=== PATIENT | female | born 1995 | race Caucasian/White ===

== ENCOUNTER 2022-10-03 10:33 | Emergency (ER) | payer SELFPAY ==
[2022-10-03 10:35] VITALS: BP 119/89; PULSE 72; RESP 18; TEMP 36.6; O2SAT 98; BMI 29.2
--- NOTE | 2022-10-03 10:47 | ED.EAR1 ---
HPI - Ear Problem General Chief complaint: Ear Stated complaint: EARACHE Time Seen by Provider: 10/03/22 10:38 Source: patient Mode of arrival: walk-in Limitations: no limitations History of Present Illness HPI Narrative: [age] female presents for right ear pain. She's had it for five days. She went to an urgent care that day and she was put on Cortisporin and Zithromax. She finished Zithromax. It's not getting better. No sore throat or left ear pain. The pain is moderate and continuous and she has difficulty hearing out of that ear. Related Data Home Medications Medication Instructions Recorded Confirmed No Known Home Medications 10/03/22 10/03/22 Previous Rx's Medication Instructions Recorded ciprofloxacin 0.3 %-dexamethasone 4 drp otic (ear) BID 7 days #7.5 mL 10/03/22 0.1 % ear drops,suspension (Ciprodex) sulfamethoxazole 800 1 tab PO BID 7 days #14 tabs 10/03/22 mg-trimethoprim 160 mg tablet (Bactrim DS) Allergies Allergy/AdvReac Type Severity Reaction Status Date / Time amoxicillin Allergy Intermediate Verified 10/03/22 10:39 Review of Systems ROS Narrative A ten point review of systems is negative except as noted above. Exam Narrative Exam Narrative: Nurses note and vital signs reviewed and patient is not hypoxic. General: The patient appears well and in no apparent distress. Patient is resting comfortably on cart. Skin: Warm, dry, no pallor noted. There is no rash noted. Head: Normocephalic, atraumatic Eye: Normal conjunctiva, no drainage Ears, Nose, Mouth, and Throat: oral mucosa is moist. Nares patent. left tympanic membrane and neck show canal are normal in appearance. The right external canal is swollen obscuring the right tympanic membrane and there is drainage as well. Cardiovascular: Regular Rate and Rhythm Respiratory: Patient is in no distress, no accessory muscle use, lungs are clear to auscultation, no wheezing, rales or rhonchi Back: non-tender GI: nontender Musculoskeletal: The patient has no evidence of calf tenderness, no pitting edema, symmetrical pulses noted bilaterally Neurological: A&O, normal speech Psychiatric: Cooperative Constitutional Vital Signs - 24 hr 10/03/22 10:35 Temperature 97.9 F Pulse Rate [Monitor] 72 Respiratory Rate 18 Blood Pressure [Right Arm] 119/89 H Pulse Oximetry 98 Oxygen Delivery Method Room Air Course Vital Signs Vital signs: Vital Signs Temperature 97.9 F 10/03/22 10:35 Pulse Rate 72 10/03/22 10:35 Respiratory Rate 18 10/03/22 10:35 Blood Pressure 119/89 H 10/03/22 10:35 Pulse Oximetry 98 10/03/22 10:35 Oxygen Delivery Method Room Air 10/03/22 10:35 Temperature 97.9 F 10/03/22 10:35 Pulse Rate 72 10/03/22 10:35 Respiratory Rate 18 10/03/22 10:35 Blood Pressure 119/89 H 10/03/22 10:35 Pulse Oximetry 98 10/03/22 10:35 Oxygen Delivery Method Room Air 10/03/22 10:35 Medical Decision Making MDM Narrative Medical decision making narrative: my clinical impressions that she has otitis externa. She will be switched to Ciprodex and Bactrim. The tympanic membrane is not visible so I'm putting her on Bactrim as well. Treatment diagnosis and follow-up were discussed with the patient. Differential Diagnosis Differential Diagnosis: otitis media, otitis externa, foreign body Discharge Plan Discharge Chief Complaint: Ear Clinical Impression: Otitis externa Patient Disposition: Home, Self-Care Time of Disposition Decision: 10:44 Condition: Good Mode of Transportation: Private Vehicle Prescriptions / Home Meds: New ciprofloxacin-dexamethasone [Ciprodex] 0.3-0.1 % drops,suspension 4 drp otic (ear) BID 7 Days Qty: 7.5 0RF sulfamethoxazole-trimethoprim [Bactrim DS] 800-160 mg tablet 1 tab PO BID 7 Days Qty: 14 0RF No Action No Known Home Medications Instructions: Swimmer's Ear (ED) Stand Alone Forms: Portal Instructions Referrals: SID REYES [Primary Care Provider] - 1 week
== END 2022-10-03 11:23 | disposition home or self-care (01) ==
PROVIDERS: Emergency Provider Emergency Medicine; PCP Family Medicine
DX: H60.91 Unspecified otitis externa, right ear (principal)
CPT/HCPCS: 99282

== ENCOUNTER 2024-01-16 15:49 | Emergency (ER) | payer OTHER, SELFPAY ==
[2024-01-16 15:53] VITALS: BP 142/80; PULSE 102; TEMP 36.7; O2SAT 100; BMI 29.2
--- NOTE | 2024-01-16 16:06 | ECG_ITS ---
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
--- NOTE | 2024-01-16 16:08 | ED_ITS ---
<Statement entered by Kenny Sanches MD - 01/16/24 18:48> This documentation has been reviewed and approved. Chart was sent to my inbox for administrative and group management purposes. I was the attending physicians working during the patients hospital course. The patient was seen and managed independently by the MLP. I did not personally see or evaluate this patient, nor was I involved in the patient medical decision making process or plans of care. Pt was dispositioned by the MLP with complete independence and I was not involved in planning, or disposition. I was available for consultation should the MLP request during this patients ED stay. HPI - SOB/Dyspnea General Chief Complaint: Shortness of Breath/Dyspnea Stated Complaint: SOB, 20 WKS PREG FBC SAID TO BE SEEN ER Time Seen by Provider: 01/16/24 15:51 History of Present Illness HPI Narrative: Patient is a 28-year-old female who presents to the emergency department for evaluation of shortness of breath and palpitations that began yesterday. Patient states that she was sitting in class not moving or exerting herself when she felt like her heart was pounding and she felt very winded like she had just run a marathon. She is 20 weeks and was referred to the ER for evaluation by her senior warehouse clerk. She has not had any upper respiratory symptoms, peripheral edema, congestion or wheezing. She has no history of heart or lung problems. Related Data Home Medications ?Medication ?Instructions ?Recorded ?Confirmed ondansetron 8 mg disintegrating 8 mg PO Q8H PRN nausea and vomiting 01/16/24 01/16/24 tablet Previous Rx's ?Medication ?Instructions ?Recorded ciprofloxacin 0.3 %-dexamethasone 4 drp otic (ear) BID 7 days #7.5 mL 10/03/22 0.1 % ear drops,suspension (Ciprodex) sulfamethoxazole 800 1 tab PO BID 7 days #14 tabs 10/03/22 mg-trimethoprim 160 mg tablet (Bactrim DS) albuterol sulfate 90 mcg/actuation 2 inh inhalation Q4H PRN shortness 01/16/24 aerosol inhaler of breath or wheezing #8.5 grams Allergies Allergy/AdvReac Type Severity Reaction Status Date / Time amoxicillin Allergy Intermediate Hives Verified 01/16/24 15:59 PFSH PFSH Social History Little interest or pleasure in doing things: not at all Feeling down, depressed, or hopeless: not at all Exam Constitutional Vital Signs, click to edit/add: Last Vital Signs Temp 98.1 F 01/16/24 15:53 Pulse 102 H 01/16/24 15:53 Resp 18 01/16/24 15:53 BP 142/80 H 01/16/24 15:53 Pulse Ox 100 01/16/24 15:53 O2 Del Method Room Air 01/16/24 15:53 Course Vital Signs Vital signs: Vital Signs Temperature 98.1 F 01/16/24 15:53 Pulse Rate 102 H 01/16/24 15:53 Respiratory Rate 18 01/16/24 15:53 Blood Pressure 142/80 H 01/16/24 15:53 Pulse Oximetry 100 01/16/24 15:53 Oxygen Delivery Method Room Air 01/16/24 15:53 Temperature 98.1 F 01/16/24 15:53 Pulse Rate 102 H 01/16/24 15:53 Respiratory Rate 18 01/16/24 15:53 Blood Pressure 142/80 H 01/16/24 15:53 Pulse Oximetry 100 01/16/24 15:53 Oxygen Delivery Method Room Air 01/16/24 15:53 MDM - SOB/Dyspnea MDM Narrative Medical decision making narrative: Laboratory studies reviewed and noted, patient noted to have a normal troponin, unremarkable electrolytes. She was given IV fluids in the ER. I did discuss with her that given her lack of other symptoms in addition to moderate shortness of breath and palpitations, she should be ruled out for PE. Patient is in agreement with treatment plan to have CT angio of the chest, she understands the risks of radiation in her . She is agreeable to the study. CT angio of the chest shows no evidence of PE or pneumonia. Patient is discharged home to follow-up with PCP. She is given an albuterol inhaler in case she develops any wheezing. She should follow-up with her LIVESTOCK EXHIBITOR and primary care provider. Return to the ER if symptoms change or worsen SUPERVISED APC VISIT, PHYSICIAN ATTESTATION: Based on the medical record the care appears appropriate. ? Medical Records Attestation: I reviewed the patient's medical records. Lab Data Attestation: I reviewed the patient's lab results. Labs: Lab Results 01/16/24 01/16/24 Range/Units 16:04 16:58 WBC 9.4 (4.0-11.0) 10^3/uL RBC 4.35 (4.20-5.40) 10^6/uL Hgb 12.4 (12.0-16.0) g/dL Hct 36.7 (36.0-48.0) % MCV 84.4 (81.0-99.0) fL MCH 28.5 (26.7-34.0) pg MCHC 33.8 (29.9-35.2) g/dL RDW 12.7 (11.0-15.0) % Plt Count 260 (150-450) 10^3/uL MPV 10.8 (9.5-13.5) fL Neut % (Auto) 75.4 H (43.0-75.0) % Lymph % (Auto) 16.2 L (20.5-60.0) % [place] % (Auto) 4.7 (1.7-12.0) % Eos % (Auto) 3.0 (0.9-7.0) % Baso % (Auto) 0.3 (0.2-2.0) % Neut # (Auto) 7.1 H (1.4-6.5) 10^3/uL Lymph # (Auto) 1.5 (1.2-3.8) 10^3/uL [place] # (Auto) 0.4 (0.3-0.8) 10^3/uL Eos # (Auto) 0.3 (0.0-0.7) 10^3/uL Baso # (Auto) 0.0 (0.0-0.1) 10^3/uL Abs Immat Gran (auto) 0.04 H (0.00-0.03) 10^3/uL Imm/Tot Granulo (auto) 0.4 (0.0-0.5) % PT 9.6 (9.0-11.6) sec INR <0.93 APTT 26.2 (22.3-36.2) sec Sodium 135 L (136-145) mmol/L Potassium 3.4 L (3.5-5.1) mmol/L Chloride 103 (98-107) mmol/L Carbon Dioxide 22.2 (21.0-32.0) mmol/L Anion Gap 13.2 BUN 10.0 (7.0-18.0) mg/dL Creatinine 0.52 L (0.55-1.02) mg/dL Est GFR ( Amer) >60 (>=60 mL/min/1.73m^2) Est GFR (Non-Af Amer) >60 (>=60 mL/min/1.73m^2) BUN/Creatinine Ratio 19.2 Glucose 106 (74-106) mg/dL Calcium 8.7 (8.5-10.1) mg/dL Total Bilirubin 0.2 (0.2-1.0) mg/dL AST 14 L (15-37) U/L ALT 19 (14-59) U/L Alkaline Phosphatase 47 (46-116) U/L Troponin I High Sens <4.0 L (4.0-51.3) pg/mL NT-Pro-B Natriuret Pep 55.0 (<=450.0) pg/mL Total Protein 6.6 (6.4-8.2) g/dL Albumin 2.7 L (3.4-5.0) g/dL Globulin 3.9 g/dL Albumin/Globulin Ratio 0.7 TSH 2.007 (0.358-3.740) uIU/mL Urine Color Lt. yellow (YELLOW) Urine Clarity Clear (CLEAR) Urine pH 7.0 (5.0-9.0) Ur Specific [place] <=1.005 A (1.005-1.025) Urine Protein Negative (NEG/TRACE) mg/dL Urine Glucose (UA) Negative (NEGATIVE) mg/dL Urine Ketones Negative (NEGATIVE) mg/dL Urine Occult Blood Negative (NEGATIVE) Urine Nitrite Negative (NEGATIVE) Urine Bilirubin Negative (NEGATIVE) Urine Urobilinogen 0.2 (0.2-1.0) EU/dL Ur Leukocyte Esterase Negative (NEGATIVE) Imaging Data CT scan - chest: Attestation: I have reviewed the pertinent imaging results. Radiologist's impression: ITS Impressions Chest CTA 01/16/24 16:33 IMPRESSION:No evidence of pulmonary embolus or acute intrathoracic abnormality. Electronically authenticated by: LAURA HOLMAN Date: 01/16/2024 17:51 ECG Data Attestation: I personally reviewed and interpreted this ECG as follows: (Normal sinus rhythm at a rate of 91, no acute ST elevation or ectopy. EKG reviewed by attending physician) Discharge Plan Discharge Chief Complaint: Shortness of Breath/Dyspnea Clinical Impression: Shortness of breath Patient Disposition: Home, Self-Care Time of Disposition Decision: 17:57 Condition: Good Prescriptions / Home Meds: New albuterol sulfate 90 mcg/actuation HFA aerosol inhaler 2 inh inhalation Q4H PRN (Reason: shortness of breath or wheezing) Qty: 8.5 0RF No Action ciprofloxacin-dexamethasone [Ciprodex] 0.3-0.1 % drops,suspension 4 drp otic (ear) BID 7 Days Qty: 7.5 0RF sulfamethoxazole-trimethoprim [Bactrim DS] 800-160 mg tablet 1 tab PO BID 7 Days Qty: 14 0RF ondansetron 8 mg tablet,disintegrating 8 mg PO Q8H PRN (Reason: nausea and vomiting) Print Language: Dutch Instructions: Shortness of Breath (ED) Referrals: SID REYES [Primary Care Provider] - 1 week TOMER CARTER APRN, CNM [Physician] - 1 week
[2024-01-16] MEDS: 0.9 % SODIUM CHLORIDE 1,000 ML 1000 ML IV (16:19)
[2024-01-16 16:20] LABS: Basophils Percent Auto 0.3 % (0.2-2.0); Eosinophils Absolute Auto 0.3 10^3/uL (0.0-0.7); Hematocrit 36.7 % (36.0-48.0); Hemoglobin 12.4 g/dL (12.0-16.0); Immature Granulocytes Abs Auto 0.04 10^3/uL (0.00-0.03); Immature Granulocytes Pct Auto 0.4 % (0.0-0.5); Lymphocytes Absolute Auto 1.5 10^3/uL (1.2-3.8); Lymphocytes Percent Auto 16.2 % (20.5-60.0); Mean Corpuscular HGB Conc 33.8 g/dL (29.9-35.2); Mean Corpuscular Hemoglobin 28.5 pg (26.7-34.0); Mean Corpuscular Volume 84.4 fL (81.0-99.0); Mean Platelet Volume 10.8 fL (9.5-13.5); Monocytes Absolute Auto 0.4 10^3/uL (0.3-0.8); Monocytes Percent Auto 4.7 % (1.7-12.0); Neutrophils Absolute Auto 7.1 10^3/uL (1.4-6.5); Neutrophils Percent Auto 75.4 % (43.0-75.0); Platelet Count 260 10^3/uL (150-450); Red Blood Count 4.35 10^6/uL (4.20-5.40); Red Cell Distribution Width 12.7 % (11.0-15.0); White Blood Count 9.4 10^3/uL (4.0-11.0)
--- NOTE | 2024-01-16 16:33 | CT_ITS ---
[address] [address] Patient Name: SHEN SALES MRN: [id number] date: 1995 Sex: F Assigned Patient Location: ER Current Patient Location: ER Accession/Order Number: [id number] Exam Date: 01/16/2024 16:25 Report Date: 01/16/2024 17:51 At the request of: DEBRA CORRAL Procedure: CT angio chest EXAM: CT angio chest HISTORY: PE, short of breath 20 weeks preg COMPARISON: None. TECHNIQUE: CT chest with intravenous contrast was performed with timing for the evaluation for pulmonary arteries. Multiplanar reformats were performed. MIP (maximum intensity projection) images or 3D post processing was performed. Dose reduction techniques were achieved by using automated exposure control and/or adjustment of mA and/or kV according to patient size and/or use of iterative reconstruction technique. FINDINGS: Lungs: No consolidation, pneumothorax, mass, or effusion. Airways: Normal. Mediastinum: No adenopathy. Aorta: No aneurysm. Cardiac: Normal size. No pericardial effusion. Pulmonary vasculature: Diagnostic opacification of pulmonary arteries without evidence of pulmonary embolus. Normal morphology. Bones: No acute bony abnormality. Axilla: No adenopathy. Thyroid gland: No abnormality demonstrated on provided imaging. Soft tissues: Unremarkable. Upper abdomen: Unremarkable. Additional findings: None. CT/CT angio chest IMPRESSION:No evidence of pulmonary embolus or acute intrathoracic abnormality. Electronically authenticated by: LAURA HOLMAN Date: 01/16/2024 17:51
[2024-01-16 16:36] LABS: Partial Thromboplastin Time 26.2 sec (22.3-36.2); Prothrombin Time 9.6 sec (9.0-11.6)
[2024-01-16 16:38] LABS: INR <0.93
[2024-01-16 16:45] LABS: Alanine Aminotransferase 19 U/L (14-59); Albumin Globulin Ratio 0.7; Albumin Level 2.7 g/dL (3.4-5.0); Alkaline Phosphatase 47 U/L (46-116); Anion Gap 13.2; Aspartate Amino Transferase 14 U/L (15-37); BUN Creatinine Ratio 19.2; Bilirubin Total 0.2 mg/dL (0.2-1.0); Calcium 8.7 mg/dL (8.5-10.1); Carbon Dioxide 22.2 mmol/L (21.0-32.0); Chloride 103 mmol/L (98-107); Estimated GFR (African America >60 (>=60 mL/min/1.73m^2); Estimated GFR (Non-African Ame >60 (>=60 mL/min/1.73m^2); Globulin 3.9 g/dL; Glucose 106 mg/dL (74-106); Potassium 3.4 mmol/L (3.5-5.1); Sodium 135 mmol/L (136-145); Thyroid Stimulating Hormone 2.007 uIU/mL (0.358-3.740); Total Protein 6.6 g/dL (6.4-8.2); Troponin I High Sensitivity <4.0 pg/mL (4.0-51.3)
[2024-01-16 17:25] LABS: Bilirubin Urine NEGATIVE (NEGATIVE); Blood Urine NEGATIVE (NEGATIVE); Clarity Urine CLEAR (CLEAR); Color Urine LT. YELLOW (YELLOW); Glucose Urine UA NEGATIVE (NEGATIVE); Ketones Urine NEGATIVE (NEGATIVE); Leukocyte Esterase Urine NEGATIVE (NEGATIVE); Nitrite Urine NEGATIVE (NEGATIVE); Protein Urine NEGATIVE (NEG/TRACE); Specific Gravity Urine <=1.005 (1.005-1.025); Urobilinogen Urine 0.2 EU/dL (0.2-1.0)
[2024-01-16 17:35] LABS: Urine Microscopic Indicated NO
[2024-01-16 17:57] VITALS: BP 118/73; PULSE 87; O2SAT 98
== END 2024-01-16 18:02 | disposition home or self-care (01) ==
PROVIDERS: Physician Assistant; Emergency Provider Emergency Medicine; PCP Family Medicine
DX: O26.892 Other specified pregnancy related conditions, second trimester (principal); R06.02 Shortness of breath; Z3A.20 20 weeks gestation of pregnancy
CPT/HCPCS: 36415; 71275; 80053; 81003; 83880; 84443; 84484; 85025; 85610; 85730; 93005; 99285; Q9967

== ENCOUNTER 2024-04-12 08:57 | Outpatient (OUT) | payer OTHER, SELFPAY ==
--- NOTE | 2024-04-12 09:01 | US_ITS ---
[address] [address] Patient Name: SHEN SALES MRN: [id number] date: 1995 Sex: F Assigned Patient Location: Current Patient Location: Accession/Order Number: [id number] Exam Date: 04/12/2024 09:02 Report Date: 04/12/2024 09:59 At the request of: TOMER CARTER Procedure: US OB BPP wo non-stress EXAMINATION: US OB BPP wo non-stress HISTORY: Congenital Anomaly COMPARISON: No relevant comparison available. TECHNIQUE: Ultrasound biophysical profile was performed in the radiology department. non-reactive stress testing was performed by nursing staff in the birthing center. FINDINGS: BREATHING MOVEMENTS: 2 GROSS BODY MOVEMENTS: 2 TONE: 2 QUALITATIVE AMNIOTIC FLUID VOLUME: 2 PRESENTATION: CEPHALIC HEART RATE: 133.66 bpm AMNIOTIC FLUID VOLUME: 13.4 cm GESTATIONAL AGE: 33 weeks 0 days US/US OB BPP wo non-stress IMPRESSION: Total biophysical profile score: 8/8 Electronically authenticated by: JONAH MISHRA Date: 04/12/2024 09:59
--- OUTSIDE RECORDS SUMMARY | 2024-04-12 09:03 | XMS_ITS | CCD ---
Author Organization [facility] Care Team Providers Care Screening Nurse Name Role Phone DAVID, LEAH B Unavailable Unavailable LUKE, CRYSTAL J Unavailable Unavailable DAVID, LEAH B Unavailable Unavailable LUKE, CRYSTAL J Unavailable Unavailable SAMIR GUILLERMO Unavailable Unavailable LUKE, CRYSTAL J Unavailable Unavailable RICHARDSON, JOANA Unavailable Unavailable LUKE, CRYSTAL J Unavailable Unavailable RICHARDSON, JOANA Referring Unavailable LUKE, CRYSTAL J Primary Care Unavailable DAVID, LEAH B Referring Unavailable LUKE, CRYSTAL J Primary Care Unavailable AWA, MICHAEL Admitting Unavailable AWA, MICHAEL Attending Unavailable LUKE, CRYSTAL J Primary Care Unavailable RYAN PELAYO Consulting Unavailable AWA, MICHAEL Referring Unavailable LUKE, CRYSTAL J Primary Care Unavailable AWA, MICHAEL Admitting Unavailable AWA, MICHAEL Attending Unavailable AWA, MICHAEL Referring Unavailable LUKE, CRYSTAL J Primary Care Unavailable AWA, MICHAEL Admitting Unavailable AWA, MICHAEL Attending Unavailable AWA, MICHAEL Referring Unavailable LUKE, CRYSTAL J Primary Care Unavailable AWA, MICHAEL Attending Unavailable AWA, MICHAEL Admitting Unavailable AWA, MICHAEL Referring Unavailable LUKE, CRYSTAL J Primary Care Unavailable AWA, MICHAEL Admitting Unavailable AWA, MICHAEL Attending Unavailable AWA, MICHAEL Referring Unavailable LUKE, CRYSTAL J Primary Care Unavailable AWA, MICHAEL Admitting Unavailable AWA, MICHAEL Attending Unavailable AWA, MICHAEL Referring Unavailable LUKE, CRYSTAL J Primary Care Unavailable AWA, MICHAEL Admitting Unavailable AWA, MICHAEL Attending Unavailable AWA, MICHAEL Referring Unavailable LUKE, CRYSTAL J Primary Care Unavailable AWA, MICHAEL Admitting Unavailable AWA, MICHAEL Attending Unavailable AWA, MICHAEL Referring Unavailable LUKE, CRYSTAL J Primary Care Unavailable AWA, MICHAEL Admitting Unavailable AWA, MICHAEL Attending Unavailable AWA, MICHAEL Referring Unavailable LUKE, CRYSTAL J Primary Care Unavailable AWA, MICHAEL Admitting Unavailable AWA, MICHAEL Attending Unavailable AWA, MICHAEL Referring Unavailable LUKE, CRYSTAL J Primary Care Unavailable AWA, MICHAEL Admitting Unavailable AWA, MICHAEL Attending Unavailable AWA, MICHAEL Attending Unavailable AWA, MICHAEL Referring Unavailable LUKE, CRYSTAL J Primary Care Unavailable AWA, MICHAEL Admitting Unavailable AWA, MICHAEL Attending Unavailable AWA, MICHAEL Referring Unavailable LUKE, CRYSTAL J Primary Care Unavailable AWA, MICHAEL Admitting Unavailable AWA, MICHAEL Attending Unavailable AWA, MICHAEL Referring Unavailable LUKE, CRYSTAL J Primary Care Unavailable AWA, MICHAEL Admitting Unavailable LUKE, CRYSTAL J Primary Care Unavailable AWA, MICHAEL Admitting Unavailable AWA, MICHAEL Attending Unavailable TRISTAN JOSE J Referring Unavailabl e LUKE, CRYSTAL J Primary Care Unavailable SIXTO BUSCH Admitting Unavailable SIXTO BUSCH Attending Unavailable LUKE, CRYSTAL J Primary Care Unavailable CARRIE JOSEBERLY J Referring Unavailabl e LUKE, CRYSTAL J Primary Care Unavailable DR SID REYES Primary Care Unavailable MADELINE CORRAL Consulting Unavailable MAUREEN DENNISON Admitting Unavailable MAUREEN DENNISON Attending Unavailable RYLEY FARLEY Consulting Unavailable Daksha Joyner Unavailable Uyen Martel Unavailable UYEN MARTEL Primary Care Physician [phone] Dorian ROMAN Attending Unavailable MARLEE Martel Primary Care Provider MARLEE Martel Attending Provider [phone] Unavailable Primary Care Provider Unavailjeff e Uyen Martel Attending Unavailable Uyen Martel Primary Care Unavailable Uyen Martel Admitting Unavailable No Pcp, No Pcp Primary Care Provider Unavailabl e Tahmina WHALEN-JANITORIAL ASSISTANT, Uyen [facility] TOMER LUCIA Attending Unavailable FLOROTOMER Referring Unavailable FLORO, TOMER Carlos Attending Unavailable FLORO, TOMER Carlos Attending Unavailable FLORO, TOMER Carlos Attending Unavailable FLORO, TOMER Carlos Referring Unavailable FLORO, TOMER Carlos Referring Unavailable FLORO, TOMER Carlos Attending Unavailable FLORO, TOMER Carlos Attending Unavailable FLORO, TOMER Carlos Attending Unavailable FLORO, TOMER Carlos Attending Unavailable Allergies Allergy Classification Reported Allergen(s) Allergy Type Date of Onset Reaction(s) Facility Penicillins (antibiotic) (1 source) Amoxicillin Drug Allergy [address] [facility] Repository (20 sources) Amoxicillin Drug Allergy 3 rash, Hives [facility] (2 sources) Penicillin; Translations: [penicillin] Drug Allergy Eruption of skin (disorder) [facility] [place] (1 source) Amoxicillin Drug Allergy 4 [facility] Repository Medications Current Medications Medication Drug Class(es) Dates Sig (Normalized) Sig (Original) amphetamine aspartate 1.25 mg / amphetamine sulfate 1.25 mg / dextroamphetamine saccharate 1.25 mg / dextroamphetamine sulfate 1.25 mg oral tablet (12 sources) Central Nervous System Stimulant Start: 07-14-2023 End: 09-15-2023 take 1 tablet by mouth twice daily Dextroamphetamin e-Amphetamine (Adderall) 5 mg tablet Active 5 MG PO Twice daily 60 September 15, 2023 Start: 06-16-2023 End: 07-14-2023 take 1 tablet by mouth once daily Dextroamphetamine-Amphetamine (Adderall) 5 mg tablet Discontinued 5 MG PO Daily June 16, 2023 July 14, 2023 10:37am azithromycin 250 mg oral tablet (3 sources) Macrolide Antimicrobial Start: 12-28-2021 Azithromycin 250 MG 2 tablet on the first day, then 1 tablet daily for 4 days Orally Once a day for 5 day(s) Sep, Active cyclobenzaprine hydrochloride 10 mg oral tablet (8 sources) Muscle Relaxant Start: 07-29-2017 take 1 tablet by mouth twice daily as needed for muscle spasms cyclobenzaprine (FLEXERIL) 10 mg tablet Take 1 tablet (10 mg total) by mouth 2 (two) times a day as needed for muscle spasms for up to 20 doses. 20 tablet 07/29/2017 Active hydrocortisone 10 mg/ml / neomycin 3.5 mg/ml / polymyxin b [id number] unt/ml otic suspension (1 source) Aminoglycoside Antibacterial, Polymyxin-class Antibacterial, Corticosteroid Start: 10-01-2022 Helzzwdb-Tsdqwhplf-J C [id number] 3 drops Otic Three times a day for 7 Sep, Active ibuprofen 600 mg oral tablet (8 sources) Nonsteroidal Anti-inflammatory Drug Start: 07-29-2017 take 1 tablet by mouth every six hours as needed for pain ibuprofen (ADVIL,MOTRIN) 600 mg tablet Take 1 tablet (600 mg total) by mouth every 6 (six) hours as needed for pain for up to 30 doses. 30 tablet 07/29/2017 Active ondansetron 8 mg disintegrating oral tablet (20 sources) Serotonin-3 Receptor Antagonist Start: 12-14-2023 take 1 tablet by mouth every eight hours for nausea ondansetron ODT (Zofran-ODT) 8 MG disintegrating tablet Indications: Nausea/vomiting in Take 1 tablet (8 mg) by mouth every 8 (eight) hours if needed for nausea or vomiting 20 tablet 12/14/2023 Active take 1 tablet by zafar th every eight hours as needed for nausea and vomiting ondansetron (ZOFRAN) 4 mg tablet Take 1 tablet (4 mg total) by mouth every 8 (eight) hours as needed for nausea or vomiting. Active MV & Min w/FA-DHA ( Adult Gummy/DHA/FA) 0.4-25 MG chewable tablet (19 sources) MV & Mi n w/FA-DHA ( Adult Gummy/DHA/FA) 0.4-25 MG chewable tablet Chew Active [id number] acid ( 19) 29 mg iron- 1 mg tablet,chewable (8 sources) [id number] acid ( 19) 29 mg iron- 1 mg tablet,chewable Chew 1 tablet and swallow in the morning. Active sulfamethoxazole 800 mg / trimethoprim 160 mg oral tablet (1 source) Dihydrofolate Reductase Inhibitor Antibacterial, Sulfonamide Antimicrobial Start: 024 take 1 tablet by mouth twice daily Sulfamethoxazole-Tri methoprim (Bactrim Ds) 800-160 mg tablet Active 1 TAB PO Twice daily 10 September 15, 2023 12:00am Completed/Discontinued Medications Medication Drug Class(es) Dates Sig (Normalized) Sig (Original) atomoxetine 40 mg oral capsule (7 sources) Norepinephrine Reuptake Inhibitor Start: 05-25-2023 End: 06-16-2023 take 40 mg by mouth once daily Atomoxetine Discontinued 40 MG PO Daily May 25, 2023 1:00am June 16, 2023 11:38am Start: 04-20-20[address] [facility] every twenty-four hours Atomoxetine HCl 25 MG 1 capsule Orally Once a day for 30 days Apr, Active take [address] [facility] every twenty-four hours Atomoxetine HCl 40 MG 1 capsule Orally Once a day for 30 days Active Dexamethasone (4 sources) Corticosteroid Start: 12-28-2021 DEXAMETHASONE Dec, 10 mg Problems Active Problems Problem Classification Problem Date Documented Da te Episodic/Chronic Abdominal pain (4 sources) Unspecified abdominal pain; Translations: [UNSPECIFIED ABDOMINAL PAIN] Onset: 11-13-2020 Episodic Attention-deficit, conduct, and disruptive behavior disorders (2 sources) Attention deficit hyperactivity disorder, predominantly inattentive type; Translations: [Attention-deficit hyperactivity disorder, predominantly inattentive type] Chronic Attention-deficit, conduct, and disruptive behavior disorders (2 sources) Attention-deficit hyperactivity disorder, predominantly inattentive type Chronic Attention-deficit, conduct, and disruptive behavior disorders (1 source) Attention deficit hyperactivity disorder 05-11-2023 Chronic Attention-deficit, conduct, and disruptive behavior disorders (4 sources) Attention deficit hyperactivity disorder, predominantly hyperactive impulsive type; Translations: [Attention-deficit hyperactivity disorder, predominantly hyperactive type] 05-25-2023 Chronic Attention-deficit, conduct, and disruptive behavior disorders (9 sources) Attention-deficit hyperactivity disorder, predominantly hyperactive type; Translations: [Attention deficit disorder with hyperactivity] 06-16-2023 Chronic Diabetes or abnormal glucose tolerance complicating ; childbirth; or the puerperium (1 source) Abnormal glucose complicating ; Translations: [Abnormal glucose complicating ] Onset: 03-23-2018 Episodic Gastrointestinal hemorrhage (4 sources) Hematochezia; Translations: [Melena] Episodic Hemorrhoids (2 sources) Unspecified hemorrhoids; Translations: [Residual hemorrhoidal skin tags] Onset: 06-01-2023 Episodic Nervous system congenital anomalies (5 sources) Elliott cisterna magna; 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, unspecified] Onset: 02-23-2024 02-23-2024 Chronic Other complications of (1 source) Supervision of high risk , unspecified, second trimester; Translations: [Supervision of high risk , unspecified, second trimester] Onset: 03-21-2018 Episodic Other complications of (2 sources) Supervision of high risk , unspecified, unspecified trimester; Translations: [Supervision of high risk , unspecified, unspecified trimester] Onset: 03-30-2018 Episodic Other complications of (2 sources) Other specified related conditions, third trimester; Translations: [Other specified related conditions, third trimester] Onset: 03-30-2018 Episodic Other complications of (4 sources) Finding related to ; Translations: [ related conditions, unspecified, second trimester] 02-02-2024 Episodic Other complications of (2 sources) US obstetric scan abnormal; Translations: [Abnormal ultrasonic finding on screening of mother] 02-23-2024 Episodic Other complications of (2 sources) ultrasound scan abnormal; Translations: [Abnormal ultrasonic finding on screening of mother] 02-28-2024 Episodic Other congenital anomalies (4 sources) Congenital malformation; Translations: [Congenital malformation, unspecified] 03-29-2024 Chronic Other ear and sense organ disorders (1 source) Unspecified acute noninfective otitis externa, right ear Episodic Other female genital disorders (2 sources) Other specified noninflammatory disorders of vagina; Translations: [Other specified noninflammatory disorders of vagina] Onset: 03-30-2018 Episodic Other gastrointestinal disorders (1 source) Irritable bowel syndrome with diarrhea 05-11-2023 Chronic Other gastrointestinal disorders (4 sources) Irritable bowel syndrome; Translations: [Irritable bowel syndrome without diarrhea] 05-25-2023 Chronic Other nutritional; endocrine; and metabolic disorders (1 source) Overweight 05-11-2023 Episodic Other nutritional; endocrine; and metabolic disorders (1 source) Overweight in adulthood with body mass index of 25 or more but less than 30 06-01-2023 Episodic Other and delivery including normal (13 sources) Encounter for supervision of normal , unspecified, first trimester; Translations: [Normal ] Onset: 10-31-2017 01-12-2024 Episodic Other screening for suspected conditions (not mental disorders or infectious disease) (4 sources) Patient encounter status; Translations: [Encounter for screening for diabetes mellitus] 03-01-2024 Episodic Other skin disorders (1 source) Skin tag 06-01-2023 Episodic Otitis media and related conditions (1 source) Otitis media, unspecified, right ear Episodic Residual codes; unclassified (1 source) 18 weeks gestation of ; Translations: [18 weeks gestation of ] Onset: 01-25-2018 Residual codes; unclassified (2 sources) 13 weeks gestation of ; Translations: [13 weeks gestation of ] Onset: 11-28-2017 Residual codes; unclassified (1 source) 36 weeks gestation of ; Translations: [36 weeks gestation of ] Onset: 05-03-2018 Unclassified (2 sources) 9 weeks gestation of ; Translations: [9 weeks gestation of ] Onset: 10-27-2017 Unclassified (1 source) Encounter for other specified screening; Translations: [Encounter for other specified screening] Onset: 10-27-2017 Urinary tract infections (9 sources) Tubulo-interstitial nephritis, not specified as acute or chronic; Translations: [Acute pyelonephritis] Onset: 02-07-2018 09-15-2023 Episodic Past or Other Problems Problem Classification Problem Date Documented Date Episodic/Chronic Bacterial infection; unspecified site (1 source) Unspecified Escherichia coli [E. coli] as the cause of diseases classified elsewhere; Translations: [Unspecified Escherichia coli (E. coli) as the cause of diseases classified elsewhere] Onset: 02-07-2018 Episodic Genitourinary symptoms and ill-defined conditions (3 sources) Hematuria, unspecified; Translations: [Personal history of urinary (tract) infections] Onset: 11-28-2017 Episodic Immunizations and screening for infectious disease (1 source) Contact with and (suspected) exposure to other viral communicable diseases Onset: 12-28-2021 Resolved: 12-28-2021 Episodic Other complications of (1 source) Infections of kidney in , second trimester; Translations: [Infections of kidney in , second trimester] Onset: 02-11-2018 Episodic Other upper respiratory infections (1 source) Streptococcal pharyngitis Onset: 12-28-2021 Resolved: 12-28-2021 Episodic Results Test Name Value Interpretation Reference Range Facility MR Pelvis WO contrastOrdered By: Lynda Genao on 03-19-2024 Radiology Study observation (narrative) [facility] MR Pelvis WO contrastOrdered By: Lynda Genao on 03-16-2024 [facility] Ultrasound - OfficeOrdered B y: Lynda Genao on 02-07-2024 Radiology Study observation (narrative) [facility] US OB LIMITED 1+ FETUSESon 1 US OB LIMITED 1+ FETUSES Addendum Addendum to OB Ultrasound: Comparison of the January 12, 2024 exam shows persistent enlargement of the cisterna magna at 1.04 cm (versus 0.98 cm previously). This is borderline for megacisterna magna and follow-up ultrasound surveillance in four weeks and/or detailed neurosonography should be considered. Dictated and transcribed 02/06/2024/tm This report has been electronically signed and approved by the interpreting radiologist. Electronically Signed Ted Juarez D.O. 2024-02-06 11:55:22 TITLE OF EXAM: OB Ultrasound: REASON FOR EXAM: Abnormal anatomy scan. TECHNIQUE: Grayscale and color Doppler imaging is performed. Measurements: heart rate: 156 bpm THOMAS: 149 cm (9.8-21.8) BPD: 5.4 cm HC: 21.0 cm GA for sonogram: 22.8 wk (21.2-24.4) Cervix length: 4.3 cm AGUSTIN: 05/31/2024 CLINICAL SUMMARY: A single intrauterine is noted in cephalic presentation. heart is observed with a heart rate of 156 BPM. Placenta is located posteriorly. Placenta is Grade I/III Amniotic fluid volume is normal. Limited study. Full anatomical survey not performed. 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 Dictated and transcribed 02/06/24/dpd This report has been electronically signed and approved by the interpreting radiologist. Electronically Signed Ted Juarez D.O. 2024-02-06 09:59:34 Normal Not Available Ultrasound - OfficeOrdered B y: Lynda Genao on 02-02-2024 [facility] US OB 14+ WEEKS ANATOMY SCAN on 01-12-2024 US OB 14+ WEEKS ANATOMY SCAN TITLE OF EXAM: OB Ultrasound: REASON FOR EXAM: survey. TECHNIQUE: Grayscale and color Doppler imaging is performed. Measurements: heart rate: 160 bpm THOMAS: 14.5 cm (9.3-21.2) BPD: 4.6 cm HC: 17.3 cm AC: 15.0 cm FL: 3.3 cm GA for sonogram: 19.9 wk (18.5-21.3) Cervix length: 3.8 cm AGUSTIN: 05/31/2024 Weight Estimate: Weight: 340 gm / 0 lbs, 11 oz (290-390 gm) [place] Normal: 331 gm (275-387 gm) [place] Wt%: 59% for 20.0 wks CLINICAL SUMMARY: A single intrauterine is noted in cephalic presentation. Four chamber heart is observed with a heart rate of 160 BPM. size is normal. motion and organs seen: tone is noted. body and limb movements are observed. spine, limbs, bladder, kidneys, and stomach are observed and within normal limits. Umbilical cord insertion and three vessel cord are identified and within normal limits. bowel, lungs, genitalia, four limbs are visualized and normal in appearance. Placenta is located posteriorly. Placenta is Grade I/II Amniotic fluid volume is normal. Tech note: Cisterna Mag appears enlarged 0.98 cm. RECOMMEND: Repeat US in 2-4 weeks to re-assess posterior fossa. *This report is generated using voice recognition reporting ([email or web address]). On occasion [employer] erroneously drops words from the report or replaces the spoken word with similar sounding words. Please call with any questions/concerns regarding this report.* Dictated and transcribed 01/12/24/dpd This report has been electronically signed and approved by the interpreting radiologist. Electronically Signed Kristian Hatfield M.D. 2024-01-12 17:03:01 Normal Not Available Chlamydia/GC by PCR Michael Sw abon 11-17-2023 Gonorrhoeae Dna(Pcr) Not detected [facility] Chlamydia/GC by PCR ThinPrep fluidon 11-17-2023 Chlamydia Dna(Pcr) Not detected [facility] Drug Screen, Urineon 024 Barbiturate Screen Urine Negative [facility] Opiate Quantitative Urine Negative [facility] No Panel Informationon 11-16 [facility] CBC without diffOrdered By: Uyen Dubois on 10-20-2023 Hematocrit (Bld) [Volume fraction] 40 % [facility] Hemoglobin (Bld) [Mass/Vol] 13.3 g/dL [facility] Platelets (Bld) [#/Vol] 271 10*3/uL [facility] Rbc Mcv (Fl) By Automated Count 85.5 [facility] HIV 1&2 AB/AG Screen (P24 AG )on 10-20-2023 HIV 1&2 AB/AG Non-Reactive [facility] Hemoglobin A1con 10-20-2023 HbA1c (Bld) [Mass fraction] 4.9 % 4.0 - 6.0 % [facility] Hepatitis B surface antigeno n 10-20-2023 Hepatitis B Surface Antigen Non-Reactive [facility] No Panel InformationOrdered By: Lynda Genao on 10-20-2023 [facility] Rubella IGG immune statuson 10-20-2023 Rubella immune IgG 1.23IU/mL [facility] Syphilis Total(Unknown Syphi lis Status)Ordered By: Lynda Genao on 10-20-2023 Syphilis Non-Reactive [facility] Type and screenon 10-20-2023 Abo/Rh(D) Positive [facility] US OB < 14 WEEKS EARLYon US OB < 14 WEEKS EARLY This is a summary report. The complete report is available in the patient's medical record. If you cannot access the medical record, please contact the sending organization for a detailed fax or copy. ultrasoundUS OB < 14 WEEKS EARLY: 10/20/2023 9:45 AM CLINICAL HISTORY: . COMPARISON: Transabdominal ultrasound of the gravid uterus was performed. FINDINGS: The uterus measures 10.5 x 7.0 x 6.1 cm. A single intrauterine is seen with heart motion of 165 bpm.. The gestational age based on this ultrasound is 8 weeks 4 days. The gestational age based by LMP is 8 weeks 0 days. The expected due date is May 27, 2024. The right ovary measures 2.4 x 2.0 x 2.6 cm. The left ovary measures 2.0 x 2.0 x 2.2 cm. Multiple follicles are seen in the left ovary. IMPRESSION: SINGLE LIVE INTRAUTERINE CORRESPONDING TO APPROXIMATELY 8 WEEKS 4 DAYS WITH AN EXPECTED DUE DATE OF MAY 27, 2024. NO GROSS ABNORMALITIES IDENTIFIED, WITHIN THE LIMITS OF THE STUDY. ELECTRONICALLY SIGNED BY: Josephine Carballo, DO Normal Not Available Urine Cultureon 09-15-2023 Bacteria identified Cx Nom (U) ORGANISM: Klebsiella pneumoniae (O:KLEPNE) [place] Count >100,000 Aerobic NILAM Charge ([id number]) ---- SUSCEPTIBILITY --- ORGANISM: O:KLEPNE ANTIBIOTIC INTERPRETATION NILAM Amikacin S <16 Amoxacillin/K Clavulanate S <8 Ampicillin/Sulbactam S <4 Aztreonam S <4 Cefazolin S <2 Cefepime S <2 Ceftazidime S <1 Ceftazidime/Avibactam S <4 Ceftolozane/Tazobacta m S <2 Ceftriaxone S <1 Cefuroxime S <4 Ciprofloxacin S <0.25 Ertapenem S <0.5 Gentamicin S <2 Levofloxacin S <0.5 Meropenem S <1 Meropenem/Vaborbactam S <2 Nitrofurantoin I 64 Piperacillin/Tazobact am S <8 Tetracycline S <4 Tigecycline S <2 Tobramycin S <2 Trimethoprim/Sulfamet hoxazole S <0.5 S = SUSCEPTIBLE I = INTERMEDIATE R = RESISTANT BLANK = DATA NOT AVAILABLE, OR DRUG NOT ADVISABLE OR TESTED R* = RESISTANCE DUE TO EXTENDED SPECTRUM BETA-LACTAMASES ESBL = EXTENDED SPECTRUM BETA-LACTAMASE TFG = THYMIDINE-DEPENDENT STRAIN LAKISHA = BETA-LACTAMASE POSITIVE IB = INDUCIBLE BETA-LACTAMASE. APPEARS IN PLACE OF 'S' WITH SPECIES KNOWN TO POSSESS INDUCIBLE BETA-LACTAMASES. POTENTIALLY THEY MAY BECOME RESISTANT TO ALL B-LACTAM DRUGS. PERFORMED BY: [facility] [address] [place] [address] PATHOLOGIST SCIENTIFIC SYSTEMS ANALYST SINGH WILLOUGHBY M.D. Normal [facility] Comment on above: Performed By: #### C UU #### [place] [id number] [facility] Facesheeton 06-02-2023 Facesheet [id number]# 1.00TIFF [facility] Ambulatory Visit Summaryon 0 06-01-2023 Ambulatory Visit Summary SHEN GRIGGS :1995 Visit Date:06/01/2023 Ambulatory Visit Instructions Your Care Team Attending Physician - TANNER ANDRADE, Dorian Brannon Primary Care Physician - TAHMINA ABEBE, UYEN Denny This Is Your Medications List Contact prescribing physician if questions or concerns atomoxetine (atomoxetine 25 mg Cap) Procedures Performed Colonoscopy, EGD - esophagogastroduodeno scopy. Discharge Vitals Heart Rate (Peripheral) 76 Respiratory Rate 16 Blood Pressure 102/64 Height 162.5 cm Height 64 in Weight 75.9 kg Weight 166.98 lb BMI 28.74 Medications What How Much When Instructions Unchanged atomoxetine (atomoxetine 25 mg Cap) 1 Capsules By Mouth Once a day (in the morning) 1 Unknown, Oral, 0 Refill(s) Contact prescribing physician if questions or concerns Medications and Immunizations Administered Not Given influenza virus vaccine, inactivated, Patient Refuses Allergies penicillin (Rash) Problems Ongoing - Any problem that you are currently receiving treatment for. ADHD BMI 28.0-28.9,adult Irritable bowel syndrome with diarrhea Overweight Patient Survey You may receive a survey via text or e-mail asking about your office visit. Please share your experience with us by completing your survey. We appreciate your feedback and thank you for choosing us for your care. Normal [facility] Physician Referralon 024 Physician Referral [phone] 1 [id number] .00TIFF [facility] COVID Quick Testingon 2021 Result Negative [employer] [facility] Other Quick Strepon 12-28-2021 S. pyogenes Org specific cx Ql (Throat) Positive [employer] [facility] Other Quick Strep [employer] [facility] Other CULTURE URINEon 11-16-2020 CULTURE URINE Isolate 1 Escherichia coli >100,000 cfu/mL of ORGANISM 1 Escherichia coli ANTIBIOTIC M.I.C RX STATUS Ampicillin <=2 S F Ampicillin/Sulbactam <=2 S F Piperacillin/Tazobact am <=4 S F Cefazolin <=4 S F Ceftazidime <=1 S F Ceftriaxone <=1 S F Ertapenem <=0.5 S F Imipenem <=0.25 S F Amikacin <=2 S F Gentamicin <=1 S F Tobramycin <=1 S F Ciprofloxacin <=0.25 S F Levofloxacin <=0.12 S F Nitrofurantoin <=16 S F Trimethoprim/Sulfamet hoxazole <=[address] S F [address] [facility] Comment on above: Performed By: #### U RCX #### [facility] [address] [place] [address] Tho Vanessa CBC AUTO DIFFon 11-13-2020 BASO # 0.0 103/ul Normal 0.0-0.1 [facility] Comment on above: Performed By: #### C BC #### [facility] [address] [place] [address] Tho Vanessa Basophils/100 WBC (Bld) 0.3 % Normal 0.2-2.0 [facility] Comment on above: Performed By: #### C BC #### [facility] [address] [place] [address] Tho Vanessa EO # 0.1 103/ul Normal 0.0-0.[address] [facility] Comment on above: Performed By: #### C BC #### [facility] [address] [place] [address] Tho Vanessa Eosinophils/100 WBC (Bld) 0.6 % Critically low 0.9-7.[address] [facility] Comment on above: Performed By: #### C BC #### [facility] [address] [place] [address] Tho Vanessa Erythrocyte distribution width (RBC) [Ratio] 14.6 % Normal 11.0-15.0 [facility] Comment on above: Performed By: #### C BC #### [facility] [address] [address] Tho Vanessa Hematocrit (Bld) [Volume fraction] 39.8 % Normal 36.0-48.0 [facility] Comment on above: Performed By: #### C BC #### [facility] [address] [place] [address] Tho Vanessa Hemoglobin (Bld) [Mass/Vol] 12.6 g/dL Normal 12.0-16.0 [facility] Comment on above: Performed By: #### C BC #### [facility] [address] [place] [address] Tho Vanessa IG # 0.03 10e3/ul Normal 0.00-0.03 [facility] Comment on above: Performed By: #### C BC #### [facility] [address] [place] [address] Tho Vanessa IG % 0.3 % Normal 0.0-0.5 [facility] Comment on above: Performed By: #### C BC #### [facility] [address] [place] [address] Tho Vanessa LYMPH # 0.9 103/ul Critically low 1.2-3.8 [facility] Comment on above: Performed By: #### C BC #### [facility] [address] [place] [address] Tho Vanessa Lymphocytes/100 WBC (Bld) 8.5 % Critically low 20.5-60.0 [facility] Comment on above: Performed By: #### C BC #### [facility] [address] [place] [address] Tho Vanessa MANUAL DIFF REQ NO Normal [facility] Comment on above: Performed By: #### C BC #### [facility] [address] [place], [place] [phone] Tho Vanessa MCH (RBC) [Entitic mass] 25.0 pg Critically low 26.7-34.0 [facility] Comment on above: Performed By: #### C BC #### [facility] [address] [place] [address] Tho Mendez MCHC (RBC) [Mass/Vol] 31.7 g/dL Normal 29.9-35.[address] [facility] Comment on above: Performed By: #### C BC #### [facility] [address] [id number] Tho Mendez MCV (RBC) [Entitic vol] 79.0 fL Critically low 81.0-99.[address] [facility] Comment on above: Performed By: #### C BC #### [facility] [address] [place], [place] [id number] Tho Mendez MONO # 0.7 103/ul Normal 0.3-0.[address] [facility] Comment on above: Performed By: #### C BC #### [facility] [address] [place], [place] [id number] Tho Mendez Monocytes/100 WBC (Bld) 6.3 % Normal 1.7-12.[address] [facility] Comment on above: Performed By: #### C BC #### [facility] [address] [place], [place] [id number] Tho Hodgeen NEUT # 8.8 103/ul Critically high 1.4-6.5 [facility] Comment on above: Performed By: #### C BC #### [facility] [address] [place], [place] [phone] Tho Mendez Neutrophils/100 WBC (Bld) 84.0 % Critically high 43.0-75.[address] [facility] Comment on above: Performed By: #### C BC #### [facility] [address] [place], [place] [phone] Tho Mendez Platelet mean volume (Bld) [Entitic vol] 10.2 fL Normal 9.5-13.[address] [facility] Comment on above: Performed By: #### C BC #### [facility] [address] [place], [place] [id number] Tho Vanessa PLT 321 103/ul Normal 150-[address] [facility] Comment on above: Performed By: #### C BC #### [facility] [address] [place], [place] [phone] Tho Vanessa RBC 5.04 106/ul Normal 4.20-5.40 [facility] Comment on above: Performed By: #### C BC #### [facility] [address] [place] [address] Tho Mendez WBC 10.5 103/ul Normal 4.0-11.0 [facility] Comment on above: Performed By: #### C BC #### [facility] [address] [place] [address] ABD/PELVIS WO CONon 11-13 CT ABD/PELVIS WO CON EXAM: CT ABD/PELVIS WO CON Comparison: None available. CLINICAL INDICATION: Left flank pain. TECHNIQUE: Axial images through the abdomen and pelvis were obtained without intravenous contrast. Coronal and sagittal reconstructions were obtained. Dose reduction techniques were achieved by using automated exposure control and/or adjustment of mA and/or kV according to patient size and/or use of iterative reconstruction technique. FINDINGS: Please note that evaluation of the viscera/vascular structures, and sensitivity for detection of focal lesions, is limited without intravenous contrast. LOWER CHEST: The visualized portions of the lung bases are clear. LIVER: Unremarkable. GALLBLADDER: Unremarkable. BILE DUCTS: Unremarkable. PANCREAS: Unremarkable. SPLEEN: Unremarkable. ADRENALS: Unremarkable. KIDNEYS/URETERS: No urolithiasis or hydronephrosis. Trace left perinephric stranding. BLADDER: Unremarkable. PELVIC STRUCTURES: Unremarkable. GI TRACT: Evaluation of bowel limited by fecal contents and lack of distention. No evidence of bowel obstruction. Normal appendix. VASCULAR STRUCTURES: Unremarkable. LYMPH NODES: No pathologic lymphadenopathy by CT size criteria. PERITONEUM: No free air. No abscess. SOFT TISSUES: Trace fat-containing umbilical hernia. OSSEOUS STRUCTURES: No acute osseous abnormality. No suspicious osseous lesions. IMPRESSION: No acute findings to definitely explain left flank pain. Trace left perinephric stranding. Limited evaluation for pyelonephritis without IV contrast. No urolithiasis or hydronephrosis. Normal appendix. Electronically authenticated by: RYLEY FARLEY Date: 2020-11-13 18:[address] [facility] ER URINE PROFILEon Bilirubin Ql (U) Negative Normal NEGATIVE [facility] Comment on above: Performed By: #### E ADRIANA SERRATO #### [facility] [address] [place] [address] Tho Vanessa Clarity (U) CLEAR Normal CLEAR [facility] Comment on above: Performed By: #### ADRIANA ARROYO #### [facility] [address] [place] [address] Tho Vanessa Color (U) LT. YELLOW Normal YELLOW [facility] Comment on above: Performed By: #### ADRIANA ARROYO #### [facility] [address] [place] [address] Tho Vanessa ERUAHD A micrscopic examination will be performed if indicated. Normal [facility] Comment on above: Performed By: #### ADRIANA ARROYO #### [facility] [address] [place] [address] Tho Vanessa Glucose Ql (U) Negative Normal NEGATIVE [facility] Comment on above: Performed By: #### ADRIANA ARROYO #### [facility] [address] [place] [address] Tho Vanessa Hemoglobin Ql (U) SMALL Abnormal NEGATIVE [facility] Comment on above: Performed By: #### ADRIANA ARROYO #### [facility] [address] [place] [address] Tho Vanessa Ketones Ql (U) Negative Normal NEGATIVE [facility] Comment on above: Performed By: #### ADRIANA ARROYO #### [facility] [address] [place] [address] Tho Vanessa LEUKOCYTES MODERATE Abnormal NEGATIVE [facility] Comment on above: Performed By: #### ADRIANA ARROYO #### [facility] [address] [place] [address] Tho Vanessa Nitrite Ql (U) Negative Normal NEGATIVE [facility] Comment on above: Performed By: #### ADRIANA ARROYO #### [facility] [address] [place] [address] Tho Vanessa pH (U) 6.5 [pH] Normal 5-[address] [facility] Comment on above: Performed By: #### ADRIANA ARROYO #### [facility] [address] [phone] Thoveto Mendez SPEC GRAVITY <=1.005 Abnormal 1.005-<=1.02 5 [facility] Comment on above: Performed By: #### ADRIANA ARROYO #### [facility] [address] [place], [place] [address] Tho Vanessa UA PROTEIN Negative Normal NEGATIVE/ TRACE [facility] Comment on above: Performed By: #### ADRIANA ARROYO #### [facility] [address] [phone] Tho Mendez UR MICRO IND INDICATED Normal [facility] Comment on above: Performed By: #### ADRIANA ARROYO #### [facility] [address] [place], [place] [phone] Thoveto Mendez Urobilinogen Qn (U) 0.2 {Cheo'U}/dL Normal 0.2 - 1. 0 [facility] Comment on above: Performed By: #### ADRIANA ARROYO #### [facility] [address] [place], [place] [phone] Tho Vanessa PREG HCG QUALon 11-13-2020 , QUAL Negative Normal NEGATIVE [facility] Comment on above: Performed By: #### P REG #### [facility] [address] [place], [place] [phone] Tho Vanessa PROF CHEM 8 (BAS METB)on Anion gap [Moles/Vol] 14.9 mmol/L Normal [facility] Comment on above: Performed By: #### B MP #### [facility] [address] [place], [place] [phone] Tho Vanessa Calcium [Mass/Vol] 9.2 mg/dL Normal 8.4-10.2 [facility] Comment on above: Performed By: #### B MP #### [facility] [address] [phone] Tho Vanessa Chloride [Moles/Vol] 102 mmol/L Normal 98-107 [facility] Comment on above: Performed By: #### B MP #### [facility] [address] [place], [place] [address] Tho Vanessa CO2 [Moles/Vol] 23.7 mmol/L Normal 22.0-30.0 [facility] Comment on above: Performed By: #### B MP #### [facility] [address] [phone] Tho Vanessa Creatinine [Mass/Vol] 0.89 mg/dL Normal 0.52-1.04 [facility] Comment on above: Performed By: #### B MP #### [facility] [address] [place], [place] [address] Tho Vanessa EGFR-AF AUSTRIAN >60 Normal >=60 [facility] Comment on above: Performed By: #### B MP #### [facility] [address] [phone] Tho Vanessa EGFR-NON AF AUSTRIAN >60 Normal >=60 [facility] Comment on above: Performed By: #### B MP #### [facility] [address] [phone] Tho Vanessa Glucose [Mass/Vol] 145 mg/dL Critically high 74-106 [facility] Comment on above: Performed By: #### B MP #### [facility] [address] [phone] Tho Vanessa Potassium [Moles/Vol] 3.6 mmol/L Normal 3.4-5.0 [facility] Comment on above: Performed By: #### B MP #### [facility] [address] [phone] Tho Vanessa Sodium [Moles/Vol] 137 mmol/L Normal 137-145 [facility] Comment on above: Performed By: #### B MP #### [facility] [address] [phone] Tho Vanessa Urea nitrogen [Mass/Vol] 7.0 mg/dL Normal 7.0-17.0 [facility] Comment on above: Performed By: #### B MP #### [facility] [address] [phone] Tho Vanessa Urea nitrogen/Creatinine [Mass ratio] 7.9 mg/mg Normal [facility] Comment on above: Performed By: #### B MP #### [facility] [address] [place], [place] [phone] Tho Vanessa URINE MICROSCOPIC ONLYon BACTERIA TRACE Abnormal NONE SEEN [facility] Comment on above: Performed By: #### BEN ARROYORO #### [facility] [address] [place], [place] [phone] Tho Vanessa Bacteria identified Cx Nom (U) INDICATED Normal [facility] Comment on above: Performed By: #### BEN ARROYORO #### [facility] [address] [place], [place] [phone] Tho Vanessa CAST NONE SEEN Normal NONE SEEN [facility] Comment on above: Performed By: #### BEN ARROYORO #### [facility] [address] [place] [address] Tho Vanessa Crystals LM Nom (Urine sed) NONE SEEN Normal NONE SEEN [facility] Comment on above: Performed By: #### BEN ARROYORO #### [facility] [address] [place] [address] Tho Vanessa Epithelial cells LM Ql (Urine sed) MODERATE Abnormal NONE SEEN /RARE [facility] Comment on above: Performed By: #### BEN ARROYORO #### [facility] [address] [place] [address] Tho Vanessa MUCOUS NONE SEEN Normal NONE SEEN [facility] Comment on above: Performed By: #### BEN ARROYORO #### [facility] [address] [place] [address] Tho Vanessa RBC 5-10 Abnormal 0-[address] [facility] Comment on above: Performed By: #### BEN ARROYORO #### [facility] [address] [place] [address] Tho Vanessa WBC 10-20 Abnormal NONE SEEN [facility] Comment on above: Performed By: #### BEN ARROYORO #### [facility] [address] [place] [address] Tho Vanessa Rule Out Grp.B Strepon 05-06 Rule Out Grp.B Strep Specimen Descriptio n .VAGINA Special Requests NOT REPORTED Culture NEGATIVE FOR GROUP B STREPTOCOCCI Report Status FINAL 05/06/2018 [facility] Comment on above: Performed By: #### U RC #### [address] [address] Cult,Genitalon 04-02-2018 Cult,Genital Specimen Description .VAGINA Special Requests NOT REPORTED Culture NORMAL URO-GENITAL HOMERO NEGATIVE FOR NEISSERIA GONORRHOEAE NEGATIVE FOR GROUP B STREPTOCOCCI Report Status FINAL 04/02/2018 [facility] Comment on above: Performed By: #### U RC #### [address] [address] Cult,Urineon 03-31-2018 Cult,Urine Specimen Description .CLEAN CATCH URINE Special Requests NOT REPORTED Culture NO GROWTH Report Status FINAL 03/31/2018 [facility] Comment on above: Performed By: #### U RC #### [address] [address] UA w/Reflex Cultureon 2017 Acetoacetic Acid,Ur Negative Normal NEG [facility] Comment on above: Performed By: #### U RC #### [address] [address] Bilirubin.direct mass conc Negative Normal NEG [facility] Comment on above: Performed By: #### U RC #### [facility] [address] [place] [phone] Color Nom (U) YELLOW Normal YEL [facility] Comment on above: Performed By: #### U RC #### [address] [address] Comment Microscopic exam not performed based on chemical results unless requested in Normal [facility] Comment on above: Result Comment: orig inal order. Performed By: #### U RC #### [address] [place] [address] Glucose mass conc Negative Normal NEG [facility] Comment on above: Performed By: #### U RC #### [address] [address] Hemoglobin mass conc (Bld) Negative Normal NEG [facility] Comment on above: Performed By: #### U RC #### [address] [address] Leuckocyte Esterase Negative Normal NEG [facility] Comment on above: Performed By: #### U RC #### [address] [address] Nitrite,Ur Negative Normal NEG [facility] Comment on above: Performed By: #### U RC #### [address] [address] PH,Ur 6.5 Normal 5.0-8.0 [facility] Comment on above: Performed By: #### U RC #### [address] [address] Protein mass conc Negative Normal NEG [facility] Comment on above: Performed By: #### U RC #### [address] [address] Spec. [place],Ur 1.021 Normal 1.005-1.030 [facility] Comment on above: Performed By: #### U RC #### [address] [address] Turbidity CLEAR Normal CLEAR [facility] Comment on above: Performed By: #### U RC #### [facility] [address] [place] [address] Urobilinogen,Ur Normal Normal NORM [facility] Comment on above: Performed By: #### U RC #### [address] [address] Vaginitis DNA Probeon 2017 Vaginitis DNA Probe Specimen Description .VAGINA Special Requests NOT REPORTED Direct Exam NEGATIVE for Gardnerella vaginalis NEGATIVE for Trichomonas vaginalis NEGATIVE for Kristyn sp. Method of testing is a DNA probe intended for detection and identification of Kristyn species, Gardnerella vaginalis, and Trichomonas vaginalis nucleic acid in vaginal fluid specimens from patients with symptoms of vaginitis/vaginosis. Report Status FINAL 03/30/2018 Normal [facility] Comment on above: Performed By: #### U RC #### [address] [address] Glucose Lani Scr 50gon 2017 Glucose mass conc 166 mg/dL High 70-135 [facility] Comment on above: Performed By: #### U RC #### [address] [address] CBC with Diffon 03-21-2018 Abs. Basophil 0.03 k/uL Normal 0.00-0.20 [facility] Comment on above: Performed By: #### U CGP #### [address] [address] Abs.Imm.Granulocyte 0.06 k/uL Normal 0.00-0.30 [facility] Comment on above: Performed By: #### U CGP #### [address] [address] Abs.Neutrophil (Seg) 6.98 k/uL Normal 1.50-8.10 [facility] [place] Comment on above: Performed By: #### U CGP #### [address] [address] Basophils/100 WBC (Bld) 0 % Normal 0-2 [facility] Comment on above: Performed By: #### U CGP #### [address] [address] Eosinophils #/vol (Bld) 0.16 10*3/uL Normal 0.00-0.44 [facility] Comment on above: Performed By: #### U CGP #### [address] [address] Eosinophils/100 WBC (Bld) 2 % Normal 1-4 [facility] Comment on above: Performed By: #### U CGP #### [address] [address] Erythrocyte distribution width Ratio (RBC) 13.0 % Normal 11.8-14.4 [facility] Comment on above: Performed By: #### U CGP #### [address] [address] Hematocrit Volume Fraction (Bld) 35.7 % Low 36.3-47.1 [facility] Comment on above: Performed By: #### U CGP #### [address] [address] Hemoglobin mass conc (Bld) 11.9 g/dL Normal 11.9-15.1 [facility] Comment on above: Performed By: #### U CGP #### [address] [address] Immature granulocytes #/vol (Bld) 1 % High 0 [facility] Comment on above: Performed By: #### U CGP #### [address] [address] Lymphocytes #/vol (Bld) 1.34 10*3/uL Normal 1.10-3.70 [facility] Comment on above: Performed By: #### U CGP #### [address] [address] Lymphocytes/100 WBC (Bld) 15 % Low 25-45 [facility] Comment on above: Performed By: #### U CGP #### [address] [address] MCH Entitic mass (RBC) 28.8 pg Normal 25.2-33.5 [facility] Comment on above: Performed By: #### U CGP #### [facility] [address] [place] [address] MCHC mass conc (RBC) 33.3 g/dL Normal 28.4-34.8 [facility] [place] Comment on above: Performed By: #### U CGP #### [facility] [address] [place] [address] MCV Entitic volume (RBC) 86.4 fL Normal 82.6-102.9 [facility] Comment on above: Performed By: #### U CGP #### [address] [address] Monocytes #/vol (Bld) 0.38 10*3/uL Normal 0.10-1.[address] [facility] Comment on above: Performed By: #### U CGP #### [address] [address] Monocytes/100 WBC (Bld) 4 % Normal 2-8 [facility] Comment on above: Performed By: #### U CGP #### [facility] [address] [place] [address] Neutrophil (Seg) 78 % High 34-64 [facility] Comment on above: Performed By: #### U CGP #### [facility] [address] [place] [address] NRBC Automated 0.0 per 100 WBC Normal 0.0 [facility] Comment on above: Performed By: #### U CGP #### [address] [address] Platelet mean volume Entitic volume (Bld) 12.0 fL Normal 8.1-13.5 [facility] Comment on above: Performed By: #### U CGP #### [address] [address] Platelets #/vol (Bld) 239 10*3/uL Normal 138-453 [facility] Comment on above: Performed By: #### U CGP #### [address] [address] RBC #/vol (Bld) 4.13 10*6/uL Normal 3.95-5.11 [facility] Comment on above: Performed By: #### U CGP #### [address] [address] WBC #/vol (Bld) 9.0 10*3/uL Normal 4.5-13.5 [facility] Comment on above: Performed By: #### U CGP #### [address] [address] Auto Diff Performed NOT REPORTED Normal [facility] Comment on above: Performed By: #### U CGP #### [address] [address] Platelets #/vol (Bld) NOT REPORTED Normal [facility] Comment on above: Performed By: #### U CGP #### [address] [address] RBC morphology finding Nom (Bld) NOT REPORTED Normal [facility] Comment on above: Performed By: #### U CGP #### [address] [address] WBC Morphology NOT REPORTED [facility] Comment on above: Performed By: #### U CGP #### [id number] [place], [place] [id number] Glucose Lani Scr 50gon 2017 Glu Administered via Glucola Normal [facility] [place] Comment on above: Performed By: #### U RC #### [address] [id number] Cult,Bloodon 02-16-2018 Cult,Blood Specimen Description .BLOOD Special Requests 5ML LH Culture NO GROWTH 6 DAYS Report Status FINAL 02/16/2018 [facility] Comment on above: Performed By: #### U CGP #### [address] [id number] Cult,Bloodon 02-14-2018 Cult,Blood Specimen Description .BLOOD Special Requests 5ML R H Culture POSITIVE Blood Culture NOTIFIED DR Eduin ARCHULETA THROUGH [employer] SERVE [phone] [id number] DIRECT GRAM STAIN FROM BOTTLE: GRAM POSITIVE COCCI IN CLUSTERS STAPHYLOCOCCUS SPECIES, COAGULASE NEGATIVE A single positive blood culture of coagulase negative staphylococci, micrococci, diphtheroids or Bacillus species should be interpreted with caution and viewed as likely a skin contaminant. Report Status FINAL 02/14/2018 [facility] Comment on above: Performed By: #### U CGP #### [address] [id number] US RENAL COMPLETEon 02-11-20 18 US RENAL COMPLETE EXAMINATION: RETROPERITONEAL ULTRASOUND OF THE KIDNEYS AND URINARY BLADDER 02/10/2018 COMPARISON: 1 day prior HISTORY: ORDERING SYSTEM PROVIDED HISTORY: pyelonephritis; r/o abscess FINDINGS: Kidneys: The right kidney measures 10.6 cm in length and the left kidney measures 11.5 cm in length. Kidneys demonstrate normal cortical echogenicity. No evidence of hydronephrosis or intrarenal stones. Bladder: Urinary bladder is nearly empty at the time examination. IMPRESSION: Unremarkable ultrasound of the kidneys and urinary bladder. Interpreted by: Dorian Damico MD Signed by: Dorian Damico MD 02/10/18 Final result Normal [facility] XR CHEST (2 VW)on 02-10-2018 XR CHEST (2 VW) EXAMINATION: TWO VIEWS OF THE CHEST 02/10/2018 8:28 am COMPARISON: None. HISTORY: ORDERING SYSTEM PROVIDED HISTORY: Fever FINDINGS: The lungs are without acute focal process. No effusion or pneumothorax. The cardiomediastinal silhouette is normal. The osseous structures are intact without acute process. IMPRESSION: Unremarkable chest. Interpreted by: Geoffrey Mcallister MD Signed by: Geoffrey Mcallister MD 02/10/18 Final result Normal [facility] Cult,Urineon 02-09-2018 Cult,Urine Specimen Description .URINE Special Requests NOT REPORTED Culture ESCHERICHIA COLI >[id number] CFU/ML Report Status FINAL 02/09/2018 SUSCEPTIBILITY Organism ESCHERICHIA COLI Method NILAM Amikacin NOT REPORTED Ampicillin >=32 RESISTANT Ampicillin/Sulbactam NOT REPORTED Aztreonam <=1 SUSCEPTIBLE Cefazolin <=4 SUSCEPTIBLE Cefazolin sensitivity results can be used to predict the effectiveness of oral cephalosporins (eg. Cephalexin) in uncomplicated Urinary Tract Infections due to E. coli, K. pneumoniae, and P. mirabilis Cefepime NOT REPORTED Ceftriaxone <=1 SUSCEPTIBLE Ciprofloxacin <=0.25 SUSCEPTIBLE Ertapenem NOT REPORTED ESBL NEGATIVE Gentamicin <=1 SUSCEPTIBLE Meropenem NOT REPORTED Nitrofurantoin <=16 SUSCEPTIBLE Tigecycline NOT REPORTED Tobramycin <=1 SUSCEPTIBLE Trimethoprim/Sulfa <=20 SUSCEPTIBLE Piperacillin/Tazobact am <=4 SUSCEPTIBLE Normal [facility] Comment on above: Performed By: #### U CGP #### [facility] [address] [place] [address] CBC with Diffon 02-08-2018 Abs. Basophil 0.00 k/uL Normal 0.00-0.20 [facility] Comment on above: Performed By: #### U CGP #### [facility] [address] [place] [address] Abs.Imm.Granulocyte 0.12 k/uL Normal 0.00-0.30 [facility] Comment on above: Performed By: #### U CGP #### [facility] [address] [place] [address] Abs.Neutrophil (Seg) 10.33 k/uL High 1.50-8.10 [facility] [place] Comment on above: Performed By: #### U CGP #### [address] [address] Basophils/100 WBC (Bld) 0 % Normal 0-2 [facility] Comment on above: Performed By: #### U CGP #### [address] [address] Eosinophils #/vol (Bld) 0.00 10*3/uL Normal 0.00-0.44 [facility] Comment on above: Performed By: #### U CGP #### [address] [address] Eosinophils/100 WBC (Bld) 0 % Low 1-4 [facility] Comment on above: Performed By: #### U CGP #### [address] [address] Immature granulocytes #/vol (Bld) 1 % High 0 [facility] Comment on above: Performed By: #### U CGP #### [address] [address] Lymphocytes #/vol (Bld) 0.74 10*3/uL Low 1.10-3.70 [facility] Comment on above: Performed By: #### U CGP #### [address] [address] Lymphocytes/100 WBC (Bld) 6 % Low 25-45 [facility] Comment on above: Performed By: #### U CGP #### [address] [address] Monocytes #/vol (Bld) 1.11 10*3/uL Normal 0.10-1.[address] [facility] Comment on above: Performed By: #### U CGP #### [facility] [place] [address] Monocytes/100 WBC (Bld) 9 % High 2-8 [facility] Comment on above: Performed By: #### U CGP #### [facility] [address] [place] [address] Morphology Interp Danilo (Bld) Normal Normal [facility] Comment on above: Performed By: #### U CGP #### [address] [address] Neutrophil (Seg) 84 % High 34-64 [facility] Comment on above: Performed By: #### U CGP #### [facility] [address] [place] [address] Erythrocyte distribution width Ratio (RBC) 12.8 % Normal 11.8-14.4 [facility] Comment on above: Performed By: #### U CGP #### [address] [address] Hematocrit Volume Fraction (Bld) 31.8 % Low 36.3-47.1 [facility] Comment on above: Performed By: #### U CGP #### [facility] [address] [place] [address] Hemoglobin mass conc (Bld) 10.5 g/dL Low 11.9-15.1 [facility] Comment on above: Performed By: #### U CGP #### [address] [address] MCH Entitic mass (RBC) 28.7 pg Normal 25.2-33.5 [facility] Comment on above: Performed By: #### U CGP #### [facility] [address] [place] [address] MCHC mass conc (RBC) 33.0 g/dL Normal 28.4-34.8 [facility] [place] Comment on above: Performed By: #### U CGP #### [address] [address] MCV Entitic volume (RBC) 86.9 fL Normal 82.6-102.9 [facility] Comment on above: Performed By: #### U CGP #### [address] [address] NRBC Automated 0.0 per 100 WBC Normal 0.0 [facility] Comment on above: Performed By: #### U CGP #### [address] [address] Platelet mean volume Entitic volume (Bld) 11.2 fL Normal 8.1-13.5 [facility] Comment on above: Performed By: #### U CGP #### [address] [address] Platelets #/vol (Bld) 183 10*3/uL Normal 138-453 [facility] Comment on above: Performed By: #### U CGP #### [address] [address] RBC #/vol (Bld) 3.66 10*6/uL Low 3.95-5.11 [facility] Comment on above: Performed By: #### U CGP #### [address] [address] WBC #/vol (Bld) 12.3 10*3/uL Normal 4.5-13.5 [facility] Comment on above: Performed By: #### U CGP #### [address] [address] Auto Diff Performed NOT REPORTED Normal [facility] Comment on above: Performed By: #### U CGP #### [place] [place] [address] Platelets #/vol (Bld) NOT REPORTED Normal [facility] Comment on above: Performed By: #### U CGP #### [address] [address] RBC morphology finding Nom (Bld) NOT REPORTED Normal [facility] Comment on above: Performed By: #### U CGP #### [address] [address] WBC Morphology NOT REPORTED Normal [facility] Comment on above: Performed By: #### U CGP #### [address] [address] Chlamydia/GC,DNA Ampon 02-08 Protein mass conc Negative Normal NEG [facility] Comment on above: Result Comment: CHLA MYDIA TRACHOMATIS DNA not detected by nucleic acid amplification. This test is intended for medical purposes only and is not valid for the evaluation of suspected sexual abuse or for other forensic purposes. In certain contexts, culture may be required to meet applicable laws and regulations for diagnosis of C. trachomatis and N. gonorrhoeae infections. Per 2014 CDC recommendations, this test does not include confirmation of positive results by an alternative nucleic acid target. Performed By: #### U CGP #### [address] [address] Result Comment: NEIS SERIA GONORRHOEAE DNA not detected by nucleic acid amplification. This test is intended for medical purposes only and is not valid for the evaluation of suspected sexual abuse or for other forensic purposes. In certain contexts, culture may be required to meet applicable laws and regulations for diagnosis of C. trachomatis and N. gonorrhoeae infections. Per 2014 CDC recommendations, this test does not include confirmation of positive results by an alternative nucleic acid target. Comp Metabolic Profon 2017 (cont.) Normal [facility] Comment on above: Result Comment: Aver age GFR for 20-29 years old: 116 mL/min/1.73sq m Chronic Kidney Disease: <60 mL/min/1.73sq m Kidney failure: <15 mL/min/1.73sq m eGFR calculated using average adult body mass. Additional eGFR calculator available at: http://www.[employer]/multiple_crcl_2012.htm Performed By: #### U CGP #### [address] [address] Albumin mass conc 3.0 g/dL Low 3.5-5.2 [facility] Comment on above: Performed By: #### U CGP #### [facility] [address] [place] [address] Albumin/Globulin mass ratio 1.0 {ratio} Normal 1.0-2.5 [facility] Comment on above: Performed By: #### U CGP #### [facility] [address] [place] [address] Alkaline Phos 50 U/L Normal 35-104 [facility] Comment on above: Performed By: #### U CGP #### [facility] [address] [place] [address] ALT enzyme act/vol 11 U/L Normal 5-33 [facility] Comment on above: Performed By: #### U CGP #### [facility] [address] [place] [address] Anion gap molar conc 10 mmol/L Normal 9-17 [facility] [place] Comment on above: Performed By: #### U CGP #### [facility] [address] [place] [address] AST enzyme act/vol 10 U/L Normal <32 [facility] Comment on above: Performed By: #### U CGP #### [address] [address] Bilirubin Ql (U) 0.54 mg/dL Normal 0.3-1.2 [facility] Comment on above: Performed By: #### U CGP #### [facility] [address] [place] [address] Calcium mass conc 8.4 mg/dL Low 8.6-10.4 [facility] Comment on above: Performed By: #### U CGP #### [facility] [address] [place] [address] Chloride molar conc 100 mmol/L Normal 98-107 [facility] Comment on above: Performed By: #### U CGP #### [facility] [address] [place] [address] CO2 molar conc 23 mmol/L Normal 20-31 [facility] Comment on above: Performed By: #### U CGP #### [facility] [address] [place] [address] Creatinine mass conc 0.52 mg/dL Normal 0.50-0.90 [facility] [place] Comment on above: Performed By: #### U CGP #### [facility] [address] [place] [address] GFR, Amer >60 Normal >60 [facility] Comment on above: Performed By: #### U CGP #### [facility] [address] [place] [address] GFR,non Amer >60 Normal >60 [facility] Comment on above: Performed By: #### U CGP #### [facility] [address] [place] [address] Glucose mass conc 97 mg/dL Normal 70-99 [facility] Comment on above: Performed By: #### U CGP #### [facility] [address] [place] [address] Potassium molar conc 4.3 mmol/L Normal 3.7-5.3 [facility] [place] Comment on above: Performed By: #### U CGP #### [facility] [address] [place] [address] Protein mass conc 6.0 g/dL Low 6.4-8.3 [facility] Comment on above: Performed By: #### U CGP #### [facility] [address] [place] [address] Sodium molar conc 133 mmol/L Low 135-144 [facility] Comment on above: Performed By: #### U CGP #### [facility] [address] [place] [address] Urea nitrogen mass conc 4 mg/dL Low 6-20 [facility] Comment on above: Performed By: #### U CGP #### [facility] [address] [place] [address] BUN/CRE Ratio NOT REPORTED Normal - [facility] Comment on above: Performed By: #### U CGP #### [facility] [address] [place] [address] Staging: NOT REPORTED Normal [facility] Comment on above: Performed By: #### U CGP #### [facility] [address] [place] [address] US RENAL COMPLETEon 02-09-20 18 US RENAL COMPLETE EXAMINATION: RETROPERITONEAL ULTRASOUND OF THE KIDNEYS AND URINARY BLADDER 02/08/2018 COMPARISON: None HISTORY: ORDERING SYSTEM PROVIDED HISTORY: pyelonephritis, febrile, left flank pain worse than right FINDINGS: Kidneys: The right kidney measures 10.9 x 5.2 x 5.2 cm without hydronephrosis. Cortical thickness measures 19 mm. Echogenicity appears intact. No kidney stones by ultrasound. No perirenal fluid collections. The left kidney measures 12.2 x 6.1 x 4.7 cm without hydronephrosis. Cortical thickness measures 19 mm. Echogenicity appears intact. No kidney stones by ultrasound. No perirenal fluid collections. Left kidney is slightly more prominent in size than the right. Bladder: The bladder is underdistended with an estimated volume of 12 mL. The patient apparently voided recently. Partially visualized gravid uterus. IMPRESSION: Essentially unremarkable renal ultrasound. Interpreted by: Mg Bergman MD Signed by: Mg Bergman MD 02/08/18 Final result Normal [facility] CBC with Diffon 02-07-2018 Abs. Basophil <0.03 Normal 0.00-0.20 [facility] Comment on above: Performed By: #### C DP #### [address] [address] Abs.Imm.Granulocyte 0.08 k/uL Normal 0.00-0.30 [facility] Comment on above: Performed By: #### C DP #### [address] [address] Abs.Neutrophil (Seg) 15.39 k/uL High 1.50-8.10 [facility] [place] Comment on above: Performed By: #### C DP #### [address] [address] Basophils/100 WBC (Bld) 0 % Normal 0-2 [facility] Comment on above: Performed By: #### C DP #### [address] [address] Eosinophils #/vol (Bld) 10*3/uL Normal 0.00-0.44 [facility] Comment on above: Performed By: #### C DP #### [address] [address] Eosinophils/100 WBC (Bld) 0 % Low 1-4 [facility] Comment on above: Performed By: #### C DP #### [address] [address] Erythrocyte distribution width Ratio (RBC) 12.8 % Normal 11.8-14.4 [facility] Comment on above: Performed By: #### C DP #### [address] [address] Hematocrit Volume Fraction (Bld) 40.9 % Normal 36.3-47.1 [facility] Comment on above: Performed By: #### C DP #### [address] [address] Hemoglobin mass conc (Bld) 13.6 g/dL Normal 11.9-15.1 [facility] Comment on above: Performed By: #### C DP #### [address] [address] Immature granulocytes #/vol (Bld) 1 % High 0 [facility] Comment on above: Performed By: #### C DP #### [address] [address] Lymphocytes #/vol (Bld) 0.75 10*3/uL Low 1.10-3.70 [facility] Comment on above: Performed By: #### C DP #### [address] [address] Lymphocytes/100 WBC (Bld) 4 % Low 25-45 [facility] Comment on above: Performed By: #### C DP #### [address] [address] MCH Entitic mass (RBC) 28.8 pg Normal 25.2-33.5 [facility] Comment on above: Performed By: #### C DP #### [address] [address] MCHC mass conc (RBC) 33.3 g/dL Normal 28.4-34.8 [facility] [place] Comment on above: Performed By: #### C DP #### [facility] [place] [address] MCV Entitic volume (RBC) 86.5 fL Normal 82.6-102.9 [facility] Comment on above: Performed By: #### C DP #### [address] [address] Monocytes #/vol (Bld) 0.84 10*3/uL Normal 0.10-1.40 [facility] Comment on above: Performed By: #### C DP #### [address] [address] Monocytes/100 WBC (Bld) 5 % Normal 2-8 [facility] Comment on above: Performed By: #### C DP #### [address] [address] Neutrophil (Seg) 90 % High 34-64 [facility] Comment on above: Performed By: #### C DP #### [address] [address] NRBC Automated 0.0 per 100 WBC Normal 0.0 [facility] Comment on above: Performed By: #### C DP #### [address] [address] Platelet mean volume Entitic volume (Bld) 11.4 fL Normal 8.1-13.5 [facility] Comment on above: Performed By: #### C DP #### [address] [address] Platelets #/vol (Bld) 224 10*3/uL Normal 138-453 [facility] Comment on above: Performed By: #### C DP #### [address] [address] RBC #/vol (Bld) 4.73 10*6/uL Normal 3.95-5.11 [facility] Comment on above: Performed By: #### C DP #### [address] [address] WBC #/vol (Bld) 17.1 10*3/uL High 4.5-13.5 [facility] Comment on above: Performed By: #### C DP #### [address] [address] Auto Diff Performed NOT REPORTED Normal [facility] Comment on above: Performed By: #### C DP #### [address] [address] Platelets #/vol (Bld) NOT REPORTED Normal [facility] Comment on above: Performed By: #### C DP #### [address] [address] RBC morphology finding Nom (Bld) NOT REPORTED Normal [facility] Comment on above: Performed By: #### C DP #### [address] [address] WBC Morphology NOT REPORTED Normal [facility] Comment on above: Performed By: #### C DP #### [address] [address] Comp Metabolic Profon 2017 (cont.) Normal [facility] Comment on above: Result Comment: Aver age GFR for 20-29 years old: 116 mL/min/1.73sq m Chronic Kidney Disease: <60 mL/min/1.73sq m Kidney failure: <15 mL/min/1.73sq m eGFR calculated using average adult body mass. Additional eGFR calculator available at: http://www.[employer]enSUN.Ple[employer]/multiple_crcl_2012.htm Performed By: #### C P #### [address] [place] [address] Albumin mass conc 3.9 g/dL Normal 3.5-5.2 [facility] Comment on above: Performed By: #### C P #### [facility] [place] [address] Albumin/Globulin mass ratio 1.0 {ratio} Normal 1.0-2.5 [facility] Comment on above: Performed By: #### C P #### [facility] [address] [place] [address] Alkaline Phos 70 U/L Normal 35-104 [facility] Comment on above: Performed By: #### C P #### [facility] [address] [place] [address] ALT enzyme act/vol 14 U/L Normal 5-33 [facility] Comment on above: Performed By: #### C P #### [facility] [address] [place] [address] Anion gap molar conc 19 mmol/L High 9-17 [facility] [place] Comment on above: Performed By: #### C P #### [facility] [address] [place] [address] AST enzyme act/vol 15 U/L Normal <32 [facility] Comment on above: Performed By: #### C P #### [facility] [address] [place] [address] Bilirubin Ql (U) 1.27 mg/dL High 0.3-1.2 [facility] Comment on above: Performed By: #### C P #### [facility] [address] [place] [address] Calcium mass conc 9.8 mg/dL Normal 8.6-10.4 [facility] Comment on above: Performed By: #### C P #### [facility] [address] [place] [address] Chloride molar conc 97 mmol/L Low 98-107 [facility] Comment on above: Performed By: #### C P #### [address] [address] CO2 molar conc 21 mmol/L Normal 20-31 [facility] Comment on above: Performed By: #### C P #### [address] [address] Creatinine mass conc 0.50 mg/dL Normal 0.50-0.90 [facility] [place] Comment on above: Performed By: #### C P #### [address] [address] GFR, Amer >60 Normal >60 [facility] Comment on above: Performed By: #### C P #### [facility] [address] [place] [address] GFR,non Amer >60 Normal >60 [facility] Comment on above: Performed By: #### C P #### [address] [address] Glucose mass conc 85 mg/dL Normal 70-99 [facility] Comment on above: Performed By: #### C P #### [address] [address] Potassium molar conc 4.3 mmol/L Normal 3.7-5.3 [facility] [place] Comment on above: Performed By: #### C P #### [address] [address] Protein mass conc 8.0 g/dL Normal 6.4-8.3 [facility] Comment on above: Performed By: #### C P #### [facility] [address] [place] [address] Sodium molar conc 137 mmol/L Normal 135-144 [facility] Comment on above: Performed By: #### C P #### [address] [address] Urea nitrogen mass conc 6 mg/dL Normal 6-20 [facility] Comment on above: Performed By: #### C P #### [address] [address] BUN/CRE Ratio NOT REPORTED Normal 9-20 [facility] Comment on above: Performed By: #### C P #### [address] [address] Staging: NOT REPORTED Normal [facility] Comment on above: Performed By: #### C P #### [address] [address] Flu A/B Ag Detectionon 02-07 Flu A/B Ag Detection Specimen Descriptio n .NASOPHARYNGEAL SWAB Special Requests NOT REPORTED Direct Exam PRESUMPTIVE NEGATIVE for Influenza A + B antigens. PCR testing to confirm this result is available upon request. Specimen will be saved in the laboratory for 7 days. Please call [phone] if PCR testing is indicated. Report Status FINAL 02/07/2018 Normal [facility] Comment on above: Performed By: #### F LUAD #### [address] [address] UA w/Reflex Cultureon 2017 Bilirubin.direct mass conc Negative Abnormal NEG [facility] Comment on above: Performed By: #### CEDRIC CHAUDHRY #### [address] [address] Comment Culture ordered base d on defined criteria. Normal [facility] Comment on above: Performed By: #### CEDRIC CHAUDHRY #### [address] [place] [address] Acetoacetic Acid,Ur MODERATE Abnormal NEG [facility] Comment on above: Performed By: #### CEDRIC CHAUDHRY #### [facility] [address] [place] [address] Color Nom (U) ORANGE Abnormal YEL [facility] Comment on above: Result Comment: INTE RPRET WITH CAUTION DUE TO INTENSE COLOR OF URINE. Performed By: #### CEDRIC CHAUDHRY #### [employer] [address] [place] [address] Glucose mass conc Negative Normal NEG [facility] Comment on above: Performed By: #### CEDRIC CHAUDHRY #### [facility] [address] [place] [address] Hemoglobin mass conc (Bld) TRACE Abnormal NEG [facility] Comment on above: Performed By: #### CEDRIC CHAUDHRY #### [facility] [address] [place] [address] Leuckocyte Esterase MODERATE Abnormal NEG [facility] Comment on above: Performed By: #### CEDRIC CHAUDHRY #### [facility] [address] [place] [address] Nitrite,Ur Positive Abnormal NEG [facility] Comment on above: Performed By: #### CEDRIC CHAUDHRY #### [employer] [address] [place] [address] PH,Ur 6.5 Normal 5.0-8.0 [facility] Comment on above: Performed By: #### CEDRIC CHAUDHRY #### [facility] [address] [place] [address] Protein mass conc 2+ Abnormal NEG [facility] Comment on above: Performed By: #### CEDRIC CHAUDHRY #### [employer] [address] [place] [address] Spec. [place],Ur 1.030 Normal 1.005-1.030 [facility] Comment on above: Performed By: #### U AXCEDRIC #### [facility] [address] [place] [address] Turbidity TURBID Abnormal CLEAR [facility] Comment on above: Performed By: #### U AXCEDRIC #### [facility] [address] [place] [address] Urobilinogen,Ur Normal Normal NORM [facility] Comment on above: Performed By: #### U AXCEDRIC #### [facility] [address] [place] [address] Urinalysis,Microon 8 ----- Normal [facility] Comment on above: Performed By: #### U CEDRIC PALACIOS #### [facility] [address] [place] [address] Bacteria LM.HPF #/area (Urine sed) MANY Abnormal NONE [facility] Comment on above: Performed By: #### U AXCEDRIC #### [facility] [address] [place] [address] Epithelial cells LM.HPF #/area (Urine sed) 20 TO 50 Normal 0-5 [facility] [facility] Comment on above: Performed By: #### U AXCEDRIC #### [facility] [address] [place] [address] Mucus Strands 2+ Abnormal NONE [facility] Comment on above: Performed By: #### U AXHUGOICAO #### [facility] [address] [place] [address] RBC #/vol (U) 0 TO 2 Normal 0-2 [facility] Comment on above: Performed By: #### U AXHUGOICAO #### [facility] [place] [address] WBC #/vol (U) 10 TO 20 Normal 0-5 [facility] Comment on above: Performed By: #### U AX, UMICAO #### [facility] [address] [place] [address] Amorphous sediment LM Ql (Urine sed) NOT REPORTED Normal NONE [facility] Comment on above: Performed By: #### U AX, UMICAO #### [facility] [address] [place] [address] 21369 Casts LM.LPF #/area (Urine sed) NOT REPORTED Normal 0-2 [facility] Comment on above: Performed By: #### U AX, UMICAO #### [facility] [address] [place] [address] 01693 Crystals LM Nom (Urine sed) NOT REPORTED Normal NONE [facility] Comment on above: Performed By: #### U AX, UMICAO #### [facility] [address] [place] [address] 48690 Epithelial, Renal NOT REPORTED Normal 0 [facility] Comment on above: Performed By: #### U AX, UMICAO #### [facility] [address] [place] [address] Other Observations NOT REPORTED Normal NREQ [facility] Comment on above: Performed By: #### U AX, UMICAO #### [facility] [address] [place] [address] Trichomonas NOT REPORTED Normal NONE [facility] Comment on above: Performed By: #### U AX, UMICAO #### [facility] [address] [place] [address] 19393 Yeast LM Ql (Urine sed) NOT REPORTED Normal NONE [facility] Comment on above: Performed By: #### U AX, UMICAO #### [facility] [place] [address] Vaginitis DNA Probeon 2017 Vaginitis DNA Probe Specimen Description .VAGINA Special Requests NOT REPORTED Direct Exam NEGATIVE for Gardnerella vaginalis NEGATIVE for Trichomonas vaginalis NEGATIVE for Kristyn sp. Method of testing is a DNA probe intended for detection and identification of Kristyn species, Gardnerella vaginalis, and Trichomonas vaginalis nucleic acid in vaginal fluid specimens from patients with symptoms of vaginitis/vaginosis. Report Status FINAL 02/07/2018 Normal [facility] Comment on above: Performed By: #### V AGDNA #### [address] [address] AFP, Maternalon 01-31-2018 Determined by Other Normal [facility] Comment on above: Performed By: #### A AFPM ####[address] [address] Due Date SEE NOTE Normal [facility] Comment on above: Result Comment: Resu lts for Estimated Due Date: [id number] Performed By: #### A AFPM ####[address] [address] Family History No [facility] Comment on above: Performed By: #### A AFPM ####[address] [address] Gestat Age (exact) 22 wks, 1 days Normal [facility] Comment on above: Performed By: #### A AFPM ####[address] [address] Ins Req Matern Diab No Normal [facility] Comment on above: Performed By: #### A AFPM ####[address] [address] Interpretation Screen Neg Normal [facility] Comment on above: Result Comment: (NOT E)INTERPRETATION: SCREEN NEGATIVE for open spina bifidaNeural Tube Defects (NTD) Negative Pre-Test Post-Test CutoffNeural Tube Defects Risks 1:1030 < 1:48937 1:250Comments:The risk of an open neural tube defect is less than thescreening cut-off.Test developed and characteristics determined by [facility]. See Compliance Statement B: [employer]/CS Performed By: #### A AFPM ####[employer] [place] [address] [age] Normal [facility] Comment on above: Performed By: #### A AFPM ####[facility] [id number] [place] [address] Maternal Race Nonblack Normal [facility] Comment on above: Performed By: #### A AFPM ####[address] [address] MoM for AFP 0.73 Normal [facility] Comment on above: Performed By: #### A AFPM ####[address] [address] Number of Fetuses Núñez Normal [facility] Comment on above: Performed By: #### A AFPM ####[address] [address] Patient's AFP 54 ng/mL Normal [facility] Comment on above: Performed By: #### A AFPM ####[facility] [id number] [place] [address] Smoking No Normal [facility] Comment on above: Performed By: #### A AFPM ####[address] [address] Specimen See Note Normal [facility] Comment on above: Result Comment: (NOT E)Initial samplePerformed by [employer],[address] [place] [address] [employer], Kareem Pan MD, Lab. Director Performed By: #### A AFPM ####[address] [address] AFP, Maternalon 01-30-2018 Current Smoking N [facility] Comment on above: Performed By: #### A AFPM ####[address] [address] Dating LMP [facility] Comment on above: Performed By: #### A AFPM ####[address] [address] Diabetic N [facility] Comment on above: Performed By: #### A AFPM ####[address] [address] Estimated Due Date [facility] Comment on above: Performed By: #### A AFPM ####[address] [address] Family History N [facility] Comment on above: Performed By: #### A AFPM ####[address] [address] LMP date [id number] [facility] Comment on above: Performed By: #### A AFPM ####[address] [place] [address] Maternal date [facility] Comment on above: Performed By: #### A AFPM ####[address] [place] [address] Monochorionic Twins N [facility] Comment on above: Performed By: #### A AFPM ####[address] [address] Protein mass conc N Normal [facility] Comment on above: Performed By: #### A AFPM ####[address] [address] Race (Maternal) Normal [facility] Comment on above: Performed By: #### A AFPM ####[address] [address] Repeat Specimen N Normal [facility] Comment on above: Performed By: #### A AFPM ####[address] [address] Profileon 8 Hep B Surf Ag NONREACTIVE Normal [facility] Comment on above: Performed By: #### H IVCMB, PRENAT ####[address] [address] Rubella Ab, IgG 5.2 IU/mL Normal [facility] Comment on above: Result Comment: REFE RENCE RANGE:<5.0 NON-REACTIVE (non-immune)5.0 TO 9.9 EQUIVOCAL>=10.0 REACTIVE (immune) Performed By: #### H IVCMB, PRENAT ####[address] [address] Type + Scrnon 12-23 Type + Scrn Negative Normal [facility] Comment on above: Performed By: #### P RTYS ####[address] [address] HIV Ag/Abon 12-22-2017 HIV Ag/Ab NONREACTIVE Normal NR [facility] Comment on above: Result Comment: No l aboratory evidence of HIV infection. If acute HIV infection is suspected, consider testing for HIV-1 RNA. Performed By: #### H IVCMB, PRENAT ####[address] [address] Profileon 8 T.pallidum Ab Screen NONREACTIVE Normal NR [facility] Comment on above: Result Comment: T. p allidum antibodies are not detected.There is no serological evidence of infection with T. pallidum (early primary syphilis cannot be excluded). Retest in 2-4 weeks if syphilis is clinically suspect. Performed By: #### H IVCMB, PRENAT ####[address] [address] Abs. Basophil 0.04 k/uL Normal 0.00-0.20 [facility] Comment on above: Performed By: #### H IVCMB, PRENAT ####[address] [address] Abs.Imm.Granulocyte 0.03 k/uL Normal 0.00-0.30 [facility] Comment on above: Performed By: #### H IVCMB, PRENAT ####[address] [address] Abs.Neutrophil (Seg) 5.72 k/uL Normal 1.50-8.10 [facility] Comment on above: Performed By: #### H IVCMB, PRENAT ####[address] [address] Basophils/100 WBC Auto (Bld) 1 % Normal 0-2 [facility] Comment on above: Performed By: #### H IVCMB, PRENAT ####[address] [address] Eosinophils Auto #/vol (Bld) 0.25 10*3/uL Normal 0.00-0.44 [facility] Comment on above: Performed By: #### H IVCMB, PRENAT ####[address] [address] Eosinophils/100 WBC Auto (Bld) 3 % Normal 1-4 [facility] Comment on above: Performed By: #### H IVCMB, PRENAT ####[address] [address] Erythrocyte distribution width Auto Ratio (RBC) 13.2 % Normal 11.8-14.4 [facility] Comment on above: Performed By: #### H IVCMB, PRENAT ####[address] [address] Hematocrit Auto Volume Fraction (Bld) 37.4 % Normal 36.3-47.1 [facility] Comment on above: Performed By: #### H IVCMB, PRENAT ####[address] [address] Hemoglobin mass conc (Bld) 12.5 g/dL Normal 11.9-15.1 [facility] Comment on above: Performed By: #### H IVCMB, PRENAT ####[address] [address] Immature granulocytes #/vol (Bld) 0 % Normal 0 [facility] Comment on above: Performed By: #### H IVCMB, PRENAT ####[address] [address] Lymphocytes Auto #/vol (Bld) 1.53 10*3/uL Normal 1.10-3.70 [facility] Comment on above: Performed By: #### H IVCMB, PRENAT ####[address] [address] Lymphocytes/100 WBC Auto (Bld) 19 % Low 25-45 [facility] Comment on above: Performed By: #### H IVCMB, PRENAT ####[address] [address] MCH Auto Entitic mass (RBC) 28.3 pg Normal 25.2-33.5 [facility] Comment on above: Performed By: #### H IVCMB, PRENAT ####[address] [address] MCHC Auto mass conc (RBC) 33.4 g/dL Normal 28.4-34.8 [facility] Comment on above: Performed By: #### H IVCMB, PRENAT ####[address] [address] MCV Auto Entitic volume (RBC) 84.8 fL Normal 82.6-102.9 [facility] Comment on above: Performed By: #### H IVCMB, PRENAT ####[address] [address] Monocytes Auto #/vol (Bld) 0.39 10*3/uL Normal 0.10-1.40 [facility] Comment on above: Performed By: #### H IVCMB, PRENAT ####[address] [address] Monocytes/100 WBC Auto (Bld) 5 % Normal 2-8 [facility] Comment on above: Performed By: #### H IVCMB, PRENAT ####[address] [address] Neutrophil (Seg) 72 % High 34-64 [facility] Comment on above: Performed By: #### H IVCMB, PRENAT ####[address] [address] NRBC Automated 0.0 per 100 WBC Normal 0.0 [facility] Comment on above: Performed By: #### H IVCMB, PRENAT ####[address] [address] Platelet mean volume Auto Entitic volume (Bld) 11.5 fL Normal 8.1-13.5 [facility] Comment on above: Performed By: #### H IVCMB, PRENAT ####[address] [address] Platelets Auto #/vol (Bld) 234 10*3/uL Normal 138-453 [facility] Comment on above: Performed By: #### H IVCMB, PRENAT ####[address] [address] RBC Auto #/vol (Bld) 4.41 10*6/uL Normal 3.95-5.11 [facility] Comment on above: Performed By: #### H IVCMB, PRENAT ####[facility] [address] [address] WBC Auto #/vol (Bld) 8.0 10*3/uL Normal 4.5-13.5 [facility] Comment on above: Performed By: #### H IVCMB, PRENAT ####[address] [address] Auto Diff Performed NOT REPORTED Normal [facility] Comment on above: Performed By: #### H IVCMB, PRENAT ####[address] [address] Platelets Auto #/vol (Bld) NOT REPORTED Normal [facility] Comment on above: Performed By: #### H IVCMB, PRENAT ####[address] [address] RBC morphology finding Nom (Bld) NOT REPORTED Normal [facility] Comment on above: Performed By: #### H IVCMB, PRENAT ####[address] [address] WBC Morphology NOT REPORTED Normal [facility] Comment on above: Performed By: #### H IVCMB, PRENAT ####[address] [address] Cult,Urineon 11-30-2017 Cult,Urine Specimen Description .CLEAN CATCH URINE Special Requests NOT REPORTED Culture NO SIGNIFICANT GROWTH Report Status FINAL 11/29/2017 Normal [facility] Comment on above: Performed By: #### U RC #### [employer] [address] [place] [address] Chlamydia/GC DNA, Uron 11-01 Protein mass conc Negative Normal [facility] Comment on above: Result Comment: NEIS SERIA GONORRHOEAE DNA not detected by nucleic acid amplification. Performed By: #### U CGP #### [facility] [address] [place] [address] Result Comment: CHLA MYDIA TRACHOMATIS DNA not detected by nucleic acid amplification. Cult,Urineon 11-01-2017 Cult,Urine Specimen Description .CLEAN CATCH URINE Special Requests NOT REPORTED Culture ESCHERICHIA COLI >[id number] CFU/ML Report Status FINAL 11/01/2017 SUSCEPTIBILITY Organism ESCHERICHIA COLI Method NILAM Amikacin NOT REPORTED Ampicillin >=32 RESISTANT Ampicillin/Sulbactam NOT REPORTED Aztreonam <=1 SUSCEPTIBLE Cefazolin <=4 SUSCEPTIBLE Cefazolin sensitivity results can be used to predict the effectiveness of oral cephalosporins (eg. Cephalexin) in uncomplicated Urinary Tract Infections due to E. coli, K. pneumoniae, and P. mirabilis Cefepime NOT REPORTED Ceftriaxone <=1 SUSCEPTIBLE Ciprofloxacin <=0.25 SUSCEPTIBLE Ertapenem NOT REPORTED ESBL NEGATIVE Gentamicin <=1 SUSCEPTIBLE Meropenem NOT REPORTED Nitrofurantoin 32 SUSCEPTIBLE Tigecycline NOT REPORTED Tobramycin <=1 SUSCEPTIBLE Trimethoprim/Sulfa <=20 SUSCEPTIBLE Piperacillin/Tazobact am <=4 SUSCEPTIBLE Normal [facility] Comment on above: Performed By: #### U RC #### [facility] [address] [place] [address] Drug Scr, Abuse, Uron 2017 Amphetamine(s),Ur Negative Normal [facility] Comment on above: Result Comment: (Positive cutoff 1000 ng/mL) Performed By: #### D AU #### [facility] [address] [place] [address] Barbiturate(s),Ur Negative Normal [facility] Comment on above: Result Comment: (Positive cutoff 200 ng/mL) Performed By: #### D AU #### [address] [address] Base excess Calculated molar conc (Bld) Negative Normal [facility] Comment on above: Result Comment: (Positive cutoff 300 ng/mL) Performed By: #### D AU #### [address] [address] Benzodiazepine(s) Negative Normal [facility] Comment on above: Result Comment: (Positive cutoff 200 ng/mL) Performed By: #### D AU #### [address] [address] Cannabinoid(s),Ur Negative Normal [facility] Comment on above: Result Comment: (Positive cutoff 50 ng/mL) Performed By: #### D AU #### [address] [address] Interpretive Info Assay provides medical screening only. The absence of expected drug(s) and/or Normal [facility] Comment on above: Result Comment: meta bolite(s) may indicate diluted or adulterated urine, limitations of testing or timing of collection. Testing for legal purposes should be confirmed by another method. To request confirmation of test result, please call the lab within 7 days of sample submission. Performed By: #### D AU #### [facility] [address] [place] [address] Methadone Ql (U) Negative Normal [facility] Comment on above: Result Comment: (Positive cutoff 300 ng/mL) Performed By: #### D AU #### [facility] [address] [place] [address] Opiate(s), Ur Negative Normal [facility]G [facility] Comment on above: Result Comment: (Positive cutoff 300 ng/mL) Performed By: #### D AU #### [facility] [address] [place] [address] Oxycodone, Urine Negative Normal [facility]G [facility] Comment on above: Result Comment: (Positive cutoff 100 ng/mL) Performed By: #### D AU #### [facility] [address] [place] [address] Phencyclidine, Ur Negative Normal [facility] Comment on above: Result Comment: (Positive cutoff 25 ng/mL) Performed By: #### D AU #### [facility] [address] [place] [address] Buprenorphrine, Ur NOT REPORTED Normal NEG [facility] Comment on above: Performed By: #### D AU #### [facility] [address] [place] [address] MDMA, Urine NOT REPORTED Normal [facility]G [facility] Comment on above: Performed By: #### D AU #### [facility] [address] [place] [address] Methamphetamine, Ur NOT REPORTED Normal [facility]G [facility] Comment on above: Performed By: #### D AU #### [facility] [address] [place] [address] Protein mass conc (U) NOT REPORTED Normal NEG [facility] Comment on above: Performed By: #### D AU #### [facility] [address] [place] [address] Tricyclic antidepressants Screen Ql (U) NOT REPORTED Normal [facility]G [facility] Comment on above: Performed By: #### D AU #### [facility] [address] [place] [address] US OB LESS THAN 14 WEEKS SIN GLE OR FIRST GESTATIONon 10-27-2017 US OB LESS THAN 14 WEEKS SINGLE OR FIRST GESTATION EXAMINATION:TRANSABDO FELIX AND TRANSVAGINAL FIRST TRIMESTER OBSTETRIC PELVIC ULTRASOUNDWITH COLOR DOPPLER FLOW10/27/2017COMPARIS ON:NoneHISTORY:[employer] PROVIDED HISTORY: 9 weeks gestation of pregnancyTECHNOLOGIST PROVIDED HISTORY:Reason for exam:->datingAcuity: AcuteType of Exam: InitialLast menstrual period August 23, 2017FINDINGS:There is a gestational sac with a yolk sac and pole measuring 2.1 cmcorresponding to 8 weeks 5 days and an EDC of June 03, 2018. Thiscompares with a menstrual age of 9 weeks 2 days.The right ovary is not visualized. The left ovary measures 3 x 1.6 x 2.3 cm.IMPRESSION: 8 week 5 day intrauterine . Nonvisualized right ovary.Interpreted by:LAINEY Rochaigned by:Gaurang Castellon MD10/27/17inal result Normal [facility] Vital Signs Date Time Vital Sign Value Performing Clinician Facility 04-10-2024 10:22-0500 Body weight 88.91 kg Tomer Floro CNM Work Phone: [facility] 03-29-2024 09:35-0500 Body weight 86.64 kg Tomer Floro CNM Work Phone: [facility] 03-29-2024 09:35-0500 Diastolic blood pressure 80 mm[Hg] Tomer Floro CNM Work Phone: [facility] 03-29-2024 09:35-0500 Systolic blood pressure 120 mm[Hg] Tomer Floro CNM Work Phone: [facility] 03-01-2024 09:36-0500 Body weight 85.73 kg Tomer Floro CNM Work Phone: [facility] 03-01-2024 09:36-0500 Diastolic blood pressure 80 mm[Hg] Tomer Floro CNM Work Phone: [facility] 03-01-2024 09:36-0500 Systolic blood pressure 118 mm[Hg] Tomer Floro CNM Work Phone: [facility] 02-23-2024 12:11-0500 Body height 162.6 cm Lanre Dempsey MD Work Phone: [facility] 02-23-2024 12:11-0500 Body mass index (BMI) [Ratio] 31.27 kg/m2 Lanre Dempsey MD Work Phone: [facility] 02-23-2024 [id number]:110500 Body weight 82.64 kg Lanre Dempsey MD Work Phone: [facility] 02-23-2024 12:11-0500 Diastolic blood pressure 75 mm[Hg] Lanre Dempsey MD Work Phone: [facility] 02-23-2024 12:11-0500 Heart rate 100 /min Lanre Dempsey MD Work Phone: [facility] 02-23-2024 12:11-0500 Systolic blood pressure 132 mm[Hg] Lanre Dempsey MD Work Phone: [facility] 02-02-2024 14:45-0400 Diastolic blood pressure 80 mm[Hg] Tomer Floro CNM Work Phone: [facility] 02-02-2024 14:45-0400 Systolic blood pressure 118 mm[Hg] Tomer Floro CNM Work Phone: [facility] 01-12-2024 10:59-0400 Body weight 77.56 kg Tomer Floro CNM Work Phone: [facility] 01-12-2024 10:59-0400 Diastolic blood pressure 70 mm[Hg] Tomer Floro CNM Work Phone: [facility] 01-12-2024 10:59-0400 Systolic blood pressure 120 mm[Hg] Tomer Floro CNM Work Phone: [facility] 12-15-2023 09:26-0400 Body weight 74.84 kg Tomer Floro CNM Work Phone: [facility] 12-15-2023 09:26-0400 Diastolic blood pressure 78 mm[Hg] Tomer Floro CNM Work Phone: [facility] 12-15-2023 09:26-0400 Systolic blood pressure 118 mm[Hg] Tomer Lucia CNM Work Phone: [facility] 08-15-2023 08:43-0400 Body height 162.56 cm [facility] 08-15-2023 08:36-0400 Body mass index (BMI) [Ratio] 27.4 kg/m2 [facility] 08-15-2023 08:36-0400 Body temperature 97.3 [degF] [facility] 08-15-2023 08:36-0400 Body weight 72.57 kg [facility] 08-15-2023 08:36-0400 Diastolic blood pressure 76 mm[Hg] [facility] 08-15-2023 08:36-0400 Heart rate 87 /min [facility] 08-15-2023 08:36-0400 Respiratory rate 16 /min [facility] 08-15-2023 08:36-0400 SaO2% (BldA) [Mass fraction] 98 % [facility] 08-15-2023 08:36-0400 Systolic blood pressure 110 mm[Hg] [facility] 07-14-2023 10:03-0400 Body height 162.56 cm [facility] 07-14-2023 10:03-0400 Body mass index (BMI) [Ratio] 28.3 kg/m2 [facility] 07-14-2023 10:03-0400 Body weight 74.84 kg [facility] 07-14-2023 10:03-0400 Diastolic blood pressure 76 mm[Hg] [facility] 07-14-2023 10:03-0400 Heart rate 68 /min [facility] 07-14-2023 10:03-0400 SaO2% (BldA) [Mass fraction] 100 % [facility] 07-14-2023 10:03-0400 Systolic blood pressure 118 mm[Hg] [facility] 06-16-2023 10:07-0500 Body height 162.56 cm [facility] 06-16-2023 10:07-0500 Body mass index (BMI) [Ratio] 28.3 kg/m2 [facility] 06-16-2023 10:07-0500 Body weight 74.84 kg [facility] 06-16-2023 10:07-0500 Diastolic blood pressure 72 mm[Hg] [facility] 06-16-2023 10:07-0500 Heart rate 86 /min [facility] 06-16-2023 10:07-0500 SaO2% (BldA) [Mass fraction] 99 % [facility] 06-16-2023 10:07-0500 Systolic blood pressure 120 mm[Hg] [facility] 06-01-2023 15:48-0500 Blood Pressure Location [facility] 06-01-2023 15:48-0500 Diastolic blood pressure 64 mm[Hg] [facility] 06-01-2023 15:48-0500 Heart rate 76 /min [facility] 06-01-2023 15:48-0500 Respiratory rate 16 /min [facility] 06-01-2023 15:48-0500 Systolic blood pressure 102 mm[Hg] [facility] 05-19-2023 10:00-0500 Body height 162.56 cm Uyen Martel Other [employer] Other 05-19-2023 10:00-0500 Body mass index (BMI) [Ratio] 28.66 kg/m2 Uyen Martel Other [employer] Other 05-19-2023 10:00-0500 Body weight 75.75 kg Uyen Martel Other [employer] Other 05-19-2023 10:00-0500 Diastolic blood pressure 76 mm[Hg] Uyen Tahmina Other [employer] Other 05-19-2023 10:00-0500 SaO2% (BldA) [Mass fraction] 99 % Uyen Chandotacher Other [employer] Other 05-19-2023 10:00-0500 Systolic blood pressure 120 mm[Hg] Uyen Magir Other [employer] Other 04-21-2023 11:00-0500 Body height 162.56 cm Uyen Tahmina Other [facility] 04-21-2023 11:00-0500 Body mass index (BMI) [Ratio] 28.83 kg/m2 Uyen Tahmina Other [employer] Other 04-21-2023 11:00-0500 Body weight 76.2 kg Uyen Chandotmarur Other [facility] 04-21-2023 11:00-0500 Diastolic blood pressure 78 mm[Hg] Uyen Nateacher Other [facility] 04-21-2023 11:00-0500 SaO2% (BldA) [Mass fraction] 98 % Uyen Magir Other [facility] [employer] Other 04-21-2023 11:00-0500 Systolic blood pressure 122 mm[Hg] Uyen Nateacher Other [facility] 10-01-2022 12:50-0400 Body height 162.56 cm Daksha Joyner Other [employer] Other 10-01-2022 12:50-0400 Body mass index (BMI) [Ratio] 29.52 kg/m2 Daksha Anya Other [employer] Other 10-01-2022 12:50-0400 Body temperature 98.3 [degF] Daksha Anya Other [employer] Other 10-01-2022 12:50-0400 Body weight 78.02 kg Daksha Anya Other [employer] Other 10-01-2022 12:50-0400 Diastolic blood pressure 82 mm[Hg] Daksha Anya Other [employer] Other 10-01-2022 12:50-0400 Respiratory rate 18 /min Daksha Anya Other [employer] Other 10-01-2022 12:50-0400 SaO2% (BldA) [Mass fraction] 98 % Daksha Anya Other [employer] Other 10-01-2022 12:50-0400 Systolic blood pressure 136 mm[Hg] Daksha Anya Other [employer] Other 12-28-2021 13:40-0400 Body height 162.56 cm Daksha Anya Other [employer] Other 12-28-2021 13:40-0400 Body mass index (BMI) [Ratio] 29.18 kg/m2 Daksha Anya Other [employer] Other 12-28-2021 13:40-0400 Body temperature 98.3 [degF] Daksha Anya Other [employer] Other 12-28-2021 13:40-0400 Body weight 77.11 kg Daksha Joyner Other [employer] Other 12-28-2021 13:40-0400 Respiratory rate 18 /min Daksha Joyner Other [employer] Other 12-28-2021 13:40-0400 SaO2% (BldA) [Mass fraction] 97 % Daksha Joyner Other [employer] Other 01-31-2018 21:08-0400 Body weight Measured 167.0 lbs. [facility] Comment on above: Performed By: #### AAFPM ####[employer] [id number] [place] [address] 01-30-2018 14:28-0400 Body weight Measured 167 [facility] Comment on above: Performed By: #### AAFPM ####[employer] [id number] [place], [place] [id number] 01-30-2018 14:28-0400 Body weight Measured LBS [facility] Comment on above: Performed By: #### AAFPM ####[employer] [id number] [place] [address] [id number] Encounters Encounter Date Encounter Type Care Provider Facility Start: 04-10-2024 End: 04-10-2024 Bamboo flowsheet Tomer Lucia CNM Work Phone: [facility] Start: 04-10-2024 End: 04-10-2024 Bamboo flowsheet Tomer Lucia CNM Work Phone: [facility] Start: 04-10-2024 ambulatory TOMER LUCIA Not Gina ilable Start: 04-10-2024 End: 04-10-2024 Office outpatient visit 15 minutes Tomer L Floro CNM Work Phone: [facility] Comment on above: Encounter for superv ision of other normal , third trimester (Primary Dx); congenital anomaly Start: 03-29-2024 End: 03-29-2024 Bamboo flowsheet Tomer L Floro CNM Work Phone: [facility] Start: 03-29-2024 End: 03-29-2024 Bamboo flowsheet Tomer L Floro CNM Work Phone: [facility] Start: 03-29-2024 End: 03-29-2024 ambulatory TOMER L FLORO Not Available Start: 03-29-2024 End: 03-29-2024 Office outpatient visit 15 minutes Tomer L Floro CNM Work Phone: [facility] Comment on above: congenital anomaly (Primary Dx); Encounter for supervision of other normal , third trimester Start: 03-19-2024 End: 03-19-2024 Orders Only Not In System Ref Prov [facility]- Medicine at [facility] Start: 03-01-2024 End: 03-01-2024 Bamboo flowsheet Tomer L Floro CNM Work Phone: [facility] Start: 03-01-2024 End: 03-01-2024 Bamboo flowsheet Tomer L Floro CNM Work Phone: [facility] Start: 03-01-2024 End: 03-01-2024 ambulatory TOMER L FLORO Not Available Start: 03-01-2024 End: 03-01-2024 Office outpatient visit 15 minutes Tomer L Floro CNM Work Phone: [facility] Comment on above: Encounter for superv ision of other normal , second trimester (Primary Dx); Screening for diabetes mellitus; Screening for iron deficiency anemia Start: 02-28-2024 End: 02-28-2024 Orders Only Vanessa Weiss RDMS Maternal- Medic ine at [facility] Comment on above: Abnormal ultrasonic finding on screening of mother, antepartum (Primary Dx) Start: 02-23-2024 End: 02-23-2024 Orders Only Brionna Finch RN Maternal- Medic ine at [facility] Comment on above: Abnormal obstetric u ltrasound scan (Primary Dx) Start: 02-23-2024 End: 02-23-2024 Office consultation new/estab patient 60 min Lanre Dempsey MD Work Phone: Maternal- Medicine at [facility] Comment on above: Elliott cisterna magna (CMS-HCC) (Primary Dx) Start: 02-15-2024 End: 02-15-2024 Chart abstracting Lanre Dempsey MD Work Phone: [facility]aternal- Medicine at [facility] Start: 02-07-2024 End: 02-07-2024 Chart abstracting Lanre Dempsey MD Work Phone: [facility]aternal- Medicine at [facility] Start: 02-06-2024 End: 02-06-2024 Chart abstracting Scanning Provider External Maternal- Medicine at [facility] Start: 02-02-2024 End: 02-02-2024 Office outpatient visit 15 minutes Tomer Lucia CNM Work Phone: [facility] Comment on above: related co ndition in second trimester (Primary Dx); Encounter for supervision of other normal , second trimester Start: 02-02-2024 End: 02-02-2024 Bamboo flowsheet Tomer Welsho CNM Work Phone: [facility] Start: 02-02-2024 End: 02-02-2024 Bamboo flowsheet Tomer Welsho CNM Work Phone: [facility] Start: 02-02-2024 End: 02-02-2024 ambulatory TOMER LUCIA Not Available Start: 01-20-2024 End: 01-20-2024 Telephone encounter Tomer SAMAYOAM Work Phone: [facility] Start: 01-12-2024 End: 01-12-2024 Bamboo flowsheet Tomer L Floro CNM Work Phone: [facility] Start: 01-12-2024 End: 01-12-2024 Bamboo flowsheet Tomer L Floro CNM Work Phone: [facility] Start: 01-12-2024 End: 01-12-2024 Office outpatient visit 15 minutes Tomer L Floro CNM Work Phone: [facility] Comment on above: Encounter for superv ision of other normal , second trimester (Primary Dx) Start: 01-12-2024 End: 01-12-2024 ambulatory TOMER L FLORO Not Available Start: 12-15-2023 End: 12-15-2023 Bamboo flowsheet Tomer L Floro CNM Work Phone: [facility] Start: 12-15-2023 End: 12-15-2023 Bamboo flowsheet Tomer L Floro CNM Work Phone: [facility] Start: 12-15-2023 End: 12-15-2023 Office outpatient visit 15 minutes Tomer L Floro CNM Work Phone: [facility] Comment on above: Encounter for superv ision of other normal , second trimester (Primary Dx); related condition in second trimester Start: 12-15-2023 End: 12-15-2023 ambulatory TOMER L FLORO Not Available Start: 11-17-2023 End: 11-17-2023 ambulatory TOMER L FLORO Not Available Start: 10-20-2023 End: 10-20-2023 ambulatory TOMER L FLORO Not Available Start: 09-15-2023 End: 09-15-2023 Departed Referred MARLEE Martel Work Phone: [facility] Work Phone: Start: 09-15-2023 End: 09-15-2023 ambulatory MARLEE Martel Work Phone: [facility] Work Phone: Start: 09-15-2023 End: 09-15-2023 Patient encounter procedure [facility] Physician [facility] Work Phone: Start: 08-15-2023 End: 08-15-[address] [facility] Work Phone: Start: 08-15-2023 End: 08-15-2023 Patient encounter procedure [facility] Work Phone: Start: 07-14-2023 End: 07-14-[address] [facility] Work Phone: Start: 07-14-2023 End: 07-14-2023 Patient encounter procedure [facility] Work Phone: Start: 06-16-2023 End: 06-16-2023 Patient encounter procedure [facility] Work Phone: Start: 06-01-2023 End: 06-02-2023 ambulatory Dorian R ARTUROL Facility:[facility] Start: 06-01-2023 End: 06-01-2023 Patient encounter procedure Dorian R NILL [facility] [place] Start: 05-19-2023 End: 05-19-2023 ambulatory Uyen Martel Other [employer] Other Start: 05-19-2023 Office outpatient vi sit 15 minutes Uyen Martel [facility] Start: 04-26-2023 ambulatory Dorian NILL Facility:[facility] [place] Start: 04-21-2023 End: 04-21-2023 ambulatory Uyen Martel Other [employer] Other Start: 04-21-2023 Encounter for genera l adult medical examination without abnormal findings Uyen Martel [facility] Start: 04-21-2023 Initial preventive medicine new pt age 18-39yrs Uyen Tahmina [facility] Start: 04-21-2023 End: 04-21-2023 Patient encounter procedure [facility] Work Phone: Start: 10-01-2022 End: 10-01-2022 ambulatory Daksha Anya Other [employer] Other Start: 10-01-2022 Office outpatient vi sit 15 minutes Daksha Anya [facility] Start: 12-28-2021 End: 12-28-2021 ambulatory Daksha Anya Other [employer] Other Start: 12-28-2021 Office outpatient vi sit 15 minutes Daksha Anya [facility] Start: 11-13-2020 End: 11-13-[address] SID REYES Facility: Start: 05-03-2018 End: 05-04-2018 Patient encounter procedure TRISTAN Bell [facility] Start: 03-30-2018 End: 03-30-2018 Patient encounter procedure SIXTO BUSCH [facility] Start: 03-28-2018 End: 03-29-2018 Patient encounter procedure JOANA RICHARDSON [facility] Start: 03-21-2018 End: 03-22-2018 Patient encounter procedure TRISTAN JOSE [facility] Start: 02-25-2018 End: 02-25-2018 Patient encounter procedure SOCRATES ARMENDARIZ [facility] Start: 02-25-2018 End: 02-25-2018 Patient encounter procedure MICHAEL GARCIAKABY [facility] Start: 02-23-2018 End: 02-23-2018 [facility] Start: 02-22-2018 End: 02-22-2018 Patient encounter procedure MICHAEL BILLINGS [facility] Start: 02-21-2018 End: 02-21-2018 Patient encounter procedure MICHAEL BILLINGS [facility] Start: 02-20-2018 End: 02-20-2018 [facility] Start: 02-19-2018 End: 02-19-2018 Patient encounter procedure MICHAEL BILLINGS [facility] Start: 02-18-2018 End: 02-18-2018 Patient encounter procedure MICHAEL BILLINGS [facility] Start: 02-17-2018 End: 02-17-2018 Patient encounter procedure MICHAEL BILLINGS [facility] Start: 02-16-2018 End: 02-16-2018 [facility] Start: 02-15-2018 End: 02-15-2018 Patient encounter procedure MICHAEL BILLINGS [facility] Start: 02-14-2018 End: 02-14-2018 Patient encounter procedure MICHAEL BILLINGS [facility] Start: 02-13-2018 End: 02-13-2018 Patient encounter procedure MICHAEL BILLINGS [facility] Start: 02-12-2018 End: 02-12-2018 Patient encounter procedure MICHAEL BILLINGS [facility] Start: 02-07-2018 End: 02-11-2018 Evaluation and management of inpatient MICHAEL BILLINGS [facility] Start: 01-25-2018 End: 01-26-2018 Patient encounter procedure SAMIR GUILLERMO [facility] Start: 12-22-2017 End: 12-23-2017 Patient encounter procedure LEAH B [facility] Start: 11-28-2017 End: 11-29-2017 Patient encounter procedure LEAH B [facility] Start: 10-31-2017 End: 11-01-2017 Patient encounter procedure JOANA RICHARDSON [facility] Start: 10-27-2017 End: 10-30-2017 Patient encounter LEAH B [facility] Procedures Date Procedure Procedure Detail Performing Clinician Start: 03-16-2024 Mri pelvis w/o contrast material Not In System Ref Prov Start: 02-02-2024 ULTRASOUND OFFICE Not In System Ref Prov Start: 11-17-2023 CHLAMYDIA/GC BY PCR MICHAEL SWAB Not In Sy stem Ref Prov Start: 11-17-2023 CHLAMYDIA/GC BY PCR THINPREP FLUID Not I n System Ref Prov Start: 11-17-2023 Drug scrn 1+ class nonchromo Not In Syst em Ref Prov Start: 10-20-2023 Antibody screen Lanre Dempsey MD Work Phone: Start: 10-20-2023 Hemoglobin glycosylated a1c Scanning Pro vider External Start: 10-20-2023 HIV 1&2 AB/AG SCREEN (P24 AG) Not In Sys tem Ref Prov Start: 10-20-2023 Iaad ia hepatitis b surface antigen Not In System Ref Prov Start: 10-20-2023 Syphilis test non-treponemal antibody qual Not In System Ref Prov Start: 10-20-2023 TYPE AND SCREEN Not In System Ref Prov Start: 05-03-2018 STREP B SCREEN, VAGINAL / RECTAL BRITTAN EY RICHARDSON Start: 03-30-2018 DISCHARGE PATIENT JOANA RICHARDSON Start: 03-30-2018 Culture bacterial quanttative colony count urine JOANA RICHARDSON Start: 03-30-2018 GENITAL CULTURE JOANA RICHARDSON Start: 03-30-2018 VAGINITIS DNA PROBE JOANA RICHARDSON Start: 03-30-2018 URINE RT REFLEX TO CULTURE JOANA DAREK GAS Start: 03-30-2018 PATIENT STATUS (DIRECT) JOANA RICHARDSON Start: 03-30-2018 PATIENT STATUS (DIRECT) JOANA RICHARDSON Start: 03-21-2018 Blood count complete auto&auto difrntl wbc JOANA RICHARDSON Start: 03-21-2018 GLUCOSE TOLERANCE, 1 HOUR JOANA VARG Start: 02-25-2018 MISCELLANEOUS NURSING CARE ORDER (SPECIFY) JOANA RICHARDSON Start: 02-25-2018 REMOVE PICC JOANA RICHARDSON Start: 02-25-2018 PATIENT STATUS (DIRECT) JOANA RICHARDSON Start: 02-23-2018 PATIENT STATUS (DIRECT) JOANA RICHARDSON Start: 02-22-2018 PATIENT STATUS (DIRECT) JOANA RICHARDSON Start: 02-21-2018 PATIENT STATUS (DIRECT) JOANA RICHARDSON Start: 02-20-2018 PATIENT STATUS (DIRECT) JOANA RICHARDSON Start: 02-19-2018 PATIENT STATUS (DIRECT) JOANA RICHARDSON Start: 02-18-2018 PATIENT STATUS (DIRECT) JOANA RICHARDSON Start: 02-17-2018 PATIENT STATUS (DIRECT) JOANA RICHARDSON Start: 02-16-2018 PATIENT STATUS (DIRECT) JOANA RICHARDSON Start: 02-15-2018 PATIENT STATUS (DIRECT) JOANA RICHARDSON Start: 02-14-2018 PATIENT STATUS (DIRECT) JOANA RICHARDSON Start: 02-13-2018 PATIENT STATUS (DIRECT) JOANA RICHARDSON Start: 02-12-2018 PATIENT STATUS (DIRECT) JOANA RICHARDSON Start: 02-11-2018 DISCHARGE PATIENT JOANA RICHARDSON Start: 02-10-2018 TRANSFER PATIENT JOANA RICHARDSON Start: 02-10-2018 IP CONSULT TO IV TEAM JOANA RICHARDSON Start: 02-10-2018 CULTURE BLOOD #1 JOANA RICHARDSON Start: 02-10-2018 Radiologic exam chest 2 views JOANA RICHARDSON Start: 02-10-2018 Us retroperitoneal real time w/image complete JOANA RICHARDSON Start: 02-09-2018 IP CONSULT TO INFECTIOUS DISEASES ROSALBA OSWALDGAS Start: 02-08-2018 PATIENT STATUS (DIRECT) JOANA RICHARDSON Start: 02-08-2018 MISCELLANEOUS NURSING CARE ORDER (SPECIFY) JOANA RICHARDSON Start: 02-08-2018 Us retroperitoneal real time w/image complete JOANA RICHARDSON Start: 02-08-2018 Blood count complete auto&auto difrntl wbc JOANA RICHARDSON Start: 02-08-2018 Comprehensive metabolic panel JOANA RICHARDSON Start: 02-08-2018 PLACE INTERMITTENT PNEUMATIC COMPRESSION DEVICE JOANA RICHARDSON Start: 02-07-2018 Culture bacterial quanttative colony count urine JOANA RICHARDSNO Start: 02-07-2018 Comprehensive metabolic panel JOANA RICHARDSON Start: 02-07-2018 Blood count complete auto&auto difrntl wbc JOANA RICHARDSON Start: 02-07-2018 VAGINITIS DNA PROBE JOANA RICHARDSON Start: 02-07-2018 C.TRACHOMATIS N.GONORRHOEAE DNA DEBBIE RICHARDSON Start: 02-07-2018 RAPID INFLUENZA A/B ANTIGENS JOANA Lee ARGAS Start: 02-07-2018 Microscopic urinalysis JOANA RICHARDSON Start: 02-07-2018 URINE RT REFLEX TO CULTURE JOANA MCDONNELL Start: 02-07-2018 CONTRACTION -MONITORING JOANA OSWALDGAS Start: 02-07-2018 DIET GENERAL JOANA OSWALDGAS Start: 02-07-2018 FULL CODE JOANA OSWALDGAS Start: 02-07-2018 INTAKE AND OUTPUT JOANA OSWALDGAS Start: 02-07-2018 MONITOR HEART TONES JOANA OSWALDG Start: 02-07-2018 NOTIFY PHYSICIAN (SPECIFY) JOANA MCDONNELL Start: 02-07-2018 PATIENT STATUS (DIRECT) JOANA NEWELLS Start: 02-07-2018 PLACE INTERMITTENT PNEUMATIC COMPRESSION DEVICE JOANA OSWALDGAS Start: 02-07-2018 VITAL SIGNS JOANA OSWALDGAS Start: 01-25-2018 ALPHA FETOPROTEIN, MATERNAL LEAH DAVID Start: 12-22-2017 TYPE AND SCREEN LEAH DAVID Start: 12-22-2017 HIV SCREEN LEAH DAVID Start: 12-22-2017 PROFILE I LEAH DAVID Start: 11-28-2017 Culture bacterial quanttative colony count urine JOANA OSWALDGAS Start: 10-31-2017 C.TRACHOMATIS N.GONORRHOEAE DNA, URINE JOANA NEWELLS Start: 10-31-2017 Culture bacterial quanttative colony count urine JOANA RICHARDSON Start: 10-31-2017 URINE DRUG SCREEN JOANA OSWALDGAS Start: 10-31-2017 CYSTIC FIBROSIS JOANA RICHARDSON Start: 10-27-2017 Us uterus 14 wk transabdl 04/11 gestat LEAH DAVID Colonoscopy Dorian ROMAN Esophagogastroduodenoscopy Arabella ROMAN Plan of Treatment Date Care Activity Detail Author Start: 06-05-2028 DTaP,Tdap and Td Vaccines (3 - Td or Tdap) DTaP,Tdap and Td Vaccines (3 - Td or Tdap) [facility] Start: 06-05-2028 DTaP,Tdap and Td Vaccines (9 - Td or Tdap) DTaP,Tdap and Td Vaccines (9 - Td or Tdap) [facility] Start: 07-30-2027 DTaP,Tdap and Td Vaccines (2 - Td or Tdap) DTaP,Tdap and Td Vaccines (2 - Td or Tdap) [facility] Start: 02-22-2025 Adult BMI Screening Adult BMI Screen ing [facility] Start: 02-22-2025 Tobacco Screening Tobacco Screening [facility] Start: 08-22-2024 End: 08-22-2024 US MFM with or without consult US MFM with or without consult Imaging Routine Abnormal obstetric ultrasound scan Expected: 08/22/2024 (Approximate), Expires: 08/22/[address] [facility] Work Phone: Comment on above: Expected: 08/22/2024 (Approximate), Expires: 08/22/2024 Start: 05-28-2024 End: 05-28-2024 Patient encounter procedure 05/28/2024 1:30 PM EST Routine [facility] [address] [place] [phone] Tomer Lucia, DANITAM [address] [place] [address] [facility] Start: 05-21-2024 End: 05-21-2024 Patient encounter procedure 05/21/2024 1:00 PM EST Routine [facility] [address] [place] [id number] Tomer Lucia, CNM [address] [place] [address] [facility] Start: 05-14-2024 End: 05-14-2024 Patient encounter procedure 05/14/2024 1:30 PM EST Routine [facility] [address] [place] [phone] Tomer Lucia, CNM [address] [place] [address] [facility] Start: 05-07-2024 End: 05-07-2024 Patient encounter procedure 05/07/2024 2:00 PM EST Routine [facility] [address] [place] [address] Tomer Lucia, CNM [address] [place] [address] [facility] Start: 04-30-2024 End: 04-30-2024 Patient encounter procedure 04/30/2024 1:00 PM EST Routine [facility] [address] [place] [address] Tomer Lucia, CNM [address] [place] [address] [facility] Start: 04-23-2024 End: 04-23-2024 Patient encounter procedure 04/23/2024 1:15 PM EST Routine [facility] [address] [place] [address] Tomer Lucia, CNM [address] [place] [address] [facility] Start: 04-16-2024 End: 04-16-2024 Patient encounter procedure 04/16/2024 2:30 PM EST Routine [facility] [address] [place] [address] Tomer Lucia, CNM [address] [place] [address] [facility] Start: 04-09-2024 End: 04-09-2024 Patient encounter procedure 04/09/2024 1:45 PM EST Routine [facility] [address] [place] [address] Tomer Lucia, [facility] [address] [place] [address] [facility] Start: 03-29-2024 End: 03-29-2025 US biophysical profile wo non stress testing US biophysical profile wo non stress testing Imaging Routine congenital anomaly Expected: 03/29/2024, Expires: 03/29/2025 [facility] Work Phone: Comment on above: Expected: 03/29/2024 , Expires: 03/29/2025 Start: 03-29-2024 End: 03-29-2024 Patient encounter procedure 03/29/2024 9:30 AM EST Routine [facility] [address] [place] [phone] Tomer Lucia, [place] [id number] [place] [address] [facility] Start: 03-26-2024 End: 03-26-2024 Patient encounter procedure [facility] Start: 03-01-2024 End: 03-01-2025 CBC panel - Blood by Automated count CBC Lab Routine Screening for iron deficiency anemia Expected: 03/01/2024 (Approximate), Expires: 03/01/2025 [facility] Comment on above: Expected: 03/01/2024 (Approximate), Expires: 03/01/2025 Start: 03-01-2024 End: 03-01-2025 GLUCOSE, GESTATIONAL SCREEN (50G)-135 CUTOFF GLUCOSE, GESTATIONAL SCREEN (50G)-135 CUTOFF Lab Routine Screening for diabetes mellitus Expected: 03/01/2024 (Approximate), Expires: 03/01/2025 [facility] Work Phone: Comment on above: Expected: 03/01/2024 (Approximate), Expires: 03/01/2025 Start: 03-01-2024 End: 03-01-2024 Patient encounter procedure 03/01/2024 9:15 AM EST Routine [facility] [address] [place] [address] Tomer Lucia, DANITA [address] [place] [address] [facility] Start: 02-28-2024 End: 02-27-2025 MR Pelvis WO contrast MR pelvis without contrast Imaging STAT Abnormal ultrasonic finding on screening of mother, antepartum Expected: 02/28/2024, Expires: 02/27/2025 [facility] Work Phone: Comment on above: Expected: 02/28/2024 , Expires: 02/27/2025 Start: 02-23-2024 End: 02-23-2024 Patient encounter procedure [facility] Start: 02-09-2024 End: 02-09-2024 Patient encounter procedure 02/09/2024 9:00 AM EDT Routine [facility] [address] [place] [phone] Tomer Lucia, [facility] [address] [place] [address] [facility] Start: 02-02-2024 End: 02-02-2024 Patient encounter procedure [facility] Comment on above: Arrived Start: 02-02-2024 End: 02-02-2024 Professional / ancillary services management 02/02/2024 2:00 PM EDT Ancillary Procedure [facility] [address] [facility] [address] [place] [id number] [facility] Start: 01-12-2024 End: 01-12-2024 Patient encounter procedure [facility] Comment on above: Arrived Start: 01-12-2024 End: 01-12-2024 Professional / ancillary services management 01/12/2024 10:00 AM EDT Ancillary Procedure [facility] [address] [facility] [address] [place] [id number] [facility] Start: 12-15-2023 End: 12-14-2024 US for US OB 14+ weeks anatomy scan Imaging Routine related condition in second trimester Expected: 12/15/2023, Expires: 12/14/2024 [facility] Work Phone: Comment on above: Expected: 12/15/2023 , Expires: 12/14/2024 Start: 12-15-2023 End: 12-15-2023 Patient encounter procedure 12/15/2023 9:30 AM EDT Routine [facility] [address] [place] [phone] Tomer Lucia CNM [address] [place], [place] [phone] Arrived [facility] Comment on above: Arrived Start: 12-11-2023 Influenza vaccination Influenza Vacc ine [facility] Start: 09-15-2023 Bacteria identified in Urine by Culture [facility] Start: 2017 Screening for malign ant neoplasm of cervix Pap Smear [facility] Start: 2014 Adult BMI Follow Up Plan Adult BMI Follow Up Plan [facility] Start: 2014 Adult BMI Screening Adult BMI Screen ing [facility] Start: 2008 Depression Screening Depression Scre ening [facility] Start: 2008 Tobacco Screening Tobacco Screening [facility] Immunizations Immunization Date Immunization Notes Care Provider Fa cility 07-29-2017 tetanus toxoid, reduced diphtheria toxoid, and acellular pertussis vaccine, adsorbed Scanning External [facility] NEGATED: Highlighted row has not occurred!06-01-2023 influenza virus vaccine, unspecified formulation Dorian ROMAN [facility] [place] Payers Date Payer Category Payer Self-pay 2023 Medicaid [employer] [facility] MEDICAID [id number] 2023-Present [address] [place] [address] [id number] 2023 Medicaid (Managed Care) [employer] [id number] 2023 Medicaid HMO [id number]. 1.13.424. 2.7.9.291043.217.315 2023 Medicaid [id number] 2.16.840.1.121805.19 2005 Commercial [employer] C are - POS [employer] 1.2.840.170762.1.13.424. 2.7.9.635675.502.315 2005 Private Health Insurance [id number] 2.16.840.1.914801.19 1996 Unknown [id number] 2.16.840.1.991033.3.579. 2.177 1996 Unknown [id number] 2.16.840.1.774122.3.579. 2.177 1996 Unknown [id number] 2.16.840.1.648498.3.579. 2.177 1996 Unknown [id number] 2.16.840.1.594740.3.579. 2.175 1996 Unknown [id number] 2.16.840.1.390172.3.579. 2.175 1996 Unknown [id number] 2.16.840.1.688015.3.579. 2.175 1996 Unknown [id number] 2.16.840.1.874531.3.579. 2.175 1996 Unknown [id number] 2.16.840.1.738363.3.579. 2.175 1996 Unknown [id number] 2.16.840.1.191584.3.579. 2.175 1996 Unknown [id number] 2.16.840.1.281394.3.579. 2.175 1996 Unknown [id number] 2.16.840.1.723990.3.579. 2.175 1996 Unknown [id number] 2.16.840.1.999557.3.579. 2.175 1996 Unknown [id number] 2.16.840.1.749427.3.579. 2.175 1996 Unknown [id number] 2.16.840.1.630483.3.579. 2.175 1996 Unknown [id number] 2.16.840.1.894559.3.579. 2.175 1996 Unknown [id number] 2.16.840.1.758374.3.579. 2.175 1996 Unknown [id number] 2.16.840.1.423235.3.579. 2.175 1996 Unknown [id number] 2.16.840.1.093072.3.579. 2.175 1996 Unknown [id number] 2.16.840.1.846300.3.579. 2.175 1996 Unknown [id number] 2.16.840.1.359431.3.579. 2.175 1996 Unknown [id number] 2.16.840.1.241781.3.579. 2.175 1996 Unknown [id number] 2.16.840.1.117243.3.579. 2.175 1996 Unknown [id number] 2.16.840.1.146412.3.579. 2.175 1996 Unknown [id number] 2.16.840.1.336982.3.579. 2.593 1996 Unknown [id number] 2.16.840.1.574716.3.579. 2.727 1996 Unknown [id number] 2.16.840.1.539920.3.579. 2.9 1996 Unknown [id number] 2.16.840.1.637043.3.579. 2.1258 1996 Unknown [id number] 2.16.840.1.352283.3.579. 2.1258 1996 Unknown [id number] 2.16.840.1.301735.3.579. 2.1258 1996 Unknown [id number] 2.16.840.1.524057.3.579. 2.9 1996 Unknown [id number] 2.16.840.1.284485.3.579. 2.1258 1996 Unknown [id number] 2.16.840.1.173841.3.579. 2.1258 1996 Unknown [id number] 2.16.840.1.255547.3.579. 2.1258 1996 Unknown [id number] 2.16.840.1.590811.3.579. 2.1258 1996 Unknown [id number] 2.16.840.1.022641.3.579. 2.1258 1996 Unknown [id number] 2.16.840.1.151727.3.579. 2.1259 1959 Private Health Insurance [id number] Unknown [id number] 2.16.840.1.766636.3.579. 2.531 Social History Date Type Detail Facility Unknown if ever smoked [facility] Other Start: 05-22-2020 End: 10-20-2023 Sex Assigned At [facility] Start: 06-01-2023 End: 10-20-2023 Tobacco smoking status Never smoked tobacco (finding) [facility] Tobacco smoking status Former sm okeless tobacco user, quit more than 30 days ago [facility] Start: 1996 Sex Assigned At Female F [facility] Start: 10-20-2023 End: 02-23-2024 Tobacco use and exposure Smokeless tobacco non-user [facility] Start: 10-20-2023 End: 02-23-2024 Alcoholic beverage intake Ex-drinker (finding) [facility] Start: 05-22-2020 End: 10-20-2023 History of Social function [facility] Start: 09-08-2023 [facility] Start: 1996 Sex assigned at Not on file [facility] Start: 02-06-2024 Alcoholic beverage intake Current non-drinker of alcohol (finding) [facility] Start: 12-11-2014 Sex Female (finding) [facility] Functional Status Date Assessment Result Facility 06-01-2023 Functional Status N/A [facility] Clinical Notes 12-28-2021 to 04-10-2024 Tomer Lucia CNM - 04/10/2024 10:15 AM Isa Lucia CNM - 03/29/2024 9:30 AM Isa Lucia CNM - 03/01/2024 9:15 AM Олег Finch RN - 02/23/2024 1:00 PM EST Note Date & Type Note Facility 04-10-2024 History of Presen t illness Narrative Subjective No chief complaint on file. Shen Griggs is a 28 y.o. at 32w5d with a working estimated date of delivery of 05/31/2024, by Last Menstrual Period who presents for a routine visit. She denies vaginal bleeding, leakage of fluid, decreased movements, or contractions. OB History Para Term AB Living 2 1 1 1 SAB IAB Ectopic Multiple Live Births 1 # Outcome Date GA Lbr Ciro/2nd Weight Sex Type Anes PTL Lv 2 Current 1 Term 06/03/18 40w4d / 01:10 7 lb 0.5 oz F Vag-Spont EPI N DANIELLE Her is complicated by: Objective Physical Exam weight: 196 lb Expected Total Weight Gain: Could not be calculated Pregravid BMI: Could not be calculated Urine protein-negative Urine glucose-negative Assessment/Plan Diagnoses and all orders for this visit: Encounter for supervision of other normal , third trimester congenital anomaly Continue vitamin. Labs reviewed. GBS taken. Reactive NST in the office today Patient to continue seeing MFM regarding cardiology Expected mode of delivery Follow up in 1 week for a routine visit. documented in this encounter [facility] 03-29-2024 History of Presen t illness Narrative Subjective No chief complaint on file. Shen Griggs is a 28 y.o. at 31w0d with a working estimated date of delivery of 05/31/2024, by Last Menstrual Period who presents for a routine visit. She denies vaginal bleeding, leakage of fluid, decreased movements, or contractions. 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 Physical Exam weight: 191 lb Expected Total Weight Gain: Could not be calculated Pregravid BMI: Could not be calculated BP: 120/80 Urine protein-negative Urine glucose-negative Assessment/Plan Diagnoses and all orders for this visit: congenital anomaly - US biophysical profile wo non stress testing; Future Encounter for supervision of other normal , third trimester Continue vitamin. Labs reviewed. GBS at 36 weeks Expected mode of delivery Follow up in 2 weeks for a routine visit and begin increased surveillance testing. NSTs in my office and BPPs at [facility] . documented in this encounter [facility] 03-01-2024 History of Presen t illness Narrative Subjective No chief complaint on file. Shen Griggs is a 28 y.o. at 27w0d with a working estimated date of delivery of 05/31/2024, by Last Menstrual Period who presents for a routine visit. She denies vaginal bleeding, leakage of fluid, decreased movements, or contractions. OB History Para Term AB Living 2 1 1 1 SAB IAB Ectopic Multiple Live Births 1 # Outcome Date GA Lbr Ciro/2nd Weight Sex Type Anes PTL Lv 2 Current 1 Term 06/03/18 40w4d / 01:10 7 lb 0.5 oz F Vag-Spont EPI N DANIELLE Her is complicated by: dizziness a few times a week, feeling like she is going to pass out. We discussed increasing oral hydration and adding electrolytes and liquid IV to help with balance and see if that helps The following portions of the chart were reviewed this encounter and updated as appropriate: Objective Physical Exam weight: 189 lb Expected Total Weight Gain: Could not be calculated Pregravid BMI: Could not be calculated BP: 118/80 Urine protein Urine glucose Labs: reviewed Imaging Assessment/Plan Discussed the dizziness, and patient states she does drink a lot of water, but sometimes it happens when she hasn't eaten or needs to eat. It doesn't happen often, Diagnoses and all orders for this visit: Encounter for supervision of other normal , second trimester Screening for diabetes mellitus - GLUCOSE, GESTATIONAL SCREEN (50G)-135 CUTOFF; Future Screening for iron deficiency anemia - CBC; Future Continue vitamin. Labs reviewed. Rhogam not needed patient is A+ positive GTT done today Follow up in 2 weeks for a routine visit. documented in this encounter [facility] 02-23-2024 History of Presen t illness Narrative Headache/epigastric pain/blurry vision/swelling? NO Cramping/contractions? NO Abnormal vaginal discharge? NO Spotting/vaginal bleeding? NO Loss or gush of fluid like your water may have broken? NO Do you have cats at home? NO Do you change the litter box (reason: risk of toxoplasmosis)? N/A Genetic testing done this here or other office? NO Have you been seen here at [facility] in a previous ? NO Recent ER visits or hospitalizations? NO Bring blood sugar log or meter with you today? (Please bring them with you for every visit at [facility]) N/A Flu vaccine (Feb-June)? NO Any concerns that you would like me to mention to the provider today? NO REASON FOR CONSULTATION: Isolated elliott cisterna magna. HISTORY OF PRESENT ILLNESS: Shen Griggs is a pleasant 28 y.o. G 2 P1 001. at 26w0d due on Estimated Date of Delivery: 05/31/24 . Patient was seen today due to the following 1. Isolated elliott cisterna magna. Limited trans performed which showed normal posterior fossa except for elliott cisterna magna. Normal cerebellar vermis. Normal appearing 3rd and 4th ventricle. Normal cerebellar diameter. 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 Patient is opting out of genetic testing. Currently the patient has no complaints. The patient denies nausea, vomiting, abdominal pain, vaginal bleeding, SOB or chest pain. Patient's PMH/PSH,SH,PSYCH Hx, MEDs, ALLERGIES, and ROS were all reviewed and updated in the appropriate sections. Patient Active Problem List Diagnosis Elliott cisterna magna (CMS-HCC) Past Medical History: Diagnosis Date ADHD PAST OBSTETRICAL HISTORY: OB History 2 Para 1 Term 1 AB Living 1 SAB IAB Ectopic Multiple Live Births 1 SURGICAL HISTORY: History reviewed. No pertinent surgical history. ALLERGIES: Allergies Allergen Reactions Amoxicillin CURRENT MEDICATIONS: Current Outpatient Medications: ondansetron (ZOFRAN) 4 mg tablet, Take 1 tablet (4 mg total) by mouth every 8 (eight) hours as needed for nausea or vomiting., Disp: , Rfl: [id number] acid ( 19) 29 mg iron- 1 mg tablet,chewable, Chew 1 tablet and swallow in the morning., Disp: , Rfl: cyclobenzaprine (FLEXERIL) 10 mg tablet, Take 1 tablet (10 mg total) by mouth 2 (two) times a day as needed for muscle spasms for up to 20 doses. (Patient not taking: Reported on 02/23/2024), Disp: 20 tablet, Rfl: 0 ibuprofen (ADVIL,MOTRIN) 600 mg tablet, Take 1 tablet (600 mg total) by mouth every 6 (six) hours as needed for pain for up to 30 doses. (Patient not taking: Reported on 02/23/2024), Disp: 30 tablet, Rfl: 0 FAMILY/GENETIC HISTORY: No family history of VTE, cardiac defects and mental retardation . SOCIAL HISTORY:Patient denies tobacco use, alcohol use, or drug use. RECENT HOSPITALIZATION: none I did review all the labs results available in addition to labs which were ordered by the primary care physician, and the other consultants, we search on [employer] and all the available care everywhere epic I did review all the imaging studies of the patient available on EMR, ordered by the primary care physician and the other [employer] consultant HABITS: Patient activity no restrictions, diet no restrictions REVIEW OF SYSTEM: Head and Neck: Negative for any dizziness and headaches. Cardiovascular and Respiratory System: Denies any chest pain, shortness of breath, and coughing. Abdominal and System: Denies any abdominal pain, nausea, vomiting, vaginal bleeding, and vaginal discharge Social Determinants of Health Financial Resource Strain: n Food Insecurity: n Transportation Needs: n Physical Activity: y Social Connections: y Intimate Partner Violence: n Housing Stability: y PHYSICAL EXAMINATION: BP 132/75 (BP Site: Right Arm, BP Postition: Sitting) Pulse 100 Ht 162.6 cm (5' 4 ) Wt 82.6 kg (182 lb 3.2 oz) LMP 08/25/2023 (Exact Date) BMI 31.27 kg/m . Gravid abdomen, Respirations not labored. Well oriented time place person, normal gait MEDICAL DECISION MAKING DISCUSSION: The cisterna magna is the space between the inferior margin of the vermis and the posterior rim of the form magnum. The normal cisterna magna measures between 3 mm and 8 mm, and elliott cisterna magna is diagnosed when it reaches 10 mm or more. Elliott cisterna magna is separable from Dandy-Walker malformation because cystic dilation of the 4th ventricle does not exist, the cerebellar vermis is present and normal in size, and the posterior fossa is not enlarged. Elliott cisterna magna occurs in the absence of volume loss of other posterior fossa elements, and of other cystic structures (e.g., arachnoid cysts) below the vermis. Elliott cisterna magna can be isolated or may be associated with other anomalies. When truly isolated, prognosis is generally favorable. RECOMMENDATION: 1. 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 2. neurosonography not completed due to breech presentation. 3. Patient is scheduled for MRI at [facility]. 4. 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 5. Follow-up in 4 weeks for completion of targeted anatomy discussion of MRI. 6. At the moment patient is considered low risk and a term spontaneous vaginal delivery at local hospital is anticipated with C section reserve for routine obstetrical indications. 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 Patient does have ultrasound office visit scheduled with us Thank you for allowing me to participate in Shen Griggs . If there any questions please do not hesitate to contact us. Sincerely, LANRE DEMPSEY MD documented in this encounter [facility] 02-02-2024 History of Presen t illness Narrative Subjective No chief complaint on file. Shen Griggs is a 28 y.o. at 23w0d with a working estimated date of delivery of 05/31/2024, by Last Menstrual Period who presents for a routine visit. She denies vaginal bleeding, leakage of fluid, decreased movements, or contractions. OB History Para Term AB Living 2 1 1 1 SAB IAB Ectopic Multiple Live Births 1 # Outcome Date GA Lbr Ciro/2nd Weight Sex Type Anes PTL Lv 2 Current 1 Term 06/03/18 40w4d / 01:10 7 lb 0.5 oz F Vag-Spont EPI N DANIELLE Her is complicated by: marijuana use- quit early , M referral for eval of posterior fossa The following portions of the chart were reviewed this encounter and updated as appropriate: Objective Physical Exam Expected Total Weight Gain: Could not be calculated Pregravid BMI: Could not be calculated BP: 118/80 Urine protein-negative Urine glucose-negative Labs: reviewed Imaging Assessment/Plan Diagnoses and all orders for this visit: related condition in second trimester Encounter for supervision of other normal , second trimester Continue vitamin. Labs reviewed. Rhogam GTT next visit. History of GDM last Follow up in 2 weeks for a routine visit. documented in this encounter [facility] 01-20-2024 Telephone encounter Note Pt is 21 weeks and wants to know if she can use Miralax for constipation, she is going since the last week, nothing coming out, and in a lot of pain. Pt calling her PCP to see if she can get advice from someone Forwarded message to Mary. [facility] 01-20-2024 Miscellaneous Notes Pt is 21 weeks and wants to know if she can use Miralax for constipation, she is going since the last week, nothing coming out, and in a lot of pain. Pt calling her PCP to see if she can get advice from someone Forwarded message to Mary. documented in this encounter [facility] 01-12-2024 History of Presen t illness Narrative Subjective No chief complaint on file. Shen Griggs is a 28 y.o. at 20w0d with a working estimated date of delivery of 05/31/2024, by Last Menstrual Period who presents for a routine visit. She denies vaginal bleeding, leakage of fluid, decreased movements, or contractions. OB History Para Term AB Living 2 1 1 1 SAB IAB Ectopic Multiple Live Births 1 # Outcome Date GA Lbr Ciro/2nd Weight Sex Type Anes PTL Lv 2 Current 1 Term 06/03/18 40w4d / 01:10 7 lb 0.5 oz F Vag-Spont EPI N DANIELLE Her is complicated by:marijuana use The following portions of the chart were reviewed this encounter and updated as appropriate: Objective Physical Exam weight: 171 lb Expected Total Weight Gain: Could not be calculated Pregravid BMI: Could not be calculated BP: 120/70 Urine protein-negative Urine glucose-negative Labs: reviewed Imaging Assessment/Plan Diagnoses and all orders for this visit: Encounter for supervision of other normal , second trimester Continue vitamin. Labs reviewed. Rhogam not needed patient is A+ positive blood type GTT at 28 weeks Follow up in 4 weeks for a routine visit. documented in this encounter [facility] 12-15-2023 History of Presen t illness Narrative Subjective No chief complaint on file. Shen Griggs is a 28 y.o. at 16w0d with a working estimated date of delivery of 05/31/2024, by Last Menstrual Period who presents for a routine visit. She denies vaginal bleeding, leakage of fluid, decreased movements, or contractions. OB History Para Term AB Living 2 1 1 1 SAB IAB Ectopic Multiple Live Births 1 # Outcome Date GA Lbr Ciro/2nd Weight Sex Type Anes PTL Lv 2 Current 1 Term 06/03/18 40w4d / 01:10 7 lb 0.5 oz F Vag-Spont EPI N DANIELLE Her is complicated by: nausea and vomiting The following portions of the chart were reviewed this encounter and updated as appropriate: Objective Physical Exam weight: 165 lb Expected Total Weight Gain: Could not be calculated Pregravid BMI: Could not be calculated BP: 118/78 Urine protein-negative Urine glucose-negative Labs: reviewed Imaging Assessment/Plan Diagnoses and all orders for this visit: Encounter for supervision of other normal , second trimester related condition in second trimester - US OB 14+ weeks anatomy scan; Future Continue vitamin. Labs reviewed. Rhogam not needed patient is A+ positive GTT at 28 weeks Follow up in 4 weeks for a routine visit. documented in this encounter [facility] 06-01-2023 Note Chief Complaint consultation for hemorrhoids HPI Staff 27 year old female presents on consultation from Dr. Kay for hemorrhoids. Reports approximate 4-5 year history of noting external anal bulge. Reports intermittent discomfort and itching. Scant intermittent bright red blood with wiping. Minimal effectiveness with use of Prep H and witch xiomara. Denies straining or prolonged sitting on toilet. Had colonoscopy completed 12 years ago for GI complaints; reported normal per patient. History of Present Illness 27 yo female with h/o ADHD, IBS, referred for hemorrhoids; patient reports worsening symptoms over the past 6 months; reports itching, external bulge, out all the time, irritated with wiping; occasional blood with wiping; using over the counter hemorrhoid creams; no hard stools, some intermittent loose stools, no hematochezia. remote colonoscopy, reportedly wnl. no asa or NSAID use; no tobacco use. Review of Systems PHQ Score Initial Depression Screen Score: 0 SCORE ROS - Provider Constitutional: no fever, no sweats, no weight loss. Eyes: no glasses, no blurred vision, no visual loss. ENMT: no dentures, no hoarseness, no swallowing difficulties, no hearing loss, no ear infection(s), no nose bleeds. Cardiovascular: normal blood pressure, no chest pain, regular heartbeat, no heart murmur. Respiratory: no shortness of breath, no cough, no asthma, no wheezing. Gastrointestinal: no nausea, no vomiting, no diarrhea, no constipation, no blood in stool, no change in bowel habits, no abdominal pain, no hepatitis. Genitourinary: no kidney stones, no urine infection, no dysuria. Musculoskeletal: no pain, no weakness. Skin: no changing moles, no rash, no skin lumps. Neurologic: no seizures, no epilepsy, no headache. Psychiatric: no emotional or psychiatric problem. Heme/Lymph: no bleeding problems, no anemia, no blood clots, no transfusions. Allergy/Immunologic: no swollen lymph nodes/glands, no IV drug abuse. Other: Additional ROS info: Except as noted in the above Review of Systems and in the History of Present Illness, all other systems have been reviewed and are negative or noncontributory. Physical Exam Vitals & Measurements HR: 76(Peripheral) RR: 16 BP: 102/64 HT: 64 in HT: 162.5 cm WT: 75.9 kg WT: 166.98 lb BMI: 28.74 rectal: small anterior anal skin tags, no inflammation, no fissures, no external hemorrhoids; normal tone, no masses or blood. Musculoskeletal: normal gait, digits and nails without infection, nodes, cyanosis, clubbing. Skin: no rashes, no lesions, no ulcers, no subcutaneous nodules, induration. Psychiatric/Neuro: oriented to time, place, person, judgement normal, affect appropriate for age, insight intact, no focal deficits. Tests: reviewed, review of old records completed , Assessment/Plan 1. Anorectal skin tags (K64.4: Residual hemorrhoidal skin tags) recommend discontinuing hemorrhoid creams; use wet wipes or TUCKs pads; if persistent symptoms, may require flexible sigmoidoscopy; call with problems/questions. Follow-up No qualifying data available Problem List/Past Medical History Ongoing ADHD Anorectal skin tags BMI 28.0-28.9,adult Irritable bowel syndrome with diarrhea Overweight Historical No qualifying data Procedure/Surgical History Colonoscopy, EGD - esophagogastroduodenoscopy. Medications atomoxetine 25 mg Cap, 25 mg= 1 cap(s), Oral, qAM Allergies penicillin (Rash) Social History Alcohol - Denies Alcohol Use, 06/01/2023 Substance Abuse - Denies Substance Abuse, 06/01/2023 Tobacco Never (less than 100 in lifetime) Tobacco Use:. Former smokeless tobacco user, quit more than 30 days ago Smokeless Tobacco Use:. Vaping, Started age 21.0 Years. Stopped age 24 Years., 06/01/2023 Family History Bipolar disorder: Mother. Hypertension: Mother. Immunizations Vaccine Date Status Comments influenza virus vaccine, inactivated - Not Given Patient Refuses [facility] Comment on above: Result Comment: Elec tronically Signed By: TANNER ANDRADE, Dorian Nichols\Date and Time Signed: 06/01/23 20:27 EST 05-19-2023 Evaluation note Encounter Date Diagnosis Assessment Notes May, Attention deficit hyperactivity disorder (ADHD), predominantly inattentive type (ICD-10 - F90.0) DSM-V Criteria Reviewed and Met: -Five or more symptoms of inattention including: Displays poor listening skills Loses and/or misplaces items needed to complete activities or tasks Sidetracked by external or unimportant stimuli Forgets daily activities Diminished attention span Avoids or is disinclined to begin homework or activities requiring concentration Fails to focus on details and/or makes thoughtless mistakes in schoolwork or assignments Will increase dose to 40mg and see in the office next week. GOAL: will be able to function in a controlled environment w/o inappropriate outbursts or inability to pay attention as needed prior to next visit in one month. Return to the office as directed for re-evaluation, call sooner with concerns or side effects or non-effectivenes s. You have been prescribed Stimulant for ADD. Please monitor closely for symptoms of decreased appetite, insomnia, anxiety and agitation. [employer] Other 01-11-2024 Evaluation note* Encounter Date Diagnosis Assessment Notes Treatment Notes Treatment Clinical Notes Apr, Attention deficit hyperactivity disorder (ADHD), predominantly inattentive type (ICD-10 - F90.0) DSM-V Criteria Reviewed and Met: -Five or more symptoms of inattention including: Displays poor listening skills Loses and/or misplaces items needed to complete activities or tasks Sidetracked by external or unimportant stimuli Forgets daily activities Diminished attention span Avoids or is disinclined to begin homework or activities requiring concentration Fails to focus on details and/or makes thoughtless mistakes in schoolwork or assignments GOAL: will be able to function in a controlled environment w/o inappropriate outbursts or inability to pay attention as needed prior to next visit in one month. STATUS: New/continuous BARRIERS: physical, intellectual ability, financial, emotional and family support. Return to the office as directed for re-evaluation, call sooner with concerns or side effects or non-effectiveness. You have been prescribed Stimulant for ADD. Please monitor closely for symptoms of decreased appetite, insomnia, anxiety and agitation. Apr, Wellness examination (ICD-10 - Z00.00) Personalized health advice about screenings discussed and provided. Additional counseling was provided here today in regards to general topics regarding health education were discussed in detail. All preventative issues were discussed including remaining a nonsmoker, colorectal screening, the importance of proper sleep for brain health maintenance, maintaining a heart-healthy balanced diet, recognizing and addressing signs of anxiety and depression, maintaining positive relationships with family and friends. Apr, Hemorrhoids, unspecified hemorrhoid type (ICD-10 - K64.9) Referral placed per pt request for evaluation of hemorrhoids and further treatment or options. [facility] Other 06-23-2023 Evaluation note* Encounter Date Diagnosis Assessment Notes Treatment Notes Treatment Clinical Notes Sep, Right otitis media, unspecified otitis media type (ICD-10 - H66.91) Middle ear infection: adult home care material was printed Drink plenty fluids, get plenty of rest. Take the azithromycin as prescribed until gone. Use the eardrops as prescribed. Take Tylenol or Motrin for aches pains or fevers. Follow-up with your family physician if no improvement in 2 to 3 days Sep, Acute otitis externa of right ear, unspecified type (ICD-10 - H60.501) [facility] Other 09-19-2022 Evaluation note* Encounter Date Diagnosis Assessment Notes Treatment Notes Treatment Clinical Notes Dec, Contact with and (suspected) exposure to other viral communicable diseases (ICD-10 - Z20.828) Dec, Strep pharyngitis (ICD-10 - J02.0) Strep throat material was printed Drink plenty fluids, get plenty of rest. Take the azithromycin as prescribed until gone. Take Tylenol or Motrin as needed for aches pains or fevers. Off work today and tomorrow. Follow-up with your family physician if no improvement in 2 to 3 days. [facility] Other Evaluation + Plan note No data available for this section General Surgery [facility] Evaluation note* Diagnosis Onset Date Resolution Status [id number] acute [id number] [facility] Work Phone: Evaluation note* Diagnosis Onset Date Resolution Status [id number] acute [id number] acute [id number] acute [facility] Work Phone: Evaluation note* Diagnosis Onset Date Resolution Status [id number] acute [id number] acute UTI (urinary tract infection) acute [facility] Work Phone: Evaluation note* Diagnosis Encounter for supervision of other normal , second trimester- Primary [facility] Diagnosis related condition in second trimester- Primary Encounter for supervision of other normal , second trimester [facility]* Diagnosis Elliott cisterna magna ([facility] Diagnosis Abnormal obstetric ultrasound scan- Primary documented in this encounter [facility]* Diagnosis Abnormal ultrasonic finding on screening of mother, antepartum- Primary documented in this encounter [facility]* Diagnosis Encounter for supervision of other normal , second trimester- Primary Screening for diabetes mellitus Screening for iron deficiency anemia documented in this encounter [facility]* Diagnosis Encounter for supervision of other normal , second trimester- Primary related condition in second trimester documented in this encounter [facility]* Diagnosis congenital anomaly- Primary Encounter for supervision of other normal , third trimester documented in this encounter [facility]* Diagnosis Encounter for supervision of other normal , third trimester- Primary congenital anomaly documented in this encounter [facility] general Narrative - Reported* Type Description Date Medical History IBS Surgical History Colonoscopy [facility] Other Hospital Discharge instructions No data available for this section General Surgery [facility] Discharge instructionsAmbulatory Orders* Urine Culture Time Frame: 09/15/23, Location: Determined By Patient [facility] Work Phone: InstructionsNot on filedocumented in this encounter [facility] filedocumented in this encounter [facility] on filedocumented in this encounter [facility] filedocumented in this encounter [facility] SystemProgress note No data available for this section General Surgery [place] Summary Purpose Family History No Family History Records Found Relationship Condition Age at Onset Recorded Date/T ghislaine Not Specified Family history of mental disorder Unknow n Hypertension Unknown Advance Directives No Advanced Directives Records Found Advance Directive Response Recorded Date/ Time Advance Directives No May 19, 2023 11:52am Reason for Referral Reason evaluate Diagnosis 1 Hemorrhoids, unspeci fied hemorrhoid type (K64.9) Referral Organization [facility] Medical linprince Referring Provider First Name Uyen Referring Provider Last Name Tahmina Referring Provider Specialty Nurse Eleni dan Referred Organization Unknown Facility Referred Provider Dorian Roman Referred Provider Specialty Surgery Referral Priority Routine Chief Complaint and Reason for Visit Chief Complaint Wellness/ Ibs 4 WEEK CHECK UP 4 week follow up Reason for Visit [id number] Chief Complaint 4 WEEK CHECK UP 4 week follow up 4 week follow up Reason for Visit [id number] Chief Complaint 4 week follow up 4 week follow up UA Reason for Visit [id number] Chief Complaint 4 week follow up 4 week follow up UA Reason for Visit [id number] UTI (urinary tract infection) Additional Source Comments INFORMATION SOURCE (unrecogn ized section and content) DATE CREATED AUTHOR 10/31/2017 [facility] [place] DATE CREATED AUTHOR AUTHOR'S ORGANIZ ATION 03/31/2018 [facility] DATE CREATED AUTHOR AUTHOR'S ORGANIZ ATION 05/30/2018 [facility] DATE CREATED AUTHOR AUTHOR'S ORGANIZ ATION 11/17/2020 [facility] DATE CREATED AUTHOR AUTHOR'S ORGANIZ ATION 06/09/2023 [facility] DATE CREATED AUTHOR AUTHOR'S ORGANIZ ATION 01/20/2024 [facility] DATE CREATED AUTHOR AUTHOR'S ORGANIZ ATION 04/12/2024 [facility] Special[facility] EPIC REASON FOR VISIT (unrecogniz ed section and content) Reason Comments survey assessment Patient Care team informatio n (unrecognized section and content) Team Status: Active Member Role Status Dates Uyen Martel APRN JANITORIAL ASSISTANT-C Primary Care Provider Active Team Status: Inactive Member Role Status Dates Uyen Martel APRN JANITORIAL ASSISTANT-C Attending Provider Act lorena Start: April 21, 2023 End: April 21, 2023 Team Status: Inactive Member Role Status Dates Uyen Martel APRN JANITORIAL ASSISTANT-C Primary Care Provider, Attending Provider Active Start: June 16, 2023 End: June 16, 2023 Team Status: Inactive Member Role Status Dates Uyen Martel APRN JANITORIAL ASSISTANT-C Primary Care Provider, Attending Provider Active Start: July 14, 2023 End: July 14, 2023 Team Status: Inactive Member Role Status Dates Uyen Martel APRN JANITORIAL ASSISTANT-C Primary Care Provider, Attending Provider Active Start: August 15, 2023 End: August 15, 2023 Team Status: Inactive Member Role Status Dates Uyen Martel APRN JANITORIAL ASSISTANT-C Primary Care Provider, Attending Provider Active Start: September 15, 2023 End: September 15, 2023 Screening Nurse Relationship Specialty Start Date End Date No Pcp, [place] [address] PCP - General Family Medicine 07/29/17 Screening Nurse Relationship Specialty Start Date End Date No Pcp, [place] [address] PCP - General Family Medicine 07/29/17 Screening Nurse Relationship Specialty Start Date End Date No Pcp, [place] [address] PCP - General Family Medicine 07/29/17 Screening Nurse Relationship Specialty Start Date End Date No Pcp, [place] [address] PCP - General Family Medicine 07/29/17 Screening Nurse Relationship Specialty Start Date End Date No Pcp, [place] [address] PCP - General Family Medicine 07/29/17 Screening Nurse Relationship Specialty Start Date End Date Uyen Martel APRN-JANITORIAL ASSISTANT [address] [place] [address] PCP - General Nurse Practitioner 03/15/24 Goals (unrecognized section and content) Goals may be documented in a n alternate section FOR RECORDS PERTAINING TO PATIENTS WHO ARE OR HAVE BEEN ENROLLED IN A CHEMICAL DEPENDENCY/SUBSTANCEABUSE PROGRAM, SOME INFORMATION MAY BE OMITTED. This clinical summary was aggregated from multiple sources. Caution should be exercised in using it in the provision of clinical care. This summary normalizes information from multiple sources, and as a consequence, information in this document may materially change the coding, format and clinical context of patient data. In addition, data may be omitted in some cases. CLINICAL DECISIONS SHOULD BE BASED ON THE PRIMARY CLINICAL RECORDS. [facility] [employer] [facility]. provides no warranty or guarantee of the accuracy or completeness of information in this document.
== END 2024-04-12 08:58 | disposition home or self-care (01) ==
LOC: US 08:57
PROVIDERS: PCP Family Medicine; Visit Provider Midwife
DX: O26.893 Other specified pregnancy related conditions, third trimester (principal); Q89.9 Congenital malformation, unspecified; Z3A.33 33 weeks gestation of pregnancy
CPT/HCPCS: 76819

== ENCOUNTER 2024-04-19 08:58 | Outpatient (OUT) | payer OTHER, SELFPAY ==
--- NOTE | 2024-04-19 09:02 | US_ITS ---
The [address] [address] Patient Name: SHEN SALES MRN: [id number] date: 1995 Sex: F Assigned Patient Location: Current Patient Location: US Accession/Order Number: [id number] Exam Date: 04/19/2024 09:15 Report Date: 04/19/2024 10:06 At the request of: TOMER CARTER Procedure: US OB BPP wo non-stress Ultrasound biophysical profile CLINICAL: Evaluate well-being. TECHNIQUE: Dedicated ultrasound imaging of the fetus was performed to include the personnel security specialist's evaluation of biophysical profile. FINDINGS: Comparison: Ultrasound 04/12/2024 FETUS: There is a single living intrauterine fetus in cephalic presentation. heart rate of 132 beats per minute. AMNIOTIC FLUID: The amniotic fluid index is 14.92 cm, with maximum vertical pocket of 5.06 cm. BIOPHYSICAL PROFILE: motion: 2 out of 2. tone: 2 out of 2. breathin out of 2. Amniotic fluid volume: 2 out of 2. Total score: 8 out of 8. OTHER FINDINGS: None. US/US OB BPP wo non-stress IMPRESSION: 1. Single viable fetus in cephalic presentation with heart rate of 132 beats per minute. 2. Total biophysical profile score of 8 out of 8. 3. Amniotic fluid index of 14.92 cm, with maximum vertical pocket of 5.06 cm. Amniotic fluid index on study was 13.4 cm on study 04/12/2024. Electronically authenticated by: STEFAN HUANG Date: 04/19/2024 10:06
== END 2024-04-19 08:59 | disposition home or self-care (01) ==
LOC: US 08:59
PROVIDERS: PCP Family Medicine; Visit Provider Midwife
DX: Q89.9 Congenital malformation, unspecified (principal)
CPT/HCPCS: 76819

== ENCOUNTER 2024-05-09 08:58 | Outpatient (OUT) | payer OTHER, SELFPAY ==
--- NOTE | 2024-05-09 09:04 | US_ITS ---
[address] [address] Patient Name: SHEN SALES MRN: [id number] date: 1995 Sex: F Assigned Patient Location: US Current Patient Location: US Accession/Order Number: [id number] Exam Date: 05/09/2024 09:05 Report Date: 05/09/2024 09:43 At the request of: TOMER CARTER Procedure: US OB BPP wo non-stress EXAMINATION: US OB BPP wo non-stress HISTORY: Congenital Anomaly COMPARISON: Ultrasound OB biophysical 04/19/2024 TECHNIQUE: Ultrasound biophysical profile was performed in the radiology department. BREATHING MOVEMENTS: 2 GROSS BODY MOVEMENTS: 2 TONE: 2 QUALITATIVE AMNIOTIC FLUID VOLUME: 2 PRESENTATION: CEPHALIC HEART RATE: 137.06 bpm AMNIOTIC FLUID VOLUME: 15.44 cm GESTATIONAL AGE: 36 weeks 6 days US/US OB BPP wo non-stress IMPRESSION: 1. Total biophysical profile score: 8 Electronically authenticated by: SCOTTY FIGUEROA Date: 05/09/2024 09:43
--- OUTSIDE RECORDS SUMMARY | 2024-05-09 09:09 | XMS_ITS | CCD ---
Author Organization [facility] Care Team Providers Care Soil Analyst Name Role Phone DAVID, LEAH B Unavailable [...] Unavailable AWA, MICHAEL Attending Unavailable TRISTAN JOSE Referring Unavailabl e LUKE, CRYSTAL J Primary Care Unavailable SIXTO BUSCH Admitting Unavailable SIXTO BUSCH Attending Unavailable LUKE, CRYSTAL J Primary Care Unavailable TRISTAN JOSE Referring Unavailabl e LUKE, CRYSTAL J Primary Care Unavailable DR SID REYES Primary Care Unavailable MADELINE CORRAL Consulting Unavailable MAUREEN DENNISON Admitting Unavailable MAUREEN DENNISON Attending Unavailable RYLEY FARLEY Consulting Unavailable Daksha Joynre Unavailable Uyen Martel Unavailable UYEN MARTEL Primary Care Physician Dorian ROAMN Attending Unavailable MARLEE Martel Primary Care Provider MALREE Martel Attending Provider Unavailable Primary Care Provider UnavailUyen Holley Attending Unavailable Uyen Martel Primary Care Unavailable Uyen Martel Admitting Unavailable No Pcp, No Pcp Primary Care Provider Unavailabl e [place]mina MARKETING 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-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, Uyen Primary Care Provid er Uyen Martel NP Primary Care Provider FLORO, TOMER L Attending Unavailable FLORO, TOMER L Attending Unavailable FLORO, TOMER L Referring Unavailable FLORO, TOMER L Attending Unavailable FLORO, TOMER L Attending Unavailable FLORO, TOMER L Attending Unavailable FLORO, TOMER L Referring Unavailable FLORO, TOMER L Referring Unavailable FLORO, TOMER L Attending Unavailable FLORO, TOMER L Attending Unavailable FLORO, TOMER L Attending Unavailable FLORO, TOMER L Attending Unavailable FLORO, TOMER L Attending Unavailable FLORO, TOMER L Attending Unavailable Allergies Allergy Classification Reported Allergen(s) Allergy Type Date of Onset Reaction(s) Facility Penicillins (antibiotic) (1 source) Amoxicillin Drug Allergy 3 [facility]ository (20 sources) Amoxicillin Drug Allergy 3 rash, Hives [facility] (2 sources) Penicillin; Translations: [penicillin] Drug Allergy Eruption of skin (disorder) General Surgery [place] (1 source) Amoxicillin Drug Allergy 4 [facility] Repository Medications Current Medications Medication Drug [...] Orally Once a day for 5 day(s) 23 Maxwell, 2023 Active hydrocortisone 10 mg/ml / neomycin 3.5 mg/ml / polymyxin b 19138 unt/ml otic suspension (1 source) Aminoglycoside Antibacterial, Polymyxin-class Antibacterial, Corticosteroid Start: 10-01-2022 Neomycin-Polymyxin- HC 3.5-00665-5 3 drops Otic Three times a day [...] nausea or vomiting 20 tablet 12/14/2023 Active End: 04-26-2024 take 1 tablet by mouth every eight hours as needed for nausea and vomiting ondansetron (ZOFRAN) 4 mg tablet Take 1 tablet (4 mg total) by mouth every 8 (eight) hours as needed for nausea or vomiting. 04/26/2024 Discontinued MV & Min w/FA-DHA ( Adult Gummy/DHA/FA) 0.4-25 MG chewable tablet (20 sources) MV & Mi n w/FA-DHA ( Adult Gummy/DHA/FA) 0.4-25 MG chewable tablet Chew Active nb275-vwih-ovagw acid ( 19) 29 mg iron- 1 mg tablet,chewable (11 sources) yv490-xyhy-tkodc acid ( 19) 29 mg iron- 1 mg tablet,chewable Chew 1 tablet and swallow in the morning. Active sulfamethoxazole 800 mg / trimethoprim 160 mg oral tablet (1 source) Dihydrofolate Reductase Inhibitor Antibacterial, Sulfonamide Antimicrobial Start: 024 take 1 tablet by mouth twice daily Sulfamethoxazole-Tri methoprim (Bactrim Ds) 800-160 mg tablet Active 1 TAB PO Twice daily 01 13September 15, 2023 12:00am Completed/Discontinued Medications Medication Drug Class(es) Dates Sig (Normalized) Sig (Original) atomoxetine 40 mg oral capsule (7 sources) Norepinephrine Reuptake Inhibitor Start: 05-25-2023 End: 06-16-2023 take 40 mg by mouth once daily Atomoxetine Discontinued 40 MG PO Daily May 25, 2023 1:00am June 16, 2023 11:38am Start: 04-20-2023 take 1 capsule by mo ut every twenty-four hours Atomoxetine HCl 25 MG 1 capsule Orally Once a day for 30 days Apr, Active take 1 capsule by mo ut every twenty-four hours Atomoxetine HCl 40 MG 1 capsule Orally Once a day for 30 days Active cyclobenzaprine hydrochloride 10 mg oral tablet (9 sources) Muscle Relaxant Start: 07-29-2017 End: 04-26-2024 take 1 tablet by mouth twice daily as needed for muscle spasms cyclobenzaprine (FLEXERIL) 10 mg tablet Take 1 tablet (10 mg total) by mouth 2 (two) times a day as needed for muscle spasms for up to 20 doses. 20 tablet 07/29/2017 04/26/2024 Discontinued Dexamethasone (4 sources) Corticosteroid Start: 12-28-2021 DEXAMETHASONE [...] [Attention deficit disorder with hyperactivity] 06-16-2023 Chronic Conditions associated with dizziness or vertigo (1 source) Postural dizziness; Translations: [Dizziness and giddiness] 04-27-2024 Episodic Diabetes or abnormal glucose tolerance complicating ; childbirth; or the puerperium (1 source) Abnormal glucose complicating ; Translations: [Abnormal glucose complicating ] Onset: 03-23-2018 Episodic Gastrointestinal hemorrhage (4 sources) Hematochezia; Translations: [Melena] Episodic Hemorrhoids (2 sources) Unspecified hemorrhoids; Translations: [Residual hemorrhoidal skin tags] Onset: 06-01-2023 Episodic Nervous system congenital anomalies (10 sources) Elliott cisterna magna; 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, unspecified] Onset: 02-23-2024 02-23-2024 Chronic Other complications of ; puerperium affecting management of mother (2 sources) Abnormality of heart; Translations: [Anomaly of heart of fetus affecting , antepartum, single or unspecified fetus] 04-20-2024 Episodic Other complications of (1 source) Supervision of [...] of mother] 02-23-2024 Episodic Other complications of (5 sources) ultrasound scan abnormal; Translations: [Abnormal ultrasonic finding on screening of mother] 02-28-2024 Episodic Other congenital anomalies (12 sources) Congenital malformation; Translations: [Congenital malformation, unspecified] [...] 06-01-2023 Episodic Other and delivery including normal (20 sources) Encounter for supervision of normal , unspecified, first trimester; Translations: [Normal ] Onset: 10-31-2017 01-12-2024 Episodic Other screening for suspected conditions (not mental disorders or infectious disease) (6 sources) Patient encounter status; Translations: [Encounter for screening for diabetes mellitus] 03-01-2024 Episodic Other skin disorders (1 source) Skin tag 06-01-2023 Episodic Otitis media and related conditions (1 source) Otitis media, unspecified, right ear Episodic Residual codes; unclassified (3 sources) Gestation period, 35 weeks; Translations: [35 weeks gestation of ] 04-26-2024 Episodic Residual codes; unclassified (1 source) 18 [...] Genao on 03-19-2024 Radiology Study observation (narrative) [facility] MR Pelvis WO contrastOrdered By: Lynda Genao on 03-16-2024 [facility] Ultrasound - OfficeOrdered B y: Lynda Genao on 02-07-2024 Radiology Study observation (narrative) [facility] US OB LIMITED 1+ FETUSESon 1 US [...] Limited study. Full anatomical survey not performed. 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 Dictated and transcribed 02/06/24/dpd This report has been electronically signed and approved by the interpreting radiologist. Electronically Signed Ted Juarez D.O. 2024-02-06 09:59:34 Normal Not Available Ultrasound - OfficeOrdered B y: Lynda Genao on 02-02-2024 [facility] US OB 14+ WEEKS ANATOMY SCAN on [...] report is generated using voice recognition reporting (Rypose). On occasion PowerScribe erroneously drops words from the report or replaces the spoken word with similar sounding words. Please call with any questions/concerns regarding this report.* Dictated and transcribed 01/12/24/dpsolange This report has been electronically signed and approved by the interpreting radiologist. Electronically Signed Kristian Hatfield M.D. 2024-01-12 17:03:01 Normal Not Available Chlamydia/GC by PCR Michael Sw abon 11-17-2023 Gonorrhoeae Dna(Pcr) Not detected Pr [facility] Chlamydia/GC by PCR ThinPrep fluidon 11-17-2023 Chlamydia Dna(Pcr) Not detected [facility] Drug Screen, Urineon 024 Barbiturate Screen Urine Negative [facility] Opiate Quantitative Urine Negative [facility] No Panel Informationon 11-16 [facility] CBC without diffOrdered By: Uyen Dubois on 10-20-2023 Hematocrit (Bld) [Volume fraction] 40 % [facility] Hemoglobin (Bld) [Mass/Vol] 13.3 g/dL [facility] Platelets (Bld) [#/Vol] 271 10*3/uL [facility] Rbc Mcv (Fl) By Automated Count 85.5 [facility] HIV 1&2 AB/AG Screen (P24 AG )on 10-20-2023 HIV 1&2 AB/AG Non-Reactive [facility] Hemoglobin A1con 10-20-2023 HbA1c (Bld) [Mass fraction] 4.9 % 4.0 - 6.0 % [facility] Hepatitis B surface antigeno n 10-20-2023 Hepatitis B Surface Antigen Non-Reactive [facility] No Panel InformationOrdered By: Lynda Genao on 10-20-2023 [facility] Rubella IGG immune statuson 10-20-2023 Rubella immune IgG 1.23IU/mL [facility] Syphilis Total(Unknown Syphi lis Status)Ordered By: Lynda Genao on 10-20-2023 Syphilis Non-Reactive [facility] Type and screenon 07-11-2024 Abo/Rh(D) Positive [facility] US OB < 14 WEEKS EARLYon US [...] Cx Nom (U) ORGANISM: Klebsiella pneumoniae (O:KLEPNE) [place] Count >100,000 Aerobic NILAM Charge (NMIC56) ---- [...] RESISTANT TO ALL B-LACTAM DRUGS. PERFORMED BY: [place] [address] PATHOLOGIST BAR MACHINE OPERATOR MULTIPLE SPINDLE SINGH WILLOUGHBY M.D. Normal [facility] Comment on above: Performed By: #### C UU #### [address] Facesheeton 06-02-2023 Facesheet [id number]# 1.00TIFF Normal [facility] Ambulatory Visit Summaryon 0 06-01-2023 Ambulatory Visit Summary SHEN GRIGGS :1995 Visit Date:06/01/2023 Ambulatory Visit Instructions Your Care Team Attending Physician - TANNER ANDRADE, Dorian Brannon Primary Care Physician - UYEN MARTEL CNP This Is Your Medications List Contact prescribing [...] for choosing us for your care. Normal [facility] Physician Referralon 024 Physician Referral [id number] 1 [id number] .00TIFF Normal [facility] COVID Quick Testingon 2021 Result Negative gDine Other Quick Strepon 12-28-2021 S. pyogenes Org specific cx Ql (Throat) Positive gDine Other Quick Strep gDine Other CULTURE URINEon 11-16-2020 CULTURE URINE Isolate [...] Trimethoprim/Sulfamet hoxazole <=20 S F Normal [facility] Comment on above: Performed By: #### U RCX #### [facility] [address] [place], [place] [address] Tho Vanessa CBC AUTO DIFFon 11-13-2020 BASO # 0.0 103/ul Normal 0.0-0.1 [facility] Comment on above: Performed By: #### C BC #### [facility] [address] [place], [place] [address] Tho Vanessa Basophils/100 WBC (Bld) 0.3 % Normal 0.2-2.0 [facility] Comment on above: Performed By: #### C BC #### [facility] [address] [place] [address] Tho Vanessa EO # 0.1 103/ul Normal 0.0-0.7 [facility] Comment on above: Performed By: #### C BC #### [facility] [address] [place], [place] [id number] Tho Vanessa Eosinophils/100 WBC (Bld) 0.6 % Critically low 0.9-7.0 [facility] Comment on above: Performed By: #### C BC #### [facility] [address] [place] [address] Tho Vanessa Erythrocyte distribution width (RBC) [Ratio] 14.6 % Normal 11.0-15.0 [facility] Comment on above: Performed By: #### C BC #### [facility] [address] [place] [address] Tho Vanessa Hematocrit (Bld) [Volume fraction] 39.8 % Normal 36.0-48.0 [facility] Comment on above: Performed By: #### C BC #### [facility] [address] [place] [address] Tho Vanessa Hemoglobin (Bld) [Mass/Vol] 12.6 g/dL Normal 12.0-16.0 [facility] Comment on above: Performed By: #### C BC #### [facility] [address] [place] [address] Tho Vanessa IG # 0.03 10e3/ul Normal 0.00-0.03 [facility] Comment on above: Performed By: #### C BC #### [facility] [address] [place] [address] Tho Vanessa IG % 0.3 % Normal 0.0-0.5 [facility] Comment on above: Performed By: #### C BC #### [facility] [address] [place] [address] Tho Vanessa LYMPH # 0.9 103/ul Critically low 1.2-3.8 [facility] Comment on above: Performed By: #### C BC #### [facility] [address] [place], [place] [id number] Tho Vanessa Lymphocytes/100 WBC (Bld) 8.5 % Critically low 20.5-60.0 [facility] Comment on above: Performed By: #### C BC #### [facility] [address] [place], [place] [id number] Tho Vanessa MANUAL DIFF REQ NO Normal [facility] Comment on above: Performed By: #### C BC #### [facility] [address] [place], [place] [id number] Tho Vanessa MCH (RBC) [Entitic mass] 25.0 pg Critically low 26.7-34.0 [facility] Comment on above: Performed By: #### C BC #### [facility] [address] [place] [address] Thoveto Mendez MCHC (RBC) [Mass/Vol] 31.7 g/dL Normal 29.9-35.2 [facility] Comment on above: Performed By: #### C BC #### [facility] [address] [place] [address] Tho Vanessa MCV (RBC) [Entitic vol] 79.0 fL Critically low 81.0-99.0 [facility] Comment on above: Performed By: #### C BC #### [facility] [address] [place] [address] Tho Vanessa MONO # 0.7 103/ul Normal 0.3-0.8 [facility] Comment on above: Performed By: #### C BC #### [facility] [address] [place] [address] Tho Vanessa Monocytes/100 WBC (Bld) 6.3 % Normal 1.7-12.0 [facility] Comment on above: Performed By: #### C BC #### [facility] [address] [place], [place] [address] Tho Vanessa NEUT # 8.8 103/ul Critically high 1.4-6.5 [facility] Comment on above: Performed By: #### C BC #### [facility] [address] [place], [place] [address] Tho Vanessa Neutrophils/100 WBC (Bld) 84.0 % Critically high 43.0-75.0 [facility] Comment on above: Performed By: #### C BC #### [facility] [address] [place], [place] [address] Tho Mendez Platelet mean volume (Bld) [Entitic vol] 10.2 fL Normal 9.5-13.5 [facility] Comment on above: Performed By: #### C BC #### [facility] [address] [place] [address] Tho Mendez PLT 321 103/ul Normal 150-450 [facility] Comment on above: Performed By: #### C BC #### [facility] [address] [place] [address] Tho Mendez RBC 5.04 106/ul Normal 4.20-5.40 [facility] Comment on above: Performed By: #### C BC #### [facility] [address] [place] [address] Tho Mendez WBC 10.5 103/ul Normal 4.0-11.0 [facility] Comment on above: Performed By: #### C BC #### [facility] [address] [place], [place] [id number] Tho Mendez CT ABD/PELVIS WO CONon 11-13 [...] RYLEY FARLEY Date: 2020-11-13 18:34 Normal [facility] ER URINE PROFILEon 1 Bilirubin Ql (U) Negative Normal NEGATIVE [facility] Comment on above: Performed By: #### ADRIANA ARROYO #### [facility] [address] [place] [address] Tho Vanessa Clarity (U) CLEAR Normal CLEAR [facility] Comment on above: Performed By: #### ADRIANA ARROYO #### [facility] [address] [place] [address] Tho Vanessa Color (U) LT. YELLOW Normal YELLOW [facility] Comment on above: Performed By: #### ADRIANA ARROYO #### [facility] [address] [place] [address] Tho Vanessa ERUAHD A micrscopic examination will be performed if indicated. Normal [facility] Comment on above: Performed By: #### ADRIANA ARROYO #### [facility] [address] [place] [address] Tho Vanessa Glucose Ql (U) Negative Normal NEGATIVE [facility] Comment on above: Performed By: #### ADRIANA ARROYO #### [facility] [address] [place] [address] Tho Vanessa Hemoglobin Ql (U) SMALL Abnormal NEGATIVE [facility] Comment on above: Performed By: #### ADRIANA ARROYO #### [facility] [address] [place] [address] Tho Vanessa Ketones Ql (U) Negative Normal NEGATIVE [facility] Comment on above: Performed By: #### ADRIANA ARROYO #### [facility] [address] [place], [place] [id number] Tho Vanessa LEUKOCYTES MODERATE Abnormal NEGATIVE [facility] Comment on above: Performed By: #### ADRIANA ARROYO #### [facility] [address] [place], [place] [address] Toh Vanessa Nitrite Ql (U) Negative Normal NEGATIVE [facility] Comment on above: Performed By: #### ADRIANA ARROYO #### [facility] [address] [place] [address] Tho Vanessa pH (U) 6.5 [pH] Normal 5-9 [facility] Comment on above: Performed By: #### ADRIANA ARROYO #### [facility] [address] [place] [address] Tho Mendez SPEC GRAVITY <=1.005 Abnormal 1.005-<=1.02 5 [facility] Comment on above: Performed By: #### ADRIANA ARROYO #### [facility] [address] [place] [address] Thoveto Mendez UA PROTEIN Negative Normal NEGATIVE/ TRACE [facility] Comment on above: Performed By: #### ADRIANA ARROYO #### [facility] [address] [place] [address] Tho Mendez UR MICRO IND INDICATED Normal [facility] Comment on above: Performed By: #### ADRIANA ARROYO #### [facility] [address] [place] [address] Thoveto Mendez Urobilinogen Qn (U) 0.2 {Cheo'U}/dL Normal 0.2 - 1. 0 [facility] Comment on above: Performed By: #### ADRIANA ARROYO #### [facility] [address] [place], [place] [address] Tho Vanessa PREG HCG QUALon 11-13-2020 , QUAL Negative Normal NEGATIVE [facility] Comment on above: Performed By: #### P REG #### [facility] [address] [place] [address] Tho Vanessa PROF CHEM 8 (BAS METB)on Anion gap [Moles/Vol] 14.9 mmol/L Normal [facility] Comment on above: Performed By: #### B MP #### [facility] [address] [place] [id number] Tho Vanessa Calcium [Mass/Vol] 9.2 mg/dL Normal 8.4-10.2 [facility] Comment on above: Performed By: #### B MP #### [facility] [address] [place], [place] [address] Tho Vanessa Chloride [Moles/Vol] 102 mmol/L Normal 98-107 [facility] Comment on above: Performed By: #### B MP #### [facility] [address] [place], [place] [address] Tho Vanessa CO2 [Moles/Vol] 23.7 mmol/L Normal 22.0-30.0 [facility] Comment on above: Performed By: #### B MP #### [facility] [address] [place], [place] [address] Tho Vanessa Creatinine [Mass/Vol] 0.89 mg/dL Normal 0.52-1.04 [facility] Comment on above: Performed By: #### B MP #### [facility] [address] [place], [place] [address] Tho Vanessa EGFR-AF GREENLANDIC >60 Normal >=60 [facility] Comment on above: Performed By: #### B MP #### [facility] [address] [place], [place] [address] Tho Vanessa EGFR-NON AF GREENLANDIC >60 Normal >=60 [facility] Comment on above: Performed By: #### B MP #### [facility] [address] [place], [place] [address] Tho Vanessa Glucose [Mass/Vol] 145 mg/dL Critically high 74-106 T [facility] Comment on above: Performed By: #### B MP #### [facility] [address] [place] [address] Tho Vanessa Potassium [Moles/Vol] 3.6 mmol/L Normal 3.4-5.0 [facility] Comment on above: Performed By: #### B MP #### [facility] [address] [place] [address] Tho Vanessa Sodium [Moles/Vol] 137 mmol/L Normal 137-145 [facility] Comment on above: Performed By: #### B MP #### [facility] [address] [place], [place] [address] Tho Vanessa Urea nitrogen [Mass/Vol] 7.0 mg/dL Normal 7.0-17.0 [facility] Comment on above: Performed By: #### B MP #### [facility] [address] [place] [address] Tho Vanessa Urea nitrogen/Creatinine [Mass ratio] 7.9 mg/mg Normal [facility] Comment on above: Performed By: #### B MP #### [facility] [address] [place] [address] Tho Vanessa URINE MICROSCOPIC ONLYon BACTERIA TRACE Abnormal NONE SEEN [facility] Comment on above: Performed By: #### HUGO ARROYOICRO #### [facility] [address] [place] [address] Tho Vanessa Bacteria identified Cx Nom (U) INDICATED Normal [facility] Comment on above: Performed By: #### Kayy SERRATO UMICRO #### [facility] [address] [place], [place] [address] Tho Vanessa CAST NONE SEEN Normal NONE SEEN [facility] Comment on above: Performed By: #### Kayy SERRATO UMICRO #### [facility] [address] [place], [place] [address] Tho Vanessa Crystals LM Nom (Urine sed) NONE SEEN Normal NONE SEEN [facility] Comment on above: Performed By: #### HUGO ARROYOICRO #### [facility] [address] [place], [place] [address] Tho Vanessa Epithelial cells LM Ql (Urine sed) MODERATE Abnormal NONE SEEN /RARE [facility] Comment on above: Performed By: #### BEN ARROYORO #### [facility] [address] [place], [place] [address] Tho Vanessa MUCOUS NONE SEEN Normal NONE SEEN [facility] Comment on above: Performed By: #### ADRIANA ARROYO #### [facility] [address] [place], [place] [address] Tho Vanessa RBC 5-10 Abnormal 0-2 [facility] Comment on above: Performed By: #### ADRIANA ARROYO #### [facility] [address] [place], [place] [address] Tho Vanessa WBC 10-20 Abnormal NONE SEEN [facility] Comment on above: Performed By: #### ADRIANA ARROYO #### [facility] [facility] [address], [place] [address] Tho Vanessa Rule Out Grp.B Strepon 05-06 Rule Out Grp.B Strep Specimen Descriptio n .VAGINA Special Requests NOT REPORTED Culture NEGATIVE FOR GROUP B STREPTOCOCCI Report Status FINAL 05/06/2018 Normal [facility] Comment on above: Performed By: #### U RC #### [address] [address] Cult,Genitalon 04-02-2018 Cult,Genital Specimen Description .VAGINA Special Requests NOT REPORTED Culture NORMAL URO-GENITAL HOMERO NEGATIVE FOR NEISSERIA GONORRHOEAE NEGATIVE FOR GROUP B STREPTOCOCCI Report Status FINAL 04/02/2018 Normal [facility] Comment on above: Performed By: #### U RC #### [facility] [facility] [address] [place] [address] Cult,Urineon 03-31-2018 Cult,Urine Specimen Description .CLEAN CATCH URINE Special Requests NOT REPORTED Culture NO GROWTH Report Status FINAL 03/31/2018 [facility] Comment on above: Performed By: #### U RC #### [facility] [employer] [address] [place] [address] UA w/Reflex Cultureon 2017 Acetoacetic Acid,Ur Negative Normal NEG [facility] Comment on above: Performed By: #### U RC #### [facility] [address] [place] [address] Bilirubin.direct mass conc Negative Normal NEG [facility] Comment on above: Performed By: #### U RC #### [address] [address] Color Nom (U) YELLOW Normal YEL [facility] Comment on above: Performed By: #### U RC #### [address] [address] Comment Microscopic exam not performed based on chemical results unless requested in Normal [facility] Comment on above: Result Comment: orig inal order. Performed By: #### U RC #### [address] [address] Glucose mass conc Negative Normal NEG [facility] Comment on above: Performed By: #### U RC #### [address] [address] Hemoglobin mass conc (Bld) Negative Normal NEG [facility] Comment on above: Performed By: #### U RC #### [address] [address] Leuckocyte Esterase Negative Normal NEG [facility] Comment on above: Performed By: #### U RC #### [address] [address] Nitrite,Ur Negative Normal NEG [facility] Comment on above: Performed By: #### U RC #### [facility] [employer] [address] [place] [address] PH,Ur 6.5 Normal 5.0-8.0 [facility] Comment on above: Performed By: #### U RC #### [address] [address] Protein mass conc Negative Normal NEG [facility] Comment on above: Performed By: #### U RC #### [facility] [facility] [place] [address] Spec. [place],Ur 1.021 Normal 1.005-1.030 [facility] Comment on above: Performed By: #### U RC #### [facility] [facility] [address] [place] [address] Turbidity CLEAR Normal CLEAR [facility] Comment on above: Performed By: #### U RC #### [facility] [employer] [facility] [address] [place] [address] Urobilinogen,Ur Normal Normal NORM [facility] Comment on above: Performed By: #### U RC #### [address] [address] Vaginitis DNA Probeon 2017 Vaginitis DNA Probe [...] of vaginitis/vaginosis. Report Status FINAL 03/30/2018 Normal [facility] Comment on above: Performed By: #### U RC #### [address] [address] Glucose Lani Scr 50gon 2017 Glucose mass conc 166 mg/dL High 70-135 [facility] Comment on above: Performed By: #### U RC #### [address] [address] CBC with Diffon 03-21-2018 Abs. Basophil 0.03 k/uL Normal 0.00-0.20 [facility] Comment on above: Performed By: #### U CGP #### [address] [address] Abs.Imm.Granulocyte 0.06 k/uL Normal 0.00-0.30 [facility] Comment on above: Performed By: #### U CGP #### [facility] [facility] [place] [address] Abs.Neutrophil (Seg) 6.98 k/uL Normal 1.50-8.10 [facility] Comment on above: Performed By: #### U CGP #### [facility] [facility] [address] [place] [address] Basophils/100 WBC (Bld) 0 % Normal 0-2 [facility] Comment on above: Performed By: #### U CGP #### [facility] [address] [place] [address] Eosinophils #/vol (Bld) 0.16 10*3/uL Normal 0.00-0.44 [facility] Comment on above: Performed By: #### U CGP #### [facility] [facility] [address] [place] [address] Eosinophils/100 WBC (Bld) 2 % Normal 1-4 [facility] Comment on above: Performed By: #### U CGP #### [facility] [facility] [address] [place] [address] Erythrocyte distribution width Ratio (RBC) 13.0 % Normal 11.8-14.4 [facility] Comment on above: Performed By: #### U CGP #### [facility] [facility] [address] [place] [address] Hematocrit Volume Fraction (Bld) 35.7 % Low 36.3-47.1 [facility] Comment on above: Performed By: #### U CGP #### [facility] [address] [place] [address] Hemoglobin mass conc (Bld) 11.9 g/dL Normal 11.9-15.1 [facility] Comment on above: Performed By: #### U CGP #### [address] [address] Immature granulocytes #/vol (Bld) 1 % High 0 [facility] Comment on above: Performed By: #### U CGP #### [address] [address] Lymphocytes #/vol (Bld) 1.34 10*3/uL Normal 1.10-3.70 [facility] Comment on above: Performed By: #### U CGP #### [address] [address] Lymphocytes/100 WBC (Bld) 15 % Low 25-45 [facility] Comment on above: Performed By: #### U CGP #### [address] [address] MCH Entitic mass (RBC) 28.8 pg Normal 25.2-33.5 [facility] Comment on above: Performed By: #### U CGP #### [address] [address] MCHC mass conc (RBC) 33.3 g/dL Normal 28.4-34.8 [facility] Comment on above: Performed By: #### U CGP #### [address] [address] MCV Entitic volume (RBC) 86.4 fL Normal 82.6-102.9 [facility] Comment on above: Performed By: #### U CGP #### [address] [address] Monocytes #/vol (Bld) 0.38 10*3/uL Normal 0.10-1.40 [facility] Comment on above: Performed By: #### U CGP #### [address] [address] Monocytes/100 WBC (Bld) 4 % Normal 2-8 [facility] Comment on above: Performed By: #### U CGP #### [address] [address] Neutrophil (Seg) 78 % High 34-64 [facility] Comment on above: Performed By: #### U CGP #### [address] [address] NRBC Automated 0.0 per 100 WBC Normal 0.0 [facility] Comment on above: Performed By: #### U CGP #### [address] [address] Platelet mean volume Entitic volume (Bld) 12.0 fL Normal 8.1-13.5 [facility] Comment on above: Performed By: #### U CGP #### [address] [address] Platelets #/vol (Bld) 239 10*3/uL Normal 138-453 [facility] Comment on above: Performed By: #### U CGP #### [address] [address] RBC #/vol (Bld) 4.13 10*6/uL Normal 3.95-5.11 [facility] Comment on above: Performed By: #### U CGP #### [address] [address] WBC #/vol (Bld) 9.0 10*3/uL Normal 4.5-13.5 [facility] Comment on above: Performed By: #### U CGP #### [address] [address] Auto Diff Performed NOT REPORTED Normal [facility] Comment on above: Performed By: #### U CGP #### [address] [address] Platelets #/vol (Bld) NOT REPORTED Normal [facility] Comment on above: Performed By: #### U CGP #### [address] [address] RBC morphology finding Nom (Bld) NOT REPORTED Normal [facility] Comment on above: Performed By: #### U CGP #### [address] [address] WBC Morphology NOT REPORTED Normal [facility] Comment on above: Performed By: #### U CGP #### [address] [id number] Glucose Lani Scr 50gon 2017 Glu Administered via Glucola [facility] Comment on above: Performed By: #### U RC #### [address] [address] Cult,Bloodon 02-16-2018 Cult,Blood Specimen Description .BLOOD Special Requests 5ML LH Culture NO GROWTH 6 DAYS Report Status FINAL 02/16/2018 [facility] Comment on above: Performed By: #### U CGP #### [address] [address] Cult,Bloodon 02-14-2018 Cult,Blood Specimen Description .BLOOD Special Requests 5ML R H Culture POSITIVE Blood Culture NOTIFIED DR Eduin ARCHULETA THROUGH PERFECT SERVE [id number] DIRECT GRAM STAIN FROM BOTTLE: GRAM POSITIVE COCCI IN CLUSTERS STAPHYLOCOCCUS SPECIES, COAGULASE NEGATIVE A single positive blood culture of coagulase negative staphylococci, micrococci, diphtheroids or Bacillus species should be interpreted with caution and viewed as likely a skin contaminant. Report Status FINAL 02/14/2018 [facility] Comment on above: Performed By: #### U CGP #### [facility] [facility] [address] [place] [address] [place] RENAL COMPLETEon 02-11-20 [place] RENAL COMPLETE EXAMINATION: RETROPERITONEAL ULTRASOUND OF [...] Dorian Damico MD 02/10/18 Final result Normal [facility] XR CHEST (2 VW)on 02-10-2018 XR CHEST [...] Geoffrey Mcallister MD 02/10/18 Final result Normal [facility] Cult,Urineon 02-09-2018 Cult,Urine Specimen Description .URINE Special Requests NOT REPORTED Culture ESCHERICHIA COLI >[id number] CFU/ML Report Status FINAL 02/09/2018 SUSCEPTIBILITY Organism [...] <=20 SUSCEPTIBLE Piperacillin/Tazobact am <=4 SUSCEPTIBLE Normal [facility] Comment on above: Performed By: #### U CGP #### [address] [address] CBC with Diffon 02-08-2018 Abs. Basophil 0.00 k/uL Normal 0.00-0.20 [facility] Comment on above: Performed By: #### U CGP #### [address] [address] Abs.Imm.Granulocyte 0.12 k/uL Normal 0.00-0.30 [facility] Comment on above: Performed By: #### U CGP #### [address] [address] Abs.Neutrophil (Seg) 10.33 k/uL High 1.50-8.10 [facility] Comment on above: Performed By: #### U CGP #### [address] [address] Basophils/100 WBC (Bld) 0 % Normal 0-2 [facility] Comment on above: Performed By: #### U CGP #### [address] [address] Eosinophils #/vol (Bld) 0.00 10*3/uL Normal 0.00-0.44 [facility] Comment on above: Performed By: #### U CGP #### [address] [address] Eosinophils/100 WBC (Bld) 0 % Low 1-4 [facility] Comment on above: Performed By: #### U CGP #### [address] [address] Immature granulocytes #/vol (Bld) 1 % High 0 [facility] Comment on above: Performed By: #### U CGP #### [address] [address] Lymphocytes #/vol (Bld) 0.74 10*3/uL Low 1.10-3.70 [facility] Comment on above: Performed By: #### U CGP #### [address] [address] Lymphocytes/100 WBC (Bld) 6 % Low 25-45 [facility] Comment on above: Performed By: #### U CGP #### [address] [address] Monocytes #/vol (Bld) 1.11 10*3/uL Normal 0.10-1.40 [facility] Comment on above: Performed By: #### U CGP #### [address] [address] Monocytes/100 WBC (Bld) 9 % High 2-8 [facility] Comment on above: Performed By: #### U CGP #### [address] [address] Morphology Interp Danilo (Bld) Normal Normal [facility] Comment on above: Performed By: #### U CGP #### [address] [address] Neutrophil (Seg) 84 % High 34-64 [facility] Comment on above: Performed By: #### U CGP #### [address] [address] Erythrocyte distribution width Ratio (RBC) 12.8 % Normal 11.8-14.4 [facility] Comment on above: Performed By: #### U CGP #### [address] [address] Hematocrit Volume Fraction (Bld) 31.8 % Low 36.3-47.1 [facility] Comment on above: Performed By: #### U CGP #### [address] [address] Hemoglobin mass conc (Bld) 10.5 g/dL Low 11.9-15.1 [facility] Comment on above: Performed By: #### U CGP #### [facility] [address] [place] [address] MCH Entitic mass (RBC) 28.7 pg Normal 25.2-33.5 [facility] Comment on above: Performed By: #### U CGP #### [facility] [facility] [address] [place] [address]83 MCHC mass conc (RBC) 33.0 g/dL Normal 28.4-34.8 [facility] Comment on above: Performed By: #### U CGP #### [address] [address] MCV Entitic volume (RBC) 86.9 fL Normal 82.6-102.9 [facility] Comment on above: Performed By: #### U CGP #### [address] [address] NRBC Automated 0.0 per 100 WBC Normal 0.0 [facility] Comment on above: Performed By: #### U CGP #### [facility] [address] [place] [address] Platelet mean volume Entitic volume (Bld) 11.2 fL Normal 8.1-13.5 [facility] Comment on above: Performed By: #### U CGP #### [address] [address] Platelets #/vol (Bld) 183 10*3/uL Normal 138-453 [facility] Comment on above: Performed By: #### U CGP #### [facility] [employer] [address] [place] [address] RBC #/vol (Bld) 3.66 10*6/uL Low 3.95-5.11 [facility] Comment on above: Performed By: #### U CGP #### [address] [address] WBC #/vol (Bld) 12.3 10*3/uL Normal 4.5-13.5 [facility] Comment on above: Performed By: #### U CGP #### [address] [address] Auto Diff Performed NOT REPORTED Normal [facility] Comment on above: Performed By: #### U CGP #### [facility] [employer] [address] [place] [address] Platelets #/vol (Bld) NOT REPORTED Normal [facility] Comment on above: Performed By: #### U CGP #### [address] [address] RBC morphology finding Nom (Bld) NOT REPORTED Normal [facility] Comment on above: Performed By: #### U CGP #### [facility] [facility] [address] [place] [address] WBC Morphology NOT REPORTED Normal [facility] Comment on above: Performed By: #### U CGP #### [address] [address] Chlamydia/GC,DNA Ampon 02-08 Protein mass conc Negative Normal NEG [facility] Comment on above: Result Comment: CHLA [...] target. Performed By: #### U CGP #### [facility] [address] [place] [address] Result Comment: DARYN SERIA GONORRHOEAE DNA not detected by nucleic [...] target. Comp Metabolic Profon 2017 (cont.) Normal [facility] Comment on above: Result Comment: Aver age GFR for 20-29 years old: 116 mL/min/1.73sq m Chronic Kidney Disease: <60 mL/min/1.73sq m Kidney failure: <15 mL/min/1.73sq m eGFR calculated using average adult body mass. Additional eGFR calculator available at: http://www.[employer]/multiple_crcl_2012.htm Performed By: #### U CGP #### [facility] [facility] [address] [place] [address] Albumin mass conc 3.0 g/dL Low 3.5-5.2 [facility] Comment on above: Performed By: #### U CGP #### [facility] [facility] [address] [place] [address] Albumin/Globulin mass ratio 1.0 {ratio} Normal 1.0-2.5 [facility] Comment on above: Performed By: #### U CGP #### [facility] [facility] [address] [place] [address] Alkaline Phos 50 U/L Normal 35-104 [facility] Comment on above: Performed By: #### U CGP #### [facility] [employer] [address] [place] [address] ALT enzyme act/vol 11 U/L Normal 5-33 [facility] Comment on above: Performed By: #### U CGP #### [address] [address] Anion gap molar conc 10 mmol/L Normal 9-17 [facility] Comment on above: Performed By: #### U CGP #### [address] [address] AST enzyme act/vol 10 U/L Normal <32 [facility] Comment on above: Performed By: #### U CGP #### [address] [address] Bilirubin Ql (U) 0.54 mg/dL Normal 0.3-1.2 [facility] Comment on above: Performed By: #### U CGP #### [address] [address] Calcium mass conc 8.4 mg/dL Low 8.6-10.4 [facility] Comment on above: Performed By: #### U CGP #### [address] [address] Chloride molar conc 100 mmol/L Normal 98-107 [facility] Comment on above: Performed By: #### U CGP #### [address] [address] CO2 molar conc 23 mmol/L Normal 20-31 [facility] Comment on above: Performed By: #### U CGP #### [address] [address] Creatinine mass conc 0.52 mg/dL Normal 0.50-0.90 [facility] Comment on above: Performed By: #### U CGP #### [address] [address] GFR, Amer >60 Normal >60 [facility] Comment on above: Performed By: #### U CGP #### [facility] [address] [place] [address] GFR,non Amer >60 Normal >60 [facility] Comment on above: Performed By: #### U CGP #### [facility] [employer] [address] [place] [address] Glucose mass conc 97 mg/dL Normal 70-99 [facility] Comment on above: Performed By: #### U CGP #### [facility] [address] [place] [address] Potassium molar conc 4.3 mmol/L Normal 3.7-5.3 [facility] Comment on above: Performed By: #### U CGP #### [facility] [address] [place] [address] Protein mass conc 6.0 g/dL Low 6.4-8.3 [facility] Comment on above: Performed By: #### U CGP #### [facility] [facility] [address] [place] [address] Sodium molar conc 133 mmol/L Low 135-144 [facility] Comment on above: Performed By: #### U CGP #### [facility] [facility] [address] [place] [address] Urea nitrogen mass conc 4 mg/dL Low 6-20 [facility] Comment on above: Performed By: #### U CGP #### [facility] [facility] [address] [place] [address] BUN/CRE Ratio NOT REPORTED Normal 9-20 [facility] Comment on above: Performed By: #### U CGP #### [facility] [facility] [address] [place] [address] Staging: NOT REPORTED Normal [facility] Comment on above: Performed By: #### U CGP #### [place] [place], [place] [phone] US RENAL COMPLETEon 02-09-20 18 US RENAL [...] Mg Bergman MD 02/08/18 Final result Normal [facility] CBC with Diffon 02-07-2018 Abs. Basophil <0.03 Normal 0.00-0.20 [facility] Comment on above: Performed By: #### C DP #### [address] [address] Abs.Imm.Granulocyte 0.08 k/uL Normal 0.00-0.30 [facility] Comment on above: Performed By: #### C DP #### [facility] [address] [place] [address] Abs.Neutrophil (Seg) 15.39 k/uL High 1.50-8.10 [facility] Comment on above: Performed By: #### C DP #### [address] [phone] Basophils/100 WBC (Bld) 0 % Normal 0-2 [facility] Comment on above: Performed By: #### C DP #### [address] [address] Eosinophils #/vol (Bld) 10*3/uL Normal 0.00-0.44 [facility] Comment on above: Performed By: #### C DP #### [address] [address] Eosinophils/100 WBC (Bld) 0 % Low 1-4 [facility] Comment on above: Performed By: #### C DP #### [address] [address] Erythrocyte distribution width Ratio (RBC) 12.8 % Normal 11.8-14.4 [facility] Comment on above: Performed By: #### C DP #### [address] [address] Hematocrit Volume Fraction (Bld) 40.9 % Normal 36.3-47.1 [facility] Comment on above: Performed By: #### C DP #### [address] [address] Hemoglobin mass conc (Bld) 13.6 g/dL Normal 11.9-15.1 [facility] Comment on above: Performed By: #### C DP #### [address] [address] Immature granulocytes #/vol (Bld) 1 % High 0 [facility] Comment on above: Performed By: #### C DP #### [address] [address] Lymphocytes #/vol (Bld) 0.75 10*3/uL Low 1.10-3.70 [facility] Comment on above: Performed By: #### C DP #### [facility] [address] [place] [address] Lymphocytes/100 WBC (Bld) 4 % Low 25-45 [facility] Comment on above: Performed By: #### C DP #### [address] [address] MCH Entitic mass (RBC) 28.8 pg Normal 25.2-33.5 [facility] Comment on above: Performed By: #### C DP #### [address] [address] MCHC mass conc (RBC) 33.3 g/dL Normal 28.4-34.8 [facility] Comment on above: Performed By: #### C DP #### [address] [address] MCV Entitic volume (RBC) 86.5 fL Normal 82.6-102.9 [facility] Comment on above: Performed By: #### C DP #### [address] [address] Monocytes #/vol (Bld) 0.84 10*3/uL Normal 0.10-1.40 [facility] Comment on above: Performed By: #### C DP #### [address] [address] Monocytes/100 WBC (Bld) 5 % Normal 2-8 [facility] Comment on above: Performed By: #### C DP #### [address] [address] Neutrophil (Seg) 90 % High 34-64 [facility] Comment on above: Performed By: #### C DP #### [address] [address] NRBC Automated 0.0 per 100 WBC Normal 0.0 [facility] Comment on above: Performed By: #### C DP #### [address] [address] Platelet mean volume Entitic volume (Bld) 11.4 fL Normal 8.1-13.5 [facility] Comment on above: Performed By: #### C DP #### [address] [address] Platelets #/vol (Bld) 224 10*3/uL Normal 138-453 [facility] Comment on above: Performed By: #### C DP #### [address] [address] RBC #/vol (Bld) 4.73 10*6/uL Normal 3.95-5.11 [facility] Comment on above: Performed By: #### C DP #### [address] [address] WBC #/vol (Bld) 17.1 10*3/uL High 4.5-13.5 [facility] Comment on above: Performed By: #### C DP #### [address] [address] Auto Diff Performed NOT REPORTED Normal [facility] Comment on above: Performed By: #### C DP #### [address] [address] Platelets #/vol (Bld) NOT REPORTED Normal [facility] Comment on above: Performed By: #### C DP #### [address] [address] RBC morphology finding Nom (Bld) NOT REPORTED Normal [facility] Comment on above: Performed By: #### C DP #### [address] [address] WBC Morphology NOT REPORTED Normal [facility] Comment on above: Performed By: #### C DP #### [address] [address] Comp Metabolic Profon 2017 (cont.) Normal [facility] Comment on above: Result Comment: Aver age GFR for 20-29 years old: 116 mL/min/1.73sq m Chronic Kidney Disease: <60 mL/min/1.73sq m Kidney failure: <15 mL/min/1.73sq m eGFR calculated using average adult body mass. Additional eGFR calculator available at: http://www.[employer]/multiple_crcl_2011.htm Performed By: #### C P #### [address] [address] Albumin mass conc 3.9 g/dL Normal 3.5-5.2 [facility] Comment on above: Performed By: #### C P #### [facility] [address] [place] [address] Albumin/Globulin mass ratio 1.0 {ratio} Normal 1.0-2.5 [facility] Comment on above: Performed By: #### C P #### [address] [address] Alkaline Phos 70 U/L Normal 35-104 [facility] Comment on above: Performed By: #### C P #### [facility] [address] [place] [address] ALT enzyme act/vol 14 U/L Normal 5-33 [facility] Comment on above: Performed By: #### C P #### [facility] [address] [place] [address] Anion gap molar conc 19 mmol/L High 9-17 [facility] Comment on above: Performed By: #### C P #### [facility] [address] [place] [address] AST enzyme act/vol 15 U/L Normal <32 [facility] Comment on above: Performed By: #### C P #### [address] [address] Bilirubin Ql (U) 1.27 mg/dL High 0.3-1.2 [facility] Comment on above: Performed By: #### C P #### [address] [address] Calcium mass conc 9.8 mg/dL Normal 8.6-10.4 [facility] Comment on above: Performed By: #### C P #### [address] [address] Chloride molar conc 97 mmol/L Low 98-107 [facility] Comment on above: Performed By: #### C P #### [address] [address] CO2 molar conc 21 mmol/L Normal 20-31 [facility] Comment on above: Performed By: #### C P #### [facility] [employer] [address] [place] [address] Creatinine mass conc 0.50 mg/dL Normal 0.50-0.90 [facility] Comment on above: Performed By: #### C P #### [facility] [employer] [address] [place] [address] GFR, Amer >60 Normal >60 [facility] Comment on above: Performed By: #### C P #### [facility] [employer] [address] [place] [address] GFR,non Amer >60 Normal >60 [facility] Comment on above: Performed By: #### C P #### [facility] [employer] [address] [place] [address] Glucose mass conc 85 mg/dL Normal 70-99 [facility] Comment on above: Performed By: #### C P #### [address] [address] Potassium molar conc 4.3 mmol/L Normal 3.7-5.3 [facility] Comment on above: Performed By: #### C P #### [address] [address] Protein mass conc 8.0 g/dL Normal 6.4-8.3 [facility] Comment on above: Performed By: #### C P #### [address] [address] Sodium molar conc 137 mmol/L Normal 135-144 [facility] Comment on above: Performed By: #### C P #### [address] [address] Urea nitrogen mass conc 6 mg/dL Normal 6-20 [facility] Comment on above: Performed By: #### C P #### [address] [address] BUN/CRE Ratio NOT REPORTED Normal 9-20 [facility] Comment on above: Performed By: #### C P #### [address] [address] Staging: NOT REPORTED Normal [facility] Comment on above: Performed By: #### C P #### [address] [address] Flu A/B Ag Detectionon 02-07 Flu A/B Ag Detection Specimen Descriptio n .NASOPHARYNGEAL SWAB Special Requests NOT REPORTED Direct Exam PRESUMPTIVE NEGATIVE for Influenza A + B antigens. PCR testing to confirm this result is available upon request. Specimen will be saved in the laboratory for 7 days. Please call [phone] if PCR testing is indicated. Report Status FINAL 02/07/2018 Normal [facility] Comment on above: Performed By: #### F ERNESTO #### [facility] [employer] [address] [place] [address] UA w/Reflex Cultureon 2017 Bilirubin.direct mass conc Negative Abnormal NEG [facility] Comment on above: Performed By: #### CEDRIC CHAUDHRY #### [facility] [address] [place] [address] Comment Culture ordered base d on defined criteria. Normal [facility] Comment on above: Performed By: #### CEDRIC CHAUDHRY #### [facility] [address] [place] [address] Acetoacetic Acid,Ur MODERATE Abnormal NEG [facility] Comment on above: Performed By: #### CEDRIC CHAUDHRY #### [email or web address] [address] [place] [address] Color Nom (U) ORANGE Abnormal YEL [facility] Comment on above: Result Comment: INTE RPRET WITH CAUTION DUE TO INTENSE COLOR OF URINE. Performed By: #### CEDRIC CHAUDHRY #### [email or web address] [address] [place] [address] Glucose mass conc Negative Normal NEG [facility] Comment on above: Performed By: #### CEDRIC CHAUDHRY #### [email or web address] [address] [place] [address] Hemoglobin mass conc (Bld) TRACE Abnormal NEG [facility] Comment on above: Performed By: #### CEDRIC CHAUDHRY #### [facility] [address] [place] [address] Leuckocyte Esterase MODERATE Abnormal NEG [facility] Comment on above: Performed By: #### CEDRIC CHAUDHRY #### [email or web address] [address] [place] [address], [place] [address] Nitrite,Ur Positive Abnormal NEG [facility] Comment on above: Performed By: #### U CEDRIC PALACIOS #### [email or web address] [address] [place] [address] PH,Ur 6.5 Normal 5.0-8.0 [facility] Comment on above: Performed By: #### CEDRIC CHAUDHRY #### [email or web address] [address] [place] [address] Protein mass conc 2+ Abnormal NEG [facility] Comment on above: Performed By: #### CEDRIC CHAUDHRY #### [facility] [address] [place] [address] Spec. [place],Ur 1.030 Normal 1.005-1.030 [facility] Comment on above: Performed By: #### CEDRIC CHAUDHRY #### [email or web address] [address] [place] [address] Turbidity TURBID Abnormal CLEAR [facility] Comment on above: Performed By: #### CEDRIC CHAUDHRY #### [employer] [address] [place] [address] Urobilinogen,Ur Normal Normal NORM [facility] Comment on above: Performed By: #### CEDRIC CHAUDHRY #### [employer] [address] [place] [address] Urinalysis,Microon 8 ----- Normal [facility] Comment on above: Performed By: #### U CEDRIC PALACIOS #### [facility] [address] [place] [address] Bacteria LM.HPF #/area (Urine sed) MANY Abnormal NONE [facility] Comment on above: Performed By: #### CEDRIC CHAUDHRY #### [email or web address] [address] [place] [address] Epithelial cells LM.HPF #/area (Urine sed) 20 TO 50 Normal 0-5 [facility] Comment on above: Performed By: #### U AX, UMICAO #### [employer] [address] [place] [address] Mucus Strands 2+ Abnormal NONE [facility] Comment on above: Performed By: #### U AX, UMICAO #### [employer] [address] [place] [address] RBC #/vol (U) 0 TO 2 Normal 0-2 [facility] Comment on above: Performed By: #### U AX, UMICAO #### [facility] [address] [place] [address] WBC #/vol (U) 10 TO 20 Normal 0-5 [facility] Comment on above: Performed By: #### U AX, UMICAO #### [employer] [address] [place] [address] Amorphous sediment LM Ql (Urine sed) NOT REPORTED Normal NONE [facility] Comment on above: Performed By: #### U AX, UMICAO #### [facility] [address] [place] [address] Casts LM.LPF #/area (Urine sed) NOT REPORTED Normal 0-2 [facility] Comment on above: Performed By: #### U AX, UMICAO #### [employer] [address] [place] [address] Crystals LM Nom (Urine sed) NOT REPORTED Normal NONE [facility] Comment on above: Performed By: #### U AX, UMICAO #### [employer] [address] [place] [address] Epithelial, Renal NOT REPORTED Normal 0 [facility] Comment on above: Performed By: #### U AX, UMICAO #### [facility] [place] [address] Other Observations NOT REPORTED Normal NREQ [facility] Comment on above: Performed By: #### U AX, UMICAO #### [facility] [facility] [place] [address] Trichomonas NOT REPORTED Normal NONE [facility] Comment on above: Performed By: #### U AX, UMICAO #### [facility] [employer] [facility] [place] [address] Yeast LM Ql (Urine sed) NOT REPORTED Normal NONE [facility] Comment on above: Performed By: #### U AX, UMICAO #### [facility] [employer] [address] [place] [address] Vaginitis DNA Probeon 2017 Vaginitis DNA Probe [...] of vaginitis/vaginosis. Report Status FINAL 02/07/2018 Normal [facility] Comment on above: Performed By: #### V AGDNA #### [facility] [employer] [address] [place] [address] AFP, Maternalon 01-31-2018 Determined by Other Normal [facility] Comment on above: Performed By: #### A AFPM ####[address] [address] Due Date SEE NOTE Normal [facility] Comment on above: Result Comment: Resu lts for Estimated Due Date: [id number] Performed By: #### A AFPM ####[address] [address] Family History No Normal [facility] Comment on above: Performed By: #### A AFPM ####[address] [address] Gestat Age (exact) 22 wks, 1 days Normal [facility] Comment on above: Performed By: #### A AFPM ####[address] [address] Ins Req Matern Diab No Normal [facility] Comment on above: Performed By: #### A AFPM ####[address] [address] Interpretation Screen Neg Normal [facility] Comment on above: Result Comment: (NOT E)INTERPRETATION: SCREEN NEGATIVE for open spina bifidaNeural Tube Defects (NTD) Negative Pre-Test Post-Test CutoffNeural Tube Defects Risks 1:1030 < 1:23332 1:250Comments:The risk of an open neural tube defect is less than thescreening cut-off.Test developed and characteristics determined by [employer]. See Compliance Statement B: [employer] Performed By: #### A AFPM ####[address] [address] [age] [facility] Comment on above: Performed By: #### A AFPM ####[address] [address] Maternal Race Nonblack [facility] Comment on above: Performed By: #### A AFPM ####[address] [address] MoM for AFP 0.73 Normal [facility] Comment on above: Performed By: #### A AFPM ####[address] [address] Number of Fetuses Núñez Normal [facility] Comment on above: Performed By: #### A AFPM ####[facility] [address] [place] [address] Patient's AFP 54 ng/mL Normal [facility] Comment on above: Performed By: #### A AFPM ####[facility] [address] [place] [address] Smoking No Normal [facility] Comment on above: Performed By: #### A AFPM ####[address] [place] [address] Specimen See Note Normal [facility] Comment on above: Result Comment: (NOT E)Initial samplePerformed by [employer],[address] [place] [address],[place] [address] [employer] Kareem Pan MD, Lab. Director Performed By: #### A AFPM ####[address] [address] AFP, Maternalon 01-30-2018 Current Smoking N Normal [facility] Comment on above: Performed By: #### A AFPM ####[address] [place] [address] Dating LMP Normal [facility] Comment on above: Performed By: #### A AFPM ####[facility] [address] [place] [address] Diabetic N Normal [facility] Comment on above: Performed By: #### A AFPM ####[facility] [address] [place] [address] Estimated Due Date [facility] Comment on above: Performed By: #### A AFPM ####[facility] [address] [place] [address] Family History N Normal [facility] Comment on above: Performed By: #### A AFPM ####[address] [address] LMP date [facility] Comment on above: Performed By: #### A AFPM ####[address] [address] Maternal date [facility] Comment on above: Performed By: #### A AFPM ####[address] [address] Monochorionic Twins N [facility] Comment on above: Performed By: #### A AFPM ####[address] [address] Protein mass conc N Normal [facility] Comment on above: Performed By: #### A AFPM ####[address] [address] Race (Maternal) [facility] Comment on above: Performed By: #### A AFPM ####[address] [address] Repeat Specimen N [facility] Comment on above: Performed By: #### A AFPM ####[address] [address] Profileon 8 Hep B Surf Ag NONREACTIVE Normal NR [facility] Comment on above: Performed By: #### H IVCMB, PRENAT ####[address] [address] Rubella Ab, IgG 5.2 IU/mL Normal [facility] Comment on above: Result Comment: REFE RENCE RANGE:<5.0 NON-REACTIVE (non-immune)5.0 TO 9.9 EQUIVOCAL>=10.0 REACTIVE (immune) Performed By: #### H IVCMB, PRENAT ####[address] [place] [address] Type + Scrnon 12-23 Type + Scrn Negative Normal [facility] Comment on above: Performed By: #### P RTYS ####[address] [address] HIV Ag/Abon 12-22-2017 HIV Ag/Ab NONREACTIVE Normal NR [facility] Comment on above: Result Comment: No l aboratory evidence of HIV infection. If acute HIV infection is suspected, consider testing for HIV-1 RNA. Performed By: #### H IVCMB, PRENAT ####[address] [address] Profileon 8 T.pallidum Ab Screen NONREACTIVE Normal NR [facility] Comment on above: Result Comment: T. p allidum antibodies are not detected.There is no serological evidence of infection with T. pallidum (early primary syphilis cannot be excluded). Retest in 2-4 weeks if syphilis is clinically suspect. Performed By: #### H IVCMB, PRENAT ####[address] [address] Abs. Basophil 0.04 k/uL Normal 0.00-0.20 [facility] Comment on above: Performed By: #### H IVCMB, PRENAT ####[address] [address] Abs.Imm.Granulocyte 0.03 k/uL Normal 0.00-0.30 [facility] Comment on above: Performed By: #### H IVCMB, PRENAT ####[address] [address] Abs.Neutrophil (Seg) 5.72 k/uL Normal 1.50-8.10 [facility] Comment on above: Performed By: #### H IVCMB, PRENAT ####[address] [address] Basophils/100 WBC Auto (Bld) 1 % Normal 0-2 [facility] Comment on above: Performed By: #### H IVCMB, PRENAT ####[address] [address] Eosinophils Auto #/vol (Bld) 0.25 10*3/uL Normal 0.00-0.44 [facility] Comment on above: Performed By: #### H IVCMB, PRENAT ####[address] [address] Eosinophils/100 WBC Auto (Bld) 3 % Normal 1-4 [facility] Comment on above: Performed By: #### H IVCMB, PRENAT ####[address] [address] Erythrocyte distribution width Auto Ratio (RBC) 13.2 % Normal 11.8-14.4 [facility] Comment on above: Performed By: #### H IVCMB, PRENAT ####[address] [address] Hematocrit Auto Volume Fraction (Bld) 37.4 % Normal 36.3-47.1 [facility] Comment on above: Performed By: #### H IVCMB, PRENAT ####[address] [address] Hemoglobin mass conc (Bld) 12.5 g/dL Normal 11.9-15.1 [facility] Comment on above: Performed By: #### H IVCMB, PRENAT ####[address] [address] Immature granulocytes #/vol (Bld) 0 % Normal 0 [facility] Comment on above: Performed By: #### H IVCMB, PRENAT ####[address] [address] Lymphocytes Auto #/vol (Bld) 1.53 10*3/uL Normal 1.10-3.70 [facility] Comment on above: Performed By: #### H IVCMB, PRENAT ####[address] [address] Lymphocytes/100 WBC Auto (Bld) 19 % Low 25-45 [facility] Comment on above: Performed By: #### H IVCMB, PRENAT ####[address] [address] MCH Auto Entitic mass (RBC) 28.3 pg Normal 25.2-33.5 [facility] Comment on above: Performed By: #### H IVCMB, PRENAT ####[address] [address] MCHC Auto mass conc (RBC) 33.4 g/dL Normal 28.4-34.8 [facility] Comment on above: Performed By: #### H IVCMB, PRENAT ####[address] [address] MCV Auto Entitic volume (RBC) 84.8 fL Normal 82.6-102.9 [facility] Comment on above: Performed By: #### H IVCMB, PRENAT ####[address] [address] Monocytes Auto #/vol (Bld) 0.39 10*3/uL Normal 0.10-1.40 [facility] Comment on above: Performed By: #### H IVCMB, PRENAT ####[address] [address] Monocytes/100 WBC Auto (Bld) 5 % Normal 2-8 [facility] Comment on above: Performed By: #### H IVCMB, PRENAT ####[address] [address] Neutrophil (Seg) 72 % High 34-64 [facility] Comment on above: Performed By: #### H IVCMB, PRENAT ####[address] [address] NRBC Automated 0.0 per 100 WBC Normal 0.0 [facility] Comment on above: Performed By: #### H IVCMB, PRENAT ####[address] [address] Platelet mean volume Auto Entitic volume (Bld) 11.5 fL Normal 8.1-13.5 [facility] Comment on above: Performed By: #### H IVCMB, PRENAT ####[address] [address] Platelets Auto #/vol (Bld) 234 10*3/uL Normal 138-453 [facility] Comment on above: Performed By: #### H IVCMB, PRENAT ####[address] [address] RBC Auto #/vol (Bld) 4.41 10*6/uL Normal 3.95-5.11 [facility] Comment on above: Performed By: #### H IVCMB, PRENAT ####[address] [address] WBC Auto #/vol (Bld) 8.0 10*3/uL Normal 4.5-13.5 [facility] Comment on above: Performed By: #### H IVCMB, PRENAT ####[address] [address] Auto Diff Performed NOT REPORTED Normal [facility] Comment on above: Performed By: #### H IVCMB, PRENAT ####[address] [address] Platelets Auto #/vol (Bld) NOT REPORTED Normal [facility] Comment on above: Performed By: #### H IVCMB, PRENAT ####[facility] [address] [place] [address] RBC morphology finding Nom (Bld) NOT REPORTED Normal [facility] Comment on above: Performed By: #### H IVCMB, PRENAT ####[facility] [address] [place] [address] WBC Morphology NOT REPORTED Normal [facility] Comment on above: Performed By: #### H IVCMB, PRENAT ####[facility] [address] [place] [address] Cult,Urineon 11-30-2017 Cult,Urine Specimen Description .CLEAN CATCH URINE Special Requests NOT REPORTED Culture NO SIGNIFICANT GROWTH Report Status FINAL 11/29/2017 Normal [facility] Comment on above: Performed By: #### U RC #### [address] [address] Chlamydia/GC DNA, Uron 11-01 Protein mass conc Negative Normal NEG [facility] Comment on above: Result Comment: NEIS SERIA GONORRHOEAE DNA not detected by nucleic acid amplification. Performed By: #### U CGP #### [facility] [address] [place] [address] Result Comment: CHLA MYDIA TRACHOMATIS DNA not detected by nucleic acid amplification. Cult,Urineon 11-01-2017 Cult,Urine Specimen Description .CLEAN CATCH URINE Special Requests NOT REPORTED Culture ESCHERICHIA COLI >[id number] CFU/ML Report Status FINAL 11/01/2017 SUSCEPTIBILITY Organism [...] <=20 SUSCEPTIBLE Piperacillin/Tazobact am <=4 SUSCEPTIBLE Normal [facility] Comment on above: Performed By: #### U RC #### [address] [address] Drug Scr, Abuse, Uron 2017 Amphetamine(s),Ur Negative Normal NEG [facility] Comment on above: Result Comment: (Positive cutoff 1000 ng/mL) Performed By: #### D AU #### [address] [address] Barbiturate(s),Ur Negative Normal NEG [facility] Comment on above: Result Comment: (Positive cutoff 200 ng/mL) Performed By: #### D AU #### [address] [address] Base excess Calculated molar conc (Bld) Negative Normal NEG [facility] Comment on above: Result Comment: (Positive cutoff 300 ng/mL) Performed By: #### D AU #### [address] [address] Benzodiazepine(s) Negative Normal NEG [facility] Comment on above: Result Comment: (Positive cutoff 200 ng/mL) Performed By: #### D AU #### [address] [address] Cannabinoid(s),Ur Negative Normal NEG [facility] Comment on above: Result Comment: (Positive cutoff 50 ng/mL) Performed By: #### D AU #### [address] [address] Interpretive Info Assay provides medical screening only. The absence of expected drug(s) and/or Normal [facility] Comment on above: Result Comment: meta bolite(s) may indicate diluted or adulterated urine, limitations of testing or timing of collection. Testing for legal purposes should be confirmed by another method. To request confirmation of test result, please call the lab within 7 days of sample submission. Performed By: #### D AU #### [facility] [employer] [address] [place] [address] Methadone Ql (U) Negative Normal NEG [facility] Comment on above: Result Comment: (Positive cutoff 300 ng/mL) Performed By: #### D AU #### [address] [address] Opiate(s), Ur Negative Normal NEG [facility] Comment on above: Result Comment: (Positive cutoff 300 ng/mL) Performed By: #### D AU #### [address] [address] Oxycodone, Urine Negative Normal NEG [facility] Comment on above: Result Comment: (Positive cutoff 100 ng/mL) Performed By: #### D AU #### [address] [address] Phencyclidine, Ur Negative Normal NEG [facility] Comment on above: Result Comment: (Positive cutoff 25 ng/mL) Performed By: #### D AU #### [address] [address] Buprenorphrine, Ur NOT REPORTED Normal NEG [facility] Comment on above: Performed By: #### D AU #### [facility] [employer] [address] [place] [address] MDMA, Urine NOT REPORTED Normal NEG [facility] Comment on above: Performed By: #### D AU #### [facility] [employer] [facility] [address] [place] [address] Methamphetamine, Ur NOT REPORTED Normal NEG [facility] Comment on above: Performed By: #### D AU #### [address] [address] Protein mass conc (U) NOT REPORTED Normal NEG M [facility] Comment on above: Performed By: #### D AU #### [employer] [address] [place], [place] [id number] Tricyclic antidepressants Screen Ql (U) NOT REPORTED Normal NEG [facility] Comment on above: Performed By: #### D AU #### [facility] [address] [place], [place] [id number] US OB LESS THAN 14 WEEKS SIN GLE OR FIRST GESTATIONon 10-27-2017 US OB LESS THAN 14 WEEKS SINGLE OR FIRST GESTATION EXAMINATION:TRANSABDO FELIX AND TRANSVAGINAL FIRST TRIMESTER OBSTETRIC PELVIC ULTRASOUNDWITH COLOR DOPPLER FLOW10/27/2017COMPARIS ON:NoneHISTORY:ORDERI [facility] PROVIDED HISTORY: 9 weeks gestation of [...] by:LAINEY Rochaigned by:Gaurang Castellon MD10/27/17inal result Normal [facility] Vital Signs Date Time Vital Sign Value Performing Clinician Facility 05-07-2024 14:15-0500 Body weight 92.53 kg Tomer Lucia CN Work Phone: [facility] 05-07-2024 14:15-0500 Diastolic blood pressure 80 mm[Hg] Tomer Anithao CN Work Phone: [facility] 05-07-2024 14:15-0500 Systolic blood pressure 118 mm[Hg] Tomer Floro CN Work Phone: [facility] 04-30-2024 13:14-0500 Body weight 91.63 kg Tomer Lucia CNM Work Phone: [facility] 04-30-2024 13:14-0500 Diastolic blood pressure 80 mm[Hg] Tomer Lucia CNM Work Phone: [facility] 04-30-2024 13:14-0500 Systolic blood pressure 118 mm[Hg] Tomer Lucia CNM Work Phone: [facility] 04-26-2024 14:25-0500 Body height 162.6 cm Russel James MD Work Phone: [facility] 04-26-2024 14:25-0500 Body mass index (BMI) [Ratio] 33.7 kg/m2 Russel James MD Work Phone: [facility] 04-26-2024 14:25-0500 Body weight 89.09 kg Russel James MD Work Phone: [facility] 04-26-2024 14:25-0500 Diastolic blood pressure 80 mm[Hg] Russel James MD Work Phone: [facility] 04-26-2024 14:25-0500 Heart rate 93 /min Russel James MD Work Phone: [facility] 04-26-2024 14:25-0500 Systolic blood pressure 118 mm[Hg] Russel James MD Work Phone: [facility] 04-26-2024 09:45-0500 Diastolic blood pressure 66 mm[Hg] Georgette Gustafson MD Work Phone: [facility] 04-26-2024 09:45-0500 Heart rate 88 /min Georgette Gustafson MD Work Phone: [facility] 04-26-2024 09:45-0500 Systolic blood pressure 110 mm[Hg] Georgette Gustafson MD Work Phone: [facility] 04-26-2024 09:11-0500 Body height 164.3 cm Georgette Gustafson MD Work Phone: [facility] 04-26-2024 09:11-0500 Body mass index (BMI) [Ratio] 32.93 kg/m2 Georgette Gustafson MD Work Phone: [facility] 04-26-2024 09:11-0500 Body weight 88.91 kg Georgette Gustafson MD Work Phone: [facility] 04-26-2024 09:11-0500 SaO2% (BldA) [Mass fraction] 99 % Georgette Gustafson MD Work Phone: [facility] 04-23-2024 13:24-0500 Body weight 90.27 kg Tomer Floro CNM Work Phone: [facility] 04-23-2024 13:24-0500 Diastolic blood pressure 70 mm[Hg] Tomer Floro CNM Work Phone: [facility] 04-23-2024 13:24-0500 Systolic blood pressure 110 mm[Hg] Tomer Floro CNM Work Phone: [facility] 04-16-2024 14:42-0500 Body weight 90.72 kg Tomer Floro CNM Work Phone: [facility] 04-16-2024 14:42-0500 Diastolic blood pressure 60 mm[Hg] Tomer Floro CNM Work Phone: [facility] 04-16-2024 14:42-0500 Systolic blood pressure 104 mm[Hg] Tomer Floro CNM Work Phone: [facility] 04-10-2024 10:22-0500 Body weight 88.91 kg Tomer Floro CNM Work Phone: [facility] 03-29-2024 09:35-0500 Body weight 86.64 kg Tomer Floro CNM Work Phone: [facility] 03-29-2024 09:35-0500 Diastolic blood pressure 80 mm[Hg] Tomer Floro CNM Work Phone: [facility] 03-29-2024 09:35-0500 Systolic blood pressure 120 mm[Hg] Tomer Floro CNM Work Phone: [facility] 03-01-2024 09:36-0500 Body weight 85.73 kg Tomer Floro CNM Work Phone: [facility] 03-01-2024 09:36-0500 Diastolic blood pressure 80 mm[Hg] Tomer Floro CNM Work Phone: [facility] 03-01-2024 09:36-0500 Systolic blood pressure 118 mm[Hg] Tomer Floro CNM Work Phone: [facility] 02-23-2024 12:11-0500 Body height 162.6 cm Lanre Dempsey MD Work Phone: [facility] 02-23-2024 12:11-0500 Body mass index (BMI) [Ratio] 31.27 kg/m2 Lanre Dempsey MD Work Phone: [facility] 02-23-2024 12:11-0500 Body weight 82.64 kg Lanre Dempsey MD Work Phone: [facility] 02-23-2024 12:11-0500 Diastolic blood pressure 75 mm[Hg] Lanre Dempsey MD Work Phone: [facility] 02-23-2024 12:11-0500 Heart rate 100 /min Lanre Dempsey MD Work Phone: [facility] 02-23-2024 12:11-0500 Systolic blood pressure 132 mm[Hg] Lanre Dempsey MD Work Phone: [facility] 02-02-2024 14:45-0400 Diastolic blood pressure 80 mm[Hg] Tomer Floro CNM Work Phone: [facility] 02-02-2024 14:45-0400 Systolic blood pressure 118 mm[Hg] Tomer Floro CNM Work Phone: [facility] 01-12-2024 10:59-0400 Body weight 77.56 kg Tomer Lucia CNM Work Phone: [facility] 01-12-2024 10:59-0400 Diastolic blood pressure 70 mm[Hg] Tomer Lucia CNM Work Phone: [facility] 01-12-2024 10:59-0400 Systolic blood pressure 120 mm[Hg] Tomer Lucia CNM Work Phone: [facility] 12-15-2023 09:26-0400 Body weight 74.84 kg Tomer Lucia CNM Work Phone: [facility] 12-15-2023 09:26-0400 Diastolic blood pressure 78 mm[Hg] Tomer Welsho CNM Work Phone: [facility] 12-15-2023 09:26-0400 Systolic blood pressure 118 mm[Hg] Tomer Lucia CNM Work Phone: [facility] 08-15-2023 08:43-0400 Body height 162.56 cm [facility] 08-15-2023 08:36-0400 Body mass index (BMI) [Ratio] 27.4 kg/m2 [facility] 08-15-2023 08:36-0400 Body temperature 97.3 [degF] [facility] 08-15-2023 08:36-0400 Body weight 72.57 kg [facility] 08-15-2023 08:36-0400 Diastolic blood pressure 76 mm[Hg] [facility] 08-15-2023 08:36-0400 Heart rate 87 /min [facility] 08-15-2023 08:36-0400 Respiratory rate 16 /min [facility] 08-15-2023 08:36-0400 SaO2% (BldA) [Mass fraction] 98 % [facility] 08-15-2023 08:36-0400 Systolic blood pressure 110 mm[Hg] [facility] 07-14-2023 10:03-0400 Body height 162.56 cm [facility] 07-14-2023 10:03-0400 Body mass index (BMI) [Ratio] 28.3 kg/m2 [facility] 07-14-2023 10:03-0400 Body weight 74.84 kg [facility] 07-14-2023 10:03-0400 Diastolic blood pressure 76 mm[Hg] [facility] 07-14-2023 10:03-0400 Heart rate 68 /min [facility] 07-14-2023 10:03-0400 SaO2% (BldA) [Mass fraction] 100 % [facility] 07-14-2023 10:03-0400 Systolic blood pressure 118 mm[Hg] [facility] 06-16-2023 10:07-0500 Body height 162.56 cm [facility] 06-16-2023 10:07-0500 Body mass index (BMI) [Ratio] 28.3 kg/m2 [facility] 06-16-2023 10:07-0500 Body weight 74.84 kg [facility] 06-16-2023 10:07-0500 Diastolic blood pressure 72 mm[Hg] [facility] 06-16-2023 10:07-0500 Heart rate 86 /min [facility] 06-16-2023 10:07-0500 SaO2% (BldA) [Mass fraction] 99 % [facility] 06-16-2023 10:07-0500 Systolic blood pressure 120 mm[Hg] [facility] 06-01-2023 15:48-0500 Blood Pressure Location Dorian ROMAN [facility] [place] 06-01-2023 15:48-0500 Diastolic blood pressure 64 mm[Hg] Dorian ROMAN [facility] [place] 06-01-2023 15:48-0500 Heart rate 76 /min Dorian ROMAN [facility] [place] 06-01-2023 15:48-0500 Respiratory rate 16 /min Dorian ROMAN [facility] [place] 06-01-2023 15:48-0500 Systolic blood pressure 102 mm[Hg] Dorian MORRISBreanna [facility] [place] 05-19-2023 10:00-0500 Body height 162.56 cm Uyen Martel Other [facility] Other 05-19-2023 10:00-0500 Body mass index (BMI) [Ratio] 28.66 kg/m2 Uyen Martel Other [facility] Other 05-19-2023 10:00-0500 Body weight 75.75 kg Uyen Martel Other [facility] Other 05-19-2023 10:00-0500 Diastolic blood pressure 76 mm[Hg] Uyen Martel Other [facility] Other 05-19-2023 10:00-0500 SaO2% (BldA) [Mass fraction] 99 % Uyen Martel Other [facility] Other 05-19-2023 10:00-0500 Systolic blood pressure 120 mm[Hg] Uyen Martel Other [facility] Other 04-21-2023 11:00-0500 Body height 162.56 cm Uyen Martel Other [facility] 04-21-2023 11:00-0500 Body mass index (BMI) [Ratio] 28.83 kg/m2 Uyen Maretl Other [facility] Other 04-21-2023 11:00-0500 Body weight 76.2 kg Uyen Martel Other [facility] 04-21-2023 11:00-0500 Diastolic blood pressure 78 mm[Hg] Uyen Tahmina Other [facility] 04-21-2023 11:00-0500 SaO2% (BldA) [Mass fraction] 98 % Uyen Tahmina Other [facility] Other 04-21-2023 11:00-0500 Systolic blood pressure 122 mm[Hg] Uyen Tahmina Other [facility] 10-01-2022 12:50-0400 Body height 162.56 cm Daksha Anya Other [facility] Other 10-01-2022 12:50-0400 Body mass index (BMI) [Ratio] 29.52 kg/m2 Daksha Anya Other [facility] Other 10-01-2022 12:50-0400 Body temperature 98.3 [degF] Daksha Anya Other [facility] Other 10-01-2022 12:50-0400 Body weight 78.02 kg Daksha Anya Other [facility] Other 10-01-2022 12:50-0400 Diastolic blood pressure 82 mm[Hg] Daksha Anya Other [facility] Other 10-01-2022 12:50-0400 Respiratory rate 18 /min Daksha Anya Other [facility] Other 10-01-2022 12:50-0400 SaO2% (BldA) [Mass fraction] 98 % Daksha Anya Other [facility] Other 10-01-2022 12:50-0400 Systolic blood pressure 136 mm[Hg] Daksha Joyner Other [facility] Other 12-28-2021 13:40-0400 Body height 162.56 cm Daksha Joyner Other [facility] Other 12-28-2021 13:40-0400 Body mass index (BMI) [Ratio] 29.18 kg/m2 Daksha Joyner Other [facility] Other 12-28-2021 13:40-0400 Body temperature 98.3 [degF] Daksha Joyner Other [facility] Other 12-28-2021 13:40-0400 Body weight 77.11 kg Daksha Joyner Other [facility] Other 12-28-2021 13:40-0400 Respiratory rate 18 /min Daksha Joyner Other [facility] Other 12-28-2021 13:40-0400 SaO2% (BldA) [Mass fraction] 97 % Daksha Joyner Other [facility] Other 01-31-2018 21:08-0400 Body weight Measured 167.0 lbs. [facility] Comment on above: Performed By: #### AAFPM ####[id number] [place], [place] [id number] 01-30-2018 14:28-0400 Body weight Measured 167 [facility] Comment on above: Performed By: #### AAFPM ####[employer] [email or web address] [place], [place] [id number] 01-30-2018 14:28-0400 Body weight Measured LBS LEAH DAVID [facility] Comment on above: Performed By: #### AAFPM ####[facility] [id number] [place] [address] Encounters Encounter Date Encounter Type Care Provider Facility Start: 05-07-2024 ambulatory TOMER L FLORO Not Gina ilable Start: 05-07-2024 End: 05-07-2024 Bamboo flowsheet Tomer L Floro CNM Work Phone: [facility] Start: 05-07-2024 End: 05-07-2024 Bamboo flowsheet Tomer L Floro CNM Work Phone: [facility] Start: 05-07-2024 End: 05-07-2024 Office outpatient visit 15 minutes Tomer L Floro CNM Work Phone: [facility] Comment on above: Encounter for superv ision of other normal , third trimester (Primary Dx); screening for streptococcus B; congenital anomaly Start: 04-30-2024 End: 04-30-2024 Bamboo flowsheet Tomer L Floro CNM Work Phone: [facility] Start: 04-30-2024 End: 04-30-2024 Bamboo flowsheet Tomer L Floro CNM Work Phone: [facility] Start: 04-30-2024 End: 04-30-2024 ambulatory TOMER L FLORO Not Available Start: 04-30-2024 End: 04-30-2024 Office outpatient visit 15 minutes Tomer L Floro CNM Work Phone: [facility] Comment on above: Encounter for superv ision of other normal , third trimester (Primary Dx); congenital anomaly Start: 04-27-2024 End: 04-27-2024 Orders Only Suze Castro RN [facility] Comment on above: Abnormal ultrasonic finding on screening of mother, antepartum (Primary Dx); Elliott cisterna magna (CMS-HCC); 35 weeks gestation of Start: 04-26-2024 End: 04-26-2024 Office outpatient visit 25 minutes Russel James MD Work Phone: [facility] Comment on above: 35 weeks gestation o f (Primary Dx) Start: 04-26-2024 End: 04-26-2024 Office consultation new/estab patient 80 min Georgette Gustafson MD Work Phone: [facility] Comment on above: Anomaly of heart of fetus affecting , antepartum, single or unspecified fetus (Primary Dx); Abnormal ultrasonic finding on screening of mother, antepartum; Postural dizziness with near syncope Start: 04-23-2024 End: 04-23-2024 Office outpatient visit 15 minutes Tomer L Floro CNM Work Phone: [facility] Comment on above: Encounter for superv ision of other normal , third trimester (Primary Dx); congenital anomaly Start: 04-16-2024 End: 04-16-2024 ambulatory TOMER L FLORO Not Available Start: 04-16-2024 End: 04-16-2024 Office outpatient visit 15 minutes Tomer L Floro CNM Work Phone: [facility] Comment on above: Encounter for superv ision of other normal , third trimester (Primary Dx); congenital anomaly Start: 04-16-2024 End: 04-16-2024 Bamboo flowsheet Tomer L Floro CNM Work Phone: [facility] Start: 04-16-2024 End: 04-16-2024 Bamboo flowsheet Tomer L Floro CNM Work Phone: [facility] Start: 04-10-2024 End: 04-10-2024 Bamboo flowsheet Tomer L Floro CNM Work Phone: [facility] Start: 04-10-2024 End: 04-10-2024 Bamboo flowsheet Tomer L Floro CNM Work Phone: [facility] Start: 04-10-2024 End: 04-10-2024 ambulatory TOMER L FLORO Not Available Start: 04-10-2024 End: 04-10-2024 Office outpatient visit [...] In System Ref Prov [facility] Start: 03-01-2024 End: 03-01-2024 Bamboo flowsheet Tomer [...] 02-28-2024 Orders Only Vanessa Weiss RDMS [facility] Comment on above: Abnormal ultrasonic finding on screening of mother, antepartum (Primary Dx) Start: 02-23-2024 End: 02-23-2024 Orders Only Brionna Finch RN [facility] Comment on above: Abnormal obstetric u ltrasound scan (Primary Dx) Start: 02-23-2024 End: 02-23-2024 Office consultation new/estab patient 60 min Lanre Dempsey MD Work Phone: [facility] Comment on above: Elliott cisterna magna (CMS-HCC) (Primary Dx) Start: 02-15-2024 End: 02-15-2024 Chart abstracting Lanre Dempsey MD Work Phone: [facility] Start: 02-07-2024 End: 02-07-2024 Chart abstracting Lanre Dempsey MD Work Phone: [facility] Start: 02-06-2024 End: 02-06-2024 Chart abstracting Scanning Provider External [facility] Start: 02-02-2024 End: 02-02-2024 Office outpatient visit 15 minutes Tomer Lucia CNM Work Phone: [facility] Comment on above: related co ndition in second trimester (Primary Dx); Encounter for supervision of other normal , second trimester Start: 02-02-2024 End: 02-02-2024 Bamboo flowsheet Tomer Lucia CNM Work Phone: [facility] Start: 02-02-2024 End: 02-02-2024 Bamboo flowsheet Tomer Lucia CNM Work Phone: [facility] Start: 02-02-2024 End: 02-02-2024 ambulatory TOMER L FLORO Not Available Start: 01-20-2024 End: 01-20-2024 Telephone encounter Tomer L Floro CNM Work Phone: [facility] Start: 01-12-2024 [...] Available Start: 09-15-2023 End: 09-15-2023 Departed Referred MARKETING DEVELOPMENT 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 Uyen Martel Work Phone: [facility] [place] Work Phone: Start: 09-15-2023 End: 09-15-2023 ambulatory MARKETING DEVELOPMENT 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Karis Martel Work Phone: [facility] Work Phone: Start: 09-15-2023 End: 09-15-2023 Patient encounter procedure [facility] Work Phone: Start: 08-15-2023 End: 08-15-2023 ambulatory [facility] Work Phone: Start: 08-15-2023 End: 08-15-2023 Patient encounter procedure [facility] Work Phone: Start: 07-14-2023 End: 07-14-2023 ambulatory [facility] Work Phone: Start: 07-14-2023 End: 07-14-2023 Patient encounter procedure [facility] Work Phone: Start: 06-16-2023 End: 06-16-2023 Patient encounter procedure [facility] Work Phone: Start: 06-01-2023 End: 06-02-2023 ambulatory Dorian R ARTUORL Facility:[facility] Start: 06-01-2023 End: 06-01-2023 Patient encounter procedure Dorian R NILL [facility] Start: 05-19-2023 End: 05-19-2023 ambulatory Uyen Martel Other [facility] Other Start: 05-19-2023 Office outpatient vi sit 15 minutes Uyen Martel [facility] Start: 04-26-2023 ambulatory Dorian NILL Facility:[facility] [place] Start: 04-21-2023 End: 04-21-2023 ambulatory Uyen Tahmina Other [facility] Other Start: 04-21-2023 Encounter for genera l adult medical examination without abnormal findings Uyen Tahmina [facility] Start: 04-21-2023 Initial preventive medicine new pt age 18-39yrs Uyen Tahmina [facility] Start: 04-21-2023 End: 04-21-2023 Patient encounter procedure [facility] Work Phone: Start: 10-01-2022 End: 10-01-2022 ambulatory Daksha Joyner Other [facility] Other Start: 10-01-2022 Office outpatient vi sit 15 minutes Daksha Anya [facility] Start: 12-28-2021 End: 12-28-2021 ambulatory Daksha Anya Other [facility] Other Start: 12-28-2021 Office outpatient vi sit 15 minutes Daksha Anya [facility] Start: 11-13-2020 End: 11-13-[address] SID REYES Facility: Start: 05-03-2018 End: 05-04-2018 Patient encounter procedure TRISTAN Bell [facility] Start: 03-30-2018 End: 03-30-2018 Patient encounter procedure SIXTO Arabella [facility] Start: 03-28-2018 End: 03-29-2018 Patient encounter procedure JOANA RICHARDSON [facility] Start: 03-21-2018 End: 03-22-2018 Patient encounter procedure TRISTAN Bell [facility] Start: 02-25-2018 End: 02-25-2018 Patient encounter procedure SOCRATES LOPEZAMANDA [facility] Start: 02-25-2018 End: 02-25-2018 Patient encounter procedure MICHAEL BILLINGS [facility] Start: 02-23-2018 End: 02-23-2018 Patient encounter procedure [facility]HAEL BILLINGS [facility] Start: 02-22-2018 End: 02-22-2018 Patient encounter procedure MICHAEL BILLINGS [facility] Start: 02-21-2018 End: 02-21-2018 Patient encounter procedure MICHAEL BILLINGS [facility] Start: 02-20-2018 End: 02-20-2018 Patient encounter procedure MICHAEL BILLINGS [facility] Start: 02-19-2018 End: 02-19-2018 Patient encounter procedure MICHAEL BILLINGS [facility] Start: 02-18-2018 End: 02-18-2018 Patient encounter procedure MICHAEL BILLINGS [facility] Start: 02-17-2018 End: 02-17-2018 Patient encounter procedure MICHAEL BILLINGS [facility] Start: 02-16-2018 End: 02-16-2018 Patient encounter procedure MICHAEL BILLINGS [facility] Start: 02-15-2018 End: 02-15-2018 Patient encounter procedure MICHAEL BILLINGS [facility] Start: 02-14-2018 End: 02-14-2018 Patient encounter procedure MICHAEL BILLINGS [facility] Start: 02-13-2018 End: 02-13-2018 Patient encounter procedure MICHAEL BILLINGS [facility] Start: 02-12-2018 End: 02-12-2018 Patient encounter procedure MICHAEL BILLINGS [facility] Start: 02-07-2018 End: 02-11-2018 Evaluation and management of inpatient MICHAEL BILLINGS [facility] Start: 01-25-2018 End: 01-26-2018 Patient encounter procedure SAMIR GUILLERMO [facility] Start: 12-22-2017 End: 12-23-2017 Patient encounter procedure LEAH B [facility] Start: 11-28-2017 End: 11-29-2017 Patient encounter procedure LEAH B [facility] Start: 10-31-2017 End: 11-01-2017 Patient encounter procedure JOANA NEWELLS [facility] Start: 10-27-2017 End: 10-30-2017 Patient encounter LEAH HERNANDEZ [facility] Procedures Date Procedure Procedure Detail Performing Clinician [...] 02-10-2018 IP CONSULT TO IV TEAM JOANA NEWELLS Start: 02-10-2018 CULTURE BLOOD #1 JOANA RICHARDSON Start: 02-10-2018 Radiologic exam chest 2 views JOANA RICHARDSON Start: 02-10-2018 Us retroperitoneal real time w/image complete JOANA RICHARDSON Start: 02-09-2018 IP CONSULT TO INFECTIOUS DISEASES ROSALBA RICHARDSON Start: 02-08-2018 PATIENT STATUS (DIRECT) JOANA RICHARDSON Start: 02-08-2018 MISCELLANEOUS NURSING CARE ORDER (SPECIFY) JOANA RICHARDSON Start: 02-08-2018 Us retroperitoneal real time w/image complete JOANA RICHARDSON Start: 02-08-2018 Blood count complete auto&auto difrntl wbc JOANA RICHARDSON Start: 02-08-2018 Comprehensive metabolic panel JOANA RICHARDSON Start: 02-08-2018 PLACE INTERMITTENT PNEUMATIC COMPRESSION DEVICE JOANA RICHARDSON Start: 02-07-2018 Culture bacterial quanttative colony count urine JOANA RICHARDSON Start: 02-07-2018 Comprehensive metabolic panel JOANA RICHARDSON Start: 02-07-2018 Blood count complete auto&auto difrntl wbc JOANA RICHARDSON Start: 02-07-2018 VAGINITIS DNA PROBE JOANA RICHARDSON Start: 02-07-2018 C.TRACHOMATIS N.GONORRHOEAE DNA BRITHOPE Y RICHARDSON Start: 02-07-2018 RAPID INFLUENZA A/B ANTIGENS JOANA V ARGAS Start: 02-07-2018 Microscopic urinalysis JOANA RICHARDSON Start: 02-07-2018 URINE RT REFLEX TO CULTURE JOANA DAREK GAS Start: 02-07-2018 CONTRACTION -MONITORING JOANA RICHARDSON Start: 02-07-2018 DIET GENERAL JOANA OSWALDGAS Start: 02-07-2018 FULL CODE JOANA OSWALDGAS Start: 02-07-2018 INTAKE AND OUTPUT JOANA OSWALDGAS Start: 02-07-2018 MONITOR HEART TONES JOANA OSWALDG Start: 02-07-2018 NOTIFY PHYSICIAN (SPECIFY) JOANA DAREK GAS Start: 02-07-2018 PATIENT STATUS (DIRECT) JOANA OSWALDGAS Start: 02-07-2018 PLACE INTERMITTENT PNEUMATIC COMPRESSION DEVICE JOANA RICHARDSON Start: 02-07-2018 VITAL SIGNS JOANA RICHARDSON Start: 01-25-2018 ALPHA FETOPROTEIN, MATERNAL LEAH DAVID Start: 12-22-2017 TYPE AND SCREEN LEAH DAVID Start: 12-22-2017 HIV SCREEN LEAH DAVID Start: 12-22-2017 PROFILE I LEAH DAVID Start: 11-28-2017 Culture bacterial quanttative colony count urine JOANA RICHARDSON Start: 10-31-2017 C.TRACHOMATIS N.GONORRHOEAE DNA, URINE JOANA RICHARDSON Start: 10-31-2017 Culture bacterial quanttative colony count urine JOANA RICHARDSON Start: 10-31-2017 URINE DRUG SCREEN JOANA RICHARDSON Start: 10-31-2017 CYSTIC FIBROSIS JOANA RICHARDSON Start: 10-27-2017 Us uterus 14 wk transabdl 04/11 gestat LEAH DAVID Colonoscopy Dorian ROMAN Esophagogastroduodenoscopy Arabella ROMAN Plan of Treatment Date Care Activity Detail Author Start: 06-05-2028 DTaP,Tdap and Td Vaccines (3 - Td or Tdap) DTaP,Tdap and Td Vaccines (3 - Td or Tdap) [facility] Start: 06-05-2028 DTaP,Tdap and Td Vaccines (9 - Td or Tdap) DTaP,Tdap and Td Vaccines (9 - Td or Tdap) [facility] Start: 07-30-2027 DTaP,Tdap and Td Vaccines (2 - Td or Tdap) DTaP,Tdap and Td Vaccines (2 - Td or Tdap) [facility] Start: 04-27-2025 End: 04-27-2025 US MFM with or without consult US MFM with or without consult Imaging Routine Abnormal ultrasonic finding on screening of mother, antepartum 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 of Expected: 04/27/2025 (Approximate), Expires: 04/27/2025 [employer] Work Phone: Comment on above: Expected: 04/27/2025 (Approximate), Expires: 04/27/2025 Start: 04-26-2025 Adult BMI Screening Adult BMI Screen ing [facility] Start: 04-26-2025 Tobacco Screening Tobacco Screening [facility] Start: 02-22-2025 Adult BMI Screening Adult BMI Screen ing [facility] Start: 02-22-2025 Tobacco Screening Tobacco Screening [facility] Start: 08-22-2024 End: 08-22-2024 US MFM with or without consult US MFM with or without consult Imaging Routine Abnormal obstetric ultrasound scan Expected: 08/22/2024 (Approximate), Expires: 08/22/2024 [employer] Work Phone: Comment on above: Expected: 08/22/2024 (Approximate), Expires: 08/22/2024 Start: 05-28-2024 End: 05-28-2024 Patient encounter procedure 05/28/2024 1:30 PM EST Routine [facility] [address] [place] [address] Tomer Lucia, CNM [address] [facility] [place] [address] [facility] Start: 05-22-2024 End: 05-22-2024 Patient encounter procedure 05/22/2024 9:15 AM EST Appointment [facility] - Ultrasound [address] [place] [address] [facility] Start: 05-21-2024 End: 05-21-2024 Patient encounter procedure 05/21/2024 1:00 PM EST Routine [facility] [address] [place] [id number] Tomer Lucia, CNM [address] [facility] [place] [address] [facility] Start: 05-14-2024 End: 05-14-2024 Patient encounter procedure 05/14/2024 1:30 PM EST Routine [facility] [address] [place] [id number] Tomer Lucia, CNM [address] [facility] [place] [address] [facility] Start: 05-07-2024 End: 05-07-2025 CULTURE, GROUP B STREP WITH SUSCEPTIBLITY CULTURE, GROUP B STREP WITH SUSCEPTIBLITY Lab Routine screening for streptococcus B Expected: 05/07/2024 (Approximate), Expires: 05/07/2025 [facility] Work Phone: Comment on above: Expected: 05/07/2024 (Approximate), Expires: 05/07/2025 Start: 05-07-2024 End: 05-07-2024 Patient encounter procedure 05/07/2024 2:00 PM EST Routine [facility] [address] [place] [id number] Tomer Lucia, CNM [address] [facility] [place] [address] [facility] Start: 04-30-2024 End: 04-30-2024 Patient encounter procedure 04/30/2024 1:00 PM EST Routine [facility] [address] [place] [address] Tomer Lucia, CN [address] [facility] [place] [address] [facility] Start: 04-23-2024 End: 04-23-2024 Patient encounter procedure 04/23/2024 1:15 PM EST Routine [facility] [address] [place] [phone] Tomer Lucia, CN [address] [facility] [place] [address] [facility] Start: 04-20-2024 End: 04-20-2025 echo 2D W/ color flow echo 2D W/ color flow Echocardiography Routine Anomaly of heart of fetus affecting , antepartum, single or unspecified fetus Expected: 04/20/2024, Expires: 04/20/2025 [facility] Work Phone: Comment on above: Expected: 04/20/2024 , Expires: 04/20/2025 Start: 04-16-2024 End: 04-16-2024 Patient encounter procedure 04/16/2024 2:30 PM EST Routine [facility] [address] [place] [id number] Tomer Lucia, CNM [address] [facility] [place] [address] [facility] Start: 04-09-2024 End: 04-09-2024 Patient encounter procedure 04/09/2024 1:45 PM EST Routine [facility] [address] [place] [id number] Tomer Lucia, [facility] [address] [place] [address] [facility] Start: 03-29-2024 End: 03-29-2025 US biophysical profile wo non stress testing US biophysical profile wo non stress testing Imaging Routine congenital anomaly Expected: 03/29/2024, Expires: 03/29/2025 [facility] Work Phone: Comment on above: Expected: 03/29/2024 , Expires: 03/29/2025 Start: 03-29-2024 End: 03-29-2024 Patient encounter procedure 03/29/2024 9:30 AM EST Routine [facility] [address] [place] [id number] Tomer Lucia, DANITA [address] [place] [address] [facility] Start: 03-26-2024 End: 03-26-2024 Patient encounter procedure [facility] Start: 03-01-2024 End: 03-01-2025 CBC panel - Blood by Automated count CBC Lab Routine Screening for iron deficiency anemia Expected: 03/01/2024 (Approximate), Expires: 03/01/2025 [facility] Comment on above: Expected: 03/01/2024 (Approximate), Expires: 03/01/2025 Start: 03-01-2024 End: 03-01-2025 GLUCOSE, GESTATIONAL SCREEN (50G)-135 CUTOFF GLUCOSE, GESTATIONAL SCREEN (50G)-135 CUTOFF Lab Routine Screening for diabetes mellitus Expected: 03/01/2024 (Approximate), Expires: 03/01/2025 [facility] Work Phone: Comment on above: Expected: 03/01/2024 (Approximate), Expires: 03/01/2025 Start: 03-01-2024 End: 03-01-2024 Patient encounter procedure 03/01/2024 9:15 AM EST Routine [facility] [address] [place] [id number] Tomer Lucia, DANITA [address] [place] [address] [facility] Start: 02-28-2024 End: 02-27-2025 MR Pelvis WO contrast MR pelvis without contrast Imaging STAT Abnormal ultrasonic finding on screening of mother, antepartum Expected: 02/28/2024, Expires: 02/27/2025 [facility] Work Phone: Comment on above: Expected: 02/28/2024 , Expires: 02/27/2025 Start: 02-23-2024 End: 02-23-2024 Patient encounter procedure [facility] Start: 02-09-2024 End: 02-09-2024 Patient encounter procedure 02/09/2024 9:00 AM EDT Routine [facility] [address] [place] [id number] Tomer Lucia, DANITA [address] [facility] [place] [address] [facility] Start: 02-02-2024 End: 02-02-2024 Patient encounter procedure [facility] Comment on above: Arrived Start: 02-02-2024 End: 02-02-2024 Professional / ancillary services management 02/02/2024 2:00 PM EDT Ancillary Procedure [facility] [address] [facility] [address] [place] [id number] [facility] Start: 01-12-2024 End: 01-12-2024 Patient encounter procedure [facility] Comment on above: Arrived Start: 01-12-2024 End: 01-12-2024 Professional / ancillary services management 01/12/2024 10:00 AM EDT Ancillary Procedure [facility] [address] [facility] [address] [place] [phone] [facility] Start: 12-15-2023 End: 12-14-2024 US for US OB 14+ weeks anatomy scan Imaging Routine related condition in second trimester Expected: 12/15/2023, Expires: 12/14/2024 [facility] Work Phone: Comment on above: Expected: 12/15/2023 , Expires: 12/14/2024 Start: 12-15-2023 End: 12-15-2023 Patient encounter procedure 12/15/2023 9:30 AM EDT Routine [facility] [address] [place] [phone] Tomer Lucia, CNM [address] [place], [place] [id number] Arrived [facility] Comment on above: Arrived Start: 12-11-2023 Influenza vaccination Influenza Vacc ine [facility] Start: 09-15-2023 Bacteria identified in Urine by Culture [facility] Start: 2017 Screening for malign ant neoplasm of cervix Pap Smear [facility] Start: 2014 Adult BMI Follow Up Plan Adult BMI Follow Up Plan [facility] Start: 2014 Adult BMI Screening Adult BMI Screen ing [facility] Start: 2008 Depression Screening Depression Scre ening [facility] Start: 2008 Tobacco Screening Tobacco Screening [facility] echo 2D W/ col or flow echo 2D W/ color flow Echocardiography Routine Anomaly of heart of fetus affecting , antepartum, single or unspecified fetus 04/26/2024 10:38 AM EST [facility] Immunizations Immunization Date Immunization Notes Care Provider Fa darrin 07-29-2017 tetanus toxoid, reduced diphtheria toxoid, and acellular pertussis vaccine, adsorbed Scanning External [facility] NEGATED: Highlighted row has not occurred!06-01-2023 influenza virus vaccine, unspecified formulation Dorian ROMAN [facility] [place] Payers Date Payer Category Payer Self-pay 2023 Medicaid [employer] [place] [id number] 2023-Present [address] [place] [address] [id number] 2023 Medicaid (Managed Care) [facility] MEDICAID [id number] 2023 Medicaid HMO [id number] 2023 Medicaid [id number] 2005 Commercial Managed C are - POS [employer] [id number] 2005 Private Health Insurance [id number] 2.16.840.1.000586.19 1996 Unknown [id number] 05.27.840.1.725206.3.579. 2.177 1996 Unknown [id number] 2.16.840.1.045891.3.579. 2.177 1996 Unknown [id number] 2.16.840.1.286184.3.579. 2.177 1996 Unknown [id number] 2.16.840.1.104156.3.579. 2.175 1996 Unknown [id number] 2.16.840.1.562867.3.579. 2.175 1996 Unknown [id number] 2.16.840.1.231737.3.579. 2.175 1996 Unknown [id number] 2.16.840.1.407800.3.579. 2.175 1996 Unknown [id number] 2.16.840.1.169503.3.579. 2.175 1996 Unknown [id number] 2.16.840.1.547635.3.579. 2.175 1996 Unknown [id number] 2.16.840.1.284866.3.579. 2.175 1996 Unknown [id number] 2.16.840.1.728872.3.579. 2.175 1996 Unknown [id number] 2.16.840.1.685131.3.579. 2.175 1996 Unknown [id number] 2.16.840.1.748901.3.579. 2.175 1996 Unknown [id number] 2.16.840.1.780535.3.579. 2.175 1996 Unknown [id number] 2.16.840.1.381702.3.579. 2.175 1996 Unknown [id number] 2.16.840.1.274858.3.579. 2.175 1996 Unknown [id number] 2.16.840.1.432552.3.579. 2.175 1996 Unknown [id number] 2.16.840.1.673675.3.579. 2.175 1996 Unknown [id number] 2.16.840.1.746943.3.579. 2.175 1996 Unknown [id number] 2.16.840.1.684545.3.579. 2.175 1996 Unknown [id number] 2.16.840.1.355922.3.579. 2.175 1996 Unknown [id number] 2.16.840.1.485311.3.579. 2.175 1996 Unknown [id number] 2.16.840.1.781434.3.579. 2.175 1996 Unknown [id number] 2.16.840.1.462722.3.579. 2.593 1996 Unknown [id number] 2.16.840.1.313599.3.579. 2.727 1996 Unknown [id number] 2.16.840.1.993504.3.579. 2.9 1996 Unknown [id number] 2.16.840.1.710206.3.579. 2.1258 1996 Unknown [id number] 2.16.840.1.115721.3.579. 2.9 1996 Unknown [id number] 2.16.840.1.084810.3.579. 2.9 1996 Unknown [id number] 2.16.840.1.745179.3.579. 2.9 1996 Unknown [id number] 2.16.840.1.594536.3.579. 2.9 1996 Unknown [id number] 2.16.840.1.509814.3.579. 2.9 1996 Unknown [id number] 2.16.840.1.219049.3.579. 2.9 1996 Unknown [id number] 2.16.840.1.880220.3.579. 2.1259 1996 Unknown [id number] 2.16.840.1.858131.3.579. 2.9 1996 Unknown [id number] 2.16.840.1.998763.3.579. 2.9 1996 Unknown [id number] 2.16.840.1.759205.3.579. 2.1258 1996 Unknown [id number] 2.16.840.1.537410.3.579. 2.1258 1996 Unknown [id number] 2.16.840.1.547807.3.579. 2.9 1959 Private Health Insurance [id number] Unknown [id number] 2.16.840.1.428386.3.579. 2.531 Social History Date Type Detail Facility Unknown if ever smoked [facility] Other Start: 05-22-2020 End: 10-20-2023 Sex Assigned At [facility] Start: 06-01-2023 End: 10-20-2023 Tobacco smoking status Never smoked tobacco (finding) [facility] [place] Tobacco smoking status Former sm okeless tobacco user, quit more than 30 days ago [facility] [place] Start: 1995 Sex Assigned At Female F [facility] Start: 10-20-2023 End: 03-26-2024 Tobacco use and exposure Smokeless tobacco non-user [facility] Start: 10-20-2023 End: 04-27-2024 Alcoholic beverage intake Ex-drinker (finding) [facility] Start: 05-22-2020 End: 10-20-2023 History of Social function [facility] Start: 09-08-2023 [facility] Start: 1995 Sex assigned at Not on file [facility] Start: 02-06-2024 Alcoholic beverage intake Current non-drinker of alcohol (finding) [facility] Start: 12-11-2014 Sex Female (finding) [facility] Start: 03-26-2024 Tobacco smoking stat us NHIS Ex-smoker [facility] History of tobacco use Current smoker [facility] History of tobacco use Cigarette Smoker [facility] Functional Status Date Assessment Result Facility 06-01-2023 Functional Status N/A [facility] Clinical Notes 12-28-2021 to 05-07-2024 Tomer Lucia CNM - 05/07/2024 2:00 PM Isa Lucia CNM - 04/30/2024 1:00 PM Rodrigo Hollins RN - 04/26/2024 2:30 PM Cesar James MD - 04/26/2024 2:30 PM EST Note Date & Type Note Facility 05-07-2024 History of Presen t illness Narrative Subjective No chief complaint on file. Shen Griggs is a 28 y.o. at 36w4d with a working estimated date of delivery [...] EPI N DANIELLE Her is complicated by: possible anomaly Objective Physical Exam weight: 204 lb Expected Total Weight Gain: Could not be calculated Pregravid BMI: Could not be calculated BP: 118/80 Urine protein-negative Urine glucose-negative Assessment/Plan Continue vitamin. Labs reviewed. GBS taken. Expected mode of delivery \ Follow up in 1 week for a routine visit. documented in this encounter [facility] 04-30-2024 History of Presen t illness Narrative Subjective No chief complaint on file. Shen Griggs is a 28 y.o. at 35w4d with a working estimated date of delivery [...] EPI N DANIELLE Her is complicated by: see [facility] Patient states [facility] told her last week she could deliver with me at [facility] and she should be induced at 39 weeks. I will look for report in media and get the most recent updated [facility] reports. Objective Physical Exam weight: 202 lb Expected Total Weight Gain: Could not be calculated Pregravid BMI: Could not be calculated BP: 118/80 Urine protein-negative Urine glucose-negative Assessment/Plan Diagnoses and all orders for this visit: Encounter for supervision of other normal , third trimester congenital anomaly Continue vitamin. Labs reviewed. GBS taken. Expected mode of delivery Follow up in 1 week for a routine visit. documented in this encounter [facility] 04-26-2024 History of Presen t illness Narrative Headache/epigastric pain/blurry vision/swelling? No Cramping/contractions? No Abnormal vaginal discharge? Spotting or vaginal bleeding? No Loss or gush of fluid like your water may have broken? No Recent ER visits or hospitalizations? No Any concerns that you would like me to mention to the provider today? No REASON FOR OFFICE VISIT: Follow up HISTORY OF PRESENT ILLNESS: Shen Griggs is a pleasant 28 y.o. G 2 P1 001. at 35w0d due on Estimated Date of Delivery: 05/31/24 . 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 Limited trans performed which showed normal posterior fossa except for elliott cisterna magna. Normal cerebellar vermis. Normal appearing 3rd and 4th ventricle. Normal cerebellar diameter. 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 \Patient has opted out of genetic testing. S/p MRI on 03/15/24. Confirmation of elliott cisterna magna 2. VSD s/p cardiology consult with Dr. Gustafson 04/26/24 Currently the patient has no complaints. The patient denies nausea, vomiting, abdominal pain, vaginal bleeding, SOB or chest pain. Reports good movement. The patient was seen earlier in our labor and delivery triage where she was given IV fluids hydration was discharged in a stable condition she is feeling well right now and denies any dizziness. Patient's PMH/PSH,SH,PSYCH Hx, MEDs, ALLERGIES, and ROS [...] Reactions Amoxicillin CURRENT MEDICATIONS: Current Outpatient Medications: [id number] acid ( 19) 29 mg iron- 1 mg tablet,chewable, Chew 1 tablet and swallow in the morning., Disp: , Rfl: FAMILY/GENETIC HISTORY: No family history of VTE, cardiac defects and mental retardation . SOCIAL HISTORY:Patient denies tobacco use, alcohol use, or drug use. RECENT HOSPITALIZATION: none I did review all the labs results available in addition to labs which were ordered by the primary care physician, and the other consultants, we search on [facility] and all the available care everywhere epic I did review all the imaging studies of the patient available on EMR, ordered by the primary care physician and the other senior safety management consultant HABITS: Patient activity no restrictions, diet [...] n Housing Stability: y PHYSICAL EXAMINATION: BP 118/80 (BP Site: Right Arm, BP Postition: Sitting, BP CUFF SIZE: M (9-13 inches)) Pulse 93 Ht 162.6 cm (5' 4.02 ) Wt 89.1 kg (196 lb 6.4 oz) LMP 08/25/2023 (Exact Date) BMI 33.70 kg/m . Gravid abdomen, Respirations not labored. Well oriented time place person, normal gait Vitals: 04/26/24 1425 BP: 118/80 Pulse: 93 MEDICAL DECISION MAKING DISCUSSION: Please see original MFM consultation note Ultrasound was discussed with the patient today Elliott cisterna magna seen today again overall stable. No ventriculomegaly otherwise. The patient also had a follow-up with the belt splicer today. I spoke with the Dr. Gustafson from cardiology standpoint the patient can deliver at local hospital as well. Reviewed with the patient that I would recommend she keeps up with her hydration and compression stockings reviewed RECOMMENDATION: - repeat growth in 4 weeks -Weekly NST and DVP from 34 weeks until delivery setting of the anomalies per patient request at primary OB office -delivery recommended at 39 weeks -location of delivery local hospital -we will initiate pediatric neurology consultation to ensure evaluation DISPOSITION: At this point the patient is in complete care of her rn call center. Patient does have ultrasound office visit scheduled with us Thank you for allowing me to participate in Shen Griggs . If there any questions please do not hesitate to contact us. Sincerely, RUSSEL JAMES MD documented in this encounter [facility] 04-26-2024 History of Presen t illness Narrative [address] [facility] [address] April 26, 2024 Patient: Shen Griggs Date of : 1995 Date of Visit: 04/26/[address] Jmaes; I had the pleasure of seeing Ms Shen Griggs, at our pediatric cardiology clinic on 04/26/2024 .As you know, Ms Shen Griggs is a 28 y.o. female G 2 P1 001. referred to Cardiology (05/31/24) at 35 weeks and 0 days for observation of Muscular VSD .Ms Shen Griggs is accompanied by her self. Since Ms Shen Griggs denies symptoms: No chest pain, no cyanosis, no palpitations,syncope, or near syncope. No shortness of breath, no wheezing. No seizures. No headaches. No abdominal pain/contractions, no recent viral illnesses, no abdominal bleeding, spotting or discharge. However she says that over the last few months since she has been in the 3rd trimester she has been having dizziness and near-syncope with loss of vision. In fact she states that in driving she has had to stop PERC of the saddle because she felt dizzy and her vision went blurry. No headaches. She states that she has been struggling with hypotension despite aggressively increasing her salt and fluids. has also been complicated by: 1. Elliott cisterna magna. Limited trans performed which showed normal posterior fossa except for elliott cisterna magna. Normal cerebellar vermis. Normal appearing 3rd and 4th ventricle. Normal cerebellar diameter. 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 Patient has opted out of genetic testing. S/p MRI on 03/15/24. Confirmation of elliott cisterna magna Review of Systems Constitution: Negative for diaphoresis, fever, weight gain or weight loss. Head: Negative for headaches or vision changes ENT: Negative for congestion or nosebleeds. Cardiovascular: Negative for chest pain, palpitations, racing heart, irregular heart beats or cyanosis. No recent illnesses. Respiratory: Negative for shortness of breath, dyspnea, coughing or increased work of breathing. Musculoskeletal: Negative for joint pain or swelling. Gastrointestinal: Negative for diarrhea, nausea or vomiting. Renal: Negative for excessive urination or painful urination. Neurological: Dizzy and lightheaded since 3rd trimester but no syncope but near-syncope. No seizures, numbness, or tingling. Psychiatric/Behavioral: Negative for stress, anxiety or depression. Current Outpatient Medications Medication Sig Dispense Refill [id number] acid ( 19) 29 mg iron- 1 mg tablet,chewable Chew 1 tablet and swallow in the morning. No current facility-administered medications for this visit. Allergies Allergen Reactions Amoxicillin Past Medical History: Diagnosis Date ADHD History reviewed. No pertinent surgical history. Family History Problem Relation Age of Onset Hypertension Mother Bipolar disorder Mother Heart attack Maternal Grandmother in 50s Sudden Maternal Grandfather Brain aneurysm, 43yo Heart defect Neg Hx Seizures Neg Hx Diabetes Neg Hx Arrhythmia Neg Hx Asthma Neg Hx Stroke Neg Hx Clotting disorder Neg Hx High Cholesterol Neg Hx Thyroid Issues Neg Hx There is no family history of congenital heart disease, SIDS, sudden cardiac , or congenital anomalies or arrhythmias or hypercoaguble state ,no congenital deafness.No family history of anyone with sudden, unexplained, and unexpected before the age of 50.Parent denies anyone in the family who has been diagnosed with a sudden -predisposing heart condition such as HCM, LQTS, Brugada syndrome. Social History: Social History Socioeconomic History Marital status: Significant Other Spouse name: Not on file Number of children: Not on file Years of education: Not on file Highest education level: Not on file Occupational History Not on file Tobacco Use Smoking status: Former Types: Cigarettes Smokeless tobacco: Never Vaping Use Vaping status: Former Substance and Sexual Activity Alcohol use: Not Currently Drug use: Not Currently Types: Marijuana Sexual activity: Yes Partners: Male control/protection: Other Other Topics Concern Not on file Social History Narrative Not on file Social Drivers of Health Financial Resource Strain: Not on file Food Insecurity: No Food Insecurity (04/26/2024) Hunger Screening Food Insecurity - Worry: Never True Food Insecurity - Inability: Never True Transportation Needs: Not on file Physical Activity: Not on file Stress: Not on file Social Connections: Not on file Interpersonal Safety: Not on file Housing Instability: Not on file Living Conditions Lives with Boyfriend Secondhand Smoke Exposure? No Vitals: 04/26/24 0911 BP: 114/71 BP Site: Right Arm BP Postition: Sitting Pulse: 115 SpO2: 99% Weight: 88.9 kg (196 lb) Height: 164.3 cm (5' 4.69 ) While dizzy vitals were repeated: blood pressure lying vez792/66 mmHg with a heart rate of 88 beats per minute On examination I found a well appearing female in no respiratory distress.she was alert and oriented. Mucous membranes were pink and moist.she was anicteric and acyanotic echocardiogram was technically difficult because mom was extremely uncomfortable unable to lie on her back. echocardiogram was done with her supine lying on her left side although she remained diaphoretic dizzy and unwell. The pertinent information was obtained. echcoardiogram of a male fetus who mom has named Bryan, demonstrated a small apical ventricular septal defect in an otherwise normal intracardiac anatomy .There was normal atrioventricular coupling with normal heart rate.The cardiothoracic was normal index but on upper limit of normal 0.5 and correlating to a proximally 36 weeks gestation. Additionally interventricular septum is just above the upper limit of normal. There was normal right left shunting the patent foremen ovale as well as a patent ductus arteriosus. Both the left-sided ductal as well as the left sided aortic arch were widely patent with laminar flow. Inferior vena cava, superior vena cava, umbilical artery and umbilical vein as well as ductus venosus Doppler flow patterns were all normal. We visualized 2 normal unobstructed pulmonary veins entering into the left atrium. Of note small septal defects, minor valve abnormalities and post development of coarctation may not be evident during cardiac examination. My impression is that Ms.Michaela Griggs is a 28 y.o. female who is currently gestational age 35 weeks with a male fetus who today demonstrated a small apical ventricular septal defect. With the aid of diagrams I discussed and reassured that this small apical ventricular septal defect is not clinically significant and will not cause any symptoms cardiac and or otherwise. I discussed that there is a possibility that it may become smaller or even spontaneously close before delivery. Postnatally the natural history is similar in that the ventricular septal defect will not increase in size but will either remain the same in size, become smaller and possibly spontaneously close. I reassured that this defect will not cause any symptoms cardiac and or otherwise which include but not limited to cyanosis or pulmonary overcirculation. Nor will it require any medication or surgical intervention. I also demonstrated a ventricular septal defect on the echocardiogram itself. Additionally with the aid of diagrams I discussed with Ms. Shen Griggs the findings and all fetuses must have have to remain alive in utero: Foremen ovale and a ductus arteriosus. I discussed foremen ovale patent (patent foremen ovale) is found in 30% of the normal population is not clinically significant especially if there is no family history of hypercoagulable state. Therefore in the absence of any hypercoagulable state or right to left shunting this patent foramen ovale does not need to be closed. With respect to the ductus arteriosus if it remains patent (patent ductus arteriosus) the management will depend on the size: If it is large it will cause left heart failure and will require either surgical closure or cardiac catheterization depending on her age and size. If it remains present and is small then it can be closed electively by cardiac catheterization when he gets older. I however emphasized that the majority ductus arteriosus close within 1st weeks of life. I also explained that we do monitor all PDAs even if they are small and are not causing any congestive heart failure to ensure that if and when it closes, coarctation of the aorta does not develop. Small septal defects, minor valve abnormalities and post ronn development of coarctation may not be evident during cardiac examination; therefore recommend a echocardiogram. This echocardiogram does not need to be done within the day of life. Typically neonates require a minimum of 24 hrs to transition physiologically. I recommend an echocardiogram be done on the day of discharge unless there is a clinical concern . However what is more concerning is the Ms Griggs's symptoms during today's evaluation. We repeated her blood pressure and she remains quite hypotensive and symptomatically so. As I discussed with you I do not feel comfortable with her driving home in this state especially when upon standing she continued to be dizzy despite having hydrated during this echocardiogram. As we discussed she has been transported by my staff to OBGYN triage. I do think it may be necessary to place her medication for her hypotension. Time spent with Ms Shen Griggs was 120 minutes, 50% or more was face to face interaction coordinating care and discussing pathophysiology and management.This time included time spent preparing for the visit, obtaining and reviewing any outside history/data, taking a history, performing an exam/evaluation, counseling and educating the patient/family about the diagnosis and plan, performing medical decision making, referring to and communicating with other health care referrals, independently interpreting results and documenting in the EMR, and coordinating care Thank you so much for allowing me to participate in Shen's care .Please feel free to contact me if you have any queries or concerns. Sincerely, Georgette Gustafson M.D. Equipment Cleaner And Tester [facility] [place] This note is dictated with the use of M*Modal.Please note that this dictation was completed with computer voice recognition software. Quite often unanticipated grammatical, syntax, homophones, and other interpretive errors are inadvertently transcribed by the computer software. Please disregard these errors. Please excuse any errors that have escaped final proofreading. documented in this encounter [facility] 04-23-2024 History of Presen t illness Narrative Subjective No chief complaint on file. Shen Griggs is a 28 y.o. at 34w4d with a working estimated date of delivery [...] EPI N DANIELLE Her is complicated by: sees MFM for monitoring of brain and rule out anomalies in follow up with MFM Objective Physical Exam weight: 199 lb Expected Total Weight Gain: Could not be calculated Pregravid BMI: Could not be calculated BP: 110/70 Urine protein-negative Urine glucose-negative Assessment/Plan Diagnoses and all orders for this visit: Encounter for supervision of other normal , third trimester congenital anomaly Continue vitamin. Labs reviewed. GBS taken. NST reactive today in the office Expected mode of delivery Follow up in 1 week for a routine visit. documented in this encounter [facility] 04-16-2024 History of Presen t illness Narrative Subjective No chief complaint on file. Shen Griggs is a 28 y.o. at 33w4d with a working estimated date of delivery [...] EPI N DANIELLE Her is complicated by: sees MFM, congenital monitoring. Objective Physical Exam weight: 200 lb Expected Total Weight Gain: Could not be calculated Pregravid BMI: Could not be calculated BP: 104/60 Urine protein-negative Urine glucose-negative Assessment/Plan Diagnoses and all orders for this visit: Encounter for supervision of other normal , third trimester congenital anomaly Reactive NST today in office. Continue vitamin. Labs reviewed. GBS taken. Expected mode of delivery Follow up in 1 week for a routine visit. documented in this encounter [facility] 04-10-2024 History of Presen t illness Narrative [...] a routine visit. documented in this encounter [facility] 03-29-2024 History of Presen t illness Narrative [...] NSTs in my office and BPPs at [facility] . documented in this encounter [facility] 03-01-2024 History of Presen t illness Narrative [...] a routine visit. documented in this encounter [facility] 02-23-2024 History of Presen t illness Narrative [...] NO Have you been seen here at [facility] in a previous ? NO Recent ER visits or hospitalizations? NO Bring blood sugar log or meter with you today? (Please bring them with you for every visit at [facility]) N/A Flu vaccine (Feb-June)? NO Any [...] for nausea or vomiting., Disp: , Rfl: [id number] acid ( 19) 29 mg iron- 1 [...] and the other consultants, we search on [employer] and all the available care everywhere epic I did review all the imaging studies of the patient available on EMR, ordered by the primary care physician and the other senior safety management consultant HABITS: Patient activity no restrictions, diet [...] 3. Patient is scheduled for MRI at [facility]. 4. Most likely a elliott cisterna magna [...] patient is in complete care of her rn call center. Patient does have ultrasound office visit scheduled with us Thank you for allowing me to participate in Shen Griggs . If there any questions please do not hesitate to contact us. Sincerely, LANRE DEMPSEY MD documented in this encounter [facility] 02-02-2024 History of Presen t illness Narrative [...] a routine visit. documented in this encounter [facility] 01-20-2024 Telephone encounter Note Pt is 21 weeks and wants to know if she can use Miralax for constipation, she is going since the last week, nothing coming out, and in a lot of pain. Pt calling her PCP to see if she can get advice from someone Forwarded message to Mary. [facility] 01-20-2024 Miscellaneous Notes Pt is 21 weeks and wants to know if she can use Miralax for constipation, she is going since the last week, nothing coming out, and in a lot of pain. Pt calling her PCP to see if she can get advice from someone Forwarded message to Mary. documented in this encounter [facility] 01-12-2024 History of Presen t illness Narrative [...] a routine visit. documented in this encounter [facility] 12-15-2023 History of Presen t illness Narrative [...] a routine visit. documented in this encounter [facility] 06-01-2023 Note Chief Complaint consultation for hemorrhoids [...] vaccine, inactivated - Not Given Patient Refuses [facility] Comment on above: Result Comment: Elec tronically [...] of decreased appetite, insomnia, anxiety and agitation. [facility] Other 01-11-2024 Evaluation note* Encounter Date Diagnosis [...] of hemorrhoids and further treatment or options. [facility] 06-23-2023 Evaluation note* Encounter Date Diagnosis [...] right ear, unspecified type (ICD-10 - H60.501) [facility] 09-19-2022 Evaluation note* Encounter Date Diagnosis [...] no improvement in 2 to 3 days. [facility] Other Evaluation + Plan note No data available for this section General Surgery [place] Evaluation note* Diagnosis Onset Date Resolution Status [id number] acute [id number] [facility] Work Phone: evaluation note* Diagnosis Onset Date Resolution Status [id number] acute [id number] acute [id number] [facility] Work Phone: Evaluation note* Diagnosis Onset Date Resolution Status [id number] acute [id number] acute UTI (urinary tract infection) [facility] Work Phone: Evaluation note* Diagnosis Encounter for supervision of other normal , second trimester- Primary [facility] Diagnosis related condition in second trimester- Primary Encounter for supervision of other normal , second trimester [facility] Diagnosis Elliott cisterna magna (CMS-HCC)- Primary [facility] Diagnosis Abnormal obstetric ultrasound scan- Primary [facility] Diagnosis Abnormal ultrasonic finding on screening of mother, antepartum- Primary [facility] Diagnosis Encounter for supervision of other normal , second trimester- Primary Screening for diabetes mellitus Screening for iron deficiency anemia [facility] Diagnosis Encounter for supervision of other normal , second trimester- Primary related condition in second trimester [facility] Diagnosis congenital anomaly- Primary Encounter for supervision of other normal , third trimester [facility] Diagnosis Encounter for supervision of other normal , third trimester- Primary congenital anomaly [facility] Diagnosis Encounter for supervision of other normal , third trimester- Primary congenital anomaly [facility] Diagnosis Encounter for supervision of other normal , third trimester- Primary congenital anomaly [facility] Diagnosis 35 weeks gestation of - Primary [facility] Diagnosis Abnormal ultrasonic finding on screening of mother, antepartum- Primary 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 of [facility] Diagnosis Anomaly of heart of fetus affecting , antepartum, single or unspecified fetus- Primary Abnormal ultrasonic finding on screening of mother, antepartum Postural dizziness with near syncope [facility] Diagnosis Encounter for supervision of other normal , third trimester- Primary congenital anomaly documented in this encounter [facility]* Diagnosis Encounter for supervision of other normal , third trimester- Primary screening for streptococcus B screening for Streptococcus B congenital anomaly [facility] N[facility] - Reported* Type Description Date Medical History IBS Surgical History [facility] Other Hospital Discharge instructions No data available for this section [facility] Discharge instructionsAmbulatory Orders* Urine Culture Time Frame: 09/15/23, Location: Determined By [facility] Work Phone: InstructionsNot on filedocumented in this encounter [facility] filedocumented in this [facility] filedocumented in [facility]* Attachments The following attachments cannot be sent through Care Everywhere. * Preeclampsia ([place]) * Movement ([place]) [facility]ructionsNot on file [facility] System[facility]ructionsNot on file documented in this [facility]Pro[facility] System[facility] note No data available for this section General Surgery [facility] Summary Purpose Family History No Family History Records Found Relationship Condition Age at Onset Recorded Date/T ghislaine Not Specified Family history of mental disorder Unknow n Hypertension Unknown Advance Directives No Advanced Directives Records Found Advance Directive Response Recorded Date/ Time Advance Directives No May 19, 2023 11:52am Reason for Referral Reason evaluate Diagnosis 1 Hemorrhoids, unspeci fied hemorrhoid type (K64.9) Referral Organization [facility] Referring Provider First Name Uyen Referring Provider Last Name Tahmina Referring Provider Specialty Nurse Pract ni Referred Organization Unknown Facility Referred Provider Dorian Roman Referred Provider Specialty Surgery Referral Priority Routine Chief Complaint and Reason for Visit Chief Complaint Wellness/ Ibs 4 WEEK CHECK UP 4 week follow up Reason for Visit [id number] Chief Complaint 4 WEEK CHECK UP 4 week follow up 4 week follow up Reason for Visit [id number] Chief Complaint 4 week follow up 4 week follow up UA Reason for Visit [id number] Chief Complaint 4 week follow up 4 week follow up UA Reason for Visit [id number] UTI (urinary tract infection) Additional Source Comments INFORMATION SOURCE (unrecogn ized section and content) DATE CREATED AUTHOR 10/31/2017 [facility] DATE CREATED AUTHOR AUTHOR'S ORGANIZ ATION 03/31/2018 [facility] DATE CREATED AUTHOR AUTHOR'S ORGANIZ ATION 05/30/2018 [facility] DATE CREATED AUTHOR AUTHOR'S ORGANIZ ATION 11/17/2020 [facility] DATE CREATED AUTHOR AUTHOR'S ORGANIZ ATION 06/09/2023 [facility] DATE CREATED AUTHOR AUTHOR'S ORGANIZ ATION 01/20/2024 [facility] DATE CREATED AUTHOR AUTHOR'S ORGANIZ ATION 05/08/2024 [facility] EPIC REASON FOR VISIT (unrecogniz ed section and content) Reason Comments survey assessment Reason Comments enlarged cirsterna manga possible clint cyst muscular VSD Reason Comments observation of Muscular VSD Specialty Diagnoses / Procedures Referred By Jason t Referred To Contact Pediatric Cardiology Diagnoses Abnormal ultrasonic finding on screening of mother, antepartum Russel James MD [address] [place] [address] Phone: tel: fax: Georgette Gustafson MD [address] [address] Phone: tel: fax: Referral ID Status Reason Start Date Expiration Date Visits Requested Visits Authorized [id number] Pending Review Specialty Services Required 03/26/2025 1 1 Patient Care team informatio n (unrecognized section and content) Team Status: Active Member Role Status Dates Uyen Martel APRN COACH TOUR DRIVER-C Primary Care Provider Active Team Status: Inactive Member Role Status Dates Uyen Martel APRN NP-C Attending Provider Act lorena Start: April 21, 2023 End: April 21, 2023 Team Status: Inactive Member Role Status Dates Uyen Martel APRN COACH TOUR DRIVER-C Primary Care Provider, Attending Provider Active Start: June 16, 2023 End: June 16, 2023 Team Status: Inactive Member Role Status Dates Uyen Martel APRN COACH TOUR DRIVER-C Primary Care Provider, Attending Provider Active Start: July 14, 2023 End: July 14, 2023 Team Status: Inactive Member Role Status Dates Uyen Martel APRN NP-C Primary Care Provider, Attending Provider Active Start: August 15, 2023 End: August 15, 2023 Team Status: Inactive Member Role Status Dates Uyen Martel APRN NP-C Primary Care Provider, Attending Provider Active Start: September 15, 2023 End: September 15, 2023 Soil Analyst Relationship Specialty Start Date End Date No Pcp, [place] [address] PCP - General Family Medicine 07/29/17 Soil Analyst Relationship Specialty Start Date End Date No Pcp, [place] [address] PCP - General Family Medicine 07/29/17 Soil Analyst Relationship Specialty Start Date End Date No Pcp, [place] [address] PCP - General Family Medicine 07/29/17 Soil Analyst Relationship Specialty Start Date End Date No Pcp, [place] [address] PCP - General Family Medicine 07/29/17 Soil Analyst Relationship Specialty Start Date End Date No Pcp, [place] [address] PCP - General Family Medicine 07/29/17 Soil Analyst Relationship Specialty Start Date End Date Uyen Martel APRN-COACH TOUR DRIVER [address] [place] [facility] [place] [address] PCP - General Nurse Practitioner 03/15/24 Soil Analyst Relationship Specialty Start Date End Date Uyen Martel APRN-NP [address] [facility] PCP - General Nurse Practitioner 03/15/24 Soil Analyst Relationship Specialty Start Date End Date Uyen Martel APRN-NP [address] [facility] [place] [address] PCP - General Nurse Practitioner 03/15/24 Soil Analyst Relationship Specialty Start Date End Date Uyen Martel APRN-NP [address] [facility] [place] [address] PCP - General Nurse Practitioner 03/15/24 Soil Analyst Relationship Specialty Start Date End Date Uyen Martel NP [address] [facility] [place] [address] PCP - General Family Medicine 05/07/24 Soil Analyst Relationship Specialty Start Date End Date Uyen Martel NP [address] [place] [id number] PCP - General Family Medicine 05/07/24 Goals (unrecognized section and content) Goals may [...] BE BASED ON THE PRIMARY CLINICAL RECORDS. [employer] provides no warranty or guarantee of the accuracy or completeness of information in this document.
== END 2024-05-09 08:59 | disposition home or self-care (01) ==
LOC: US 08:59
PROVIDERS: PCP Family Medicine; Visit Provider Midwife
DX: O26.893 Other specified pregnancy related conditions, third trimester (principal); Q89.9 Congenital malformation, unspecified; Z3A.36 36 weeks gestation of pregnancy
CPT/HCPCS: 76819

== ENCOUNTER 2024-05-25 06:16 | Inpatient (IN) | payer OTHER, SELFPAY ==
[2024-05-25] VITALS (41 sets, daily range): BP systolic 87–145; BP diastolic 50–93; PULSE 78–116; TEMP 30.8–36.7; O2SAT 98
--- OUTSIDE RECORDS SUMMARY | 2024-05-25 06:19 | XMS_ITS | CCD ---
Author Organization 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 Name Role Phone DAVID, LEAH B Unavailable [...] Admitting Unavailable AWA, MICHAEL Attending Unavailable AWA, MICHALE Referring Unavailable LUKE, CRYSTAL J Primary Care [...] Martel Unavailable UYEN MARTEL Primary Care Physician [phone] Dorian HART Attending Unavailable MARLEE Martel Primary Care Provider MARLEE Martel Attending Provider [phone] Unavailable Primary Care Provider UnavailUyen Holley Attending Unavailable Uyen Martel Primary Care Unavailable Uyen Martel Admitting Unavailable No Pcp, No Pcp Primary Care Provider Unavailabl e Tahmina ROBBINSN-SNUFF GRINDERUyen Primary Care [facility] er Uyen Martel NP Primary Care Provider RAUL, TOMER Referring Unavailable UYEN MARTEL Primary Care Unavailable FLORO, TOMER L Attending Unavailable FLORO, [...] (1 source) Amoxicillin Drug Allergy 3 [facility] Repository (20 sources) Amoxicillin; Translations: [AMOXICILLIN] Drug Allergy 3 rash, Hives [facility] (2 sources) Penicillin; Translations: [penicillin] Drug Allergy Eruption of skin (disorder) General [facility] [place] (1 source) Amoxicillin Drug Allergy 4 [facility] Repository Medications Current Medications Medication Drug [...] a day for 5 day(s) Sep, Active hydrocortisone 10 mg/ml / neomycin 3.5 mg/ml / polymyxin b 15460 unt/ml otic suspension (1 source) Aminoglycoside Antibacterial, Polymyxin-class Antibacterial, Corticosteroid Start: 10-01-2022 Neomycin-Polymyxin- HC 3.5-55920-8 3 drops Otic Three times a day [...] Gummy/DHA/FA) 0.4-25 MG chewable tablet Chew Active sz595-wbpj-uzihn acid ( 19) 29 mg iron- 1 mg tablet,chewable (12 sources) rt356-pzgk-qpatu acid ( 19) 29 mg iron- 1 [...] 11:38am Start: 04-20-2023 take 1 capsule by [facility] every twenty-four hours Atomoxetine HCl 25 MG 1 capsule Orally Once a day for 30 days Apr, Active take 1 capsule by [facility] every twenty-four hours Atomoxetine HCl 40 [...] Onset: 06-01-2023 Episodic Nervous system congenital anomalies (12 sources) Elliott cisterna magna; Translations: [Congenital malformation [...] on screening of mother] 02-28-2024 Episodic Other complications of (1 source) Abnormal ultrasonic finding on screening of mother; Translations: [Abnormal ultrasonic finding on screening of mother] Onset: 05-22-2024 Episodic Other congenital anomalies (16 sources) Congenital malformation; Translations: [Congenital malformation, unspecified] [...] 04-26-2024 Episodic Residual codes; unclassified (1 source) 35 weeks gestation of ; Translations: [35 weeks gestation of ] Onset: 05-22-2024 Episodic Residual codes; unclassified (1 source) 18 [...] Test Name Value Interpretation Reference Range Facility US OB BPP WO NON-STRES Son 05-09-2024 [place] [address] Ultrasound Report Signed Patient: SHEN GRIGGS MR#: [id number] : 1995 Acct:[id number] Age/Sex: 28 / F ADM Date: 05/09/24 Loc: US Attending Dr: TOMER LUCIA APRN, CNM Ordering Physician: TOMER LUCIA APRN, CNM Date of Service: 05/09/24 Procedure(s): US OB BPP wo non-stress Accession Number(s): [id number] cc: TOMER LUCIA APRN, CNM; SID REYES [place] [id number] Patient Name: SHEN GRIGGS MRN: [facility]:[id number] date: 1995 Sex: F Assigned Patient Location: US Current Patient Location: US Accession/Order Number: [id number] Exam Date: 05/09/2024 09:05 Report Date: 05/09/2024 09:43 At the request of: TOMER LUCIA Procedure: US OB BPP wo non-stress EXAMINATION: US OB BPP wo non-stress HISTORY: Congenital Anomaly COMPARISON: Ultrasound OB biophysical 04/19/2024 TECHNIQUE: Ultrasound biophysical profile was performed in the radiology department. BREATHING MOVEMENTS: 2 GROSS BODY MOVEMENTS: 2 TONE: 2 QUALITATIVE AMNIOTIC FLUID VOLUME: 2 PRESENTATION: CEPHALIC HEART RATE: 137.06 bpm AMNIOTIC FLUID VOLUME: 15.44 cm GESTATIONAL AGE: 36 weeks 6 days US/US OB BPP wo non-stress IMPRESSION: 1. Total biophysical profile score: 8 Electronically authenticated by: SCOTTY FIGUEROA Date: 05/09/2024 09:43 Dictated By: Scotty Figueroa M.D. Signed By: 05/09/24945 DD/ 2 TD/TT: Tile Grinder: [facility] Radiology, Radiologist, MD - 05/09/2024 [place] [address] Ultrasound Report Signed Patient: SHEN GRIGGS MR#: [id number] : 1995 Acct:[id number] Age/Sex: 28 / F ADM Date: 05/09/24 Loc: US Attending Dr: TOMER LUCIA APRN, CNM Ordering Physician: TOMER LUCIA APRN, CNM Date of Service: 05/09/24 Procedure(s): US OB BPP wo non-stress Accession Number(s): [id number] cc: TOMER LUCIA APRN, CNM; SID REYES [place] [id number] Patient Name: SHEN GRIGGS MRN: [facility]:[id number] date: 1995 Sex: F Assigned Patient Location: US Current Patient Location: US Accession/Order Number: [id number] Exam Date: 05/09/2024 09:05 Report Date: 05/09/2024 09:43 At the request of: TOMER LUCIA Procedure: US OB BPP wo non-stress EXAMINATION: US OB BPP wo non-stress HISTORY: Congenital Anomaly COMPARISON: Ultrasound OB biophysical 04/19/2024 TECHNIQUE: Ultrasound biophysical profile was performed in the radiology department. BREATHING MOVEMENTS: 2 GROSS BODY MOVEMENTS: 2 TONE: 2 QUALITATIVE AMNIOTIC FLUID VOLUME: 2 PRESENTATION: CEPHALIC HEART RATE: 137.06 bpm AMNIOTIC FLUID VOLUME: 15.44 cm GESTATIONAL AGE: 36 weeks 6 days US/US OB BPP wo non-stress IMPRESSION: 1. Total biophysical profile score: 8 Electronically authenticated by: SCOTTY FIGUEROA Date: 05/09/2024 09:43 Dictated By: Scotty Figueroa M.D. Signed By: 05/09/24945 DD/ 2 TD/TT: Tile Grinder: [facility] [employer] Radiology Study observation (narrative) [facility] OB BPP WO NON-STRES SOrdered By: Radiologist Radiology on 05-09-2024 [facility] Work Phone: MR Pelvis WO contrastOrdered By: Lynda Genao on 03-19-2024 Radiology Study observation (narrative) [facility] MR Pelvis WO contrastOrdered By: Lynda Genao on 03-16-2024 [facility] Ultrasound - OfficeOrdered B y: Lynda Genao on 02-07-2024 Radiology Study observation (narrative) [facility] US OB LIMITED 1+ FETUSESon 1 US [...] Limited study. Full anatomical survey not performed. 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 Dictated and transcribed 02/06/24dpd This report has been electronically signed and approved by the interpreting radiologist. Electronically Signed Ted Juarez D.O. 2024-02-06 09:59:34 Normal Not Available Ultrasound - OfficeOrdered B y: Lynda Genao on 02-02-2024 [facility] US OB 14+ WEEKS ANATOMY SCAN on [...] report is generated using voice recognition reporting ([employer]). On occasion Kabongocribe erroneously drops words from the report or replaces the spoken word with similar sounding words. Please call with any questions/concerns regarding this report.* Dictated and transcribed 01/12/24/dpd This report has been electronically signed and approved by the interpreting radiologist. Electronically Signed Kristian Hatfield M.D. 2024-01-12 17:03:01 Normal Not Available Chlamydia/GC by PCR Michael Sw abon 11-17-2023 Gonorrhoeae Dna(Pcr) Not detected [facility] Chlamydia/GC by PCR ThinPrep fluidon 11-17-2023 Chlamydia Dna(Pcr) Not detected [facility] Drug Screen, Urineon 024 Barbiturate Screen Urine Negative [facility] Opiate Quantitative Urine Negative [facility] No Panel Informationon 11-16 [facility] CBC without diffOrdered By: Uyen Dubois on 10-20-2023 Hematocrit (Bld) [Volume fraction] 40 % [facility] Hemoglobin (Bld) [Mass/Vol] 13.3 g/dL [facility] Platelets (Bld) [#/Vol] 271 10*3/uL [facility] Rbc Mcv (Fl) By Automated Count 85.5 [facility] HIV 1&2 AB/AG Screen (P24 AG )on 10-20-2023 HIV 1&2 AB/AG Non-Reactive [facility] Hemoglobin A1con 10-20-2023 HbA1c (Bld) [Mass fraction] 4.9 % 4.0 - 6.0 % [facility] Hepatitis B surface antigeno n 10-20-2023 Hepatitis B Surface Antigen Non-Reactive [facility] No Panel InformationOrdered By: Lynda Genao on 10-20-2023 [facility] Rubella IGG immune statuson 10-20-2023 Rubella immune IgG 1.23IU/mL [facility] Syphilis Total(Unknown Syphi lis Status)Ordered By: Lynda Genao on 10-20-2023 Syphilis Non-Reactive [facility] Type and screenon 10-20-2023 Abo/Rh(D) Positive [facility] US OB < 14 WEEKS EARLYon US [...] Cx Nom (U) ORGANISM: Klebsiella pneumoniae (O:KLEPNE) [place] Count >100,000 Aerobic NILAM Charge (NMIC56) ---- [...] RESISTANT TO ALL B-LACTAM DRUGS. PERFORMED BY: [place] [address] PATHOLOGIST DISCOUNT CLERK SINGH WILLOUGHBY M.D. Normal [facility] Comment on above: Performed By: #### C UU #### [address] Facesheeton 06-02-2023 Facesheet [id number]# 1.00TIFF Normal [facility] Ambulatory Visit Summaryon 0 06-01-2023 Ambulatory Visit [...] for choosing us for your care. Normal [facility] Physician Referralon 024 Physician Referral [id number]#1 .00TIFF Normal [facility] COVID Quick Testingon 2021 Result Negative [employer] Other Quick Strepon 12-28-2021 S. pyogenes Org specific cx Ql (Throat) Positive [employer] Other Quick Strep [facility] [employer] [facility] Other CULTURE URINEon 11-16-2020 CULTURE URINE Isolate [...] Trimethoprim/Sulfamet hoxazole <=20 S F Normal [facility] Comment on above: Performed By: #### U RCX #### [facility] [address] [place] [address] Tho Vanessa CBC AUTO DIFFon 11-13-2020 BASO # 0.0 103/ul Normal 0.0-0.1 [facility] Comment on above: Performed By: #### C BC #### [facility] [address] [place] [id number] Tho Vanessa Basophils/100 WBC (Bld) 0.3 % Normal 0.2-2.0 [facility] Comment on above: Performed By: #### C BC #### [facility] [address] [place] [address] Tho [place] EO # 0.1 103/ul Normal 0.0-0.7 [facility] Comment on above: Performed By: #### C BC #### [facility] [address] [place] [address] Tho [place]essa Eosinophils/100 WBC (Bld) 0.6 % Critically low 0.9-7.0 [facility] Comment on above: Performed By: #### C BC #### [facility] [address] [place] [address] Tho Mendez Erythrocyte distribution width (RBC) [Ratio] 14.6 % Normal 11.0-15.0 [facility] Comment on above: Performed By: #### C BC #### [facility] [address] [place] [address] Tho Hodgeen Hematocrit (Bld) [Volume fraction] 39.8 % Normal 36.0-48.0 [facility] Comment on above: Performed By: #### C BC #### [facility] [address] [place] [address] Tho [place]essa Hemoglobin (Bld) [Mass/Vol] 12.6 g/dL Normal 12.0-16.0 [facility] Comment on above: Performed By: #### C BC #### [facility] [address] [place], [place] [address] Tho Vanessa IG # 0.03 10e3/ul Normal 0.00-0.03 [facility] Comment on above: Performed By: #### C BC #### [facility] [address] [place] [address] Thoveto Hodgeen IG % 0.3 % Normal 0.0-0.5 [facility] Comment on above: Performed By: #### C BC #### [facility] [address] [place] [address] Tho Mendez LYMPH # 0.9 103/ul Critically low 1.2-3.8 [facility] Comment on above: Performed By: #### C BC #### [facility] [address] [place] [address] Tho Mendez Lymphocytes/100 WBC (Bld) 8.5 % Critically low 20.5-60.0 [facility] Comment on above: Performed By: #### C BC #### [facility] [address] [place] [address] Tho Mendez MANUAL DIFF REQ NO Normal [facility] Comment on above: Performed By: #### C BC #### [facility] [address] [place] [address] Thoveto Mendez MCH (RBC) [Entitic mass] 25.0 pg Critically low 26.7-34.0 [facility] Comment on above: Performed By: #### C BC #### [facility] [address] [place] [address] Tho Mendez MCHC (RBC) [Mass/Vol] 31.7 g/dL Normal 29.9-35.2 [facility] Comment on above: Performed By: #### C BC #### [facility] [address] [place] [address] Thoveto Mendez MCV (RBC) [Entitic vol] 79.0 fL Critically low 81.0-99.0 [facility] Comment on above: Performed By: #### C BC #### [facility] [address] [place] [address] Thoveto Hodgeen MONO # 0.7 103/ul Normal 0.3-0.8 [facility] Comment on above: Performed By: #### C BC #### [facility] [address] [place] [address] Thoveto Mendez Monocytes/100 WBC (Bld) 6.3 % Normal 1.7-12.0 [facility] Comment on above: Performed By: #### C BC #### [facility] [address] [place], [place] [id number] Tho Mendez NEUT # 8.8 103/ul Critically high 1.4-6.5 [facility] Comment on above: Performed By: #### C BC #### [facility] [address] [place], [place] [address] Tho Mendez Neutrophils/100 WBC (Bld) 84.0 % Critically high 43.0-75.0 [facility] Comment on above: Performed By: #### C BC #### [facility] [address] [place], [place] [address] Tho Mendez Platelet mean volume (Bld) [Entitic vol] 10.2 fL Normal 9.5-13.5 [facility] Comment on above: Performed By: #### C BC #### [facility] [address] [place], [place] [address] Tho Mendez PLT 321 103/ul Normal 150-450 [facility] Comment on above: Performed By: #### C BC #### [facility] [address] [place], [place] [address] Tho Mendez RBC 5.04 106/ul Normal 4.20-5.40 [facility] Comment on above: Performed By: #### C BC #### [facility] [address] [place], [place] [address] Tho Mendez WBC 10.5 103/ul Normal 4.0-11.0 [facility] Comment on above: Performed By: #### C BC #### [facility] [address] [place], [place] [address] Tho Mendez CT ABD/PELVIS WO CONon 11-13 [...] by: RYLEY FARLEY Date: 2020-11-13 18:34 Normal [facility] ER URINE PROFILEon 1 Bilirubin Ql (U) Negative Normal NEGATIVE [facility] Comment on above: Performed By: #### ADRIANA ARROYO #### [facility] [address] [place] [address] Tho [place] Clarity (U) CLEAR Normal CLEAR [facility] Comment on above: Performed By: #### BEN ARROYORO #### [facility] [address] [place] [address] Tho [place] Color (U) LT. YELLOW Normal YELLOW [facility] Comment on above: Performed By: #### BEN ARROYORO #### [facility] [address] [place], [place] [address] Tho [place] ERUAHD A micrscopic examination will be performed if indicated. Normal [facility] Comment on above: Performed By: #### ADRIANA ARROYO #### [facility] [address] [address] Th[place] Glucose Ql (U) Negative Normal NEGATIVE [facility] Comment on above: Performed By: #### ADRIANA ARROYO #### [facility] [address] [place] [address] Tho Vanessa Hemoglobin Ql (U) SMALL Abnormal NEGATIVE [facility] Comment on above: Performed By: #### ADRIANA ARROYO #### [facility] [address] [place] [address] Tho [place] Ketones Ql (U) Negative Normal NEGATIVE [facility] Comment on above: Performed By: #### ADRIANA ARROYO #### [facility] [address] [place] [address] Th[place] LEUKOCYTES MODERATE Abnormal NEGATIVE [facility] Comment on above: Performed By: #### ADRIANA ARROYO #### [facility] [address] [place] [address] Tho [place] Nitrite Ql (U) Negative Normal NEGATIVE [facility] Comment on above: Performed By: #### ADRIANA ARROYO #### [facility] [address] [place] [address] Tho [place] pH (U) 6.5 [pH] Normal 5-9 [facility] Comment on above: Performed By: #### ADRIANA ARROYO #### [facility] [address] [place] [address] Tho [place] SPEC GRAVITY <=1.005 Abnormal 1.005-<=1.02 5 [facility] Comment on above: Performed By: #### ADRIANA ARROYO #### [facility] [address] [place] [address] Tho [place] UA PROTEIN Negative Normal NEGATIVE/ TRACE [facility] Comment on above: Performed By: #### ADRIANA ARROYO #### [facility] [address] [place], [place] [address] Tho [place] UR MICRO IND INDICATED Normal [facility] Comment on above: Performed By: #### ADRIANA ARROYO #### [facility] [address] [place] [address] Tho [place] Urobilinogen Qn (U) 0.2 {Cheo'U}/dL Normal 0.2 - 1. 0 [facility] Comment on above: Performed By: #### E ADRIANA SERRATO #### [facility] [address] [place], [place] [address] [place] PREG HCG QUALon 11-13-2020 , QUAL Negative Normal NEGATIVE [facility] Comment on above: Performed By: #### P REG #### [facility] [address] [place], [place] [address] Tho [place] PROF CHEM 8 (BAS METB)on Anion gap [Moles/Vol] 14.9 mmol/L Normal [facility] Comment on above: Performed By: #### B MP #### [facility] [address] [place] [address] Tho Vanessa Calcium [Mass/Vol] 9.2 mg/dL Normal 8.4-10.2 [facility] Comment on above: Performed By: #### B MP #### [facility] [address] [place] [address] Tho Vanessa Chloride [Moles/Vol] 102 mmol/L Normal 98-107 [facility] Comment on above: Performed By: #### B MP #### [facility] [address] [place] [address] Tho Vanessa CO2 [Moles/Vol] 23.7 mmol/L Normal 22.0-30.0 [facility] Comment on above: Performed By: #### B MP #### [facility] [address] [place], [place] [address] Tho Vanessa Creatinine [Mass/Vol] 0.89 mg/dL Normal 0.52-1.04 [facility] Comment on above: Performed By: #### B MP #### [facility] [address] [place], [place] [address] Tho [place] EGFR-AF MAURITIAN >60 Normal >=60 [facility] Comment on above: Performed By: #### B MP #### [facility] [address] [place], [place] [address] Th[place] EGFR-NON AF MAURITIAN >60 Normal >=60 [facility] Comment on above: Performed By: #### B MP #### [facility] [address] [place], [place] [address] Tho Vanessa Glucose [Mass/Vol] 145 mg/dL Critically high 74-106 [facility] Comment on above: Performed By: #### B MP #### [facility] [address] [address] Tho Vanessa Potassium [Moles/Vol] 3.6 mmol/L Normal 3.4-5.0 [facility] Comment on above: Performed By: #### B MP #### [facility] [address] [address] Tho Vanessa Sodium [Moles/Vol] 137 mmol/L Normal 137-145 [facility] Comment on above: Performed By: #### B MP #### [facility] [address] [address] Tho Vanessa Urea nitrogen [Mass/Vol] 7.0 mg/dL Normal 7.0-17.0 [facility] Comment on above: Performed By: #### B MP #### [facility] [address] [address] Tho Vanessa Urea nitrogen/Creatinine [Mass ratio] 7.9 mg/mg Normal [facility] Comment on above: Performed By: #### B MP #### [facility] [address] [place], [place] [address] Tho [place] URINE MICROSCOPIC ONLYon BACTERIA TRACE Abnormal NONE SEEN [facility] Comment on above: Performed By: #### ADRIANA ARROYO #### [facility] [address] [place] [address] Th[place] Bacteria identified Cx Nom (U) INDICATED Normal [facility] Comment on above: Performed By: #### ADRIANA ARROYO #### [facility] [address] [place], [place] [address] Tho [place] CAST NONE SEEN Normal NONE SEEN [facility] Comment on above: Performed By: #### ADRIANA ARROYO #### [facility] [address] [address] Th[place] Crystals LM Nom (Urine sed) NONE SEEN Normal NONE SEEN [facility] Comment on above: Performed By: #### BEN ARROYORO #### [facility] [address] [place], [place] [address] Tho [place] Epithelial cells LM Ql (Urine sed) MODERATE Abnormal NONE SEEN /RARE [facility] Comment on above: Performed By: #### BEN ARROYORO #### [facility] [address] [place] [address] Tho [place] MUCOUS NONE SEEN Normal NONE SEEN [facility] Comment on above: Performed By: #### BEN ARROYORO #### [facility] [address] [place] [address] Tho Vanessa RBC 5-10 Abnormal 0-2 [facility] Comment on above: Performed By: #### ADRIANA ARROYO #### [facility] [address] [place] [address] Tho Vanessa WBC 10-20 Abnormal NONE SEEN [facility] Comment on above: Performed By: #### BEN ARROYORO #### [facility] [address] [place], [place] [address] Tho [place] Rule Out Grp.B Strepon 05-06 Rule Out Grp.B Strep Specimen Descriptio n .VAGINA Special Requests NOT REPORTED Culture NEGATIVE FOR GROUP B STREPTOCOCCI Report Status FINAL 05/06/2018 Normal [facility] Comment on above: Performed By: #### U RC #### [facility] [employer] [address] [place] [address] [id number] Cult,Genitalon 04-02-2018 Cult,Genital Specimen Description .VAGINA Special Requests NOT REPORTED Culture NORMAL URO-GENITAL HOMERO NEGATIVE FOR NEISSERIA GONORRHOEAE NEGATIVE FOR GROUP B STREPTOCOCCI Report Status FINAL 04/02/2018 [facility] Comment on above: Performed By: #### U RC #### [facility] [employer] [address] [place] [address] [id number] Cult,Urineon 03-31-2018 Cult,Urine Specimen Description .CLEAN CATCH URINE Special Requests NOT REPORTED Culture NO GROWTH Report Status FINAL 03/31/2018 Normal [facility] Comment on above: Performed By: #### U RC #### [facility] [employer] [address] [place] [address] 04010 UA w/Reflex Cultureon 2017 Acetoacetic Acid,Ur Negative Normal NEG [facility] Comment on above: Performed By: #### U RC #### [facility] [employer] [address] [place] [address] 85537 Bilirubin.direct mass conc Negative Normal NEG [facility] Comment on above: Performed By: #### U RC #### [facility] [employer] [address] [place] [address] 32055 Color Nom (U) YELLOW Normal YEL [facility] Comment on above: Performed By: #### U RC #### [facility] [employer] [address] [place] [address] Comment Microscopic exam not performed based on chemical results unless requested in Normal [facility] Comment on above: Result Comment: orig inal order. Performed By: #### U RC #### [facility] [employer] [address] [place] [address] 16862 Glucose mass conc Negative Normal NEG [facility] Comment on above: Performed By: #### U RC #### [facility] [employer] [address] [place] [address] 37350 Hemoglobin mass conc (Bld) Negative Normal NEG [facility] Comment on above: Performed By: #### U RC #### [facility] [employer] [address] [place] [address] 64742 Leuckocyte Esterase Negative Normal NEG [facility] Comment on above: Performed By: #### U RC #### [facility] [employer] [address] [place] [address] 26460 Nitrite,Ur Negative Normal NEG [facility] Comment on above: Performed By: #### U RC #### [facility] [employer] [facility] [place] [address] PH,Ur 6.5 Normal 5.0-8.0 [facility] Comment on above: Performed By: #### U RC #### [facility] [employer] [address] [place] [address] 42080 Protein mass conc Negative Normal NEG [facility] Comment on above: Performed By: #### U RC #### [facility] [employer] [address] [place] [address] 32347 Spec. [place],Ur 1.021 Normal 1.005-1.030 [facility] Comment on above: Performed By: #### U RC #### [address] [address] Turbidity CLEAR Normal CLEAR [facility] Comment on above: Performed By: #### U RC #### [facility] [employer] [address] [place] [address] 38855 Urobilinogen,Ur Normal Normal NORM [facility] Comment on above: Performed By: #### U RC #### [address] [address] Vaginitis DNA Probeon 2017 Vaginitis DNA Probe [...] of vaginitis/vaginosis. Report Status FINAL 03/30/2018 Normal [facility] Comment on above: Performed By: #### U RC #### [address] [address] Glucose Lani Scr 50gon 2017 Glucose mass conc 166 mg/dL High 70-135 [facility] Comment on above: Performed By: #### U RC #### [address] [address] CBC with Diffon 03-21-2018 Abs. Basophil 0.03 k/uL Normal 0.00-0.20 [facility] Comment on above: Performed By: #### U CGP #### [address] [address] Abs.Imm.Granulocyte 0.06 k/uL Normal 0.00-0.30 [facility] Comment on above: Performed By: #### U CGP #### [address] [address] Abs.Neutrophil (Seg) 6.98 k/uL Normal 1.50-8.10 [facility] Comment on above: Performed By: #### U CGP #### [address] [address] Basophils/100 WBC (Bld) 0 % Normal 0-2 [facility] Comment on above: Performed By: #### U CGP #### [address] [address] Eosinophils #/vol (Bld) 0.16 10*3/uL Normal 0.00-0.44 [facility] Comment on above: Performed By: #### U CGP #### [address] [address] Eosinophils/100 WBC (Bld) 2 % Normal 1-4 [facility] Comment on above: Performed By: #### U CGP #### [address] [address] Erythrocyte distribution width Ratio (RBC) 13.0 % Normal 11.8-14.4 [facility] Comment on above: Performed By: #### U CGP #### [address] [place] [address] Hematocrit Volume Fraction (Bld) 35.7 % Low 36.3-47.1 [facility] Comment on above: Performed By: #### U CGP #### [facility] [employer] [address] [place] [address] 82354 Hemoglobin mass conc (Bld) 11.9 g/dL Normal 11.9-15.1 [facility] Comment on above: Performed By: #### U CGP #### [address] [address] Immature granulocytes #/vol (Bld) 1 % High 0 [facility] Comment on above: Performed By: #### U CGP #### [address] [address] Lymphocytes #/vol (Bld) 1.34 10*3/uL Normal 1.10-3.70 [facility] Comment on above: Performed By: #### U CGP #### [address] [address] Lymphocytes/100 WBC (Bld) 15 % Low 25-45 [facility] Comment on above: Performed By: #### U CGP #### [address] [address] MCH Entitic mass (RBC) 28.8 pg Normal 25.2-33.5 [facility] Comment on above: Performed By: #### U CGP #### [address] [address] MCHC mass conc (RBC) 33.3 g/dL Normal 28.4-34.8 [facility] Comment on above: Performed By: #### U CGP #### [facility] [employer] [address] [place] [address]704 MCV Entitic volume (RBC) 86.4 fL Normal 82.6-102.9 [facility] Comment on above: Performed By: #### U CGP #### [address] [address] Monocytes #/vol (Bld) 0.38 10*3/uL Normal 0.10-1.40 [facility] Comment on above: Performed By: #### U CGP #### [facility] [employer] [address] [place] [address] 14618 Monocytes/100 WBC (Bld) 4 % Normal 2-8 [facility] Comment on above: Performed By: #### U CGP #### [address] [address] Neutrophil (Seg) 78 % High 34-64 [facility] Comment on above: Performed By: #### U CGP #### [facility] [employer] [address] [place] [address]271 NRBC Automated 0.0 per 100 WBC Normal 0.0 [facility] Comment on above: Performed By: #### U CGP #### [address] [address] Platelet mean volume Entitic volume (Bld) 12.0 fL Normal 8.1-13.5 [facility] Comment on above: Performed By: #### U CGP #### [facility] [employer] [address] [place] [address] Platelets #/vol (Bld) 239 10*3/uL Normal 138-453 [facility] Comment on above: Performed By: #### U CGP #### [facility] [employer] [address] [place] [address] 99467 RBC #/vol (Bld) 4.13 10*6/uL Normal 3.95-5.11 [facility] Comment on above: Performed By: #### U CGP #### [address] [address] WBC #/vol (Bld) 9.0 10*3/uL Normal 4.5-13.5 [facility] Comment on above: Performed By: #### U CGP #### [address] [address] Auto Diff Performed NOT REPORTED Normal [facility] Comment on above: Performed By: #### U CGP #### [address] [address] Platelets #/vol (Bld) NOT REPORTED Normal [facility] Comment on above: Performed By: #### U CGP #### [address] [address] RBC morphology finding Nom (Bld) NOT REPORTED Normal [facility] Comment on above: Performed By: #### U CGP #### [address] [address] WBC Morphology NOT REPORTED Normal [facility] Comment on above: Performed By: #### U CGP #### [address] [address] Glucose Lani Scr 50gon 2017 Glu Administered via Glucola Normal [facility] Comment on above: Performed By: #### U RC #### [address] [address] Cult,Bloodon 02-16-2018 Cult,Blood Specimen Description .BLOOD Special Requests 5ML LH Culture NO GROWTH 6 DAYS Report Status FINAL 02/16/2018 [facility] Comment on above: Performed By: #### U CGP #### [address] [address] Cult,Bloodon 02-14-2018 Cult,Blood Specimen Description .BLOOD Special Requests 5ML R H Culture POSITIVE Blood Culture NOTIFIED DR Eduin ARCHULETA THROUGH PERFECT SERVE [id number] DIRECT GRAM STAIN FROM BOTTLE: GRAM POSITIVE COCCI IN CLUSTERS STAPHYLOCOCCUS SPECIES, COAGULASE NEGATIVE A single positive blood culture of coagulase negative staphylococci, micrococci, diphtheroids or Bacillus species should be interpreted with caution and viewed as likely a skin contaminant. Report Status FINAL 02/14/2018 Normal [facility] Comment on above: Performed By: #### U CGP #### [facility] [employer] [facility] [place] [address] US RENAL COMPLETEon 02-11-20 US RENAL COMPLETE [...] Dorian Damico MD 02/10/18 Final result Normal [facility] XR CHEST (2 VW)on 02-10-2018 XR [...] Geoffrey Mcallister MD 02/10/18 Final result Normal [facility] Cult,Urineon 02-09-2018 Cult,Urine Specimen Description .URINE Special Requests NOT REPORTED Culture ESCHERICHIA COLI >[id number] CFU/ML Report Status FINAL 02/09/2018 SUSCEPTIBILITY Organism [...] <=20 SUSCEPTIBLE Piperacillin/Tazobact am <=4 SUSCEPTIBLE Normal [facility] Comment on above: Performed By: #### U CGP #### [place] [address] CBC with Diffon 02-08-2018 Abs. Basophil 0.00 k/uL Normal 0.00-0.20 [facility] Comment on above: Performed By: #### U CGP #### [place] [address] Abs.Imm.Granulocyte 0.12 k/uL Normal 0.00-0.30 [facility] Comment on above: Performed By: #### U CGP #### [address] [address] Abs.Neutrophil (Seg) 10.33 k/uL High 1.50-8.10 [facility] Comment on above: Performed By: #### U CGP #### [place] [address] Basophils/100 WBC (Bld) 0 % Normal 0-2 [facility] Comment on above: Performed By: #### U CGP #### [address] [address] Eosinophils #/vol (Bld) 0.00 10*3/uL Normal 0.00-0.44 [facility] Comment on above: Performed By: #### U CGP #### [facility] [address] [place] [address] Eosinophils/100 WBC (Bld) 0 % Low 1-4 [facility] Comment on above: Performed By: #### U CGP #### [address] [address] Immature granulocytes #/vol (Bld) 1 % High 0 [facility] Comment on above: Performed By: #### U CGP #### [address] [address] Lymphocytes #/vol (Bld) 0.74 10*3/uL Low 1.10-3.70 [facility] Comment on above: Performed By: #### U CGP #### [address] [address] Lymphocytes/100 WBC (Bld) 6 % Low 25-45 [facility] Comment on above: Performed By: #### U CGP #### [address] [address] Monocytes #/vol (Bld) 1.11 10*3/uL Normal 0.10-1.40 [facility] Comment on above: Performed By: #### U CGP #### [address] [address] Monocytes/100 WBC (Bld) 9 % High 2-8 [facility] Comment on above: Performed By: #### U CGP #### [address] [address] Morphology Interp Danilo (Bld) Normal Normal [facility] Comment on above: Performed By: #### U CGP #### [address] [address] Neutrophil (Seg) 84 % High 34-64 [facility] Comment on above: Performed By: #### U CGP #### [address] [address] Erythrocyte distribution width Ratio (RBC) 12.8 % Normal 11.8-14.4 [facility] Comment on above: Performed By: #### U CGP #### [facility] [employer] [address] [place] [address] Hematocrit Volume Fraction (Bld) 31.8 % Low 36.3-47.1 [facility] Comment on above: Performed By: #### U CGP #### [address] [address] Hemoglobin mass conc (Bld) 10.5 g/dL Low 11.9-15.1 [facility] Comment on above: Performed By: #### U CGP #### [address] [address] MCH Entitic mass (RBC) 28.7 pg Normal 25.2-33.5 [facility] Comment on above: Performed By: #### U CGP #### [address] [address] MCHC mass conc (RBC) 33.0 g/dL Normal 28.4-34.8 [facility] Comment on above: Performed By: #### U CGP #### [address] [address] MCV Entitic volume (RBC) 86.9 fL Normal 82.6-102.9 [facility] Comment on above: Performed By: #### U CGP #### [address] [address] NRBC Automated 0.0 per 100 WBC Normal 0.0 [facility] Comment on above: Performed By: #### U CGP #### [address] [address] Platelet mean volume Entitic volume (Bld) 11.2 fL Normal 8.1-13.5 [facility] Comment on above: Performed By: #### U CGP #### [address] [address] Platelets #/vol (Bld) 183 10*3/uL Normal 138-453 [facility] Comment on above: Performed By: #### U CGP #### [facility] [employer] [address] [place] [address] RBC #/vol (Bld) 3.66 10*6/uL Low 3.95-5.11 [facility] Comment on above: Performed By: #### U CGP #### [facility] [employer] [address] [place] [address] WBC #/vol (Bld) 12.3 10*3/uL Normal 4.5-13.5 [facility] Comment on above: Performed By: #### U CGP #### [facility] [employer] [address] [place] [address] Auto Diff Performed NOT REPORTED Normal [facility] Comment on above: Performed By: #### U CGP #### [facility] [employer] [address] [place] [address]59 Platelets #/vol (Bld) NOT REPORTED Normal [facility] Comment on above: Performed By: #### U CGP #### [facility] [employer] [address] [place] [address] 15625 RBC morphology finding Nom (Bld) NOT REPORTED Normal [facility] Comment on above: Performed By: #### U CGP #### [facility] [employer] [address] [place] [address] 0[address] WBC Morphology NOT REPORTED Normal [facility] Comment on above: Performed By: #### U CGP #### [facility] [employer] [address] [place] [address] [id number] Chlamydia/GC,DNA Ampon 02-08 Protein mass conc Negative Normal NEG [facility] Comment on above: Result Comment: CHLA [...] target. Performed By: #### U CGP #### [facility] [employer] [address] [place], [place] [phone] Result Comment: NEIS SERIA GONORRHOEAE DNA not [...] target. Comp Metabolic Profon 2017 (cont.) Normal [facility] Comment on above: Result Comment: Aver age GFR for 20-29 years old: 116 mL/min/1.73sq m Chronic Kidney Disease: <60 mL/min/1.73sq m Kidney failure: <15 mL/min/1.73sq m eGFR calculated using average adult body mass. Additional eGFR calculator available at: http://www.[employer].com/multiple_crcl_2012.htm Performed By: #### U CGP #### [employer] [address] [place], [place] [phone] Albumin mass conc 3.0 g/dL Low 3.5-5.2 [facility] Comment on above: Performed By: #### U CGP #### [employer] [address] [place], [place] [phone] Albumin/Globulin mass ratio 1.0 {ratio} Normal 1.0-2.5 [facility] Comment on above: Performed By: #### U CGP #### [facility] [employer] [facility] [place] [address] Alkaline Phos 50 U/L Normal 35-104 [facility] Comment on above: Performed By: #### U CGP #### [facility] [employer] [address] [place] [address] ALT enzyme act/vol 11 U/L Normal 5-33 [facility] Comment on above: Performed By: #### U CGP #### [facility] [employer] [address] [place] [address] Anion gap molar conc 10 mmol/L Normal 9-17 [facility] Comment on above: Performed By: #### U CGP #### [facility] [employer] [address] [place] [address] 844[address] AST enzyme act/vol 10 U/L Normal <32 [facility] Comment on above: Performed By: #### U CGP #### [facility] [employer] [address] [place] [address] Bilirubin Ql (U) 0.54 mg/dL Normal 0.3-1.2 [facility] Comment on above: Performed By: #### U CGP #### [facility] [employer] [address] [place] [address] Calcium mass conc 8.4 mg/dL Low 8.6-10.4 [facility] Comment on above: Performed By: #### U CGP #### [facility] [employer] [address] [place] [address]252 Chloride molar conc 100 mmol/L Normal 98-107 [facility] Comment on above: Performed By: #### U CGP #### [facility] [employer] [address] [place] [address] 8[address] CO2 molar conc 23 mmol/L Normal 20-31 [facility] Comment on above: Performed By: #### U CGP #### [facility] [employer] [address] [place] [address] Creatinine mass conc 0.52 mg/dL Normal 0.50-0.90 [facility] Comment on above: Performed By: #### U CGP #### [facility] [address] [place] [address] GFR, Amer >60 Normal >60 [facility] Comment on above: Performed By: #### U CGP #### [facility] [employer] [address] [place] [address] GFR,non Amer >60 Normal >60 [facility] Comment on above: Performed By: #### U CGP #### [facility] [employer] [address] [place] [address] Glucose mass conc 97 mg/dL Normal 70-99 [facility] Comment on above: Performed By: #### U CGP #### [facility] [employer] [address] [place] [address] Potassium molar conc 4.3 mmol/L Normal 3.7-5.3 [facility] Comment on above: Performed By: #### U CGP #### [facility] [employer] [address] [place] [address] Protein mass conc 6.0 g/dL Low 6.4-8.3 [facility] Comment on above: Performed By: #### U CGP #### [facility] [employer] [address] [place] [address] Sodium molar conc 133 mmol/L Low 135-144 [facility] Comment on above: Performed By: #### U CGP #### [facility] [address] [place] [address] Urea nitrogen mass conc 4 mg/dL Low 6-20 [facility] Comment on above: Performed By: #### U CGP #### [facility] [employer] [address] [place] [address] BUN/CRE Ratio NOT REPORTED Normal 12-29 [facility] Comment on above: Performed By: #### U CGP #### [facility] [employer] [address] [place] [address] Staging: NOT REPORTED Normal [facility] Comment on above: Performed By: #### U CGP #### [facility] [employer] [address] [place] [address] US RENAL COMPLETEon 02-09-20 US RENAL COMPLETE EXAMINATION: RETROPERITONEAL ULTRASOUND OF [...] Mg Bergman MD 02/08/18 Final result Normal [facility] CBC with Diffon 02-07-2018 Abs. Basophil <0.03 Normal 0.00-0.20 [facility] Comment on above: Performed By: #### C DP #### [facility] [employer] [address] [place] [address] Abs.Imm.Granulocyte 0.08 k/uL Normal 0.00-0.30 [facility] Comment on above: Performed By: #### C DP #### [facility] [employer] [facility] [place] [address] Abs.Neutrophil (Seg) 15.39 k/uL High 1.50-8.10 [facility] Comment on above: Performed By: #### C DP #### [facility] [employer] [address] [place] [address] Basophils/100 WBC (Bld) 0 % Normal 0-2 [facility] Comment on above: Performed By: #### C DP #### [address] [address] Eosinophils #/vol (Bld) 10*3/uL Normal 0.00-0.44 [facility] Comment on above: Performed By: #### C DP #### [address] [address] Eosinophils/100 WBC (Bld) 0 % Low 1-4 [facility] Comment on above: Performed By: #### C DP #### [address] [address] Erythrocyte distribution width Ratio (RBC) 12.8 % Normal 11.8-14.4 [facility] Comment on above: Performed By: #### C DP #### [address] [address] Hematocrit Volume Fraction (Bld) 40.9 % Normal 36.3-47.1 [facility] Comment on above: Performed By: #### C DP #### [facility] [employer] [address] [place] [address] Hemoglobin mass conc (Bld) 13.6 g/dL Normal 11.9-15.1 [facility] Comment on above: Performed By: #### C DP #### [address] [address] Immature granulocytes #/vol (Bld) 1 % High 0 [facility] Comment on above: Performed By: #### C DP #### [address] [address] Lymphocytes #/vol (Bld) 0.75 10*3/uL Low 1.10-3.70 [facility] Comment on above: Performed By: #### C DP #### [address] [address] Lymphocytes/100 WBC (Bld) 4 % Low 25-45 [facility] Comment on above: Performed By: #### C DP #### [address] [address] MCH Entitic mass (RBC) 28.8 pg Normal 25.2-33.5 [facility] Comment on above: Performed By: #### C DP #### [address] [address] MCHC mass conc (RBC) 33.3 g/dL Normal 28.4-34.8 [facility] Comment on above: Performed By: #### C DP #### [address] [address] MCV Entitic volume (RBC) 86.5 fL Normal 82.6-102.9 [facility] Comment on above: Performed By: #### C DP #### [address] [address] Monocytes #/vol (Bld) 0.84 10*3/uL Normal 0.10-1.40 [facility] Comment on above: Performed By: #### C DP #### [address] [address] Monocytes/100 WBC (Bld) 5 % Normal 2-8 [facility] Comment on above: Performed By: #### C DP #### [address] [address] Neutrophil (Seg) 90 % High 34-64 [facility] Comment on above: Performed By: #### C DP #### [address] [address] NRBC Automated 0.0 per 100 WBC Normal 0.0 [facility] Comment on above: Performed By: #### C DP #### [address] [address] Platelet mean volume Entitic volume (Bld) 11.4 fL Normal 8.1-13.5 [facility] Comment on above: Performed By: #### C DP #### [address] [address] Platelets #/vol (Bld) 224 10*3/uL Normal 138-453 [facility] Comment on above: Performed By: #### C DP #### [address] [address] RBC #/vol (Bld) 4.73 10*6/uL Normal 3.95-5.11 [facility] Comment on above: Performed By: #### C DP #### [address] [address] WBC #/vol (Bld) 17.1 10*3/uL High 4.5-13.5 [facility] Comment on above: Performed By: #### C DP #### [address] [address] Auto Diff Performed NOT REPORTED Normal [facility] Comment on above: Performed By: #### C DP #### [address] [address] Platelets #/vol (Bld) NOT REPORTED Normal [facility] Comment on above: Performed By: #### C DP #### [address] [address] RBC morphology finding Nom (Bld) NOT REPORTED Normal [facility] Comment on above: Performed By: #### C DP #### [address] [address] WBC Morphology NOT REPORTED Normal [facility] Comment on above: Performed By: #### C DP #### [address] [address] Comp Metabolic Profon 2017 (cont.) Normal [facility] Comment on above: Result Comment: Aver age GFR for 20-29 years old: 116 mL/min/1.73sq m Chronic Kidney Disease: <60 mL/min/1.73sq m Kidney failure: <15 mL/min/1.73sq m eGFR calculated using average adult body mass. Additional eGFR calculator available at: http://www.SelStor.com/multiple_crcl_2012.htm Performed By: #### C P #### [address] [address] Albumin mass conc 3.9 g/dL Normal 3.5-5.2 [facility] Comment on above: Performed By: #### C P #### [address] [address] Albumin/Globulin mass ratio 1.0 {ratio} Normal 1.0-2.5 [facility] Comment on above: Performed By: #### C P #### [address] [address] Alkaline Phos 70 U/L Normal 35-104 [facility] Comment on above: Performed By: #### C P #### [address] [address] ALT enzyme act/vol 14 U/L Normal 5-33 [facility] Comment on above: Performed By: #### C P #### [address] [address] Anion gap molar conc 19 mmol/L High 9-17 [facility] Comment on above: Performed By: #### C P #### [address] [address] AST enzyme act/vol 15 U/L Normal <32 [facility] Comment on above: Performed By: #### C P #### [address] [address] Bilirubin Ql (U) 1.27 mg/dL High 0.3-1.2 [facility] Comment on above: Performed By: #### C P #### [address] [address] Calcium mass conc 9.8 mg/dL Normal 8.6-10.4 [facility] Comment on above: Performed By: #### C P #### [address] [address] Chloride molar conc 97 mmol/L Low 98-107 [facility] Comment on above: Performed By: #### C P #### [address] [address] CO2 molar conc 21 mmol/L Normal 20-31 [facility] Comment on above: Performed By: #### C P #### [facility] [employer] [address] [place] [address] Creatinine mass conc 0.50 mg/dL Normal 0.50-0.90 [facility] Comment on above: Performed By: #### C P #### [address] [address] GFR, Amer >60 Normal >60 [facility] Comment on above: Performed By: #### C P #### [facility] [employer] [address] [place] [address] GFR,non Amer >60 Normal >60 [facility] Comment on above: Performed By: #### C P #### [facility] [employer] [address] [place] [address] Glucose mass conc 85 mg/dL Normal 70-99 [facility] Comment on above: Performed By: #### C P #### [address] [address] Potassium molar conc 4.3 mmol/L Normal 3.7-5.3 [facility] Comment on above: Performed By: #### C P #### [facility] [employer] [address] [place] [address] Protein mass conc 8.0 g/dL Normal 6.4-8.3 [facility] Comment on above: Performed By: #### C P #### [facility] [employer] [address] [place] [address] Sodium molar conc 137 mmol/L Normal 135-144 [facility] Comment on above: Performed By: #### C P #### [facility] [employer] [address] [place] [address] Urea nitrogen mass conc 6 mg/dL Normal 6-20 [facility] Comment on above: Performed By: #### C P #### [facility] [employer] [address] [place] [address] BUN/CRE Ratio NOT REPORTED Normal 9-20 [facility] Comment on above: Performed By: #### C P #### [facility] [employer] [address] [place] [address] Staging: NOT REPORTED Normal [facility] Comment on above: Performed By: #### C P #### [address] [address] Flu A/B Ag Detectionon 02-07 Flu A/B Ag Detection Specimen Descriptio n .NASOPHARYNGEAL SWAB Special Requests NOT REPORTED Direct Exam PRESUMPTIVE NEGATIVE for Influenza A + B antigens. PCR testing to confirm this result is available upon request. Specimen will be saved in the laboratory for 7 days. Please call [phone] if PCR testing is indicated. Report Status FINAL 02/07/2018 Normal [facility] Comment on above: Performed By: #### F LUAD #### [address] [address] UA w/Reflex Cultureon 2017 Bilirubin.direct mass conc Negative Abnormal NEG [facility] Comment on above: Performed By: #### U AXCEDRIC #### [facility] [employer] [address] [place] [address] Comment Culture ordered base d on defined criteria. Normal [facility] Comment on above: Performed By: #### U AXCEDRIC #### [facility] [employer] [address] [place] [address] Acetoacetic Acid,Ur MODERATE Abnormal NEG [facility] Comment on above: Performed By: #### U AX UMRODOLFOO #### [facility] [employer] [address] [place] [address] Color Nom (U) ORANGE Abnormal YEL [facility] Comment on above: Result Comment: INTE RPRET WITH CAUTION DUE TO INTENSE COLOR OF URINE. Performed By: #### U AX UMICAO #### [facility] [employer] [address] [place] [address] Glucose mass conc Negative Normal NEG [facility] Comment on above: Performed By: #### U AX UMICAO #### [facility] [employer] [address] [place] [address] Hemoglobin mass conc (Bld) TRACE Abnormal NEG [facility] Comment on above: Performed By: #### U CEDRIC PALACIOS #### [facility] [address] [place] [address] Leuckocyte Esterase MODERATE Abnormal NEG [facility] Comment on above: Performed By: #### U AXCEDRIC #### [facility] [address] [place] [address] Nitrite,Ur Positive Abnormal NEG [facility] Comment on above: Performed By: #### U AXCEDRIC #### [facility] [address] [place] [address] PH,Ur 6.5 Normal 5.0-8.0 [facility] Comment on above: Performed By: #### U CEDRIC PALACIOS #### [facility] [address] [place] [address] Protein mass conc 2+ Abnormal NEG [facility] Comment on above: Performed By: #### U CEDRIC PALACIOS #### [facility] [employer] [address] [place] [address] Spec. [place],Ur 1.030 Normal 1.005-1.030 [facility] Comment on above: Performed By: #### U AXCEDRIC #### [facility] [address] [place] [address] Turbidity TURBID Abnormal CLEAR [facility] Comment on above: Performed By: #### U AXHUGOICALeonard #### [facility] [address] [place] [address] Urobilinogen,Ur Normal Normal NORM [facility] Comment on above: Performed By: #### U AX UMICAO #### [facility] [address] [place] [address] Urinalysis,Microon 8 ----- Normal [facility] Comment on above: Performed By: #### U AXCEDRIC #### [facility] [address] [place] [address] Bacteria LM.HPF #/area (Urine sed) MANY Abnormal NONE [facility] Comment on above: Performed By: #### U AXCEDRIC #### [facility] [address] [place] [address] Epithelial cells LM.HPF #/area (Urine sed) 20 TO 50 Normal 0-5 [facility] Comment on above: Performed By: #### U AXCEDRIC #### [facility] [address] [place] [address] Mucus Strands 2+ Abnormal NONE [facility] Comment on above: Performed By: #### U AXCEDRIC #### [facility] [address] [place] [address] RBC #/vol (U) 0 TO 2 Normal 0-2 [facility] Comment on above: Performed By: #### U AXCEDRIC #### [facility] [address] [place] [address] WBC #/vol (U) 10 TO 20 Normal 0-5 [facility] Comment on above: Performed By: #### U AXCEDRIC #### [employer] [address] [place] [address] Amorphous sediment LM Ql (Urine sed) NOT REPORTED Normal [facility] Comment on above: Performed By: #### U AXHUGOICALeonard #### [facility] [address] [place] [address] Casts LM.LPF #/area (Urine sed) NOT REPORTED Normal 0-2 [facility] Comment on above: Performed By: #### U AXCEDRIC #### [employer] [facility] [place] [address] Crystals LM Nom (Urine sed) NOT REPORTED Normal NONE [facility] Comment on above: Performed By: #### U AXCEDRIC #### [facility] [employer] [facility] [place] [address] Epithelial, Renal NOT REPORTED Normal 0 [facility] Comment on above: Performed By: #### U CEDRIC PALACIOS #### [facility] [employer] [address] [place] [address] Other Observations NOT REPORTED Normal NREQ [facility] Comment on above: Performed By: #### CEDRIC CHAUDHRY #### [facility] [employer] [address] [place] [address] Trichomonas NOT REPORTED Normal NONE [facility] Comment on above: Performed By: #### CEDRIC CHAUDHRY #### [facility] [employer] [address] [place] [address] Yeast LM Ql (Urine sed) NOT REPORTED Normal NONE [facility] Comment on above: Performed By: #### CEDRIC CHAUDHRY #### [facility] [employer] [address] [place] [address] Vaginitis DNA Probeon 2017 Vaginitis DNA Probe [...] of vaginitis/vaginosis. Report Status FINAL 02/07/2018 Normal [facility] Comment on above: Performed By: #### V AGDNA #### [address] [address] AFP, Maternalon 01-31-2018 Determined by Other Normal [facility] Comment on above: Performed By: #### A AFPM ####[address] [place] [address] Due Date SEE NOTE Normal [facility] Comment on above: Result Comment: Resu lts for Estimated Due Date: [id number] Performed By: #### A AFPM ####[address] [place] [address] Family History No Normal [facility] Comment on above: Performed By: #### A AFPM ####[facility] [address] [place] [address] Gestat Age (exact) 22 wks, 1 days Normal [facility] Comment on above: Performed By: #### A AFPM ####[address] [address] Ins Req Matern Diab No Normal [facility] Comment on above: Performed By: #### A AFPM ####[address] [address] Interpretation Screen Neg Normal [facility] Comment on above: Result Comment: (NOT E)INTERPRETATION: SCREEN NEGATIVE for open spina bifidaNeural Tube Defects (NTD) Negative Pre-Test Post-Test CutoffNeural Tube Defects Risks 1:1030 < 1:50863 1:250Comments:The risk of an open neural tube defect is less than thescreening cut-off.Test developed and characteristics determined by [facility]. See Compliance Statement B: [place].Cook123/CS Performed By: #### A AFPM ####[facility] [address] [place] [address] M[age] [facility] Comment on above: Performed By: #### A AFPM ####[address] [place] [address] Maternal Race Nonblack Normal [facility] Comment on above: Performed By: #### A AFPM ####[address] [place] [address] MoM for AFP 0.73 Normal [facility] Comment on above: Performed By: #### A AFPM ####[address] [place] [address] Number of Fetuses Núñez Normal [facility] Comment on above: Performed By: #### A AFPM ####[address] [address] Patient's AFP 54 ng/mL Normal [facility] Comment on above: Performed By: #### A AFPM ####[address] [address] Smoking No Normal [facility] Comment on above: Performed By: #### A AFPM ####[address] [address] Specimen See Note Normal [facility] Comment on above: Result Comment: (NOT E)Initial samplePerformed by [facility],[address] [place] [phone] ocp.[employer], Kareem Pan MD, Lab. Director Performed By: #### A AFPM ####[address] [address] AFP, Maternalon 01-30-2018 Current Smoking N Normal [facility] Comment on above: Performed By: #### A AFPM ####[address] [place] [address] Dating LMP Normal [facility] Comment on above: Performed By: #### A AFPM ####[address] [place] [address] Diabetic N Normal [facility] Comment on above: Performed By: #### A AFPM ####[address] [place] [address] Estimated Due Date [facility] Comment on above: Performed By: #### A AFPM ####[address] [address] Family History N [facility] Comment on above: Performed By: #### A AFPM ####[address] [address] LMP date [facility] Comment on above: Performed By: #### A AFPM ####[address] [address] Maternal date [facility] Comment on above: Performed By: #### A AFPM ####[address] [address] Monochorionic Twins N [facility] Comment on above: Performed By: #### A AFPM ####[address] [address] Protein mass conc N Normal [facility] Comment on above: Performed By: #### A AFPM ####[address] [address] Race (Maternal) [facility] Comment on above: Performed By: #### A AFPM ####[address] [address] Repeat Specimen N [facility] Comment on above: Performed By: #### A AFPM ####[address] [address] Profileon 8 Hep B Surf Ag NONREACTIVE Normal NR [facility] Comment on above: Performed By: #### H IVCMB, PRENAT ####[address] [place] [address] Rubella Ab, IgG 5.2 IU/mL Normal [facility] Comment on above: Result Comment: REFE RENCE RANGE:<5.0 NON-REACTIVE (non-immune)5.0 TO 9.9 EQUIVOCAL>=10.0 REACTIVE (immune) Performed By: #### H IVCMB, PRENAT ####[address] [address] Type + Scrnon 12-23 Type + Scrn Negative Normal [facility] Comment on above: Performed By: #### P RTYS ####[address] [address] HIV Ag/Abon 12-22-2017 HIV Ag/Ab NONREACTIVE Normal NR [facility] Comment on above: Result Comment: No l aboratory evidence of HIV infection. If acute HIV infection is suspected, consider testing for HIV-1 RNA. Performed By: #### H IVCMB, PRENAT ####[address] [address] Profileon 8 T.pallidum Ab Screen NONREACTIVE Normal NR [facility] Comment on above: Result Comment: T. p allidum antibodies are not detected.There is no serological evidence of infection with T. pallidum (early primary syphilis cannot be excluded). Retest in 2-4 weeks if syphilis is clinically suspect. Performed By: #### H IVCMB, PRENAT ####[address] [address] Abs. Basophil 0.04 k/uL Normal 0.00-0.20 [facility] Comment on above: Performed By: #### H IVCMB, PRENAT ####[address] [address] Abs.Imm.Granulocyte 0.03 k/uL Normal 0.00-0.30 [facility] Comment on above: Performed By: #### H IVCMB, PRENAT ####[address] [address] Abs.Neutrophil (Seg) 5.72 k/uL Normal 1.50-8.10 [facility] Comment on above: Performed By: #### H IVCMB, PRENAT ####[address] [address] Basophils/100 WBC Auto (Bld) 1 % Normal 0-2 [facility] Comment on above: Performed By: #### H IVCMB, PRENAT ####[address] [address] Eosinophils Auto #/vol (Bld) 0.25 10*3/uL Normal 0.00-0.44 [facility] Comment on above: Performed By: #### H IVCMB, PRENAT ####[address] [address] Eosinophils/100 WBC Auto (Bld) 3 % Normal 1-4 [facility] Comment on above: Performed By: #### H IVCMB, PRENAT ####[address] [address] Erythrocyte distribution width Auto Ratio (RBC) 13.2 % Normal 11.8-14.4 [facility] Comment on above: Performed By: #### H IVCMB, PRENAT ####[address] [address] Hematocrit Auto Volume Fraction (Bld) 37.4 % Normal 36.3-47.1 [facility] Comment on above: Performed By: #### H IVCMB, PRENAT ####[address] [address] Hemoglobin mass conc (Bld) 12.5 g/dL Normal 11.9-15.1 [facility] Comment on above: Performed By: #### H IVCMB, PRENAT ####[address] [address] Immature granulocytes #/vol (Bld) 0 % Normal 0 [facility] Comment on above: Performed By: #### H IVCMB, PRENAT ####[address] [address] Lymphocytes Auto #/vol (Bld) 1.53 10*3/uL Normal 1.10-3.70 [facility] Comment on above: Performed By: #### H IVCMB, PRENAT ####[address] [address] Lymphocytes/100 WBC Auto (Bld) 19 % Low 25-45 [facility] Comment on above: Performed By: #### H IVCMB, PRENAT ####[address] [address] MCH Auto Entitic mass (RBC) 28.3 pg Normal 25.2-33.5 [facility] Comment on above: Performed By: #### H IVCMB, PRENAT ####[address] [address] MCHC Auto mass conc (RBC) 33.4 g/dL Normal 28.4-34.8 [facility] Comment on above: Performed By: #### H IVCMB, PRENAT ####[address] [address] MCV Auto Entitic volume (RBC) 84.8 fL Normal 82.6-102.9 [facility] Comment on above: Performed By: #### H IVCMB, PRENAT ####[address] [address] Monocytes Auto #/vol (Bld) 0.39 10*3/uL Normal 0.10-1.40 [facility] Comment on above: Performed By: #### H IVCMB, PRENAT ####[address] [address] Monocytes/100 WBC Auto (Bld) 5 % Normal 2-8 [facility] Comment on above: Performed By: #### H IVCMB, PRENAT ####[address] [address] Neutrophil (Seg) 72 % High 34-64 [facility] Comment on above: Performed By: #### H IVCMB, PRENAT ####[address] [address] NRBC Automated 0.0 per 100 WBC Normal 0.0 [facility] Comment on above: Performed By: #### H IVCMB, PRENAT ####[address] [address] Platelet mean volume Auto Entitic volume (Bld) 11.5 fL Normal 8.1-13.5 [facility] Comment on above: Performed By: #### H IVCMB, PRENAT ####[address] [address] Platelets Auto #/vol (Bld) 234 10*3/uL Normal 138-453 [facility] Comment on above: Performed By: #### H IVCMB, PRENAT ####[address] [address] RBC Auto #/vol (Bld) 4.41 10*6/uL Normal 3.95-5.11 [facility] Comment on above: Performed By: #### H IVCMB, PRENAT ####[address] [address] WBC Auto #/vol (Bld) 8.0 10*3/uL Normal 4.5-13.5 [facility] Comment on above: Performed By: #### H IVCMB, PRENAT ####[address] [place] [address] Auto Diff Performed NOT REPORTED Normal [facility] Comment on above: Performed By: #### H IVCMB, PRENAT ####[address] [address] Platelets Auto #/vol (Bld) NOT REPORTED Normal [facility] Comment on above: Performed By: #### H IVCMB, PRENAT ####[address] [address] RBC morphology finding Nom (Bld) NOT REPORTED Normal [facility] Comment on above: Performed By: #### H IVCMB, PRENAT ####[address] [address] WBC Morphology NOT REPORTED Normal [facility] Comment on above: Performed By: #### H IVCMB, PRENAT ####[address] [address] Cult,Urineon 11-30-2017 Cult,Urine Specimen Description .CLEAN CATCH URINE Special Requests NOT REPORTED Culture NO SIGNIFICANT GROWTH Report Status FINAL 11/29/2017 Normal [facility] Comment on above: Performed By: #### U RC #### [address] [address] Chlamydia/GC DNA, Uron 11-01 Protein mass conc Negative Normal NEG [facility] Comment on above: Result Comment: NEIS SERIA GONORRHOEAE DNA not detected by nucleic acid amplification. Performed By: #### U CGP #### [address] [address] Result Comment: CHLA MYDIA TRACHOMATIS DNA not detected by nucleic acid amplification. Cult,Urineon 11-01-2017 Cult,Urine Specimen Description .CLEAN CATCH URINE Special Requests NOT REPORTED Culture ESCHERICHIA COLI >[id number] CFU/ML Report Status FINAL 11/01/2017 SUSCEPTIBILITY Organism [...] <=20 SUSCEPTIBLE Piperacillin/Tazobact am <=4 SUSCEPTIBLE Normal [facility] Comment on above: Performed By: #### U RC #### [address] [address] Drug Scr, Abuse, Uron 2017 Amphetamine(s),Ur Negative Normal NEG [facility] Comment on above: Result Comment: (Positive cutoff 1000 ng/mL) Performed By: #### D AU #### [facility] [employer] [address] [place] [address] Barbiturate(s),Ur Negative Normal NEG [facility] Comment on above: Result Comment: (Positive cutoff 200 ng/mL) Performed By: #### D AU #### [address] [address] Base excess Calculated molar conc (Bld) Negative Normal NEG [facility] Comment on above: Result Comment: (Positive cutoff 300 ng/mL) Performed By: #### D AU #### [facility] [employer] [address] [place] [address] Benzodiazepine(s) Negative Normal NEG [facility] Comment on above: Result Comment: (Positive cutoff 200 ng/mL) Performed By: #### D AU #### [facility] [employer] [address] [place] [address] Cannabinoid(s),Ur Negative Normal NEG [facility] Comment on above: Result Comment: (Positive cutoff 50 ng/mL) Performed By: #### D AU #### [address] [address] Interpretive Info Assay provides medical screening only. The absence of expected drug(s) and/or Normal [facility] Comment on above: Result Comment: meta bolite(s) may indicate diluted or adulterated urine, limitations of testing or timing of collection. Testing for legal purposes should be confirmed by another method. To request confirmation of test result, please call the lab within 7 days of sample submission. Performed By: #### D AU #### [facility] [address] [place] [address] Methadone Ql (U) Negative Normal NEG [facility] Comment on above: Result Comment: (Positive cutoff 300 ng/mL) Performed By: #### D AU #### [facility] [employer] [address] [place] [address] Opiate(s), Ur Negative Normal NEG [facility] Comment on above: Result Comment: (Positive cutoff 300 ng/mL) Performed By: #### D AU #### [facility] [address] [place] [address] Oxycodone, Urine Negative Normal NEG [facility] Comment on above: Result Comment: (Positive cutoff 100 ng/mL) Performed By: #### D AU #### [employer] [address] [place] [address] Phencyclidine, Ur Negative Normal NEG [facility] Comment on above: Result Comment: (Positive cutoff 25 ng/mL) Performed By: #### D AU #### [employer] [address] [place] [id number] Buprenorphrine, Ur NOT REPORTED Normal NEG [facility] Comment on above: Performed By: #### D AU #### [employer] [address] [place] [id number] MDMA, Urine NOT REPORTED Normal NEG [facility] Comment on above: Performed By: #### D AU #### [facility] [email or web address] [address] [place] [address] Methamphetamine, Ur NOT REPORTED Normal NEG [facility] Comment on above: Performed By: #### D AU #### [facility] [email or web address] [address] [place] [address] Protein mass conc (U) NOT REPORTED Normal NEG [facility] Comment on above: Performed By: #### D AU #### [facility] [email or web address] [address] [place] [address] Tricyclic antidepressants Screen Ql (U) NOT REPORTED Normal NEG [facility] Comment on above: Performed By: #### D AU #### [facility] [email or web address] [address] [place] [id number] US OB LESS THAN 14 WEEKS SIN GLE OR FIRST GESTATIONon 10-27-2017 US OB LESS THAN 14 WEEKS SINGLE OR FIRST GESTATION EXAMINATION:TRANSABDO FELIX AND TRANSVAGINAL FIRST TRIMESTER OBSTETRIC PELVIC ULTRASOUNDWITH COLOR DOPPLER FLOW10/27/2017COMPARIS ON:NoneHISTORY:ORDERI NG SYSTEM PROVIDED HISTORY: 9 weeks gestation of [...] by:LAINEY Rochaigned by:Gaurang Castellon MD10/27/17inal result Normal [facility] Vital Signs Date Time Vital Sign Value Performing Clinician Facility 05-22-2024 13:48-0500 Body weight 95.71 kg Tomer Lucia [facility] Work Phone: [facility] 05-22-2024 13:48-0500 Diastolic blood pressure 80 mm[Hg] Tomer Floro CNM Work Phone: [facility] 05-22-2024 13:48-0500 Systolic blood pressure 124 mm[Hg] Tomer Floro CNM Work Phone: [facility] 05-14-2024 13:35-0500 Body weight 92.99 kg Tomer Floro CNM Work Phone: [facility] 05-14-2024 13:35-0500 Diastolic blood pressure 80 mm[Hg] Tomer Floro CNM Work Phone: [facility] 05-14-2024 13:35-0500 Systolic blood pressure 120 mm[Hg] Tomer Floro CNM Work Phone: [facility] 05-07-2024 14:15-0500 Body weight 92.53 kg Tomer Floro CNM Work Phone: [facility] 05-07-2024 14:15-0500 Diastolic blood pressure 80 mm[Hg] Tomer Floro CNM Work Phone: [facility] 05-07-2024 14:15-0500 Systolic blood pressure 118 mm[Hg] Tomer Floro CNM Work Phone: [facility] 04-30-2024 13:14-0500 Body weight 91.63 kg Tomer Floro CNM Work Phone: [facility] 04-30-2024 13:14-0500 Diastolic blood pressure 80 mm[Hg] Tomer Floro CNM Work Phone: [facility] 04-30-2024 13:14-0500 Systolic blood pressure 118 mm[Hg] Tomer Floro CNM Work Phone: [facility] 04-26-2024 14:25-0500 Body height 162.6 cm Russel James MD Work Phone: [facility] 04-26-2024 14:25-0500 Body mass index (BMI) [Ratio] 33.7 kg/m2 Russel James MD Work Phone: [facility] [employer] [facility] 04-26-2024 14:25-0500 Body weight 89.09 kg Russel James MD Work Phone: [facility] [employer] [facility] 04-26-2024 14:25-0500 Diastolic blood pressure 80 mm[Hg] Russel James MD Work Phone: [facility] [employer] [facility] 04-26-2024 14:25-0500 Heart rate 93 /min Russel James MD Work Phone: [facility] [employer] [facility] 04-26-2024 14:25-0500 Systolic blood pressure 118 mm[Hg] Russel James MD Work Phone: [facility] [employer] [facility] 04-26-2024 09:45-0500 Diastolic blood pressure 66 mm[Hg] Georgette Gustafson MD Work Phone: [facility] [employer] [facility] 04-26-2024 09:45-0500 Heart rate 88 /min Georgette Gustafson MD Work Phone: [facility] [employer] 04-26-2024 09:45-0500 Systolic blood pressure 110 mm[Hg] Georgette Gustafson MD Work Phone: [facility] [employer] [facility] 04-26-2024 09:11-0500 Body height 164.3 cm Georgette Gustafson MD Work Phone: [facility] [employer] [facility] 04-26-2024 09:11-0500 Body mass index (BMI) [Ratio] 32.93 kg/m2 eGorgette Gustafson MD Work Phone: [facility] [employer] [facility] 04-26-2024 09:11-0500 Body weight 88.91 kg Georgette Gustafson MD Work Phone: [facility] [employer] [facility] 04-26-2024 09:11-0500 SaO2% (BldA) [Mass fraction] 99 % Georgette Gustafson MD Work Phone: [facility] 04-23-2024 13:24-0500 Body weight 90.27 kg Tomer Floro CNM Work Phone: [facility] 04-23-2024 13:24-0500 Diastolic blood pressure 70 mm[Hg] Tomer Floro CNM Work Phone: [facility] 04-23-2024 13:24-0500 Systolic blood pressure 110 mm[Hg] Tomer Floro CNM Work Phone: [facility] 04-16-2024 14:42-0500 Body weight 90.72 kg Tomer Floro CNM Work Phone: [facility] 04-16-2024 14:42-0500 Diastolic blood pressure 60 mm[Hg] Tomer Floro CNM Work Phone: [facility] 04-16-2024 14:42-0500 Systolic blood pressure 104 mm[Hg] Tomer Floro CNM Work Phone: [facility] 04-10-2024 10:22-0500 Body weight 88.91 kg Tomer Floro CNM Work Phone: [facility] 03-29-2024 09:35-0500 Body weight 86.64 kg Tomer Floro CNM Work Phone: [facility] 03-29-2024 09:35-0500 Diastolic blood pressure 80 mm[Hg] Tomer Floro CNM Work Phone: [facility] 03-29-2024 09:35-0500 Systolic blood pressure 120 mm[Hg] Tomer Floro CNM Work Phone: [facility] 03-01-2024 09:36-0500 Body weight 85.73 kg Tomer Floro CNM Work Phone: [facility] 03-01-2024 09:36-0500 Diastolic blood pressure 80 mm[Hg] Tomer Floro CNM Work Phone: [facility] 03-01-2024 09:36-0500 Systolic blood pressure 118 mm[Hg] Tomer Floro CNM Work Phone: [facility] 02-23-2024 12:11-0500 Body height 162.6 cm Lanre Dempsey MD Work Phone: [facility] 02-23-2024 12:11-0500 Body mass index (BMI) [Ratio] 31.27 kg/m2 Lanre Dempsey MD Work Phone: [facility] 02-23-2024 [id number] Body weight 82.64 kg Lanre Dempsey MD Work Phone: [facility] 02-23-2024 12:11-0500 Diastolic blood pressure 75 mm[Hg] Lanre Dempsey MD Work Phone: [facility] 02-23-2024 12:11-0500 Heart rate 100 /min Lanre Dempsey MD Work Phone: [facility] 02-23-2024 12:11-0500 Systolic blood pressure 132 mm[Hg] Lanre Dempsey MD Work Phone: [facility] 02-02-2024 14:45-0400 Diastolic blood pressure 80 mm[Hg] Tomer Floro CNM Work Phone: [facility] 02-02-2024 14:45-0400 Systolic blood pressure 118 mm[Hg] Tomer Floro CNM Work Phone: [facility] 01-12-2024 10:59-0400 Body weight 77.56 kg Tomer Floro CNM Work Phone: [facility] 01-12-2024 10:59-0400 Diastolic blood pressure 70 mm[Hg] Tomer Floro CNM Work Phone: [facility] 01-12-2024 10:59-0400 Systolic blood pressure 120 mm[Hg] Tomer Floro CNM Work Phone: [facility] 12-15-2023 09:26-0400 Body weight 74.84 kg Tomer Floro CN Work Phone: [facility] 12-15-2023 09:26-0400 Diastolic blood pressure 78 mm[Hg] Tomer Lucia CNM Work Phone: [facility] 12-15-2023 09:26-0400 Systolic blood pressure 118 mm[Hg] Tomer Lucia CNM Work Phone: [facility] 08-15-2023 08:43-0400 Body height 162.56 cm [facility] 08-15-2023 08:36-0400 Body mass index (BMI) [Ratio] 27.4 kg/m2 [facility] 08-15-2023 08:36-0400 Body temperature 97.3 [degF] [facility] 08-15-2023 08:36-0400 Body weight 72.57 kg [facility] 08-15-2023 08:36-0400 Diastolic blood pressure 76 mm[Hg] [facility] 08-15-2023 08:36-0400 Heart rate 87 /min [facility] 08-15-2023 08:36-0400 Respiratory rate 16 /min [facility] 08-15-2023 08:36-0400 SaO2% (BldA) [Mass fraction] 98 % [facility] 08-15-2023 08:36-0400 Systolic blood pressure 110 mm[Hg] [facility] 07-14-2023 10:03-0400 Body height 162.56 cm [facility] 07-14-2023 10:03-0400 Body mass index (BMI) [Ratio] 28.3 kg/m2 [facility] 07-14-2023 10:03-0400 Body weight 74.84 kg [facility] 07-14-2023 10:03-0400 Diastolic blood pressure 76 mm[Hg] [facility] 07-14-2023 10:03-0400 Heart rate 68 /min [facility] 07-14-2023 10:03-0400 SaO2% (BldA) [Mass fraction] 100 % [facility] 07-14-2023 10:03-0400 Systolic blood pressure 118 mm[Hg] [facility] 06-16-2023 10:07-0500 Body height 162.56 cm [facility] 06-16-2023 10:07-0500 Body mass index (BMI) [Ratio] 28.3 kg/m2 [facility] 06-16-2023 10:07-0500 Body weight 74.84 kg [facility] 06-16-2023 10:07-0500 Diastolic blood pressure 72 mm[Hg] [facility] 06-16-2023 10:07-0500 Heart rate 86 /min [facility] 06-16-2023 10:07-0500 SaO2% (BldA) [Mass fraction] 99 % [facility] 06-16-2023 10:07-0500 Systolic blood pressure 120 mm[Hg] [facility] 06-01-2023 15:48-0500 Blood Pressure Location Dorian [employer] [facility] [place] 06-01-2023 15:48-0500 Diastolic blood pressure 64 mm[Hg] [facility]ian [employer] [facility] [place] 06-01-2023 15:48-0500 Heart rate 76 /min Dorian [employer] [facility] [place] 06-01-2023 15:48-0500 Respiratory rate 16 /min Dorian [employer] [facility] [place] 06-01-2023 15:48-0500 Systolic blood pressure 102 mm[Hg] Dorian [facility] [facility] 05-19-2023 10:00-0500 Body height 162.56 cm Uyen Martel Other [employer] Other 05-19-2023 10:00-0500 Body mass index (BMI) [Ratio] 28.66 kg/m2 Uyen Martel Other [employer] Other 05-19-2023 10:00-0500 Body weight 75.75 kg Uyen Chanacostar Other [employer] Other 05-19-2023 10:00-0500 Diastolic blood pressure 76 mm[Hg] Uyen Dustinrbacher Other [employer] Other 05-19-2023 10:00-0500 SaO2% (BldA) [Mass fraction] 99 % Uyen Nateacher Other [employer] Other 05-19-2023 10:00-0500 Systolic blood pressure 120 mm[Hg] Uyen Nateacher Other [employer] Other 04-21-2023 11:00-0500 Body height 162.56 cm Uyen Magir Other [facility] 04-21-2023 11:00-0500 Body mass index (BMI) [Ratio] 28.83 kg/m2 Uyen Magir Other [employer] Other 04-21-2023 11:00-0500 Body weight 76.2 kg Uyen Magir Other [facility] 04-21-2023 11:00-0500 Diastolic blood pressure 78 mm[Hg] Uyen Nateacher Other [facility] 04-21-2023 11:00-0500 SaO2% (BldA) [Mass fraction] 98 % Uyen Sowr Other [employer] Other 04-21-2023 11:00-0500 Systolic blood pressure 122 mm[Hg] Uyen Sullivanacher Other [facility] 10-01-2022 12:50-0400 Body height 162.56 cm Daksha Anya Other [employer] Other 10-01-2022 12:50-0400 Body mass index (BMI) [Ratio] 29.52 kg/m2 Daksha Anya Other [employer] Other 10-01-2022 12:50-0400 Body temperature 98.3 [degF] Daksha Anya Other [employer] Other 10-01-2022 12:50-0400 Body weight 78.02 kg Daksha Anya Other [employer] Other 10-01-2022 12:50-0400 Diastolic blood pressure 82 mm[Hg] Daksha Anya Other [employer] Other 10-01-2022 12:50-0400 Respiratory rate 18 /min Daksha Anya Other [employer] Other 10-01-2022 12:50-0400 SaO2% (BldA) [Mass fraction] 98 % Daksha Anya Other [employer] Other 10-01-2022 12:50-0400 Systolic blood pressure 136 mm[Hg] Daksha Anya Other [employer] Other 12-28-2021 13:40-0400 Body height 162.56 cm Daksha Anya Other [employer] Other 12-28-2021 13:40-0400 Body mass index (BMI) [Ratio] 29.18 kg/m2 Daksha Anya Other [employer] Other 12-28-2021 13:40-0400 Body temperature 98.3 [degF] Daksha Joyner Other [employer] Other 12-28-2021 13:40-0400 Body weight 77.11 kg Daksha Joyner Other [employer] Other 12-28-2021 13:40-0400 Respiratory rate 18 /min Daksha Joyner Other [employer] Other 12-28-2021 13:40-0400 SaO2% (BldA) [Mass fraction] 97 % Daksha Joyner Other [employer] Other 01-31-2018 21:08-0400 Body weight Measured 167.0 lbs. [facility] Comment on above: Performed By: #### AAFPM ####[employer] [id number] [place], [place] [id number] 01-30-2018 14:28-0400 Body weight Measured 167 [facility] Comment on above: Performed By: #### AAFPM ####[employer] [id number] [place], [place] [id number] 01-30-2018 14:28-0400 Body weight Measured LBS [facility] Comment on above: Performed By: #### AAFPM ####[employer] [id number] [place], [place] [id number] Encounters Encounter Date Encounter Type Care Provider Facility Start: 05-22-2024 End: 05-22-2024 Jamesboo flowsheet Tomer Lucia CNM Work Phone: [facility] Start: 05-22-2024 End: 05-22-2024 Bamboo flowsheet Tomer L Floro CNM Work Phone: [facility] Start: 05-22-2024 End: 05-22-2024 Office outpatient visit 15 minutes Tomer L Floro CNM Work Phone: [facility] Comment on above: Encounter for superv ision of other normal , third trimester (Primary Dx); congenital anomaly Start: 05-22-2024 ambulatory TOMER L FLORO Not Gina ilable Start: 05-22-2024 End: 05-22-2024 ambulatory TOMER FLORO [facility] Start: 05-14-2024 End: 05-14-2024 Bamboo flowsheet Tomer L Floro CNM Work Phone: [facility] Start: 05-14-2024 End: 05-14-2024 Bamboo flowsheet Tomer L Floro CNM Work Phone: [facility] Start: 05-14-2024 End: 05-14-2024 ambulatory TOMER L FLORO Not Available Start: 05-14-2024 End: 05-14-2024 Office outpatient visit 15 minutes Tomer L Floro CNM Work Phone: [facility] Comment on above: Encounter for superv ision of other normal , third trimester (Primary Dx); congenital anomaly Start: 05-09-2024 End: 05-09-2024 Clinisync Result Encounter Tomer L Floro CNM Work Phone: [facility] Unsolicited Start: 05-09-2024 End: 05-09-2024 Clinisync Result Encounter Tomer L Floro CNM Work Phone: [facility] Unsolicited Start: 05-07-2024 End: 05-07-2024 ambulatory TOMER L FLORO Not Available Start: 05-07-2024 End: 05-07-2024 Bamboo flowsheet Tomer [...] screening for streptococcus B; congenital anomaly Start: 05-04-2024 End: 05-09-2024 Telephone encounter Analy Newell [facility] Comment on above: New Patient Start: 04-30-2024 End: 04-30-2024 Bamboo flowsheet Tomer [...] Only Suze Castro RN [facility] Comment on above: Abnormal ultrasonic finding on screening of mother, antepartum (Primary Dx); Elliott cisterna magna (CMS-HCC); 35 weeks gestation of Start: 04-26-2024 End: 04-26-2024 Office outpatient visit 25 minutes Russel James MD Work Phone: [facility] Comment on above: 35 weeks gestation o f (Primary Dx) Start: 04-26-2024 End: 04-26-2024 Office consultation new/estab patient 80 min Georgette Gustafson MD Work Phone: [facility] Comment on above: Anomaly [...] 03-29-2024 End: 03-29-2024 Bamboo flowsheet Tomer L Anithao CNM Work Phone: [facility] Start: [...] In System Ref Prov [facility] Start: 03-01-2024 End: 03-01-2024 Bamboo flowsheet Tomer L Anithao CNM Work Phone: [facility] Start: [...] Only Vanessa Weiss RDMS [facility] Comment on above: Abnormal ultrasonic finding on screening of mother, antepartum (Primary Dx) Start: 02-23-2024 End: 02-23-2024 Orders Only Brionna Finch RN [facility] Comment on above: Abnormal obstetric u ltrasound scan (Primary Dx) Start: 02-23-2024 End: 02-23-2024 Office consultation new/estab patient 60 min Lanre Dempsey MD Work Phone: [facility] Comment on above: Elliott cisterna magna (CMS-HCC) (Primary Dx) Start: 02-15-2024 End: 02-15-2024 Chart abstracting Lanre Dempsey MD Work Phone: [facility] Start: 02-07-2024 End: 02-07-2024 Chart abstracting Lanre Dempsey MD Work Phone: [facility] Start: 02-06-2024 End: 02-06-2024 Chart abstracting Scanning Provider External [facility] Start: 02-02-2024 End: 02-02-2024 Office outpatient visit 15 minutes Tomer Welsho CNM Work Phone: [facility] Comment on above: related co ndition in second trimester (Primary Dx); Encounter for supervision of other normal , second trimester Start: 02-02-2024 End: 02-02-2024 Bamboo flowsheet Tomer L Floro CNM Work Phone: [facility] Start: 02-02-2024 End: 02-02-2024 Bamboo flowsheet Tomer L Floro CNM Work Phone: [facility] Start: 02-02-2024 End: 02-02-2024 ambulatory TOMER L FLORO Not Available Start: 01-20-2024 End: 01-20-2024 Telephone encounter Tomer Breanna Welsho CNM Work Phone: [facility] Start: 01-16-2024 End: 05-17-2024 Telephone encounter Tomer Breanna Welsho CNM Work Phone: [facility] Start: [...] 09-15-2023 Departed Referred MARLEE Martel Work Phone: [facility] [place] Work Phone: Start: 09-15-2023 End: 09-15-2023 ambulatory MARLEE Martel Work Phone: [facility] Work Phone: Start: 09-15-2023 End: 09-15-2023 Patient encounter procedure [facility] Work Phone: Start: 08-15-2023 End: 08-15-2023 ambulatory [facility] Work Phone: Start: 08-15-2023 End: 08-15-2023 Patient encounter procedure [facility] Work Phone: Start: 07-14-2023 End: 07-14-2023 ambulatory [facility] Work Phone: Start: 07-14-2023 End: 07-14-2023 Patient encounter procedure [facility] Work Phone: Start: 06-16-2023 End: 06-16-2023 Patient encounter procedure [facility] Work Phone: Start: 06-01-2023 End: 06-02-2023 ambulatory Dorian HART Facility:[facility] Start: 06-01-2023 End: 06-01-2023 Patient encounter procedure Dorian R NILL [facility] [place] Start: 05-19-2023 End: 05-19-2023 ambulatory Uyen Martel Other [employer] Other Start: 05-19-2023 Office outpatient vi sit 15 minutes Uyen Martel [facility] Start: 04-26-2023 ambulatory Dorian NILL Facility:[facility] [place] Start: 04-21-2023 End: 04-21-2023 ambulatory Uyen Martel Other [employer] Other Start: 04-21-2023 Encounter for genera l adult medical examination without abnormal findings Uyen Martel [facility] Start: 04-21-2023 Initial preventive medicine new pt age 18-39yrs Uyen Martel [facility] Start: 04-21-2023 End: 04-21-2023 Patient encounter procedure [facility] Work Phone: Start: 10-01-2022 End: 10-01-2022 ambulatory Daksha Abramsmond Other [employer] Other Start: 10-01-2022 Office outpatient vi sit 15 minutes Daksha Anya [facility] Start: 12-28-2021 End: 12-28-2021 ambulatory Daksha Anya Other [employer] Other Start: 12-28-2021 Office outpatient vi sit 15 minutes Daksha Anya [facility] Start: 11-13-2020 End: 11-13-[address] SID REYES Facility: Start: 05-03-2018 End: 05-04-2018 Patient encounter procedure TRISTAN [facility] Start: 03-30-2018 End: 03-30-2018 Patient encounter procedure SIXTO Arabella JO-ANN [facility] Start: 03-28-2018 End: 03-29-2018 Patient encounter procedure JOANAANTONIO RICHARDSON [facility] Start: 03-21-2018 End: 03-22-2018 Patient encounter procedure TRISTAN JOSE [facility] Start: 02-25-2018 End: 02-25-2018 Patient encounter procedure SOCRATES Arbaella ARMENDARIZ [facility] Start: 02-25-2018 End: 02-25-2018 [facility] Start: 02-23-2018 End: 02-23-2018 Patient encounter procedure MICHAEL GARCIAKABY [facility] Start: 02-22-2018 End: 02-22-2018 Patient encounter procedure MICHAEL BILLINGS [facility] Start: 02-21-2018 End: 02-21-2018 [facility] Start: 02-20-2018 End: 02-20-2018 Patient encounter procedure MICHAEL BILLINGS [facility] Start: 02-19-2018 End: 02-19-2018 Patient encounter procedure MICHAEL BILLINGS [facility] Start: 02-18-2018 End: 02-18-2018 Patient encounter procedure MICHAEL BILLINGS [facility] Start: 02-17-2018 End: 02-17-2018 Patient encounter procedure MICHAEL BILLINGS [facility] Start: 02-16-2018 End: 02-16-2018 Patient encounter procedure MICHAEL BILLINGS [facility] Start: 02-15-2018 End: 02-15-2018 [facility] Start: 02-14-2018 End: 02-14-2018 [facility] Start: 02-13-2018 End: 02-13-2018 [facility] Start: 02-12-2018 End: 02-12-2018 [facility] Start: 02-07-2018 End: 02-11-2018 Evaluation and management of [facility] Start: 01-25-2018 End: 01-26-2018 Patient encounter procedure SAMIR GUILLERMO [facility] Start: 12-22-2017 End: 12-23-2017 Patient encounter procedure LEAH B [facility] Start: 11-28-2017 End: 11-29-2017 Patient encounter procedure LEAH B [facility] Start: 10-31-2017 End: 11-01-2017 Patient encounter procedure JOANA RICHARDSON [facility] Start: 10-27-2017 End: 10-30-2017 Patient encounter LEAH B [facility] Procedures Date Procedure Procedure Detail Performing Clinician Start: 05-09-2024 US OB BPP WO NON-STRESS Tomer Lucia CNM Work Phone: Start: 03-16-2024 Mri pelvis w/o contrast material [...] JOANA RICHARDSON Start: 02-07-2018 C.TRACHOMATIS N.GONORRHOEAE DNA BRITALMITAE Y RICHARDSON Start: 02-07-2018 RAPID INFLUENZA A/B ANTIGENS JOANA Lee ARGAS Start: 02-07-2018 Microscopic urinalysis JOANA RICHARDSON Start: 02-07-2018 URINE RT REFLEX TO CULTURE JOANA OSWALD GAS Start: 02-07-2018 CONTRACTION -MONITORING JOANA RICHARDSON Start: 02-07-2018 DIET GENERAL JOANA OSWALDGAS Start: 02-07-2018 FULL CODE JOANA OSWALDGAS Start: 02-07-2018 INTAKE AND OUTPUT JOANA OSWALDGAS Start: 02-07-2018 MONITOR HEART TONES JOANA OSWALDG Start: 02-07-2018 NOTIFY PHYSICIAN (SPECIFY) JOANA DAREK GAS Start: 02-07-2018 PATIENT STATUS (DIRECT) JOANA NEWELLS Start: 02-07-2018 PLACE INTERMITTENT PNEUMATIC COMPRESSION DEVICE JOANA OSWALDGAS Start: 02-07-2018 VITAL SIGNS JOANA RICHARDSON Start: 01-25-2018 ALPHA FETOPROTEIN, MATERNAL LEAH DAVID Start: 12-22-2017 TYPE AND SCREEN LEAH DAVID Start: 12-22-2017 HIV SCREEN LEAH DAVID Start: 12-22-2017 PROFILE I LEAH DAVID Start: 11-28-2017 Culture bacterial quanttative colony count urine JOANA RICHARDSON Start: 10-31-2017 C.TRACHOMATIS N.GONORRHOEAE DNA, URINE JOANA OSWALDGAS Start: 10-31-2017 Culture bacterial quanttative colony count urine JOANA RICHARDSON Start: 10-31-2017 URINE DRUG SCREEN JOANA RICHARDSON Start: 10-31-2017 CYSTIC FIBROSIS JOANA RICHARDSON Start: 10-27-2017 Us uterus 14 wk transabdl 04/11 gestat LEAH DAVID Colonoscopy Dorian HART Esophagogastroduodenoscopy Arabella HART Plan of Treatment Date Care Activity Detail Author Start: 06-05-2028 DTaP,Tdap and Td Vaccines (3 - Td or Tdap) DTaP,Tdap and Td Vaccines (3 - Td or Tdap) [facility] Start: 06-05-2028 DTaP,Tdap and Td Vaccines (9 - Td or Tdap) DTaP,Tdap and Td Vaccines (9 - Td or Tdap) [facility] Start: 07-30-2027 DTaP,Tdap and Td Vaccines (2 - Td or Tdap) DTaP,Tdap and Td Vaccines (2 - Td or Tdap) [facility] Start: 04-27-2025 Tobacco Screening Tobacco Screening [facility] Start: 04-27-2025 End: 04-27-2025 US MFM with or without consult US MFM with or without consult Imaging Routine Abnormal ultrasonic finding on screening of mother, antepartum 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 of Expected: 04/27/2025 (Approximate), Expires: 04/27/2025 [facility] Work Phone: Comment on above: Expected: 04/27/2025 (Approximate), Expires: 04/27/2025 Start: 04-26-2025 Adult BMI Screening Adult BMI Screen ing [facility] Start: 04-26-2025 Tobacco Screening Tobacco Screening [facility] Start: 02-22-2025 Adult BMI Screening Adult BMI Screen ing [facility] Start: 02-22-2025 Tobacco Screening Tobacco Screening [facility] Start: 08-22-2024 End: 08-22-2024 US MFM with or without consult US MFM with or without consult Imaging Routine Abnormal obstetric ultrasound scan Expected: 08/22/2024 (Approximate), Expires: 08/22/2024 [employer] Work Phone: Comment on above: Expected: 08/22/2024 (Approximate), Expires: 08/22/2024 Start: 05-30-2024 End: 05-30-2024 Patient encounter procedure 05/30/2024 8:30 AM EST Office Visit [facility] [address] [place] [phone] [place] [address] [place] [address], [address] [place] [address] [facility] Start: 05-28-2024 End: 05-28-2024 Patient encounter procedure 05/28/2024 1:30 PM EST Routine [facility] [address] [place] [phone] Tomer Lucia, CNM [address] [place] [address] [facility] Start: 05-22-2024 End: 05-22-2024 Patient encounter procedure 05/22/2024 1:45 PM EST Routine [facility] [address] [place] [phone] Tomer Lucia, CNM [address] [place] [address] Arrived [facility] Comment on above: Arrived Start: 05-22-2024 End: 05-22-2024 Patient encounter procedure 05/22/2024 9:15 AM EST Appointment [facility] Ultrasound [address] [place] [address] [facility] Start: 05-21-2024 End: 05-21-2024 Patient encounter procedure 05/21/2024 1:00 PM EST Routine [facility] [address] [place] [phone] Tomer Lucia, CNM [address] [place] [address] [facility] Start: 05-14-2024 End: 05-14-2024 Patient encounter procedure 05/14/2024 1:30 PM EST Routine [facility] [address] [place] [phone] Tomer Lucia, CNM [address] [place] [address] [facility] Start: 05-07-2024 End: 05-07-2025 CULTURE, GROUP B STREP WITH SUSCEPTIBLITY CULTURE, GROUP B STREP WITH SUSCEPTIBLITY Lab Routine screening for streptococcus B Expected: 05/07/2024 (Approximate), Expires: 05/07/2025 [facility] Work Phone: Comment on above: Expected: 05/07/2024 (Approximate), Expires: 05/07/2025 Start: 05-07-2024 End: 05-07-2024 Patient encounter procedure 05/07/2024 2:00 PM EST Routine [facility] [address] [place] [address] Tomer Lucia, [facility] [address] [place] [address] [facility] Start: 04-30-2024 End: 04-30-2024 Patient encounter procedure 04/30/2024 1:00 PM EST Routine [facility] [address] [place] [address] Tomer Lucia, [facility] [address] [place] [address] [facility] Start: 04-23-2024 End: 04-23-2024 Patient encounter procedure 04/23/2024 1:15 PM EST Routine [facility] [address] [place] [address] Tomer Lucia, [facility] [address] [place] [address] [facility] Start: 04-20-2024 End: 04-20-2025 echo 2D W/ color flow echo 2D W/ color flow Echocardiography Routine Anomaly of heart of fetus affecting , antepartum, single or unspecified fetus Expected: 04/20/2024, Expires: 04/20/2025 [facility] Work Phone: Comment on above: Expected: 04/20/2024 , Expires: 04/20/2025 Start: 04-16-2024 End: 04-16-2024 Patient encounter procedure 04/16/2024 2:30 PM EST Routine [facility] [address] [place] [address] Tomer Lucia, [facility] [address] [place] [address] [facility] Start: 04-09-2024 End: 04-09-2024 Patient encounter procedure 04/09/2024 1:45 PM EST Routine [facility] [address] [place] [phone] Tomer Lucia, [facility] [address] [place] [address] [facility] Start: 03-29-2024 End: 03-29-2025 US biophysical profile wo non stress testing US biophysical profile wo non stress testing Imaging Routine congenital anomaly Expected: 03/29/2024, Expires: 03/29/2025 [facility] Work Phone: Comment on above: Expected: 03/29/2024 , Expires: 03/29/2025 Start: 03-29-2024 End: 03-29-2024 Patient encounter procedure 03/29/2024 9:30 AM EST Routine [facility] [address] [place] [phone] Tomer Lucia, [facility] [address] [place] [address] [facility] Start: 03-26-2024 End: 03-26-2024 [...] AM EST Routine [facility] [address] [place] [phone] Tomer Lucia [address] [id number] [facility] Start: 02-28-2024 End: 02-27-2025 [...] AM EDT Routine [facility] [address] [place] [phone] Tomer Lucia, [address] [address] [facility] Start: 02-02-2024 End: 02-02-2024 Patient encounter procedure [facility] Comment on above: Arrived Start: 02-02-2024 End: 02-02-2024 Professional / ancillary services management 02/02/2024 2:00 PM EDT Ancillary Procedure [facility] [address] [phone] [facility] Start: 01-12-2024 End: 01-12-2024 Patient encounter procedure [facility] Comment on above: Arrived Start: 01-12-2024 End: 01-12-2024 Professional / ancillary services management 01/12/2024 10:00 AM EDT Ancillary Procedure [facility] [address] [address] [facility] Start: 12-15-2023 End: 12-14-2024 US for US OB 14+ weeks anatomy scan Imaging Routine related condition in second trimester Expected: 12/15/2023, Expires: 12/14/2024 [facility] Work Phone: Comment on above: Expected: 12/15/2023 , Expires: 12/14/2024 Start: 12-15-2023 End: 12-15-2023 Patient encounter procedure 12/15/2023 9:30 AM EDT Routine [facility] [address] [place] [phone] Tomer Lucia, CN [address] [place] [address] Arrived [facility] Comment on above: Arrived Start: 12-11-2023 Influenza vaccination Influenza Vacc ine [facility] Start: 09-15-2023 Bacteria identified in Urine by Culture [facility] Start: 2017 Screening for malign ant neoplasm of cervix Pap Smear [facility] Start: 2014 Adult BMI Follow Up Plan Adult BMI Follow Up Plan [facility] Start: 2014 Adult BMI Screening Adult BMI Screen ing [facility] Start: 2008 Depression Screening Depression Scre ening [facility] Start: 2008 Tobacco Screening Tobacco Screening [facility] echo 2D W/ col or flow echo 2D W/ color flow Echocardiography Routine Anomaly of heart of fetus affecting , antepartum, single or unspecified fetus 04/26/2024 10:38 AM EST [facility] Immunizations Immunization Date Immunization Notes Care Provider Jalen darrin 07-29-2017 tetanus toxoid, reduced diphtheria toxoid, and acellular pertussis vaccine, adsorbed Scanning External [facility] NEGATED: Highlighted row has not occurred!06-01-2023 influenza virus vaccine, unspecified formulation Dorian HART [facility] Payers Date Payer Category Payer Self-pay 2023 Medicaid [employer] [place] [id number] 2023-Present [address] [place] [id number] 2023 Medicaid (Managed Care) [employer] [id number] 2023 Medicaid HMO [id number] 2023 Medicaid [id number] 2.16.840.1.456830.19 2005 Commercial Managed C are - POS [employer] [id number] [id number] 2005 Private Health Insurance [id number] 2.16840.1.700912.19 1996 Unknown [id number] 2.16840.1.934440.3.579. 2.177 1996 Unknown [id number] 2.16840.1.383455.3.579. 2.177 1996 Unknown [id number] 2.16840.1.378753.3.579. 2.177 1996 Unknown [id number] 2.16.840.1.602278.3.579. 2.175 1996 Unknown [id number] 2.16.840.1.472587.3.579. 2.175 1996 Unknown [id number] 2.16840.1.219141.3.579. 2.175 1996 Unknown [id number] 2.16840.1.982429.3.579. 2.175 1996 Unknown [id number] 2.16.840.1.584310.3.579. 2.175 1996 Unknown [id number] 2.16.840.1.491541.3.579. 2.175 1996 Unknown [id number] 2.16840.1.514774.3.579. 2.175 1996 Unknown [id number] 2.16.840.1.344442.3.579. 2.175 1996 Unknown [id number] 2.16.840.1.358840.3.579. 2.175 1996 Unknown [id number] 2.16.840.1.190550.3.579. 2.175 1996 Unknown [id number] 2.16.840.1.473788.3.579. 2.175 1996 Unknown [id number] 2.16.840.1.692197.3.579. 2.175 1996 Unknown [id number] 2.16.840.1.120628.3.579. 2.175 1996 Unknown [id number] 2.16.840.1.260751.3.579. 2.175 1996 Unknown [id number] 2.16.840.1.123719.3.579. 2.175 1996 Unknown [id number] 2.16.840.1.630249.3.579. 2.175 1996 Unknown [id number] 2.16.840.1.646547.3.579. 2.175 1996 Unknown [id number] 2.16.840.1.313427.3.579. 2.175 1996 Unknown [id number] 2.16.840.1.803805.3.579. 2.175 1996 Unknown [id number] 2.16.840.1.331361.3.579. 2.175 1996 Unknown [id number] 2.16.840.1.239361.3.579. 2.593 1996 Unknown [id number] 2.16.840.1.146699.3.579. 2.727 1996 Unknown [id number] 2.16.840.1.528986.3.579. 2.1286 1996 Unknown [id number] 2.16.840.1.444485.3.579. 2.1259 1996 Unknown [id number] 2.16.840.1.559552.3.579. 2.1258 1996 Unknown [id number] 2.16840.1.533109.3.579. 2.1258 1996 Unknown [id number] 2.16.840.1.423361.3.579. 2.1258 1996 Unknown [id number] 2.16840.1.916098.3.579. 2.1258 1996 Unknown [id number] 2.16840.1.615211.3.579. 2.1258 1996 Unknown [id number] 2.16840.1.349539.3.579. 2.1258 1996 Unknown [id number] 2.840.1.748448.3.579. 2.1258 1996 Unknown [id number] 2.840.1.042462.3.579. 2.1258 1996 Unknown [id number] 2.840.1.572177.3.579. 2.1258 1996 Unknown [id number] 2.840.1.796751.3.579. 2.1258 1996 Unknown [id number] 2.16840.1.827955.3.579. 2.1258 1996 Unknown [id number] 2.840.1.195151.3.579. 2.1258 1996 Unknown [id number] 2.16840.1.926364.3.579. 2.1258 1996 Unknown [id number] 2.16840.1.700448.3.579. 2.1258 1996 Unknown [id number] 2.16840.1.555532.3.579. 2.9 1959 Private Health Insurance [id number] Unknown [id number] 2.16840.1.053598.3.579. 2.531 Social History Date Type Detail Facility Unknown if ever smoked [employer] Other Start: 05-22-2020 End: 10-20-2023 Sex Assigned At Reinaldo Morris [facility] Start: 06-01-2023 End: 10-20-2023 Tobacco smoking status Never smoked tobacco (finding) [facility] Tobacco smoking status Former sm okeless tobacco user, quit more than 30 days ago [facility] Start: 1995 [facility] Assigned At [facility] Start: 10-20-2023 End: 03-26-2024 Tobacco use and exposure Smokeless tobacco non-user [facility] Start: 10-20-2023 End: 04-27-2024 Alcoholic beverage intake Ex-drinker (finding) [facility] Start: 05-22-2020 End: 10-20-2023 History of Social function [facility] Start: 09-08-2023 [facility] Start: 1995 Sex assigned at Not on file [facility] Start: 02-06-2024 Alcoholic beverage intake Current non-drinker of alcohol (finding) [facility] Start: 12-11-2014 Sex Female (finding) [facility] Start: 03-26-2024 Tobacco smoking stat [facility] Ex-smoker [facility] History of tobacco use Current smoker [facility] History of tobacco use Cigarette Smoker [facility] Functional Status Date Assessment Result Facility 06-01-2023 Functional Status N/A [facility] Clinical Notes 12-28-2021 to 05-22-2024 Tomer Lucia CNM - 05/22/2024 1:45 PM Isa Lucia CNM - 05/14/2024 1:30 PM Isa Lucia CNM - 05/07/2024 2:00 PM ESTTelephone Encounter - Analy Newell - 05/04/2024 1:03 PM EST Note Date & Type Note Facility 05-22-2024 History of Presen t illness Narrative Subjective No chief complaint on file. Shen Bell Indu is a 28 y.o. at 38w5d with a working estimated date of delivery of 05/31/2024, by Last Menstrual Period who presents for a routine visit. She denies vaginal bleeding, leakage of fluid, decreased movements, or contractions. was seeing MFM for possible anomaly-resolved Her is complicated by: The following portions of the chart were reviewed this encounter and updated as appropriate: was seeing MFM for possible anomaly Objective Physical Exam weight: 211 lb Expected Total Weight Gain: Could not be calculated Pregravid BMI: Could not be calculated BP: 124/80 Urine Protein: negative Urine Glucose: negative Labs HEMOGLOBIN Date Value Ref Range Status 03/01/2024 11.3 (L) 11.7 - 15.5 g/dL Final HEMATOCRIT Date Value Ref Range Status 03/01/2024 34.8 (L) 35.0 - 45.0 % Final Imaging Assessment/Plan Diagnoses and all orders for this visit: Encounter for supervision of other normal , third trimester congenital anomaly Reactive NST in the office today Continue vitamin. Labs reviewed. Reactive NST today GBS negative Expected mode of delivery Follow up in 1 week for a routine visit. documented in this encounter [facility] 05-14-2024 History of Presen t illness Narrative Subjective No chief complaint on file. Shen Griggs is a 28 y.o. at 37w4d with a working estimated date of delivery [...] EPI N DANIELLE Her is complicated by: MFM, monitoring Objective Physical Exam weight: 205 lb Expected Total Weight Gain: Could not be calculated Pregravid BMI: Could not be calculated BP: 120/80 Urine protein-negative Urine glucose-negative Assessment/Plan Diagnoses and all orders for this visit: Encounter for supervision of other normal , third trimester congenital anomaly Continue vitamin. Labs reviewed Expected mode of delivery Reactive NST today in office Follow up in 1 week for a routine visit. documented in this encounter [facility] 05-07-2024 History of Presen t illness Narrative [...] a routine visit. documented in this encounter [facility] 05-04-2024 Miscellaneous Notes Received new patient referral. Please call patient to schedule a new patient appointment for Abnormal ultrasonic finding on screening of mother, antepartum IS THIS DUE TO AN ACCIDENT? IS THIS WORKER'S COMP? PLEASE VERIFY IF THIS IS WORKERS COMP AND DOCUMENT (We do not accept any new workers comp cases) WHAT INSURANCE? HAVE YOU EVER BEEN SEEN BY A NEUROLOGIST BEFORE? Drawer Fitter contacted patient to schedule an appointment. Patient is questioning if she needs to be seen prior to being induced on 05/25/24. If patient does need to be seen before then, please advise when patient should be scheduled, first available 05/29/24 MRI showed ell[address]ott cisterna magna. Dr. Douglas, please advise on scheduling patient. Per Dr. Douglas, infant may follow up in the office after . Drawer Fitter contacted patient and scheduled 05/30/24 @8:30a with Dr Douglas (okayed with facility maintenance supervisor). [employer] insurance verified. documented in this encounter [facility] 05-04-2024 Telephone encounter Note Received new patient referral. Please call patient to schedule a new patient appointment for Abnormal ultrasonic finding on screening of mother, antepartum IS THIS DUE TO AN ACCIDENT? IS THIS WORKER'S COMP? PLEASE VERIFY IF THIS IS WORKERS COMP AND DOCUMENT (We do not accept any new workers comp cases) WHAT INSURANCE? HAVE YOU EVER BEEN SEEN BY A NEUROLOGIST BEFORE? [facility] 05-04-2024 Telephone encounter Note Drawer Fitter contacted patient to schedule an appointment. Patient is questioning if she needs to be seen prior to being induced on 05/25/24. If patient does need to be seen before then, please advise when patient should be scheduled, first available 05/29/24 [facility] 05-04-2024 Telephone encounter Note MRI showed elliott cisterna magna. Dr. Douglas, please advise on scheduling patient. [facility] [employer] [facility] 05-04-2024 Telephone encounter Note Per Dr. Douglas, infant may follow up in the office after . [facility] [employer] [facility] 05-04-2024 Telephone encounter Note Drawer Fitter contacted patient and scheduled 05/30/24 @8:30a with Dr Douglas (okayed with facility maintenance supervisor). [employer] insurance verified. [facility] [employer] [facility] 04-30-2024 History of Presen t illness Narrative [...] N DANIELLE Her is complicated by: see M Patient states [facility] told her last week she could deliver with me at [facility] and she should be induced at 39 weeks. I will look for report in media and get the most recent updated [facility] reports. Objective Physical Exam weight: 202 [...] a routine visit. documented in this encounter [facility] 04-26-2024 History of Presen t illness Narrative [...] Reactions Amoxicillin CURRENT MEDICATIONS: Current Outpatient Medications: [id number] acid ( 19) 29 mg iron- 1 [...] and the other consultants, we search on [employer] [place] and all the available care everywhere epic I did review all the imaging studies of the patient available on EMR, ordered by the primary care physician and the other managed services consultant HABITS: Patient activity no restrictions, diet [...] MEDICAL DECISION MAKING DISCUSSION: Please see original [facility] consultation note Ultrasound was discussed with the patient today Elliott cisterna magna seen today again overall stable. No ventriculomegaly otherwise. The patient also had a follow-up with the pediatric psychiatrist today. I spoke with the Dr. Gustafson from cardiology standpoint the patient can deliver at local [facility] as well. Reviewed with the patient that I would recommend she keeps up with her hydration and compression stockings reviewed RECOMMENDATION: - repeat growth in 4 weeks -Weekly NST and DVP from 34 weeks until delivery setting of the anomalies per patient request at primary OB office -delivery recommended at 39 weeks -location of delivery local [facility] -we will initiate pediatric neurology consultation to ensure evaluation DISPOSITION: At this point the patient is in complete care of her window assembler. Patient does have ultrasound office visit scheduled with us Thank you for allowing me to participate in Shen Griggs . If there any questions please do not hesitate to contact us. Sincerely, RUSSEL JAMES MD documented in this encounter [facility] 04-26-2024 History of Presen t illness Narrative [address] [place] [address] April 26, 2024 Patient: Shen Griggs Date of : 1995 Date of Visit: 04/26/[address] James; I had the pleasure of seeing Ms [...] out of genetic testing. S/p MRI on 12/5/24. Confirmation of elliott cisterna magna Review of [...] Current Outpatient Medications Medication Sig Dispense Refill [id number] acid ( 19) 29 mg iron- 1 [...] dizzy vitals were repeated: blood pressure lying xkl260/66 mmHg with a heart rate of 88 [...] the aid of diagrams I discussed with . Shen Griggs the findings and all fetuses [...] queries or concerns. Sincerely, Georgette Gustafson M.D. Product Development Consultant [facility] This note is dictated with the use of M*Modal.Please note that this dictation was completed with computer voice recognition software. Quite often unanticipated grammatical, syntax, homophones, and other interpretive errors are inadvertently transcribed by the computer software. Please disregard these errors. Please excuse any errors that have escaped final proofreading. documented in this encounter [facility] 04-23-2024 History of Presen t illness Narrative [...] a routine visit. documented in this encounter [facility] 04-16-2024 History of Presen t illness Narrative [...] a routine visit. documented in this encounter [facility] 04-10-2024 History of Presen t illness Narrative [...] a routine visit. documented in this encounter [facility] 03-29-2024 History of Presen t illness Narrative [...] NSTs in my office and BPPs at [facility] . documented in this encounter [facility] 03-01-2024 History of Presen t illness Narrative [...] a routine visit. documented in this encounter [facility] 02-23-2024 History of Presen t illness Narrative [...] NO Have you been seen here at [facility] in a previous ? NO Recent ER visits or hospitalizations? NO Bring blood sugar log or meter with you today? (Please bring them with you for every visit at [facility]) N/A Flu vaccine (Feb-June)? 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 Patient is scheduled for MRI at [facility]. 4. Most likely a elliott cisterna magna [...] patient is in complete care of her window assembler. Patient does have ultrasound office visit scheduled with us Thank you for allowing me to participate in Shen Griggs . If there any questions please do not hesitate to contact us. Sincerely, LANRE DEMPSEY MD documented in this encounter [facility] 02-02-2024 History of Presen t illness Narrative [...] complicated by: marijuana use- quit early , MFM referral for eval of posterior fossa The [...] a routine visit. documented in this encounter [facility] 01-20-2024 Telephone encounter Note Pt is 21 weeks and wants to know if she can use Miralax for constipation, she is going since the last week, nothing coming out, and in a lot of pain. Pt calling her PCP to see if she can get advice from someone Forwarded message to Mary. [facility] 01-20-2024 Miscellaneous Notes Pt is 21 weeks and wants to know if she can use Miralax for constipation, she is going since the last week, nothing coming out, and in a lot of pain. Pt calling her PCP to see if she can get advice from someone Forwarded message to Mary. documented in this encounter [facility] 01-16-2024 Telephone encounter Note Spoke with pt and per Va;l pt is to go to [place] [facility] to get evaluated. Pt states she has to pick her daughter up from school and then she will head to the ER [facility] 01-16-2024 Miscellaneous Notes Spoke with pt and per Va;l pt is to go to [place] [facility] to get evaluated. Pt states she has to pick her daughter up from school and then she will head to the ER Pt calling to report she's having palpitations with no activity. She said she's sititing eating breakfast, or in class and feels like she just ran up stairs has happened 2 times in last 3 days. She said she tried to count and got 110-116 beats per minute, and now she's freaking herself out a little thinking about it and just wants to make sure everything is okay. I let pt know you will be in at 1 today. documented in this encounter [facility] 01-16-2024 Telephone encounter Note Pt calling to report she's having palpitations with no activity. She said she's sititing eating breakfast, or in class and feels like she just ran up stairs has happened 2 times in last 3 days. She said she tried to count and got 110-116 beats per minute, and now she's freaking herself out a little thinking about it and just wants to make sure everything is okay. I let pt know you will be in at 1 today. [facility] 01-12-2024 History of Presen t illness Narrative [...] a routine visit. documented in this encounter [facility] 12-15-2023 History of Presen t illness Narrative [...] a routine visit. documented in this encounter [facility] 06-01-2023 Note Chief Complaint consultation for hemorrhoids [...] vaccine, inactivated - Not Given Patient Refuses [facility] Comment on above: Result Comment: Elec tronically [...] of decreased appetite, insomnia, anxiety and agitation. [facility] Other 01-11-2024 Evaluation note* Encounter Date Diagnosis [...] of hemorrhoids and further treatment or options. [facility] Other 06-23-2023 Evaluation note* Encounter Date Diagnosis [...] right ear, unspecified type (ICD-10 - H60.501) [facility] Other 09-19-2022 Evaluation note* Encounter Date Diagnosis [...] no improvement in 2 to 3 days. [facility] Other Evaluation + Plan note No data available for this section General Surgery [place] Evaluation note* Diagnosis Onset Date Resolution Status [id number] acute [id number] [facility] Work Phone: Evaluation note* Diagnosis Onset Date Resolution Status [id number] acute [id number] acute [id number] [facility] Work Phone: Evaluation note* Diagnosis Onset Date Resolution Status [id number] acute [id number] acute UTI (urinary tract infection) acute [facility] Work Phone: Evaluation note* Diagnosis Encounter for supervision of other normal , second trimester- Primary [facility] Diagnosis related condition in second trimester- Primary Encounter for supervision of other normal , second trimester [facility] Diagnosis Elliott cisterna magna (CMS-HCC)- Primary [facility] Diagnosis Abnormal obstetric ultrasound scan- Primary [facility] Diagnosis Abnormal ultrasonic finding on screening of mother, antepartum- Primary [facility] Diagnosis Encounter for supervision [...] Primary congenital anomaly documented in this encounter [facility]* Diagnosis Encounter for supervision of other normal , third trimester- Primary congenital anomaly [facility] Diagnosis Encounter for supervision of other normal , third trimester- Primary congenital anomaly [facility] Diagnosis 35 weeks gestation of - Primary documented in this encounter [facility]* Diagnosis Abnormal ultrasonic finding on screening of mother, antepartum- Primary 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 of documented in this encounter [facility]* Diagnosis Anomaly of heart of fetus affecting , antepartum, single or unspecified fetus- Primary Abnormal ultrasonic finding on screening of mother, antepartum Postural dizziness with near syncope documented [facility] this [facility]* Diagnosis Encounter for supervision of other normal , third trimester- Primary congenital anomaly [facility] Diagnosis Encounter for supervision of other normal , third trimester- Primary screening for streptococcus B screening for Streptococcus B congenital anomaly [facility] Diagnosis Encounter for supervision of other normal , third trimester- Primary congenital anomaly [facility] Diagnosis Encounter for supervision of other normal , third trimester- Primary congenital anomaly [facility] N[facility]ative - Reported* Type Description Date Medical History IBS Surgical History [facility] Other Hospital Discharge instructions No data available for this section [facility] [place] [facility] Discharge instructionsAmbulatory Orders* Urine Culture Time Frame: 09/15/23, Location: Determined By Patient [facility] Work Phone: InstructionsNot on filedocumented in this encounter [facility] filedocumented in this [facility] filedocumented in this [facility]* Attachments The following attachments cannot be sent through Care Everywhere. * Preeclampsia (Kenyan) * Movement (Kenyan) [facility]ructionsNot on file documented in this [facility]Pro[facility] SystemInstructionsNot on file documented in [facility] note No data available for this section General Surgery [place] Summary Purpose Family History No Family History Records Found Relationship Condition Age at Onset Recorded Date/T ghislaine Not Specified Family history of mental disorder Unknow n Hypertension Unknown Advance Directives No Advanced Directives Records Found Advance Directive Response Recorded Date/ Time Advance Directives No May 19, 2023 11:52am Reason for Referral Reason evaluate Diagnosis 1 Hemorrhoids, unspeci fied hemorrhoid type (K64.9) Referral Organization [facility] Referring Provider First Name Uyen Referring Provider Last Name Nateacher Referring Provider Specialty Nurse Pract itdeyar Referred Organization Unknown Facility Referred Provider Dorian Hart Referred Provider Specialty Surgery Referral Priority Routine Chief Complaint and Reason for Visit Chief Complaint Wellness/ Ibs 4 WEEK CHECK UP 4 week follow up Reason for Visit [id number] Chief Complaint 4 WEEK CHECK UP 4 week follow up 4 week follow up Reason for Visit [id number] Chief Complaint 4 week follow up 4 week follow up UA Reason for Visit [id number] Chief Complaint 4 week follow up 4 week follow up UA Reason for Visit [id number] UTI (urinary tract infection) Additional Source Comments INFORMATION SOURCE (unrecogn ized section and content) DATE CREATED AUTHOR 10/31/2017 [facility] DATE CREATED AUTHOR AUTHOR'S ORGANIZ ATION 03/31/2018 [facility] DATE CREATED AUTHOR AUTHOR'S ORGANIZ ATION 05/30/2018 [facility] DATE CREATED AUTHOR AUTHOR'S ORGANIZ ATION 11/17/2020 [facility] DATE CREATED AUTHOR AUTHOR'S ORGANIZ ATION 06/09/2023 [facility] DATE CREATED AUTHOR AUTHOR'S ORGANIZ ATION 01/20/2024 [facility] DATE CREATED AUTHOR AUTHOR'S ORGANIZ ATION 05/24/2024 [facility] DATE CREATED AUTHOR AUTHOR'S ORGANIZ ATION 05/24/2024 [facility] EPIC REASON FOR VISIT (unrecogniz ed section and content) Reason Comments survey assessment Reason Comments enlarged cirsterna manga possible clint cyst muscular VSD Reason Comments observation of Muscular VSD Specialty Diagnoses / Procedures Referred By Jason moy Referred To Contact Pediatric Cardiology Diagnoses Abnormal ultrasonic finding on screening of mother, antepartum Russel James MD [address], [address] [place] [id number] Phone: tel: fax: Georgette Gustafson MD [address] [address] Phone: tel: fax: Referral ID Status Reason Start Date Expiration Date Visits Requested Visits Authorized [id number] Pending Review Specialty Services Required 03/26/2025 1 1 Reason Onset Date Comments New Patient 05/04/2024 Patient Care team informatio n (unrecognized section and content) Team Status: Active Member Role Status Dates Uyen Martel APRN SNUFF GRINDER-C Primary Care Provider Active Team Status: Inactive Member Role Status Dates Uyen Martel APRN SNUFF GRINDER-C Attending Provider Act lorena Start: April 21, 2023 End: April 21, 2023 Team Status: Inactive Member Role Status Dates Uyen Martel APRN SNU[employer] GR[employer]ER-C Primary Care Provider, Attending Provider Active Start: June 16, 2023 End: June 16, 2023 Team Status: Inactive Member Role Status Dates Uyen Martel APRN SNU[employer] GRINDER-C Primary Care Provider, Attending Provider Active Start: July 14, 2023 End: July 14, 2023 Team Status: Inactive Member Role Status Dates Uyen Martel APRN SNUFF GRINDER-C Primary Care Provider, Attending Provider Active Start: August 15, 2023 End: August 15, 2023 Team Status: Inactive Member Role Status Dates Uyen Martel APRN SNU[employer] GRINDER-C Primary Care Provider, Attending Provider Active Start: September 15, 2023 End: September 15, 2023 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 Relationship Specialty Start Date End Date No Pcp, [place] [address] PCP - General Family Medicine 07/29/17 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 Relationship Specialty Start Date End Date No Pcp, [place] [address] PCP - General Family Medicine 07/29/17 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 Relationship Specialty Start Date End Date No Pcp, [place] [address] PCP - General Family Medicine 07/29/17 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 Relationship Specialty Start Date End Date No Pcp, [place] [address] PCP - General Family Medicine 07/29/17 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 Relationship Specialty Start Date End Date No Pcp, [place] [address] PCP - General Family Medicine 07/29/17 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 Relationship Specialty Start Date End Date Uyen Martel APRN-SNUFF GRINDER [address] [place] [address] PCP - General Nurse Practitioner 03/15/24 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 Relationship Specialty Start Date End Date Uyne Martel APRN-SNUFF GRINDER [address] [facility] [place] [address] PCP - General Nurse Practitioner 03/15/24 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 Relationship Specialty Start Date End Date Uyen Martel APRN-SNUFF GRINDER [address] [facility] [place] [address] PCP - General Nurse Practitioner 03/15/24 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 Relationship Specialty Start Date End Date Uyen Martel APRN-SNUFF GRINDER [address] [facility] [facility] [place] [address] PCP - General Nurse Practitioner 03/15/24 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 Relationship Specialty Start Date End Date Uyen Martel NP [address] [facility] [place] [address] PCP - General Family Medicine 05/07/24 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 Relationship Specialty Start Date End Date Uyen Martel NP [address] [place] [address] PCP - General Family Medicine 05/07/24 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 Relationship Specialty Start Date End Date Uyen Martel APRN-SNUFF GRINDER [address] [facility] [place] [address] PCP - General Nurse Practitioner 03/15/24 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 Relationship Specialty Start Date End Date Uyen Martel NP [address] [place] [address] PCP - General Family Medicine 05/07/24 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 Relationship Specialty Start Date End Date Uyen Martel NP [address] [place], [place] [id number] PCP - General Family Medicine 05/07/24 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 Relationship Specialty Start Date End Date Uyen Martel NP [address] [place] [address] PCP - General Family Medicine 05/07/24 Goals [...] BE BASED ON THE PRIMARY CLINICAL RECORDS. [employer] provides no warranty or guarantee of the accuracy or completeness of information in this document.
[2024-05-25] MEDS: OXYTOCIN/0.9 % SODIUM CHLORIDE 10 UNITS/500 ML PLAST..BAG 6 UNIT IV (07:32)
[2024-05-25 08:26] LABS: Hematocrit 32.5 % (36.0-48.0); Hemoglobin 10.4 g/dL (12.0-16.0); Mean Corpuscular Hemoglobin 23.5 pg (26.7-34.0); Mean Corpuscular Volume 73.4 fL (81.0-99.0); Mean Platelet Volume 12.4 fL (9.5-13.5); Platelet Count 239 10^3/uL (150-450); Red Blood Count 4.43 10^6/uL (4.20-5.40); Red Cell Distribution Width 14.5 % (11.0-15.0); White Blood Count 9.1 10^3/uL (4.0-11.0)
[2024-05-25 09:54] LABS: Amphetamine Screen Urine NEGATIVE (NEGATIVE); Barbiturates Screen Urine NEGATIVE (NEGATIVE); Benzodiazepines Screen Urine NEGATIVE (NEGATIVE); Buprenorphine Screen Urine NEGATIVE (NEGATIVE); Cannabinoid Screen Urine NEGATIVE (NEGATIVE); Cocaine Screen Urine NEGATIVE (NEGATIVE); Methadone Screen Urine NEGATIVE (NEGATIVE); Methamphetamines Screen Urine NEGATIVE (NEGATIVE); Opiate Screen Urine NEGATIVE (NEGATIVE); Oxycodone Screen Urine NEGATIVE (NEGATIVE); Phencyclidine Screen Urine NEGATIVE (NEGATIVE); Tricyclic Antidepressant Urine NEGATIVE (NEGATIVE)
[2024-05-25] MEDS: ROPIVACAINE HCL/PF 400 MG/200 ML PREMIX 10 MG EPIDURAL (11:25)
[2024-05-25] MEDS: LACTATED RINGER'S SOLUTION 1,000 ML 125 ML IV (11:26)
[2024-05-25] MEDS: EPHEDRINE SULFATE 50 MG/ML VIAL IV ×2 (11:35→11:43)
--- NOTE | 2024-05-25 13:02 | PM.OBHP ---
OB - H&P: HPI History of Present Illness Chief complaint: INDUCTION : 2 Para: 1 Gestational age based on last menstrual period: 39.1 History of Present Dating criteria: LMP confirmed by 1st trimester US care: good care Ultrasounds: normal 1st trimester US and normal mid trimester US Abnormal ultrasound findings: multiple US done per [facility] office Labs Blood type: A (+) positive Rubella: immune RPR/VDLR: nonreactive GBS status: negative HBsAG: negative Review of Systems ROS Status of ROS: 10 or more systems reviewed and unremarkable except as noted in history and below PFSH PFSH Social History Little interest or pleasure in doing things: not at all Feeling down, depressed, or hopeless: not at all Meds Home Medications and Allergies Home Medications ?Medication ?Instructions ?Recorded ?Confirmed ?Type albuterol sulfate 90 mcg/actuation 2 inh inhalation Q4H PRN shortness 01/16/24 05/25/24 Rx aerosol inhaler of breath or wheezing #8.5 grams ondansetron 8 mg disintegrating 8 mg PO Q8H PRN nausea and vomiting 01/16/24 05/25/24 History tablet Allergies Allergy/AdvReac Type Severity Reaction Status Date / Time amoxicillin Allergy Intermediate Hives Verified 01/16/24 15:59 Exam Constitutional Vital Signs, click to edit/add: Last Vital Signs Temp 98.0 F 05/25/24 11:28 Pulse 79 05/25/24 13:01 Resp 18 05/25/24 06:57 BP 128/78 05/25/24 13:01 O2 Del Method Room Air 05/25/24 06:50 Documenting provider has reviewed patient's vital signs: yes Common normals: no apparent distress General appearance: cooperative and comfortable Orientation/consciousness: Yes awake, Yes oriented to person, Yes oriented to place and Yes oriented to time HENMT Common normals: normocephalic Eye Common normals: EOMs intact bilaterally Neck & C-Spine Common normals: full ROM General: normal visual inspection Lymph Lymphatic: no lymphadenopathy noted Chest Common normals: inspection of chest normal Respiratory Common normals: normal respiratory effort Cardio Common normals: regular rate and regular rhythm Rate: regular rate Rhythm: regular rhythm GI Common normals: Normal to inspection, nondistended, normoactive bowel sounds present Common normals: no CVA tenderness Back & Pelvis Common normals: no CVA tenderness Extremity Common normals: normal to inspection Neuro Common normals: oriented x3 Sensorium/orientation: awake, alert, oriented to person, oriented to place and oriented to time Psych Common normals: mental status grossly normal, thought process normal, cooperative, affect normal, speech normal, activity/motor behavior normal, denies hallucinations, denies homicidal ideation and denies suicidal ideation Results Labs Labs: Short CBC 05/25/24 Range/Units 06:35 WBC 9.1 (4.0-11.0) 10^3/uL Hgb 10.4 L (12.0-16.0) g/dL Hct 32.5 L (36.0-48.0) % Plt Count 239 (150-450) 10^3/uL OB - A/P Assessment and Plan (1) Term : Plan term
--- NOTE | 2024-05-25 16:30 | PM.OBPRCVD ---
Procedure Procedure: Intrapartal events: None Induction method: per pitocin protocol Delivery augmentation: rupture of membranes Delivery monitor: external FHT and external uterine Route of delivery: Episiotomy Description: none L&D Laceration Description: none Estimated blood loss (mL): 100 Anesthesia type: Epidural Disposition: no change Delivery date: 05/25/24 Gender: male presentation: vertex Placental delivery description: Spontaneous cord description: 3 Vessels heart rate - 1 minute: 100 bpm or Greater respiratory effort - 1 minute: Spontaneous/Strong Cry muscle tone - 1 minute: Active Movement reflex response - 1 minute: Prompt Response color - 1 minute: Pallor or Cyanosis total score - 1 minute: 8 heart rate - 5 minute: 100 bpm or Greater respiratory effort - 5 minute: Spontaneous/Strong Cry muscle tone - 5 minute: Active Movement reflex response - 5 minute: Prompt Response color - 5 minute: Bluish Hands or Feet total score - 5 minute: 9
[2024-05-25] MEDS: LIDOCAINE VISCOUS 2% 15 ML SOLUTION 5 ML TOPICAL (16:56)
[2024-05-25] MEDS: OXYTOCIN/0.9 % SODIUM CHLORIDE 20 UNITS/1,000 ML PLAST..BAG 125 UNIT IV (16:57)
[2024-05-25] MEDS: IBUPROFEN 400 MG TABLET 800 MG PO (17:44)
[2024-05-26 00:43] VITALS: BP 123/82; PULSE 109; TEMP 35.6
[2024-05-26] MEDS: IBUPROFEN 400 MG TABLET 800 MG PO ×3 (03:56→21:26)
[2024-05-26] MEDS: ACETAMINOPHEN 500 MG TABLET 1000 MG PO ×3 (04:42→21:25)
[2024-05-26 07:59] VITALS: TEMP 36.2
[2024-05-26 08:00] VITALS: BP 122/56; PULSE 81
--- NOTE | 2024-05-26 10:56 | PC.NURSE ---
pt discusses feeding plan for with nurse and is tearful. States she is unsure as to what to do because with her first infant she did not have enough supply and was not in a great or safe relationship so it was easier to make a bottle and know the baby was fed. There was no support for her. With this there are the same concerns of not having a supply for the infant. Nurse talks in depth with pt and explains that it's her decision on how to feed whether, breast, bottle or both and support will be given, we would like to have her in a routine with support that makes her comfortable and achievable at home. Pt states she would like to get to a point where she can exclusively breast pump and feed and use formula only if needed. Plan given to pt to pump every 2 hours for 20 minutes, place infant skin to skin prior to pumping. Infant will be given pumped breast milk first then followed with 15ml formula until mothers supply is enough that formula is no longer needed. Mother less tearful and agrees with plan.
--- NOTE | 2024-05-26 12:56 | PM.OBPN ---
OB - PN: Subj Subjective Patient comments: no complaints and pain well controlled [place] status: doing well Exam Constitutional Vital Signs, click to edit/add: Last Vital Signs Temp 97.2 F L 05/26/24 07:59 Pulse 81 05/26/24 08:00 Resp 16 05/26/24 08:06 BP 122/56 05/26/24 08:00 Pulse Ox 98 05/25/24 17:15 O2 Del Method Room Air 05/26/24 08:06 Documenting provider has reviewed patient's vital signs: yes Common normals: no apparent distress Respiratory Common normals: normal respiratory effort and clear to auscultation bilaterally Cardio Common normals: regular rate and regular rhythm GI Common normals: Normal to inspection, nondistended, normoactive bowel sounds present Extremity Common normals: no clubbing, cyanosis or edema and no calf tenderness OB - PN: A/P Assessment and Plan (1) Term : Plan - Vaginal Delivery day: 1 Plan: routine care Time Spent with Patient Time: Total time spent is greater than 50% in coordination of care (as documented) at patient's floor/unit and/or counseling patient: Total time spent with greater than 50% in coordination of care (as documented) at patient's floor/unit and/or counseling patient: less than 15 minutes
[2024-05-26 16:33] VITALS: TEMP 35.9
[2024-05-26 16:34] VITALS: BP 144/84; PULSE 113
[2024-05-26 18:01] VITALS: BP 128/84; PULSE 99
[2024-05-26] MEDS: DOCUSATE SODIUM 100 MG CAPSULE PO (21:25)
[2024-05-27 00:03] VITALS: BP 132/79; PULSE 97; TEMP 35.6
[2024-05-27 09:26] VITALS: BP 135/82; PULSE 96; TEMP 35.3; TEMP 35.9
[2024-05-27] MEDS: IBUPROFEN 400 MG TABLET 800 MG PO (09:42)
[2024-05-27] MEDS: DOCUSATE SODIUM 100 MG CAPSULE PO (09:43)
--- NOTE | 2024-05-27 10:58 | P.OBPN_ITS ---
OB - PN: Subj Subjective Patient comments: no complaints [place] status: doing well feeding status: other (exclusively pumping ) Exam Constitutional Vital Signs, click to edit/add: Last Vital Signs Temp 95.5 F L 05/27/24 09:26 Pulse 96 H 05/27/24 09:26 Resp 16 05/27/24 09:31 BP 135/82 05/27/24 09:26 Pulse Ox 98 05/25/24 17:15 O2 Del Method Room Air 05/27/24 09:31 Documenting provider has reviewed patient's vital signs: yes Common normals: no apparent distress Exam limitations: altered mental status General appearance: cooperative and comfortable Orientation/consciousness: Yes awake, Yes oriented to person, Yes oriented to place and Yes oriented to time HENMT Common normals: normocephalic Face and sinus: normal facial exam Eye Common normals: EOMs intact bilaterally Neck & C-Spine Common normals: full ROM Chest Common normals: inspection of chest normal Respiratory Common normals: normal respiratory effort Effort & inspection: able to speak in complete sentences Auscultation: clear to auscultation bilaterally Cardio Common normals: regular rate and regular rhythm Rate: regular rate Rhythm: regular rhythm GI Inspection: normal to inspection Auscultation: normoactive bowel sounds Palpation: soft Common normals: no CVA tenderness Back & Pelvis Common normals: no CVA tenderness Extremity Common normals: normal to inspection Neuro Common normals: oriented x3 Sensorium/orientation: awake, alert, oriented to person, oriented to place and oriented to time Gait (neuro): normal gait Psych Common normals: mental status grossly normal, thought process normal and cooperative Attitude: calm Thought content: normal thought content OB - PN: A/P Assessment and Plan (1) Term : Plan - Vaginal Delivery day: 2 Plan: discharge home Time Spent with Patient Time: Total time spent is greater than 50% in coordination of care (as documented) at patient's floor/unit and/or counseling patient: Total time spent with greater than 50% in coordination of care (as documented) at patient's floor/unit and/or counseling patient: less than 15 minutes
== END 2024-05-27 14:30 | disposition home or self-care (01) | DRG 560 ==
PROVIDERS: Admitting Provider Midwife; PCP Nurse Practitioner Family; Visit Provider Midwife
DX: O80 Encounter for full-term uncomplicated delivery (principal); Z3A.39 39 weeks gestation of pregnancy; Z37.0 Single live birth; Z87.891 Personal history of nicotine dependence
CPT/HCPCS: 36415; 51702; 59050; 59410; 80307; 85027; 86850; 86900; 86901; 88307; J2795

== ENCOUNTER 2025-04-05 15:50 | Emergency (ER) | payer OTHER, SELFPAY ==
--- OUTSIDE RECORDS SUMMARY | 2025-04-01 05:00 | XMS_ITS ---
Author Organization [facility] [employer] es Address [address] [place] [address] Care Team Providers Care Rock Mason Name Role Phone Swapna Webb Primary Care Provider SHARONDA DURON REASON FOR VISIT Pt is a 29 year old female here today for a 3 month f/u bh Medications Medication SIG (Take, Route, Frequency, Duration) Notes Start Date End Date Status Amphetamine-Dextroamphet ER 10 MG Capsule Extended Release 24 Hour 1 capsule in the morning Orally daily; Duration: 30 days F90.2 Per OARRS- last fill was 02/1304/01/2025 ActiveAdderall 10 MG Tablet1 tablet in the afternoon Orally daily; Duration: 30 daysF90.2 per OARRS last filled 5Active Encounters Encounter Location Date Provider Diagnosis [facility] [address] [place] [address] 04/01/2025 Swapna Webb Attention deficit hyperactivity disorder (ADHD), combined type F90.2 Assessments Encounter Date Diagnosis (ICD Code) Assessment Notes Treatment Notes Treatment Clinical Notes Section Notes 04/01/2025 Attention deficit hy peractivity disorder (ADHD), combined type (ICD- 10 - F90.2) . FDA approved stimulant medication for this age group. Discussed/Denies adverse effects from medication including HTN, tachycardia, insomnia, irritability, headache, or decreased appetite. . All relevant and serious adverse effects were discussed. Standard precautions and potential benefits were discussed. Patient/Guardian consented to begin medication/ continue treatment plan . Patient continues to meet criteria for attention deficit hyperactivity disorder. Pt does not meet criteria for bipolar disorder, major depressive disorder, or other persistent mood disorders. Will continue to monitor the patient for presentation of new symptoms or behaviors. . Continue current treatment; tolerating meds well, compliant; call for problems; questions answered satisfactorily, agreeable to treatment plan . GOALS: . Maintain medication regimen _Improve social and interpersonal functioning _Improve attention and or hyperactivity follow up 3 months . Crisis Intervention plan was discussed and agreed upon. Patient/Guardian will call 911 in case of emergency. Emergency contact information was provided to the patient/guardian. . OARRS reviewed . Plan Of Treatment Medication Medication Name Sig Start Date Stop Date Notes Amphetamine-Dextroamphet ER 10 MG Capsule Extended Release 24 Hour 1 capsule in the morning Orally daily; Duration: 30 days 04/01/2025 F90.2 Per OARRS- last fill was dderall 10 MG Tablet1 tablet in the afternoon Orally daily; Duration: 30 days04/01/2025F90.2 per OARRS last filled 5Treatment Notes Assessment Notes Attention deficit hyperactiv ity disorder (ADHD), combined type . FDA approved stimulant medication for this age group. Discussed/Denies adverse effects from medication including HTN, tachycardia, insomnia, irritability, headache, or decreased appetite. . All relevant and serious adverse effects were discussed. Standard precautions and potential benefits were discussed. Patient/Guardian consented to begin medication/ continue treatment plan . Patient continues to meet criteria for attention deficit hyperactivity disorder. Pt does not meet criteria for bipolar disorder, major depressive disorder, or other persistent mood disorders. Will continue to monitor the patient for presentation of new symptoms or behaviors. . Continue current treatment; tolerating meds well, compliant; call for problems; questions answered satisfactorily, agreeable to treatment plan . GOALS: . Maintain medication regimen _Improve social and interpersonal functioning _Improve attention and or hyperactivity follow up 3 months . Crisis Intervention plan was discussed and agreed upon. Patient/Guardian will call 911 in case of emergency. Emergency contact information was provided to the patient/guardian. . OARRS reviewed . Next Appt Details Follow Up: 3 Months, Reason: Provider Name:Swapna begum, 06/18/2025 10:00:00 AM, [address] [place], [address], History and Physical Notes * HPI (History of Present Illness) CategorySub-CategoryDetailNotesCategory NotesVirtual/Telephonic VisitsVisit ReviewMode of Communication: Doximity? Audio and Video Used?: YesTime Spent salesperson books with Patient / Guardian: 11-20 minutesDocumentation of Patient's / Guardian's verbal consent: Yes - Verbally consented to visitLocation of Patient(s) and Provider:Pt at home per report, WHOLESALER in office.Attendees:Parent and WHOLESALER Examination CategorySub-CategoryDetailNotesCategory NotesGeneral Examination . MENTAL STATUS EXAM: . Appearance: Appropriately dressed and groomed, good eye contact, cooperative, pleasant Behavior/Motor Activity: Normal Gait/Station: Within normal limits BH Speech: Normal Mood: Good Affect: Full Thought processes/Associations: Logical and goal directed Thought Content: Non-psychotic Cognition/Attention/Memory/Concentration: Alert and oriented x 4; grossly intact attention; memory-recent/remote judged adequate by interviewer Insight: Good Judgement: Good language: Within normal limits Fund of Knowledge: Adequate . Progress Notes * SHEN SALESDOB:[birth year] (29 yo F)Acc No.[id number]:04/01/2025 Behavioral Health Patient: SHEN VERGARA :Jana WebbDOB:1995???Age:29 Y???Sex: FemaleDate:04/01/2025Phone:[phone]:[address] [place], [place] [id number] Subjective: * Chief Complaints: * P t is a 29 year old female here today for a 3 month f/u bh * HPI: ???Constitutional:? Pt is being seen today for follow up via virtual visit. Pt is taking medications daily and tolerating meds well. . 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 . Pt denies mood fluctuation. Energy and motivation are stable. Depressive symptoms are not persistent. Denies episodes of having sadness, anhedonia, isolating behaviors, or crying spells. Anxiety controlled. Concentration intact without distractibility. . Sleeping through the night and feels rested upon waking up. Denies Nightmares. Appetite is good. . Denies Euphoria. Pervasive irritability is controlled today. Meaningful relationships intact. Denies increased goal-oriented behavior or increase in purposeless activity. Attending school as scheduled and she is currently on break.? . Denies suicidal or homicidal ideation or plan. No morbid thoughts. Interpersonal issues discussed. Support provided. Insight oriented/ Behavior modifying/ Supportive therapy . ???Virtual/Telephonic Visits:?start time 1014? ? end time 1030. ?Visit Review?Mode of Communication?Doximity ?Audio and Video Used??Yes ?Time Spent salesperson books with Patient / Guardian 11-20 minutes ?Documentation of Patient's / Guardian's verbal consent?Yes - Verbally consented to visit ?Location of Patient(s) and Provider?Pt at home per report, WHOLESALER in office. ?Attendees?Parent and WHOLESALER * ROS: ???CONSTITUTIONAL: No fever, chills, sweats, weakness SKIN: No jaundice, rash, lesions, petechiae GASTROINTESTINAL: No nausea, vomiting, diarrhea, or GI bleeding MUSCULOSKELETAL: No muscle pain or weakness NEUROLOGIC: No headache, dizziness, numbness, or weakness . * Medications: T akingAmphetamine-Dextroamphet ER 10 MG Capsule Extended Release 24 Hour 1 capsule in the morning Orally daily , Notes to Pharmacist: F90.2 Per OARRS- last fill was 10/2Adderall 10 MG Tablet 1 tablet in the afternoon Orally daily , Notes to Pharmacist: F90.2 per OARRS last filled 10/2Taking Amphetamine-Dextroamphet ER 10 MG Capsule Extended Release 24 Hour 1 capsule in the morning Orally daily , Notes to Pharmacist: F90.2 Per OARRS- last fill was 10/2Taking Adderall 10 MG Tablet 1 tablet in the afternoon Orally daily , Notes to Pharmacist: F90.2 per OARRS last filled 102 Objective: * Examination: ???General Examination: ???. MENTAL STATUS EXAM: . Appearance: Appropriately dressed and groomed, good eye contact, cooperative, pleasant Behavior/Motor Activity: Normal Gait/Station: Within normal limits BH Speech: Normal Mood: Good Affect: Full Thought processes/Associations: Logical and goal directed Thought Content: Non-psychotic Cognition/Attention/Memory/Concentration: Alert and oriented x 4; grossly intact attention; memory-recent/remote judged adequate by interviewer Insight: Good Judgement: Good BH language: Within normal limits Fund of Knowledge: Adequate . . Assessment: * Assessment: 1.?Attention deficit hyperactivity disorder (ADHD), combined type - F90.2 (Primary)??? Plan: * Treatment: Refill Amphetamine-Dextroamphet ER Capsule Extended Release 24 Hour, 10 MG, 1 capsule in the morning, Orally, daily, 30 days, 30 Capsule, Refills 0, Notes to Pharmacist: F90.2 Per OARRS- last fill was 02/13;?Refill Adderall Tablet, 10 MG, 1 tablet in the afternoon, Orally, daily, 30 days, 30 Tablet, Refills 0, Notes to Pharmacist: F90.2 per OARRS last filled 02/13.?? Notes: . FDA approved stimulant medication for this age group. Discussed/Denies adverse effects from medication including HTN, tachycardia, insomnia, irritability, headache, or decreased appetite. . All relevant and serious adverse effects were discussed. Standard precautions and potential benefits were discussed. Patient/Guardian consented to begin medication/ continue treatment plan . Patient continues to meet criteria for attention deficit hyperactivity disorder. Pt does not meet criteria for bipolar disorder, major depressive disorder, or other persistent mood disorders. Will continue to monitor the patient for presentation of new symptoms or behaviors. . Continue current treatment; tolerating meds well, compliant; call for problems; questions answered satisfactorily, agreeable to treatment plan . GOALS: . Maintain medication regimen _Improve social and interpersonal functioning _Improve attention and or hyperactivity follow up 3 months . Crisis Intervention plan was discussed and agreed upon. Patient/Guardian will call 911 in case of emergency. Emergency contact information was provided to the patient/guardian. . OARRS reviewed .?? * Procedure Codes: 9 8004 SYNCH AUDIO-VIDEO EST SF 10 * Follow Up: 3 Months Billing Information: * Procedure Codes: 35689 SYNCH AUDIO-VIDEO EST SF 10. * Sign off status: Completed true * Provider: Breanna Webb Date: 06/02/2024 Generated for Printing/Faxing/eTransmitting on:?04/05/2025 04:21 PM EST
[2025-04-05 15:55] VITALS: BP 145/106; PULSE 118; TEMP 36.6; O2SAT 98; BMI 32.6
--- OUTSIDE RECORDS SUMMARY | 2025-04-05 16:21 | XMS_ITS | Clinical Summary ---
Author Organization [facility] Address [address], [address] [place] [address] Care Team Providers Care Floor Specialist Name Role Phone Aranza Villalpando MD Primary Care Provider [phone] Allergies Active AllergyReactionsCriticalityNoted OczaXlotgfciCekoyxylxqcGhffn55/03/2013 Tolerates ceftriaxone Environmental/Amqtkmua36/31/2013 Medications MedicationSigDispense QuantityRefillsLast FilledStart DateEnd DateStatus albuterol (PROVENTIL HFA;VENTOLIN HFA) 108 (90 BASE) MCG/ACT inhaler Indications:AsthmaInhale 2 puffs into the lungs as needed. Indications: Asthma Active Pediatric Multiple Vit-C-FA (CHILDRENS CHEWABLE VITAMINS PO) Take by mouth Two dailyActive ibuprofen (ADVIL;MOTRIN) 800 MG tablet Take 1 tablet by mouth every 6 hours as needed for Pain 120 tablet Active docusate sodium (COLACE, DULCOLAX) 100 MG CAPS Take 100 mg by mouth 2 times daily 30 capsule 06/04/2018Active Active Problems ProblemNoted DateDiagnosed DateGestational HTN06/04/20183406Vcilija80/24/2019 Encounter for induction of labor06/02/2018Rh+/RI/EYLifm5806/02/2018Elev 1-hr GTT (no 3-hr GTT)03/23/2018 Overview (05/22/2018): 1 hr 166 2 weeks fasting and 2 hour postprandial bsg WNL (declined 3 hour GCT) Asthma affecting in third gnyvtqnfo51/03/2018Hx of E. coli UTI 02/08/2018 Overview (02/08/2018): - Reports no congenital abnormality or genitourinary isses previously besides recurrent UTIs - Hx of E coli UTI in 1st trimester (UCx positive 11/01/17 with negative UCx 11/28/2017) Rubella non-immune status, nyvhxvxrkv66/19/2018 Overview (12/28/2017): Equivocal: Offer PP Irritable bowel syndrome with ukilvljatpmc32/23/2018Pyelonephritis affecting in second trimester Overview (02/11/2018): SUPPRESSIVE THERAPY: Keflex 500 mg BID for duration of and 6 wk PP BandemiaSVD 06/03/18 F APG 8/9 Wt 7#0 Resolved Problems ProblemNoted DateDiagnosed DateResolved DateUterine size-date discrepancy in third tigufthga52Suspected problem with growth not found High risk , grcbdohgch63Vaginal discharge during , third gdrkamcsu60Suspected placental problem not foundInfection Qajzvvzfuboiqw06Pyelonephritis, acute Rh+/RE/GBS SENAYGKU4024 weeks gestation of cvvujdwyw61/31/2018 02/14/2018Recurrent UTI Overview (02/07/2018): patientwill need suppressive therapy Placenta previa without hemorrhage: RESOLVED (03/14) Overview (01/19/2018): F/U US at 28 weeks Asthma affecting in second psbknozwk00Normal , hryjoonswv37 Overview (05/15/2018): NT screening done Wants to avoid epidural if possible, nitrous oxide consent form signed, residents OK, vitamin K, eye cream Assessment & Plan (11/28/2017 4:23 PM EDT): Needs sAFP between 16-20 weeks Urinary tract infection in mother during first trimester of vapclunkd41/25/2018 06/04/2018 Overview (11/30/2017): 11/02/17 Will need BLANK: (11/28) Negative Mild intermittent asthma without higcooshunje27Encounter for supervision of normal first in first dktifjvvp91 Overview (10/31/2017): Desires genetic screening MFM referral given 10/31/17 declined pap will need PP Missed ueyxai90Chronic generalized abdominal pain10/11/2012 10/31/2017 Immunizations ImmunizationAdministration DatesNext DueMMR, PRIORIX, M-M-R II, (age 12m+), SC, 0.5mL06/05/2018TDaP, ADACEL (age 10y-64y), BOOSTRIX (age 10y+), IM, 0.5mL 06/05/2018,07/29/2017 Family History Medical HistoryRelationNameCommentsAsthmaMaternal GrandmotherHeart Disease Maternal GrandmotherHigh Blood PressureMaternal GrandmotherHigh Blood Pressure MotherBOBBIEMental IllnessMotherBOBBIEbi polarRelationNameStatusCommentsMaternal GrandfatherDeceasedMaternal GrandmotherAliveMotherBOBBIEAlive Social History Tobacco UseTypesPacks/DayYears UsedDateSmoking Tobacco: NeverSmokeless Tobacco: NeverAlcohol UseStandard Drinks/WeekCommentsNo0 (1 standard drink = 0.6 oz pure alcohol)sociallyPHQ-2AnswerDate RecordedPHQ-2 Qxelb509CommentsNo Sex and Gender InformationValueDate RecordedSex Assigned at BirthNot on file Legal LyfKltxce65/09/2013 9:54 PM ESTGender IdentityNot on fileSexual OrientationNot on file Last Filed Vital Signs Vital SignReadingTime TakenCommentsBlood Ukityedr175/7406/19/2018 11:09 AM EDT Zblim044606/05/2018 9:29 AM PLGZvaxnruiiiu26.4 ??C (97.5 ??F)06/05/2018 9:29 AM ESTRespiratory Nzvr533206/05/2018 9:29 AM ESTOxygen Dyypvaridn58%02/25/2018 1:20 PM ESTInhaled Oxygen Concentration--Ejukca56.9 kg (174 lb)06/19/2018 11:09 AM RAABizlyd440.6 cm (5' 4 )06/19/2018 11:09 AM EDTBody Mass Index29.8706/19/2018 11:09 AM EDT Plan of Treatment Not on file Insurance * Guarantor: Corinna GRIGGS TypeRelation to PatientDate of BirthPhone Billing AddressPersonal/FamilyMother [address] [place] [phone] Advance Directives * Full Code (Latest Code Status on File) Date ActivatedDate InactivatedComments06/03/2018 8:49 AM06/05/2018 3:08 PM * Full Code Date ActivatedDate InactivatedComments06/02/2018 9:59 AM2 8:19 AM * Full Code Date ActivatedDate YmrfupkvaguUvoeruhg62/20/2018 2:03 PM03/30/2018 2:37 PM * Full Code Date ActivatedDate IuwrgaiqpqfIukynxjl89/20/2018 12:37 PM03/30/2018 2:03 PM * Full Code Date ActivatedDate BpatkczuhmiSqxpwppv58/30/2018 1:39 PM02/11/2018 6:59 PM Care Teams Team MemberRelationshipSpecialtyStart DateEnd Date Aranza Villalpando MD [address] [facility], [address] [phone] PCP - Generalmily Medicine08/08/17
--- OUTSIDE RECORDS SUMMARY | 2025-04-05 16:21 | XMS_ITS | Patient Health Record ---
Author Organization [facility] es Address [address] [place] [address] Care Team Providers Care Ear Nose Throat Physician Name Role Phone Swapna Webb Primary Care Provider SHARONDA DURON Unavailable Allergies Allergen (clinical drug ingredient) Drug/Non Drug Allergy documented on EMR Reaction Allergy Type Onset Date Status Information temporarily unavailable Amoxicillin Unknown Drug Allergy Active Reason For Referral Reason 09/13 attempt, LVMSG R equesting return call. Referral from PCP for treatment of ADHD. Diagnosis 1 Encounter for screen ing examination for mental health and behavioral disorders (Z13.30) Referral Organization [facility] Referring Provider First Name SHARONDA Referring Provider Last Name OLIVERIO Referring Provider Speciality Family Med icine Referred Organization [facility] Referred Address [address] [place],[address], Referred Provider Specialty Medicatio ns Referral Priority Routine Medications Medication SIG (Take, Route, Frequency, Duration) Notes Start Date End Date Status Amphetamine-Dextroamphet ER 10 MG Capsule Extended Release 24 Hour 1 capsule in the morning Orally daily; Duration: 30 days F90.2 Per OARRS- last fill was 02/1304/01/2025 ActiveAdderall 10 MG Tablet1 tablet in the afternoon Orally daily; Duration: 30 daysF90.2 per OARRS last filled 5Active Social History Tobacco Use: Social History Observation Description Date Details (start date - stop date) Never Smoker NA - NA Social History Drug/Alcohol:Social InfoQuestionAnswerNotesAUDIT-C (Standard)Did you have a drink containing alcohol in the past year?KkIrbprz8TdpjjwqsigokmjItazrhndPnbpblv Use:Social InfoQuestionAnswerNotesTobacco Control (Standard)Tobacco use: Nonsmoker Problems Problem Type SNOMED Code ICD Code Onset Dates Problem Status W/U Status Risk Notes Problem Information temporarily unavaila ble Attention deficit hyperactivity disorder (ADHD), combined type (F90.2) Activeconfirmed Vital Signs Heart Rate 73 /min 12/31/2024 Jroxxlkd65 %12/31/2024lood pressure ncvfdluep43 mm Hg12/31/20243698Zahzbw00 in 12/31/2024lood pressure brzglqeh472 mm Hg12/31/20248226Nhgnba229.0 lbs12/31/2024MI 33.3 kg/m212/31/2024 Encounters Encounter Location Date Provider Diagnosis [facility] [address] [place] [address] 12/11/2024 Swapna Webb Attention deficit hyperactivity disorder (ADHD), combined type F90.2 [facility] [address] [place] [address] 02/12/2025 Swapna Webb Attention deficit hyperactivity disorder (ADHD), combined type F90.2 [facility] [address] [place] [address] 10/09/2024 Swapna Webb Attention deficit hyperactivity disorder (ADHD), combined type F90.2 [facility] [address] [place] [address] 11/07/2024 Swapna Webb Attention deficit hyperactivity disorder (ADHD), combined type F90.2 [facility] [address] [place] [address] 12/31/2024 Swapna Webb Attention deficit hyperactivity disorder (ADHD), combined type F90.2 [facility] [address] [place] [address] 04/01/2025 Swapna Webb Attention deficit hyperactivity disorder (ADHD), combined type F90.2 Assessments Encounter Date Diagnosis (ICD Code) Assessment Notes Treatment Notes Treatment Clinical Notes Section Notes 10/09/2024 Attention deficit hy peractivity disorder (ADHD), combined [...] interpersonal functioning _Improve attention and or hyperactivity . follow up 1 month. Crisis Intervention plan was discussed and agreed upon. Patient/Guardian will call 911 in case of emergency. Emergency contact information was provided to the patient/guardian. . OARRS reviewed . 11/07/2024ttention deficit hyperactivity disorder (ADHD), combined type (ICD-10 - F90.2) . FDA approved stimulant medication [...] interpersonal functioning _Improve attention and or hyperactivity . follow up 2 months . Crisis Intervention plan was discussed and agreed upon. Patient/Guardian will call 911 in case of emergency. Emergency contact information was provided to the patient/guardian. . OARRS reviewed . 5Attention deficit hyperactivity disorder (ADHD), combined type (ICD-10 - F90.2)5Attention deficit hyperactivity disorder (ADHD), combined type (ICD-10 - F90.2) . FDA approved stimulant medication [...] interpersonal functioning _Improve attention and or hyperactivity . follow up 3 months . Crisis Intervention plan was discussed and agreed upon. Patient/Guardian will call 911 in case of emergency. Emergency contact information was provided to the patient/guardian. . OARRS reviewed . 02/12/2025ttention deficit hyperactivity disorder (ADHD), combined type (ICD-10 - F90.2)04/01/2025ttention deficit hyperactivity disorder (ADHD), combined type (ICD-10 - F90.2) . FDA approved stimulant medication [...] . OARRS reviewed . Plan Of Treatment Next Appt Details Provider Name:Swapna begum, 06/18/2025 10:00:00 AM, [address] [place] [address], [phone], Insurance Providers Payer Name Payer Address Payer Phone Subscriber Number Group Number Insured Name Patient Relationship to Insured Coverage Start Date Coverage End Date [employer] [place] [employer] [address] [facility] [place] [phone] [id number] Jessica SALESf - patient is the [id number] [address] [facility] [address] [place] [id number], MICHAELA Self - patient is the [id number] 2024 Medical (General) History Medical History History ICD Code ADHD AsthmaIBSHospitalization History Reason Date(Month/Year) Pneumonia age 7 Childbirth
--- OUTSIDE RECORDS SUMMARY | 2025-04-05 16:21 | XMS_ITS | Clinical Summary ---
Author Organization [facility] Address [address] [place] [address] Care Team Providers Care Director Of Financial Planning Name Role Phone Uyen Martel NP Primary Care Provider Allergies Active AllergyReactionsCriticalityNoted DateCommentsAmoxicillinHikatieRashLow 10/11/2012 Tolerates ceftriaxone Usqhxxgrzpd91/31/2013Penicillin KKgdtKdq81/14/2025 Medications MedicationSigDispense QuantityRefillsLast FilledStart DateEnd DateStatus MV & Min w/FA-DHA ( Adult Gummy/DHA/FA) 0.4-25 MG chewable tablet ChewActive ondansetron ODT (Zofran-ODT) 8 MG disintegrating tablet Indications:Nausea/vomiting in ([facility])Take 1 tablet (8 mg) by mouth every 8 (eight) hours if needed for nausea or vomiting 20 tablet 4Active Family History Medical HistoryRelationNameCommentsBipolar disorderMotherHypertensionMother RelationNameStatusCommentsFatherDeceasedMotherAlive Social History Tobacco UseTypesPacks/DayYears UsedDateSmoking Tobacco: NeverSmokeless Tobacco: Never Tobacco Cessation:Counseling Given: Not Answered Alcohol UseStandard Drinks/WeekCommentsNot Currently0 (1 standard drink = 0.6 oz pure alcohol)CommentsNoSex and Gender InformationValueDate RecordedSex Assigned at BirthNot on fileLegal ViiHghhlv68/15/2023 7:25 PM EDTGender Identity Not on fileSexual OrientationNot on file Last Filed Vital Signs Vital SignReadingTime TakenCommentsBlood Bsgghrcg447/72007/23/2024 8:47 AM EDT Pulse--Temperature--Respiratory Rate--Oxygen Saturation--Inhaled Oxygen Concentration--Osrvdj09.9 kg (196 lb)07/23/2024 8:47 AM EDTHeight--Body Mass Index-- Plan of Treatment Health MaintenanceDue DateLast DoneCommentsPneumococcal Vaccine: Pediatrics (0 to 5 Years) and At-Risk Patients (6 to 64 Years) (1 of 2 - PCV)06/14/2015 Influenza Vaccine (#1)2024 Insurance Care Teams Team MemberRelationshipSpecialtyStart DateEnd Date Uyen Martel NP [facility] [place] [address] PCP - GeneralFamily Medicine05/07/24
--- OUTSIDE RECORDS SUMMARY | 2025-04-05 16:21 | XMS_ITS | Clinical Summary ---
Author Organization [employer] s tem Address [id number] [address] [place] [address] Care Team Providers Care Business Banking Officer Name Role Phone Uyen Martel APRN-ZEINA Primary Care Provid er Allergies Active AllergyReactionsCriticalityNoted SdwnJkstsgswUzybykmupgb46/20/2018 Medications MedicationSigDispense QuantityRefillsLast FilledStart DateEnd DateStatus [id number] acid ( 19) 29 mg iron- 1 mg tablet,chewable Chew 1 tablet and swallow in the morning.Active Active Problems ProblemNoted DateDiagnosed DateMega cisterna magna104/24/2023 Immunizations ImmunizationAdministration DatesNext RepGfoe3807/29/2017 Family History Medical HistoryRelationNameCommentsSudden deathMaternal GrandfatherBrain aneurysm, 43yoHeart attackMaternal Grandmotherin 50sBipolar disorderMother HypertensionMotherArrhythmiaNeg HxAsthmaNeg HxClotting disorderNeg HxDiabetesNeg HxHeart defectNeg HxHigh CholesterolNeg HxSeizuresNeg HxStrokeNeg HxThyroid IssuesNeg HxRelationNameStatusCommentsMaternal GrandfatherMaternal Grandmother Mother Social History Tobacco UseTypesPacks/DayYears UsedDateSmoking Tobacco: FormerCigarettes Smokeless Tobacco: Never Tobacco Cessation:Counseling Given: No Alcohol UseStandard Drinks/WeekCommentsNot Currently0 (1 standard drink = 0.6 oz pure alcohol)PHQ-2AnswerDate RecordedTotal Jmixc4825ChildcareAnswerDate ZgkcfjpiOhmgkzvsgTnqtwtl13/12/2019EmploymentAnswerDate RecordedEmploymentUnknown 09/20/2018Hunger ScreeningAnswerDate RecordedWithin the past 12 months we worried whether our food would run out before we got money to buy more.Never True05/30/2024Within the past 12 months the food we bought just didn't last and we didn't have money to get more.Never True05/30/2024Purpose - LifeAnswerDate RecordedPurpose and direction in kehcIxfgrvy46/11/2021CommentsNoSex and Gender InformationValueDate RecordedSex Assigned at BirthNot on fileLegal Sex Zloudn5412/11/2014 12:18 AM EDTGender IdentityNot on fileSexual OrientationNot on file Last Filed Vital Signs Vital SignReadingTime TakenCommentsBlood Rplnxmuh377/80004/26/2024 2:25 PM EST Mlvgd801104/26/2024 2:25 PM MDUUxavipoommv12.3 ??C (97.4 ??F)04/26/2024 10:58 AM ESTRespiratory Lhkd823404/26/2024 10:58 AM ESTOxygen Uqfoxptypy84%04/26/2024 9:11 AM ESTInhaled Oxygen Concentration--Txymvb38.1 kg (196 lb 6.4 oz)04/26/2024 2:25 PM PRYZrnwah390.6 cm (5' 4.02 )04/26/2024 2:25 PM ESTBody Mass Index33.7 04/26/2024 2:25 PM EST Plan of Treatment Health MaintenanceDue DateLast DoneCommentsAdult BMI Follow Up Plan2014Pap Smear2017Influenza Kpkyelv3612/10/2024dult BMI Uhhwuymqb52/16/2026 04/26/2024Depression Ffyigjmnz65/19/46830105/30/2024Tobacco Pltgogwrh09/19/2026 05/30/2024DTaP,Tdap and Td Vaccines (9 - Td or Tdap), 07/29/2017, 12/03/2014, Additional history exists Medical Devices Not on file Insurance Care Teams Team MemberRelationshipSpecialtyStart DateEnd Date Uyen Martel APRN-NP [address] [place] [address] PCP - GeneralNurse Uwomwqarxpwo85/5/24
[2025-04-05 16:23] LABS: SARS-CoV-2 Ag NEGATIVE (NEGATIVE)
--- NOTE | 2025-04-05 16:30 | XR_ITS ---
The [address] [address] Patient Name: SHEN SALES MRN: [id number] date: 1995 Sex: F Assigned Patient Location: ER Current Patient Location: ER Accession/Order Number: [id number] Exam Date: 04/05/2025 16:38 Report Date: 04/05/2025 20:37 At the request of: JARRETT CORREA Procedure: XR chest 1V Plain film chest Single view HISTORY: Cough and fever for 4 days COMPARISON: None FINDINGS: SUPPORT DEVICES: None POSTSURGICAL CHANGES: None HEART: Within normal limits PULMONARY WILY: Within normal limits MEDIASTINUM: Unremarkable LUNGS AND PLEURA: No acute lung process, pleural effusion or pneumothorax identified. BONY STRUCTURES: Intact ADDITIONAL FINDINGS None XR/XR chest 1V IMPRESSION: No acute process. Impression dictated by: Rodney Valdez M.D. 04/05/2025 8:37 PM Dictation Location: [place] [address] Electronically authenticated by: [id number] Y Date: 04/05/2025 20:37
[2025-04-05 16:40] VITALS: BP 130/90; PULSE 114; O2SAT 99
--- NOTE | 2025-04-05 17:18 | ED.GENADUL1 ---
HPI HPI - General Adult General Chief complaint: Upper Respiratory Infection Stated complaint: FEVER, CONGESTION Time Seen by Provider: 04/05/25 15:52 Source: patient Mode of arrival: walk-in History of Present Illness HPI narrative: Patient is a 29-year-old female that presents to the emergency department with complaints of 4 days of cough, fever, shortness of breath, nausea, diarrhea, and muscle aches. Her last fever was yesterday Tmax 102. Related Data Home Medications ?Medication ?Instructions ?Recorded ?Confirmed dextroamphetamine-amphetamine 10 10 mg PO DAILY 04/05/25 04/05/25 mg tablet dextroamphetamine-amphetamine ER 10 mg PO DAILY 04/05/25 04/05/25 10 mg 24hr capsule,extend release Allergies Allergy/AdvReac Type Severity Reaction Status Date / Time amoxicillin Allergy Intermediate Hives Verified 01/16/24 15:59 Opioid HPI Opioid Management Most Recent Opioid Data: Last Pain Scale 3 05/27/24, 09:42 Ur Phencyclidine Scrn, (NEGATIVE) Negative 05/25/24, 06:25 Review of Systems ROS Status of ROS 10 or more systems reviewed and unremarkable except as noted in history and below PFSH PFSH Social History Little interest or pleasure in doing things: not at all Feeling down, depressed, or hopeless: not at all Exam Narrative Exam Narrative: General: No distress, age-appropriate Skin: Warm, dry, no pallor. No rash. Head: Normocephalic, atraumatic. Neck: Supple, non-tender. Eye: Pupils are equal, round and EOMI. No scleral icterus. Ears, Nose, Mouth, and Throat: TMs clear bilaterally, no nasal mucosal hypertrophy. Oral mucosa is moist, no posterior oropharynx erythema, uvula is mid-line Cardiovascular: Regular Rate and Rhythm without murmur, gallop or rub. Respiratory: No accessory muscle use or respiratory distress. Lungs are clear to auscultation, no wheezing, rales or rhonchi Chest Wall: no tenderness Musculoskeletal: Full ROM of all extremities, no calf or popliteal tenderness GI: Abdomen is soft, non-distended, non tender to palpation. No masses appreciated. No rebound, guarding, or rigidity noted. Neurological: A&O x4. No cranial nerve dysfunction observed. No truncal ataxia. Moves all extremities. Sensation intact. Psychiatric: Cooperative and interactive. Normal mood and affect. Constitutional Vital Signs, click to edit/add: Last Vital Signs Temp 97.8 F 04/05/25 15:55 Pulse 100 H 04/05/25 17:24 Resp 20 04/05/25 17:24 BP 135/92 H 04/05/25 17:24 Pulse Ox 99 04/05/25 17:24 O2 Del Method Room Air 04/05/25 17:24 Documenting provider has reviewed patient's vital signs: yes Course Vital Signs Vital signs: Vital Signs Temperature 97.8 F 04/05/25 15:55 Pulse Rate 118 H 04/05/25 15:55 Respiratory Rate 16 04/05/25 15:55 Blood Pressure 145/106 H 04/05/25 15:55 Pulse Oximetry 98 04/05/25 15:55 Oxygen Delivery Method Room Air 04/05/25 15:55 Temperature 97.8 F 04/05/25 15:55 Pulse Rate 100 H 04/05/25 17:24 Respiratory Rate 20 04/05/25 17:24 Blood Pressure 135/92 H 04/05/25 17:24 Pulse Oximetry 99 04/05/25 17:24 Oxygen Delivery Method Room Air 04/05/25 17:24 Medical Decision Making MDM Narrative Medical decision making narrative: The patient is a 29-year-old female presenting with a 4-day history of cough, fever, shortness of breath, nausea, diarrhea, and muscle aches. Her last recorded fever was 24 hours ago, with a Tmax of 102?F. On arrival she is in no respiratory distress, speaking in full clear sentences. Vitals stable and afebrile. She tested positive for Influenza A. Chest Xray negative for acute process. The decision was made to manage her symptoms with supportive care, including hydration, fever control, and rest. The patient was advised to follow up if symptoms worsen, particularly if her respiratory status deteriorates or if she develops new symptoms suggestive of a secondary bacterial infection. Patient was discharged in stable condition with plan for PCP followup. Differential Diagnosis Differential Diagnosis: Viral syndrome, influenza A/B, COVID-19, PNA Lab Data Lab results reviewed: Yes I reviewed the patient's lab results Labs: Lab Results 04/05/25 Range/Units 16:05 Influenza Type A Ag Positive A Influenza Type B Ag Negative SARS-CoV-2 Ag (CV2AG) Negative (NEGATIVE) Imaging Data Chest x-ray: Attestation: I personally reviewed and interpreted this imaging study as follows: My impression: 1 view AP chest x-ray reviewed and interpreted by myself as negative for opacities, consolidation, effusion, or pneumothorax. No acute cardiopulmonary abnormality noted. Radiologist's impression: ITS Impressions Chest X-Ray 04/05/25 16:30 IMPRESSION: No acute process. Impression dictated by: Rodney Valdez M.D. 04/05/2025 8:37 PM Dictation Location: [facility] Electronically authenticated by: [id number] Y Date: 04/05/2025 20:37 Discharge Plan Discharge Chief Complaint: Upper Respiratory Infection Clinical Impression: Influenza A Patient Disposition: Home, Self-Care Time of Disposition Decision: 17:06 Condition: Good Mode of Transportation: Private Vehicle Prescriptions / Home Meds: No Action dextroamphetamine-amphetamine 10 mg tablet 10 mg PO DAILY dextroamphetamine-amphetamine 10 mg capsule,extended release 24hr 10 mg PO DAILY Print Language: Tuvaluan Instructions: Influenza (ED) Referrals: SHARONDA DURON [Primary Care Provider, Unknown] - 1 week Discharge Date/Time: 04/05/25 17:24
[2025-04-05 17:24] VITALS: BP 135/92; PULSE 100; O2SAT 99
--- OUTSIDE RECORDS SUMMARY | 2025-04-05 17:54 | XMS_ITS | CCD ---
Author Organization [facility] CliniSyar Care Team Providers Care Door Repairman Name Role Phone DAVID, LEAH B Unavailable Unavailable LUKE, CRYSTAL J Unavailable Unavailable DAVID, LEAH B Unavailable Unavailable LUKE, CRYSTAL J Unavailable Unavailable EAGLE, JONALEA W Unavailable Unavailable LUKE, CRYSTAL J Unavailable Unavailable [...] Primary Care Unavailable AWA, MICHAEL Admitting Unavailable AAW, MICHAEL Attending Unavailable AWA, MICHAEL Referring Unavailable [...] Martel Unavailable UYEN MARTEL Primary Care Physician [phone] Dorian HART Attending Unavailable MARLEE Martel Primary Care Provider MARLEE Martel Attending Provider Unavailable Primary Care Provider Unavailabl e Tahmina WHALEN-Uyen PASTRANA Primary Care Provid er Uyen Martel NP Primary Care Provider FLORO, TOMER Referring Unavailable ROHRBACHER, UYEN Primary Care Unavailable No Pcp, No Pcp Primary Care Provider Unavailabl e Dannielle DO, Delon Attending Provider [phone] JUAN GILLESPIE Attending Unavailable RUSSEL JAMES Referring Unavailable ROHRBACHER, UYEN Primary Care Unavailable Dannielle, Delon Attending Unavailable Dannielle, Delon Admitting Unavailable Rohrbacher, Uyen Attending Unavailable Rohrbacher, Uyen Primary Care Unavailable Rohrbacher, Uyen Admitting Unavailable Rohrbacher GEAR REPAIRER, Uyen Denny Primary Care Provider FLORO, TOMER L Attending [...] Attending Unavailable FLORO, TOMER L Attending Unavailable DANNIELLE, DELON Attending Unavailable DANNIELLE, DELON Attending Unavailable Allergies Allergy ClassificationReported Allergen(s)Allergy TypeDate of OnsetReaction(s) FacilityPenicillins (antibiotic) (1 source)AmoxicillinDrug Kkoykfj13-89-0907PqnKettering Health [facility] (20 sources)Amoxicillin; Translations: [AMOXICILLIN]Drug Vbfinae69-06-0308jaktWright Memorial Hospital (2 sources)Penicillin; Translations: [penicillin]Drug AllergyEruption of skin (disorder)General Surgery [place] (1 source)AmoxicillinDrug Afgixga86-14-7032MlaxaeapiSelect [facility] Repository (4 sources)Penicillin GDrug Bdsxpei18-55-7143EiaoHAXG Healthcare (4 sources)OctacosanolPropensity to adverse kvndryiia67-45-6198DVHQ Healthcare Medications Current Medications MedicationDrug Class(es)DatesSig (Normalized)Sig (Original)amphetamine aspartate 1.25 mg / amphetamine sulfate 1.25 mg / dextroamphetamine saccharate 1.25 mg / dextroamphetamine sulfate 1.25 mg oral tablet (20 sources)Central Nervous System StimulantStart: 62-16-0788Djdzzusambixbghbd- Amphetamine (Adderall) 5 mg tablet Active 5 MG PO Twice daily 60 September 11, 2024 administer doses at least 4-6 hours apartStart: 05-31-2024 End: 22-75-9666Ukrypfkjpjurzlokg-Amphetamine (Adderall) 5 mg tablet Discontinued 5 MG PO Twice daily 60 August 07, 2024 September 11, 2024 9:18am administer doses at least 4-6 hours apartStart: 07-14-2023 End: 35-10-7904nxmr 1 tablet by mouth twice dailyDextroamphetamine-Amphetamine (Adderall) 5 mg tablet Discontinued 5 MG PO Twice daily 60 August 15, 2023 September 15, 2023 1:14pmStart: 06-16-2023 End: 19-04-0176bbks 1 tablet by mouth once dailyDextroamphetamine-Amphetamine (Adderall) 5 mg tablet Discontinued 5 MG PO Daily June 16, 2023 July 14, 2023 10:37amazithromycin 250 mg oral tablet (3 sources)Macrolide AntimicrobialStart: 40-22-6961Joybebrmooai 250 MG 2 tablet on the first day, then 1 tablet daily for 4 days Orally Once a day for5 day(s) Sep, Activehydrocortisone 10 mg/ml / neomycin 3.5 mg/ml / polymyxin b 20744 unt/ml otic suspension (1 source)Aminoglycoside Antibacterial, Polymyxin-class Antibacterial, CorticosteroidStart: 17-49-1262Ewmprnmg-Polymyxin-HC 3.5-68926-2 3 drops Otic Three times a day for 7 Sep, Activeibuprofen 600 mg oral tablet (8 sources)Nonsteroidal Anti-inflammatory DrugStart: 35-04-8972mxrw 1 tablet by mouth every six hours as needed for painibuprofen (ADVIL,MOTRIN) 600 mg tablet Take 1 tablet (600 mg total) by mouth every 6 (six) hours asneeded for pain for up to 30 doses. 30 tablet 07/29/2017 Activeondansetron 8 mg disintegrating oral tablet (20 sources)Serotonin-3 Receptor AntagonistStart: 98-56-8254idon 1 tablet by mouth every eight hours for nauseaondansetron ODT (Zofran-ODT) 8 MG disintegrating tablet Indications: Nausea/vomiting in ([facility]) Take 1 tablet (8 mg) by mouth every 8 (eight) hours if needed for nausea or vomiting 20 tablet 12/14/2023 Active End: 15-27-1872ookz 1 tablet by mouth every eight hours as needed for nausea and vomitingondansetron (ZOFRAN) 4 mg tablet Take 1 tablet (4 mg total) by mouth every 8 (eight) hours as needed for nausea or vomiting. 04/26/2024 Discontinued MV & Min w/FA-DHA ( Adult Gummy/DHA/FA) 0.4-25 MG chewable tablet (20 sources) MV & Min w/FA-DHA ( Adult Gummy/DHA/FA) 0.4-25 MG chewable tablet Chew Activeprenatal kt777-vqak-qhlok acid ( 19) 29 mg iron- 1 mg tablet,chewable (13 sources) ge746-wjnt-pabfx acid ( 19) 29 mg iron- 1 mg tablet,chewable Chew 1 tablet and swallow in the morning. Active Completed/Discontinued Medications MedicationDrug Class(es)DatesSig (Normalized)Sig (Original)atomoxetine 40 mg oral capsule (10 sources)Norepinephrine Reuptake InhibitorStart: 05-25-2023 End: 75-59-3242ygse 1 capsule by mouth once dailyAtomoxetine 40 mg capsule Discontinued 40 MG PO Daily May 25, 2023 1:00am June 16, 2023 11:38am Start: 87-23-4407qdoh 1 capsule by mouth every twenty-four hoursAtomoxetine HCl 25 MG 1 capsule Orally Once a day for 30 days Apr, Activetake 1 capsule by mouth every twenty-four hoursAtomoxetine HCl 40 MG 1 capsule Orally Once a day for 30 days Activecyclobenzaprine hydrochloride 10 mg oral tablet (9 sources)Muscle RelaxantStart: 07-29-2017 End: 41-28-4836ebfs 1 tablet by mouth twice daily as needed for muscle spasms cyclobenzaprine (FLEXERIL) 10 mg tablet Take 1 tablet (10 mg total) by mouth 2 (two) times a day asneeded for muscle spasms for up to 20 doses. 20 tablet 07/29/2017 04/26/2024 DiscontinuedDexamethasone (4 sources)CorticosteroidStart: 11-26-1150SAJSAFOWKAHHC Dec, 10 mg levonorgestrel 0.816461 mg/hr intrauterine system (2 sources)Progestin, Progestin-containing Intrauterine DeviceStart: 07-23-2024 End: 68-06-5832Qmpiqeuoohuvxb intrauterine device 52 mgStart: 07-23-2024 End: 15-36-224883 mg, Vaginal, Once PRN Procedure, Starting on Tue07/23/24 at 0830, For 1 dosesulfamethoxazole 800 mg / trimethoprim 160 mg oral tablet (4 sources)Dihydrofolate Reductase Inhibitor Antibacterial, Sulfonamide AntimicrobialStart: 09-15-2023 End: 53-30-8241hvqq 1 tablet by mouth twice dailySulfamethoxazole-Trimethoprim (Bactrim Ds) 800-160 mg tablet Discontinued 1 TAB PO Twice daily 10 5Jun2023 12:00am May 31, 2024 11:10am Problems Active Problems Problem ClassificationProblemDateDocumented DateEpisodic/ChronicAbdominal pain (4 sources)Unspecified abdominal pain; Translations: [UNSPECIFIED ABDOMINAL PAIN]Onset: 20-99-3646VruskgayWibkltzqw-deficit, conduct, and disruptive behavior disorders (2 sources)Attention deficit hyperactivity disorder, predominantly inattentive type; Translations: [Attention-deficit hyperactivity disorder, predominantly inattentive type]ChronicAttention-deficit, conduct, and disruptive behavior disorders (2 sources)Attention-deficit hyperactivity disorder, predominantly inattentive typeChronicAttention-deficit, conduct, and disruptive behavior disorders (1 source)Attention deficit hyperactivity llvifcda16-36-0549PmyhbooRdozwryvk- deficit, conduct, and disruptive behavior disorders (7 sources)Attention deficit hyperactivity disorder, predominantly hyperactive impulsive type; Translations: [Attention-deficit hyperactivity disorder, predominantly hyperactive type]76-79-8817PzprfcdWcjskjywz-deficit, conduct, and disruptive behavior disorders (11 sources)Attention-deficit hyperactivity disorder, predominantly hyperactive type; Translations: [Attention deficit disorder with hyperactivity]06-16-2023 ChronicConditions associated with dizziness or vertigo (1 source)Postural dizziness; Translations: [Dizziness and giddiness]04-27-2024 EpisodicDiabetes or abnormal glucose tolerance complicating ; childbirth; or the puerperium (1 source)Abnormal glucose complicating ; Translations: [Abnormal glucose complicating ]Onset: 72-39-1280XqjegvgcNvqlhwuxrzszrhdq hemorrhage (4 sources)Hematochezia; Translations: [Melena]EpisodicHemorrhoids (2 sources)Unspecified hemorrhoids; Translations: [Residual hemorrhoidal skin tags]Onset: 37-38-0146LdyfffybMtsbkjl system congenital anomalies (13 sources)Elliott cisterna magna; 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, unspecified]Onset: 989934-39-3309LkmiwxlAlunj complications of ; puerperium affecting management of mother (2 sources)Abnormality of heart; Translations: [Anomaly of heart of fetus affecting , antepartum, single or unspecified fetus]18-97-6410Wbnnosvy Other complications of (1 source)Supervision of high risk , unspecified, second trimester; Translations: [Supervision of high risk , unspecified, second trimester]Onset: 21-21-7275KkvltdstJrhge complications of (2 sources)Supervision of high risk , unspecified, unspecified trimester; Translations: [Supervision of high risk , unspecified, unspecified trimester]Onset: 86-36-3085QhjgkkziGhntp complications of (2 sources)Other specified related conditions, third trimester; Translations: [Other specified related conditions, third trimester] Onset: 87-00-9003ZssjhqlrLkavv complications of (4 sources)Finding related to ; Translations: [ related conditions, unspecified, second trimester]21-83-9687UbevdbcpDtpaz complications of (6 sources) ultrasound scan abnormal; Translations: [Abnormal ultrasonic finding on screening of mother]00-71-4567XqqjhcspHqtcg complications of (2 sources)Abnormal ultrasonic finding on screening of mother; Translations: [Abnormal ultrasonic finding on screening of mother] Onset: 45-93-1393IojllvmyRbhgm congenital anomalies (16 sources)Congenital malformation; Translations: [Congenital malformation, unspecified]26-79-9768MhojsvqJktts ear and sense organ disorders (1 source)Unspecified acute noninfective otitis externa, right earEpisodicOther female genital disorders (2 sources)Other specified noninflammatory disorders of vagina; Translations: [Other specified noninflammatorydisorders of vagina]Onset: 38-48-2219Reshmnnt Other gastrointestinal disorders (1 source)Irritable bowel syndrome with jefhvyfu84-64-3184EwotrgxDehoi gastrointestinal disorders (7 sources)Irritable bowel syndrome; Translations: [Irritable bowel syndrome without diarrhea]13-94-5862ZtvzgbkOhiah nutritional; endocrine; and metabolic disorders (1 source)Stonuspwur54-93-7172PjfkxvuiIujhb nutritional; endocrine; and metabolic disorders (1 source)Overweight in adulthood with body mass index of 25 or more but less than 7378-98-0246EnrhmogqRjkmj and delivery including normal (20 sources)Encounter for supervision of normal , unspecified, first trimester; Translations: [Normal ]Onset: 951749-71-7769Tcvosumw Other screening for suspected conditions (not mental disorders or infectious disease) (9 sources)Patient encounter status; Translations: [Encounter for screening for diabetes mellitus]82-50-2776NvaitxxcPqfot skin disorders (1 source)Skin jze16-51-6404BwhguppmOiaygp media and related conditions (1 source)Otitis media, unspecified, right earEpisodicResidual codes; unclassified (3 sources)Gestation period, 35 weeks; Translations: [35 weeks gestation of ]25-14-8751WtgelwegRizzkdyw codes; unclassified (1 source)35 weeks gestation of ; Translations: [35 weeks gestation of ]Onset: 63-72-1768AeupezeqRaqmphmo codes; unclassified (1 source)18 weeks gestation of ; Translations: [18 weeks gestation of ]Onset: 65-76-6541Eiyvobih codes; unclassified (2 sources)13 weeks gestation of ; Translations: [13 weeks gestation of ]Onset: 72-95-7141Akmbzvgc codes; unclassified (1 source)36 weeks gestation of ; Translations: [36 weeks gestation of ]Onset: 04-83-0044Jprdhpvpajao (2 sources)9 weeks gestation of ; Translations: [9 weeks gestation of ]Onset: 76-05-7646Qlpgufqvcjbs (1 source)Encounter for other specified screening; Translations: [Encounter for other specified screening]Onset: 73-16-1937Qjdbedpzcetc (1 source)New PatientOnset: 36-41-3693Cgabtwb tract infections (12 sources)Tubulo-interstitial nephritis, not specified as acute or chronic; Translations: [Acute pyelonephritis]Onset: 934769-59-6623Nuvduqio Past or Other Problems Problem ClassificationProblemDateDocumented DateEpisodic/ChronicBacterial infection; unspecified site (1 source)Unspecified Escherichia coli [E. coli] as the cause of diseases classified elsewhere; Translations:[Unspecified Escherichia coli (E. coli) as the cause of diseases classified elsewhere]Onset: 20-61-2693Asheewoq Genitourinary symptoms and ill-defined conditions (3 sources)Hematuria, unspecified; Translations: [Personal history of urinary (tract) infections]Onset: 63-34-6923AlhuutipBowwwlkpulndm and screening for infectious disease (1 source)Contact with and (suspected) exposure to other viral communicable diseasesOnset: 12-28-2021 Resolved: 78-44-1782RgqkzgwnPoge disorders (1 source)Mood disordersOnset: Other complications of (1 source)Infections of kidney in , second trimester; Translations: [Infections of kidney in , second trimester]Onset: 42-86-6609Glwfkzfk Other complications of (2 sources)US obstetric scan abnormal; Translations: [Abnormal ultrasonic finding on screening of mother]19-12-0455RjmwpdfjBqxvq upper respiratory infections (1 source)Streptococcal pharyngitisOnset: 12-28-2021 Resolved: 05-21-0450Xixvuesn Results Test NameValueInterpretationReference RangeFacilityHCG ( test) Ql (U)on 20-11-6756Mshqenvyufzsew and review of laboratory resultsNormalNOMS Healthcare Preg Test, UrNegativeNegativeNOMS HealthcareNOMS HealthcareIUD Insertionon 93-83-2570Sqffhbud Carlos LPN 07/23/2024 1:58 PM IUD Insertion Performed by: Delon Spicer DO Authorized by: Delon Spicer DO Procedure: IUD insertion Consent obtained by patient, parent, or legal power of compliance attorney - including discussion of procedure risks and benefits, patient questions answered, and patient education provided: yes Date/Time of Insertion: 07/23/2024 9:41 AM Immediately prior to procedure a time out was called: yes Pelvic exam performed: yes Speculum placed in vagina: yes Cervix cleaned and prepped: yes Tenaculum/Allis/Ring Forceps applied to cervix: yes Anesthesia used: no Cervix dilated: yes Cervix dilated with: Cervical os finder IUD inserted without complications: yes OSM: 52 mg Levonorgestrel 20 MCG/DAY Patient tolerated procedure well: yes Inserted with ultrasound guidance: no Intended removal date: 5 NOWestern Missouri Medical CenterIUD InsertionOrdered By: Vanessa Carlos on 93-87-0689CDFM HealthcareUrinalysis macro (dipstick) panel (U)on 55-13-9504Dneiajvxn, UANegativeNegative - 4(70) +++ mg/dLNOMS HealthcareBlood, UANegativeNegative - 50 Shahid/mcLNOUT HealthcareClarity, UAClearNOMS Healthcare Color, UAYellowNOMS HealthcareGlucose, UANegativeNegative - 2000(110) ++++ mg/dL [facility] HealthcareInterpretation and review of laboratory resultsNormalNOUT HealthcareKetones, UANegativeNegative - 160(16) ++++ mg/dLSHRINERS HOSPITALS FOR CHILDREN Healthcare Leukocytes, UANegativeNegative - 500+++ Olvin/mcLNOUT HealthcareNitrite, UA NegativeNegative - PositiveNOMS HealthcarepH, UA65 - 9NOMS HealthcareProtein, UA NegativeNegative - 2000(20) ++++ mg/dLNOUT HealthcareSpec Grav, UA1.021 - 1.03 NOMS HealthcareUrobilinogen, UA0.20.2 - 12 mg/dLNOUT HealthcareNOUT Healthcare Buprenorphine [Presence] in Urineon 64-77-3926Fnnxredmuyliu Ql (U)Buprenorphine [Presence] in UrineNEGATIVESelect Medical Specialty Hospital [facility]-FairhillComment on above: DRUG CLASS TEST SYSTEM CUT-OFF CONCENTRATIONS ARE ASFOLLOWS:AMP (Amphetamine): 500 ng/mLBAR (Barbiturates): 200 ng/mLBZO (Benzodiazepines): 150 ng/mLBUP (Buprenorphine): 10 ng/mLCOC (Cocaine): 150 ng/mLmAMP (Methamphetamine): 500 ng/mLMTD (Methadone): 200 ng/mLOPI (Opiates): 100 ng/mLOXY (Oxycodone): 100 ng/mLPCP (Phencyclidine): 25 ng/mLTHC (Cannabinoids): 50 ng/mLTCA (Trycyclic Antidepressants): 300 ng/mLErythrocyte distribution width Auto (RBC) [Ratio]on 30-44-0708Ymopgckmojs distribution width (RBC) [Ratio]Erythrocyte distribution width [Ratio] by Automated count11.0-15.0[facility] CBC WITH PLATELET NO DIFFERENTIALon 01-27-1128Mzcdtsiikyx distribution width (RBC) [Ratio]14.5 %11.0 - 15.0 %[facility] springfieldHematocrit (Bld) [Volume fraction]32.5 %Low36.0 - 48.0 %[facility] springfieldHemoglobin (Bld) [Mass/Vol]10.4 g/dLLow12.0 - 16.0 g/dLMercy hospital springfieldInterpretation and review of laboratory resultsAbnormalBarton County Memorial Hospital (RBC) [Entitic mass]23.5 pgLow26.7 - 34.0 pg [facility] HospitalHC (RBC) [Mass/Vol]32 g/dL29.9 - 35.2 g/dLBarnes-Jewish HospitalV (RBC) [Entitic vol]73.4 fLLow81.0 - 99.0 fLMercy hospital springfieldPlatelet mean volume (Bld) [Entitic vol]12.4 fL9.5 - 13.5 fLAudrain Medical Center OQU492WZWWEllett Memorial Hospital RBC4.43NOMercy Hospital St[facility] WBC9.1NOMS [facility] Medical CenterCLINISYNContinueCare Hospital Hematocrit Auto (Bld) [Volume fraction]on 32-51-2230Hwomsumegn (Bld) [Volume fraction]Hematocrit [Volume Fraction] of Blood by Automated qaukbYfo81.0-48.0 [facility]FairhillHemoglobin [Mass/volume] in Bloodon 05-25-2024 Hemoglobin (Bld) [Mass/Vol]Hemoglobin [Mass/volume] in PspptLxr40.0-16.0 [facility]-FairhillLon 05-25-2024 Specimen: [id number] Received: 05/28/24 Status: VANI Burks Num: [id number] Spec Type: Surgical Subm Dr: Delon Spicer Tissues: A Placenta - 3rd Trimester (Greater than 28 weeks) (PLACENTA) Procedures: HE/3, Gross/Michael L5 Age/ Patient Sex Location Account Attending Physician Shen Griggs / LABELL [id number] Delon Spicer SPEC NUM: [id number] RECD: 05/28/24 STATUS: VANI BURKS NUM: [id number] LUCILA: 05/25/24- SUBM DR: Delon Spicer ENTERED: 05/28/[address] [facility] [address]: Gorge,Lab SPEC TYPE: Surgical DEPT: DEON SERRANO ORDERED: HE/3, Gross/Micro L5 ORDERED: HE/3, Gross/Micro L5 Pathological Diagnosis Placenta, With: Umbilical Cord: Three Vessel Cord, Unremarkable. Membranes: Unremarkable. Placenta: Mature Chorionic Villi, Consistent With Third Trimester Placenta. No Parenchymal Lesions Are Identified. Clinical Information Gestational age of 39 weeks and 1 day sudden vaginal delivery, G2, P1, Apgars 8 9, Clint pouch cyst Gross Description Part A is received in formalin labeled with the patients name and date of : Single MEMBRANES: Placenta Sac Rupture (cm from margin): 5 cm Color: Blue-vides Other Characteristics: No Insertion Site: Marginal 100% CORD: Appearance: Unremarkable Site of Insertion: Eccentric, 5 cm from the margin Specimen: [id number] Received: 05/28/24 Status: VANI Sakina Num: [id number] Spec Type: Surgical Subm Dr: Delon Spicer Tissues: A Placenta - 3rd Trimester (Greater than 28 weeks) (PLACENTA) Procedures: HE/3, Gross/Micro L5 Patient: InduDorian erazoa [id number] (Continued) Specimen: [id number] Received: 05/28/24 (Continued) Gross Description (Continued) Signed (signature on file) Jessi Smith MD 05/30/24 1604 Specimen: [id number] Received: 05/28/24 Status: VANI Sakina Num: [id number] Spec Type: Surgical Subm Dr: Delon Spicer Tissues: A Placenta - 3rd Trimester (Greater than 28 weeks) (PLACENTA) Procedures: MARQUISE, Neli/Michael L5 Patient: Shen Griggs [id number] (Continued) Specimen: [id number] Received: 05/28/24-1313 (Continued) Gross Description (Continued) Length Diameter (cm): 1 x 1.4 cm Number of revolutions: 1 True Knots: No Number of vessels: 3 GENERAL: Trimmed Weight (grams): 527 g Complete: Yes Size 1 x Size 2 x Size 3 (cm): 17 x 16.5 x 3.5 cm Accessory Lobe(s): No PLACENTAL DISK: Color of Surface: Blue-vides Sub-amniotic Cyst: No Amnion Nodosum: No Subchorionic Fibrin: Yes, up to 0.3 cm in thickness, less than 5% Appearance of Cut Surface: Unremarkable Maternal floor: Unremarkable Retroplacental hematoma: No Cassettes: A1 Rolled membrane, two sections of cord A2-A3 Cathode Maker sections of placenta (3, ss, SB35-991 A) JG . CPT Codes 42404 Specimen: [id number] Received: 05/28/24 Status: VANI Burks Num: [id number] Spec Type: Surgical Subm Dr: Delon Spicer Tissues: A Placenta - 3rd Trimester (Greater than 28 weeks) (PLACENTA) Procedures: HE/3, Gross/Micro L5 Patient: Shen Griggs [id number] (Continued) Signed (signature on file) Jessi Smith MD 05/30/[address] [place] [address] Physician GroupLaboratory - Drug toxicologyon 14-73-0532Iinlyaybhspm Ql (U)NegativeNEGJ.W. Ruby Memorial Hospital Benzodiazepines Ql (U)NegativeNEGATIVESelect Medical Specialty Hospital [facility]-FairhillCocaine Ql (U)NegativeNEGATIVESelect Medical Specialty Hospital [facility]-FairhillOpiates Ql (U)Negative NEGATIVESelect Medical Specialty Hospital [facility]-FairhillPhencyclidine Ql (U)NegativeNEGHarrison Community HospitalLeukocytes [#/volume] corrected for nucleated erythrocytes in Blood by Automated counon 55-78-1091KKK corrected for nucl RBC Auto (Bld) [#/Vol]Leukocytes [#/volume] corrected for nucleated erythrocytes in Blood by Automated coun4.0-11.0[facility] HospitalH Auto (RBC) [Entitic mass]on 14-09-1476EWY (RBC) [Entitic mass]MCH [Entitic mass] by Automated dmvetMpn89.7-34.0[facility]-FairhillMCHC Auto (RBC) [Mass/Vol]on 22-96-5787HDRV (RBC) [Mass/Vol]MCHC [Mass/volume] by Automated count29.9-35.2FAshtabula County Medical CenterMCV Auto (RBC) [Entitic vol]on 58-23-2386AFJ (RBC) [Entitic vol]MCV [Entitic volume] by Automated countLow 81.0-99.0[facility]-FairhillMethadone [Presence] in Urine by Screen methodon 88-97-1108Fqcffauql Screen Ql (U)Methadone [Presence] in Urine by Screen methodNEGATIVESelect Medical Specialty Hospital - [facility]-FairhillNo Panel Informationon 27-66-2874Oqfdk Barbiturates ScreenNegativeNEGJ.W. Ruby Memorial HospitalUrine Marijuana (THC) ScreenNegativeNEGJ.W. Ruby Memorial HospitalUrine Methamphetamines ScreenNegativeNEGATIVESelect Medical Specialty Hospital [facility] Cleveland-FairhillPlatelet mean volume Auto (Bld) [Entitic vol]on 48-22-0362Xrehjxwp mean volume (Bld) [Entitic vol]Platelet mean volume [Entitic volume] in Blood by Automated count9.5-13.5FAshtabula County Medical CenterPlatelets Auto (Bld) [#/Vol]on 01-84-5139Bfjbutxpy (Bld) [#/Vol]Platelets [#/volume] in Blood by Automated bbfdy149-046JofcyvhzxSelect Medical Specialty Hospital - Cleveland-FairhillRBC Auto (Bld) [#/Vol]on 69-21-8723ZLN (Bld) [#/Vol]Erythrocytes [#/volume] in Blood by Automated count 4.20-5.40[facility]-FairhillUrine tricyclic antidepressant measurementon 69-43-5016Pxethggmj antidepressants (U) [Mass/Vol]Urine tricyclic antidepressant measurementNEGATIVESelect Medical Specialty Hospital [facility] oxyCODONE+oxyMORphone [Presence] in Urine by Screen methodon 05-25-2024 oxyCODONE+oxyMORphone Screen Ql (U)oxyCODONE+oxyMORphone [Presence] in Urine by Screen methodNEGJ.W. Ruby Memorial HospitalUS OB BPP WO NON-STRESSon 85-59-0488LbdH[place] [address] Ultrasound Report Signed Patient: SHEN GRIGGS MR#: [id number] : 1995 Acct:[id number] Age/Sex: 28 / F ADM Date: 05/09/24 Loc: US Attending Dr: TOMER LUCIA APRN, CNM Ordering Physician: TOMER LUCIA APRN, CNM Date of Service: 05/09/24 Procedure(s): US OB BPP wo non-stress Accession Number(s): [id number] cc: TOMER LUCIA APRN, CNM; SID REYES [place] [id number] Patient Name: SHNE GRIGGS MRN: [id number] date: 1995 Sex: F Assigned Patient Location: [place] Current Patient Location: [place] Accession/Order Number: [id number] Exam Date: 05/09/2024 09:05 Report Date: 05/09/2024 [...] M.D. Signed By: 05/09/24945 DD/ 2 TD/TT: Crab Backer:TBHRadiology, Radiologist, MD - 05/09/2024 [place] [address] Ultrasound Report Signed Patient: SHEN GRIGGS MR#: [id number] : 1995 Acct:[id number] Age/Sex: 28 / F ADM Date: 05/09/24 Loc: [place] Attending Dr: TOMER LUCIA APRN, CNM Ordering Physician: TOMER LUCIA APRN, CNM Date of Service: 05/09/24 Procedure(s): US OB BPP wo non-stress Accession Number(s): [id number] cc: TOMER LUCIA APRN, CNM; SID REYES [place] [id number] Patient Name: SHEN GRIGGS MRN: [facility] HOME:[id number] date: 1995 Sex: F Assigned Patient Location: US Current Patient Location: US Accession/Order Number: [id number] Exam Date: 05/09/2024 09:05 Report Date: 05/09/2024 [...] M.D. Signed By: 05/09/24945 DD/ 2 TD/TT: Crab Backer: PRAFUL HealthcareRadiology Study observation (narrative)NOMS HealthcareUS OB BPP WO NON-STRESSOrdered By: Radiologist Radiology on 33-75-2308EDRL Healthcare Work Phone: US OB BPP WO NON-STRESSon [phone] [address] Ultrasound Report Signed Patient: SHEN GRIGGS MR#: [id number] : 1995 Acct:[id number] Age/Sex: 28 / F ADM Date: 04/19/24 Loc: US Attending Dr: TOMER LUCIA APRN, CNM Ordering Physician: TOMER LUCIA APRN, CNM Date of Service: 04/19/24 Procedure(s): US OB BPP wo non-stress Accession Number(s): [id number] cc: TOMER LUCIA APRN, CNM; SID REYES [place] [id number] Patient Name: SHEN GRIGGS MRN: [id number] date: 1995 Sex: F Assigned Patient Location: Current Patient Location: Accession/Order Number: [id number] Exam Date: 04/19/2024 09:15 Report Date: 04/19/2024 10:06 At the request of: TOMER LUCIA Procedure: US OB BPP wo non-stress Ultrasound biophysical profile CLINICAL: Evaluate well-being. TECHNIQUE: Dedicated ultrasound imaging of the fetus was performed to include the auto rebuilder's evaluation of biophysical profile. FINDINGS: Comparison: Ultrasound 04/12/2024 FETUS: There is a single living intrauterine fetus in cephalic presentation. heart rate of 132 beats per minute. AMNIOTIC FLUID: The amniotic fluid index is 14.92 cm, with maximum vertical pocket of 5.06 cm. BIOPHYSICAL PROFILE: motion: 2 out of 2. tone: 2 out of 2. breathin out of 2. Amniotic fluid volume: 2 out of 2. Total score: 8 out of 8. OTHER FINDINGS: None. US/US OB BPP wo non-stress IMPRESSION: 1. Single viable fetus in cephalic presentation with heart rate of 132 beats per minute. 2. Total biophysical profile score of 8 out of 8. 3. Amniotic fluid index of 14.92 cm, with maximum vertical pocket of 5.06 cm. Amniotic fluid index on study was 13.4 cm on study 04/12/2024. Electronically authenticated by: NICK HUANG Date: 04/19/2024 10:06 Dictated By: Nick Huang M.D. Signed By: 04/19/24 1009 DD/ 1006 TD/TT: Crab Backer:HUGOHRadiology, Radiologist, MD - 04/19/2024 [place] [address] Ultrasound Report Signed Patient: SHEN GRIGGS MR#: [id number] : 1995 Acct:[id number] Age/Sex: 28 / F ADM Date: 04/19/24 Loc: US Attending Dr: TOMER LUCIA APRN, CNM Ordering Physician: TOMER LUCIA APRN, CNM Date of Service: 04/19/24 Procedure(s): US OB BPP wo non-stress Accession Number(s): [id number] cc: TOMER LUCIA APRN, CNM; DERBY LINEJo[place] [phone] Patient Name: SHEN GRIGGS MRN: [id number] date: 1995 Sex: F Assigned Patient Location: US Current Patient Location: US Accession/Order Number: [id number] Exam Date: 04/19/2024 09:15 Report Date: 04/19/2024 10:06 At the request of: TOMER LUCIA Procedure: US OB BPP wo non-stress Ultrasound biophysical profile CLINICAL: Evaluate well-being. TECHNIQUE: Dedicated ultrasound imaging of the fetus was performed to include the auto rebuilder's evaluation of biophysical profile. FINDINGS: Comparison: Ultrasound 04/12/2024 FETUS: There is a single living intrauterine fetus in cephalic presentation. heart rate of 132 beats per minute. AMNIOTIC FLUID: The amniotic fluid index is 14.92 cm, with maximum vertical pocket of 5.06 cm. BIOPHYSICAL PROFILE: motion: 2 out of 2. tone: 2 out of 2. breathin out of 2. Amniotic fluid volume: 2 out of 2. Total score: 8 out of 8. OTHER FINDINGS: None. US/US OB BPP wo non-stress IMPRESSION: 1. Single viable fetus in cephalic presentation with heart rate of 132 beats per minute. 2. Total biophysical profile score of 8 out of 8. 3. Amniotic fluid index of 14.92 cm, with maximum vertical pocket of 5.06 cm. Amniotic fluid index on study was 13.4 cm on study 04/12/2024. Electronically authenticated by: NICK HUANG Date: 04/19/2024 10:06 Dictated By: Nick Huang M.D. Signed By: 04/19/24 1009 DD/ 1006 TD/TT: Crab Backer: PRAFUL HealthcareRadiology Study observation (narrative)NOMRadha HealthcareUS OB BPP WO NON-STRESSOrdered By: Radiologist Radiology on 68-63-4839BHES [facility] Work Phone: US OB BPP WO NON-STRESSon [phone] [address] Ultrasound Report Signed Patient: SHEN GRIGGS MR#: [id number] : 1995 Acct:[id number] Age/Sex: 28 / F ADM Date: 04/12/24 Loc: US Attending Dr: TOMER LUCIA APRN, CNM Ordering Physician: TOMER LUCIA APRN, CNM Date of Service: 04/12/24 Procedure(s): US OB BPP wo non-stress Accession Number(s): [id number] cc: TOMER LUCIA APRN, CNM; [place] [address] Patient Name: SHEN GRIGGS MRN: [id number] date: 1995 Sex: F Assigned Patient Location: US Current Patient Location: US Accession/Order Number: [id number] Exam Date: 04/12/2024 09:02 Report Date: 04/12/2024 09:59 At the request of: TOMER LUCIA Procedure: US OB BPP wo non-stress EXAMINATION: US OB BPP wo non-stress HISTORY: Congenital Anomaly COMPARISON: No relevant comparison available. TECHNIQUE: Ultrasound biophysical profile was performed in the radiology department. non-reactive stress testing was performed by nursing staff in the birthing center. FINDINGS: BREATHING MOVEMENTS: 2 GROSS BODY MOVEMENTS: 2 TONE: 2 QUALITATIVE AMNIOTIC FLUID VOLUME: 2 PRESENTATION: CEPHALIC HEART RATE: 133.66 bpm AMNIOTIC FLUID VOLUME: 13.4 cm GESTATIONAL AGE: 33 weeks 0 days US/US OB BPP wo non-stress IMPRESSION: Total biophysical profile score: 8/8 Electronically authenticated by: JONAH PATTERSON Date: 04/12/2024 09:59 Dictated By: Jonah Patterson M.D. Signed By: 04/12/24 1002 DD/ 0959 TD/TT: Crab Backer:PROSPERadiology, Radiologist, - 04/12/2024 [place] [address] Ultrasound Report Signed Patient: SHEN GRIGGS MR#: [id number] : 1995 Acct:[id number] Age/Sex: 28 / F ADM Date: 04/12/24 Loc: US Attending Dr: TOMER LUCIA APRN, CNM Ordering Physician: TOMER LUCIA APRN, CNM Date of Service: 04/12/24 Procedure(s): US OB BPP wo non-stress Accession Number(s): [id number] cc: TOMER LUCIA APRN, CNM; SID REYES [place] [address] Patient Name: SHEN GRIGGS MRN: [id number] date: 1995 Sex: F Assigned Patient Location: US Current Patient Location: US Accession/Order Number: [id number] Exam Date: 04/12/2024 09:02 Report Date: 04/12/2024 09:59 At the request of: TOMER LUCIA Procedure: US OB BPP wo non-stress EXAMINATION: US OB BPP wo non-stress HISTORY: Congenital Anomaly COMPARISON: No relevant comparison available. TECHNIQUE: Ultrasound biophysical profile was performed in the radiology department. non-reactive stress testing was performed by nursing staff in the birthing center. FINDINGS: BREATHING MOVEMENTS: 2 GROSS BODY MOVEMENTS: 2 TONE: 2 QUALITATIVE AMNIOTIC FLUID VOLUME: 2 PRESENTATION: CEPHALIC HEART RATE: 133.66 bpm AMNIOTIC FLUID VOLUME: 13.4 cm GESTATIONAL AGE: 33 weeks 0 days US/US OB BPP wo non-stress IMPRESSION: Total biophysical profile score: 8/8 Electronically authenticated by: JONAH PATTERSON Date: 04/12/2024 09:59 Dictated By: Jonah Patterson M.D. Signed By: 04/12/24 1002 DD/ 0959 TD/TT: Crab Backer: PRAFUL HealthcareRadiology Study observation (narrative)NOMNevada Regional Medical CenterUS OB BPP WO NON-STRESSOrdered By: Radiologist Radiology on 34-51-1230LJRB [employer] Work Phone: MR Pelvis WO contrastOrdered By: Lynda Genao on 02-90-0165Tjtrejgol Study observation (narrative)[facility] InstituteCiteeCar [facility] Medical CenterMR Pelvis WO contrastOrdered By: Lynda Genao on 65-98-8382CouVnusgs Health SystemUltrasound - OfficeOrdered By: Lynda Genao on 24-32-3319Cpbqmwffg Study observation (narrative)[facility] SensorCath [facility] Medical CenterUS OB LIMITED 1+ FETUSESon 43-22-3277LC OB LIMITED 1+ FETUSESAddendum Addendum to OB Ultrasound: Comparison of the [...] Limited study. Full anatomical survey not performed. 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 Dictated and transcribed 02/06/24/dpd This report has been electronically signed and approved by the interpreting radiologist. Electronically Signed Ted Juarez D.O. 2024-02-06 09:59:34NormalNot AvailableUltrasound - OfficeOrdered By: Kristenchloé [place] on 46-62-6947GjvPlgdtiRegency Hospital Cleveland WestUS OB 14+ WEEKS ANATOMY SCANon 36-88-3690JC OB 14+ WEEKS ANATOMY SCANTITLE OF EXAM: OB Ultrasound: REASON FOR EXAM: [...] report is generated using voice recognition reporting ([employer] International[employer]). On occasion PowerScribe erroneously drops words from the report or replaces the spoken word with similar sounding words. Please call with any questions/concerns regarding this report.* Dictated and transcribed 01/12/24/dpd This report has been electronically signed and approved by the interpreting radiologist. Electronically Signed Kristian Hatfield M.D. 2024-01-12 17:03:01NormalNot AvailableChlamydia/GC by PCR Michael Swabon 78-66-3071Mraqbnllwnv Dna(Pcr)Not detectedAvita Health System Bucyrus HospitalChlamydia/GC by PCR ThinPrep fluidon 74-85-1169Ktphkeavx Dna(Pcr)Not detectedAvita Health System Bucyrus HospitalDrug Screen, Urineon 14-03-4563Piyuywnwwfn Screen UrineNegativeAvita Health System Bucyrus HospitalOpiate Quantitative UrineNegativeAvita Health System Bucyrus HospitalProRegency Hospital ToledoNo Panel Informationon 01-94-1858TkuZkcrcyRegency Hospital Cleveland WestCBC without diffOrdered By: Uyen Dubois on 71-25-5167Hcomghrmlo (Bld) [Volume fraction]40 %[facility] Bucyrus HospitalHemoglobin (Bld) [Mass/Vol]13.3 g/dL [facility] Bucy[facility] HospitalPlatelets (Bld) [#/Vol]271 10*3/uLAvita Health System Bucyrus Hospital Rbc Mcv (Fl) By Automated Count85.5PRegency Hospital Cleveland WestHIV 1&2 AB/AG Screen (P24 AG)on 71-46-9173EQC 1&2 AB/AGNon-ReactiveAvita Health System Bucyrus HospitalHemoglobin A1con 85-07-6145JcF8f (Bld) [Mass fraction]4.9 %4.0 - 6.0 %[facility] HospitalHepatitis B surface antigenon 31-40-1405Zerqdrjcb B Surface Antigen Non-ReactiveAvita Health System Bucyrus HospitalNo Panel InformationOrdered By: Lynda Genao on 82-36-4236DcsDbdkydRegency Hospital Cleveland WestRubella IGG immune statuson 77-51-8300Angfhtg immune IgG1.23IU/mLCarolinas ContinueCARE Hospital at Kings Mountainyphilis Total(Unknown Syphilis Status)Ordered By: Lynda Genao on 87-09-2971Onqgixyq Non-ReactiveAvita Health System Bucyrus HospitalType and screenon 53-07-8111Veq/Rh(D)Positive [facility] Bucyrus HospitalUS OB < 14 WEEKS EARLYon 60-54-8013HS OB < 14 WEEKS EARLY This is [...] of 165 bpm.. The gestational age based onthis ultrasound is 8 weeks 4 days. The gestational age based by LMP is 8 weeks 0 days. The expecteddue date is May 27, 2024. The right [...] LIMITS OF THE STUDY. ELECTRONICALLY SIGNED BY: Parisa Blanton AvailableUrine Cultureon 57-22-6522Kkrulfde identified Cx Nom (U)ORGANISM: Klebsiella pneumoniae (O:KLEPNE) [place] Count >100,000 Aerobic NILAM Charge (NMIC56) SUSCEPTIBILITY ORGANISM: O:KLEPNE ANTIBIOTIC INTERPRETATION NILAM Amikacin S <16 Amoxacillin/K Clavulanate S <8 Ampicillin/Sulbactam S <4 Aztreonam S <4 Cefazolin S <2 Cefepime S <2 Ceftazidime S <1 Ceftazidime/Avibactam S <4 Ceftolozane/Tazobactam S <2 Ceftriaxone S <1 Cefuroxime S <4 Ciprofloxacin S <0.25 Ertapenem S <0.5 Gentamicin S <2 Levofloxacin S <0.5 Meropenem S <1 Meropenem/Vaborbactam S <2 Nitrofurantoin I 64 Piperacillin/Tazobactam S <8 Tetracycline S <4 Tigecycline S <2 Tobramycin S <2 Trimethoprim/Sulfamethoxazole S <0.5 S = SUSCEPTIBLE I = [...] RESISTANT TO ALL B-LACTAM DRUGS. PERFORMED BY: [place] [id number] PATHOLOGIST CONSUMER INSIGHT MANAGER SINGH WILLOUGHBY M.D.[facility] ER Physician GroupComment on above:Performed By: #### CUU #### [place] [id number] USAFacesheeton 74-88-9760Grwhmkfls [id number]#1.00TIFFNormSt. Rita's HospitalAmbulatory Visit Summaryon 82-40-6153Honaxrflij Visit Summary SHEN GRIGGS :1995 Visit Date:06/01/2023 Ambulatory Visit Instructions Your Care Team Attending Physician - Dorian HART MD Primary Care Physician - UYEN MARTEL CNP This Is Your Medications List Contact prescribing physician if questions or concerns atomoxetine (atomoxetine 25 mg Cap) Procedures Performed Colonoscopy, EGD - esophagogastroduodenoscopy. Discharge Vitals Heart Rate (Peripheral) 76 Respiratory [...] you for choosing us for your care. [facility] CampusPhysician Referralon 04-27-2023 Physician [id number]#1.00TIFFNormalFisher University Of Maryland Medical CenterCOVID Quick Testingon 56-32-6273JmjxaePpihoeimCcihy [employer] Other Quick Strepon 2S. pyogenes Org specific cx Ql (Throat)PositiveNomercy mccune-[facility] Qumulo Other Quhbp StrepNoInvicta Networks Other CULTURE URINEon 53-68-0561CHFYGMT URINEIsolate 1 Escherichia coli >100,000 cfu/mL of ORGANISM 1 Escherichia coli ANTIBIOTIC M.I.C RX STATUS Ampicillin <=2 S F Ampicillin/Sulbactam <=2 S F Piperacillin/Tazobactam <=4 S F Cefazolin <=4 S F Ceftazidime <=1 S F Ceftriaxone <=1 S F Ertapenem <=0.5 S F Imipenem <=0.25 S F Amikacin <=2 S F Gentamicin <=1 S F Tobramycin <=1 S F Ciprofloxacin <=0.25 S F Levofloxacin <=0.12 S F Nitrofurantoin <=16 S F Trimethoprim/Sulfamethoxazole <=20 S FNormalThe [facility], IncComment on above:Performed By: #### URCX #### [facility] Laboratory [address] [place] [address] Tho KarenCBC AUTO DIFFon 53-43-3787PFHY #0.0 103/ulNormal0.0-0.1The [facility], IncComment on above:Performed By: #### CBC #### [facility] [address] [place] [address] Tho KarenBasophils/100 WBC (Bld)0.3 %Normal0.2-2.0The [facility] Comment on above:Performed By: #### CBC #### [facility] [address] [place] [address] Tho KarenEO #0.1 103/ulNormal0.0-0.7The [facility], IncComment on above: Performed By: #### CBC #### [facility] [address] [place] [address] Tho KarenEosinophils/100 WBC (Bld)0.6 %Critically low0.9-7.0The [facility], IncComtrinity health [facility] on above:Performed By: #### CBC #### [facility] [address] [place] [address] Tho KarenErythrocyte distribution width (RBC) [Ratio]14.6 %Vnmzha49.0-15.0The [facility], IncComment on above:Performed By: #### CBC #### [facility] [address] [place] [address] Tho KarenHematocrit (Bld) [Volume fraction]39.8 %Kraqyf69.0-48.0The [facility], IncComtrinity health [facility] hospital on above:Performed By: #### CBC #### [facility] [address] [place] [address] Tho KarenHemoglobin (Bld) [Mass/Vol]12.6 g/iFHwrpxw20.0-16.0The [facility] on above:Performed By: #### CBC #### [facility] [address] [place] [address] Tho KarenIG #0.03 10e3/ulNormal0.00-0.03The [facility] on above:Performed By: #### CBC #### [facility] [address] [place] [address] Tho KarenIG %0.3 %Normal0.0-0.5The [facility], IncComtr[facility] health [facility] on above: Performed By: #### CBC #### [facility] [address] [place] [address] Tho KarenLYMPH #0.9 103/ulCritically low1.2-3.8The [facility], IncComtrinity health [facility] on above:Performed By: #### CBC #### [facility] [address] [place] [address] Tho KarenLymphocytes/100 WBC (Bld)8.5 %Critically low20.5-60.0The [facility] on above:Performed By: #### CBC #### [facility] [address] [place] [address] Tho KarenMANUAL DIFF REQNONormalThe [facility], IncComment on above: Performed By: #### CBC #### [facility] [address] [place] [address] Tho MendezMCH (RBC) [Entitic mass]25.0 pgCritically low26.7-34.0The [facility], IncComment on above:Performed By: #### CBC #### [facility] [address] [place] [address] Tho MendezMCHC (RBC) [Mass/Vol]31.7 g/vMGzvcrn43.9-35.2[facility] Comment on above:Performed By: #### CBC #### [facility] [address] [place] [address] Tho MendezMCV (RBC) [Entitic vol]79.0 fLCritically low81.0-99.0The [facility], IncComment on above:Performed By: #### CBC #### [facility] [address] [place] [address] Tho KarenMONO #0.7 103/ulNormal0.3-0.8The [facility], IncComment on above: Performed By: #### CBC #### [facility] [address] [place] [address] Tho KarenMonocytes/100 WBC (Bld)6.3 %Normal1.7-12.0The [facility] Comment on above:Performed By: #### CBC #### [facility] [address] [place] [address] Tho KarenNEUT #8.8 103/ulCritically high1.4-6.5The [facility], IncComment on above:Performed By: #### CBC #### [facility] [address] [place] [address] Tho KarenNeutrophils/100 WBC (Bld)84.0 %Critically high43.0-75.0The [facility], IncComment on above:Performed By: #### CBC #### [facility] [address] [place] [id number] Tho MendezPlatelet mean volume (Bld) [Entitic vol]10.2 fLNormal9.5-13.5The [facility], IncComment on above:Performed By: #### CBC #### [facility] [address] [place] [address] Tho HodgeNtcaxTFX098 103/seOytcrm053-192Mgy [facility], IncComment on above: Performed By: #### CBC #### [facility] [address] [place] [address] Tho HodgeenRBC5.04 106/ulNormal4.20-5.40The [facility], IncComment on above: Performed By: #### CBC #### [facility] [address] [place] [address] Tho HodgeenWBC10.5 103/ulNormal4.0-11.0The [facility], IncComment on above: Performed By: #### CBC #### [facility] [address] [place] [address] Tho KarenCT ABD/PELVIS WO CONon 02-62-6862LT ABD/PELVIS WO CONEXAM: CT ABD/PELVIS WO CON Comparison: None available. [...] Electronically authenticated by: RYLEY FARLEY Date: 2020-11-13 18:34NoSouthwest General Health Center URINE PROFILEon 69-09-7611Dacesbshr Ql (U)NegativeNormal NEGATIVEKettering Health DaytonComment on above:Performed By: #### RENITA UMICRO #### [facility] [address] [place] [address] Tho KarenClarity (U)CLEARNormalCLEARKettering Health DaytonComment on above: Performed By: #### RENITA UMICRO #### [facility] [address] [place] [address] Tho KarenColor (U)LT. YELLOWNormalYELLOWKettering Health DaytonComment on above:Performed By: #### RENITA UMICRO #### [facility] [address] [place] [address] Tho KarenERUAHDA micrscopic examination will be performed if indicated.Normal The [facility], IncComment on above:Performed By: #### RENITA UMICRO #### [facility] [address] [place] [address] Tho KarenGlucose Ql (U)NegativeNormalNEGATIVEKettering Health DaytonComment on above:Performed By: #### RENITA UMICRO #### [facility] [address] [place] [address] Tho KarenHemoglobin Ql (U)SMALLAbnormalNEGATIVEKettering Health DaytonComment on above:Performed By: #### RENITA UMICRO #### [facility] [address] [place] [address] Tho KarenKetones Ql (U)NegativeNormalNEGATIVEKettering Health DaytonComment on above:Performed By: #### RENITA UMICRO #### [facility] [address] [place] [address] Tho KarenLEUKOCYTESMODERATEAbnormalNEGATIVEKettering Health DaytonComment on above:Performed By: #### ADRIANA MARAVILLA #### [facility] [address] [place] [address] Tho KarenNitrite Ql (U)NegativeNormalNEGATIVEThe [facility], IncComment on above:Performed By: #### ADRIANA MARAVILLA #### [facility] [address] [place] [address] Tho KarenpH (U)6.5 [pH]Normal5-9The [facility], IncComment on above: Performed By: #### ADRIANA MARAVILLA #### [facility] [address] [place] [address] Tho KarenSPEC GRAVITY<=1.142Ehjkiyym6.005-<=1.025The [facility], IncComment on above:Performed By: #### ADRIANA MARAVILLA #### [facility] [address] [place] [address] Tho KarenUA PROTEINNegativeNormalNEGATIVE/ TRACEThe [facility], IncComment on above:Performed By: #### ADRIANA MARAVILLA #### [facility] [address] [place] [address] Tho KarenUR MICRO INDINDICATEDNormalThe [facility], IncComment on above: Performed By: #### ADRIANA MARAVILLA #### [facility] [address] [place] [address] Tho KarenUrobilinogen Qn (U)0.2 {Cheo'U}/dLNormal0.2 - 1.0The [facility], IncComment on above:Performed By: #### ADRIANA MARAVILLA #### [facility] [address] [place] [address] Tho KarenPREG HCG QUALon 93-49-4590EAJMORGWG, QUALNegativeNormalNEGATIVEThe [facility]land HospitalComment on above:Performed By: #### PREG #### [facility] [address] [place] [address] Tho KarenPROF CHEM 8 (BAS METB)on 20-17-2006Parqh gap [Moles/Vol]14.9 mmol/L NormalThe [facility], IncComment on above:Performed By: #### BMP #### [facility] [address] [place] [address] Tho KarenCalcium [Mass/Vol]9.2 mg/dLNormal8.4-10.2The [facility] Comment on above:Performed By: #### BMP #### [facility] [address] [place] [address] Tho KarenChloride [Moles/Vol]102 mmol/EEqkcup98-483Msu [facility] Comment on above:Performed By: #### BMP #### [facility] [address] [place] [address] Tho KarenCO2 [Moles/Vol]23.7 mmol/XHkmzkf02.0-30.0[facility] Comment on above:Performed By: #### BMP #### [facility] Laboratory [address] [place] [address] Tho KarenCreatinine [Mass/Vol]0.89 mg/dLNormal0.52-1.04[facility] Comment on above:Performed By: #### BMP #### [facility] [address] [place] [address] Tho KarenEGFR-AF COSTA RICAN>60Normal>=60[facility] IncComment on above: Performed By: #### BMP #### [facility] [address] [place] [address] Tho KarenEGFR-NON AF COSTA RICAN>60Normal>=60[facility] IncComment on above:Performed By: #### BMP #### [facility] [address] [place] [address] Tho KarenGlucose [Mass/Vol]145 mg/dLCritically fxjj38-230Vni [facility] IncComment on above:Performed By: #### BMP #### [facility] [address] [place] [address] Tho KarenPotassium [Moles/Vol]3.6 mmol/LNormal3.4-5.0[facility] Comment on above:Performed By: #### BMP #### [facility] [address] [place] [address] Tho KarenSodium [Moles/Vol]137 mmol/BMlvzyp755-359Uhp [facility] Comment on above:Performed By: #### BMP #### [facility] [address] [place] [address] Tho KarenUrea nitrogen [Mass/Vol]7.0 mg/dLNormal7.0-17.0[facility] Comment on above:Performed By: #### BMP #### [facility] [address] [place] [address] Tho KarenUrea nitrogen/Creatinine [Mass ratio]7.9 mg/mgNoMercer County Community HospitalComment on above:Performed By: #### BMP #### [facility] [address] [place] [address] Tho KarenURINE MICROSCOPIC ONLYon [id number]K SEENKettering Health DaytonComment on above:Performed By: #### ADRIANA MARAVILLA #### [facility] [address] [place] [address] Tho KarenBacteria identified Cx Nom (U)INDICATEDNoMercer County Community Hospital Comment on above:Performed By: #### BEN MARAVILLARO #### [facility] [address] [place] [address] Tho KarenCASTNONE SEENNormalNONE SEENKettering Health DaytonComment on above: Performed By: #### BEN MARAVILLARO #### [facility] [address] [place] [address] Tho KarenCrystals LM Nom (Urine sed)NONE SEENNormalNONE SEENKettering Health DaytonComment on above:Performed By: #### BEN MARAVILLARO #### [facility] [address] [place] [address] Tho KarenEpithelial cells LM Ql (Urine sed)MODERATEAbnormalNONE SEEN /RAREThe [facility], IncComment on above:Performed By: #### ADRIANA MARAVILLA #### [facility] Laboratory [address] [place] [address] Tho KarenMUCOUSNONE SEENNormalNONE SEENThe [facility], IncComment on above: Performed By: #### BEN MARAVILLARO #### [facility] Laboratory [address] [place] [address] Tho HodgeMuiyiOHG7-76Jovjzckn4-3Iyq [facility] IncComment on above:Performed By: #### BEN MARAVILLARO #### [facility] [address] [place] [address] Tho HodgeYvhroPGC57-29IrwzvgmiTDYT SEENKettering Health DaytonComment on above: Performed By: #### ADRIANA MARAVILLA #### [facility] Laboratory [address] [place] [address] Tho KarenRule Out Grp.B Strepon [id number] Out Grp.B StrepSpecimen Description .VAGINA Special Requests NOT REPORTED Culture NEGATIVE FOR GROUP B STREPTOCOCCI Report Status FINAL 05/06/2018[facility] SystemComment on above:Performed By: #### URC #### [facility] [address] [place] [address] [id number] Cult,Genitalon [id number],GenitalSpecimen Description .VAGINA Special Requests NOT REPORTED Culture NORMAL URO-GENITAL HOMERO NEGATIVE FOR NEISSERIA GONORRHOEAE NEGATIVE FOR GROUP B STREPTOCOCCI Report Status FINAL 04/02/2018[facility] SystemComment on above:Performed By: #### URC #### [facility] [address] [place] [address] 16966 Cult,Urineon [id number],UrineSpecimen Description .CLEAN CATCH URINE Special Requests NOT REPORTED Culture NO GROWTH Report Status FINAL 03/31/2018[facility] SystemComment on above:Performed By: #### URC #### [facility] [address] [place] [address] UA w/Reflex Cultureon [id number] Acid,UrNegativeNormal NEGUniversity Hospitals Elyria Medical CenterComment on above:Performed By: #### URC #### [facility] [address] [place] [address] 68056 Bilirubin.direct mass concNegativeNormalNEGUniversity Hospitals Elyria Medical CenterComment on above:Performed By: #### UR #### [facility] [address] [place] [address] 06242 Color Nom (U)YELLOWNormalYELMerWashington HospitalComment on above:Performed By: #### UR #### [facility] [address] [place] [address] 82846 CommentMicroscopic exam not performed based on chemical results unless requested inNormalUniversity Hospitals Elyria Medical CenterComment on above:Result Comment: original order.Performed By: #### UR #### [facility] [address] [place] [address] 30252 Glucose mass concNegativeDahindaNEGUniversity Hospitals Elyria Medical Center Comment on above:Performed By: #### URC #### [facility] [address] [place] [address] 20228 Hemoglobin mass conc (Bld)NegativeNormalNEGUniversity Hospitals Elyria Medical CenterComment on above:Performed By: #### URC #### [facility] [address] [place] [address] 38745 Leuckocyte EsteraseNegativeNormalNEGUniversity Hospitals Elyria Medical CenterComment on above:Performed By: #### URC #### [facility] [address] [place] [address] 10171 Nitrite,UrNegativeNormalNEGUniversity Hospitals Elyria Medical CenterComment on above:Performed By: #### URC #### Balanced [facility] [place] [address] PH,Ur6.1Oifpwp8.0-8.0[facility] Medical CenterComment on above:Performed By: #### URC #### [facility] [employer] [address] [place] [address] 51062 Protein mass concNegativeNomaria parham healthNEGUniversity Hospitals Elyria Medical Center Comment on above:Performed By: #### URC #### [facility] [employer] [address] [place] [address] 25637 Spec. [place],Ur1.918Kktseb8.005-1.030[facility] Elyria Medical CenterComment on above:Performed By: #### URC #### [facility] [employer] [address] [place] [address] 70017 TurbidityCLEARNormalCLEARUniversity Hospitals Elyria Medical CenterComment on above:Performed By: #### URC #### [facility] [employer] [address] [place] [address] 07770 Urobilinogen,UrNormalNormalNORMUniversity Hospitals Elyria Medical Center Comment on above:Performed By: #### URC #### [facility] [employer] [address] [place] [address] 46009 Vaginitis DNA Probeon [id number] DNA ProbeSpecimen Description .VAGINA Special Requests NOT REPORTED Direct Exam NEGATIVE for Gardnerella vaginalis NEGATIVE for Trichomonas vaginalis NEGATIVE for Kristyn sp. Method of testing is a DNA probe intended for detection and identification of Kristyn species, Gardnerella vaginalis, and Trichomonas vaginalis nucleic acid in vaginal fluid specimens from patients with symptoms of vaginitis/vaginosis. Report Status FINAL 03/30/2018NoToledo HospitalComment on above:Performed By: #### URC #### [facility] [employer] [address] [place] [address] 13971 Glucose Lani Scr 50gon 80-72-5275Otjdsoa mass nnfm989 mg/dLHigh 70-135[facility]ria Medical CenterComment on above:Performed By: #### URC #### [address] [address] CBC with Diffon [id number]. Basophil0.03 k/uLNormal0.00-0.20 [facility] Medical CenterComment on above:Performed By: #### UCGP #### [address] [address] Abs.Imm.Granulocyte0.06 k/uLNormal0.00-0.30[facility] Medical CenterComment on above:Performed By: #### UCGP #### [address] [address] Abs.Neutrophil (Seg)6.98 k/uLNormal1.50-8.10[facility] Medical CenterComment on above:Performed By: #### UCGP #### [address] [address] Basophils/100 WBC (Bld)0 %Normal0-2MKaiser Permanente Santa [facility] Center Comment on above:Performed By: #### UCGP #### [address] [address] Eosinophils #/vol (Bld)0.16 10*3/uLNormal0.00-0.44[facility] Medical CenterComment on above:Performed By: #### UCGP #### [address] [address] Eosinophils/100 WBC (Bld)2 %Normal1-4[facility] Medical CenterComment on above:Performed By: #### UCGP #### [address] [address] Erythrocyte distribution width Ratio (RBC)13.0 %Fyadxo71.8-14.4 [facility] Medical CenterComment on above:Performed By: #### UCGP #### [address] [address] Hematocrit Volume Fraction (Bld)35.7 %Low36.3-47.1MKaiser Permanente Santa Teresa Medical CenterComment on above:Performed By: #### UCGP #### [address] [address] Hemoglobin mass conc (Bld)11.9 g/eHVlphik71.9-15.1MKaiser Permanente Santa Teresa Medical CenterComment on above:Performed By: #### UCGP #### [address] [address] Immature granulocytes #/vol (Bld)1 %Ictk9EcrzfUniversity Hospitals Elyria Medical CenterComment on above:Performed By: #### UCGP #### [address] [address] Lymphocytes #/vol (Bld)1.34 10*3/uLNormal1.10-3.70[facility] Medical CenterComment on above:Performed By: #### UCGP #### [address] [address] Lymphocytes/100 WBC (Bld)15 %Mra62-31AbbekUniversity Hospitals Elyria Medical CenterComment on above:Performed By: #### UCGP #### [address] [address] MCH Entitic mass (RBC)28.8 rlKoszfw96.2-33.5[facility] Medical CenterComment on above:Performed By: #### UCGP #### [address] [address] MCHC mass conc (RBC)33.3 g/jIZieado56.4-34.8[facility] Medical CenterComment on above:Performed By: #### UCGP #### [facility] [address] [place] [address] 40928 MCV Entitic volume (RBC)86.4 oSEelemf57.6-102.9[facility] Medical CenterComment on above:Performed By: #### UCGP #### [facility] [employer] [address] [place] [address] 31460 Monocytes #/vol (Bld)0.38 10*3/uLNormal0.10-1.40[facility] Medical CenterComment on above:Performed By: #### UCGP #### [facility] [address] [place] [address] 23802 Monocytes/100 WBC (Bld)4 %Normal2-8[facility] Comment on above:Performed By: #### UCGP #### [facility] [address] [place] [address] 16301 Neutrophil (Seg)78 %Mrua59-29PdgwhUniversity Hospitals Elyria Medical Center Comment on above:Performed By: #### UCGP #### [facility] [address] [place] [address] 06435 NRBC Automated0.0 per 100 WBCNormal0.0[facility]lyria Medical CenterComment on above:Performed By: #### UCGP #### [facility] [address] [place] [address] 36214 Platelet mean volume Entitic volume (Bld)12.0 fLNormal8.1-13.5[facility] Medical CenterComment on above:Performed By: #### UCGP #### [facility] [employer] [address] [place] [address] 28585 Platelets #/vol (Bld)239 10*3/aSSxpyfd730-944KntiwUniversity Hospitals Elyria Medical CenterComment on above:Performed By: #### UCGP #### [facility] [address] [place] [address]43 RBC #/vol (Bld)4.13 10*6/uLNormal3.95-5.11[facility] Medical CenterComment on above:Performed By: #### UCGP #### [facility] [address] [place] [address] 14505 WBC #/vol (Bld)9.0 10*3/uLNormal4.5-13.5[facility] Medical CenterComment on above:Performed By: #### UCGP #### [facility] [address] [place] [address] 90241 Auto Diff PerformedNOT REPORTEDTrinity Health SystemComment on above:Performed By: #### UCGP #### [facility] [employer] [address] [place] [address] 70708 Platelets #/vol (Bld)NOT REPORTEDTrinity Health SystemComment on above:Performed By: #### UCGP #### [facility] [address] [place] [address] 46748 RBC morphology finding Nom (Bld)NOT REPORTEDTrinity Health SystemComment on above:Performed By: #### UCGP #### [facility] [address] [place] [address]ology[address] [facility] [facility] Comment on above:Performed By: #### UCGP #### [facility] [address] [place] [address] 01412 Glucose Lani Scr 50gon 42-46-1960Iur Administered viaGlucolaNoGlenbeigh HospitalComment on above:Performed By: #### URC #### [facility] [address] [place] [address] 32911 Cult,Bloodon [id number],BloodSpecimen Description .BLOOD Special Requests 5ML LH Culture NO GROWTH 6 DAYS Report Status FINAL 02/16/2018[facility] SystemComment on above:Performed By: #### UCGP #### [facility] [address] [place] [address] Cult,Bloodon [id number],BloodSpecimen Description .BLOOD Special Requests 5ML R H Culture POSITIVE Blood Culture NOTIFIED DR Eduin ARCHULETA THROUGH PERFECT SERVE [id number] [id number] DIRECT GRAM STAIN FROM BOTTLE: GRAM POSITIVE COCCI IN CLUSTERS STAPHYLOCOCCUS SPECIES, COAGULASE NEGATIVE A single positive blood culture of coagulase negative staphylococci, micrococci, diphtheroids or Bacillus species should be interpreted with caution and viewed as likely a skin contaminant. Report Status FINAL 02/14/2018[facility] SystemComment on above:Performed By: #### UCGP #### [facility] [address] [place] [address]254 US RENAL COMPLETEon [id number] RENAL COMPLETEEXAMINATION: RETROPERITONEAL ULTRASOUND OF THE KIDNEYS AND URINARY [...] Signed by: Dorian Damico MD 02/10/18 Final resultNormalUniversity Hospitals Elyria Medical CenterXR CHEST (2 VW)on [id number] CHEST (2 VW)EXAMINATION: TWO VIEWS OF THE CHEST 02/10/2018 8:28 am COMPARISON: None. HISTORY: ORDERING SYSTEM PROVIDED HISTORY: Fever FINDINGS: The lungs are without acute focal process. No effusion or pneumothorax. The cardiomediastinal silhouette is normal. The osseous structures are intact without acute process. IMPRESSION: Unremarkable chest. Interpreted by: Geoffrey Mcallister MD Signed by: Geoffrey Mcallister MD 02/10/18 Final resultNormalUniversity Hospitals Elyria Medical CenterCu,Urineon 02-09-2018 Cult,UrineSpecimen Description .URINE Special Requests NOT REPORTED Culture ESCHERICHIA COLI >[id number] CFU/ML Report Status FINAL 02/09/2018 SUSCEPTIBILITY Organism [...] REPORTED Tobramycin <=1 SUSCEPTIBLE Trimethoprim/Sulfa <=20 SUSCEPTIBLE Piperacillin/Tazobactam <=4 SUSCEPTIBLENoToledo Hospital Comment on above:Performed By: #### UCGP #### [facility] [address] [place] [address]457 CBC with Diffon [id number]. Basophil0.00 k/uLNormal0.00-0.20 [facility] Medical CenterComment on above:Performed By: #### UCGP #### [facility] [employer] [address] [place] [address]10 Abs.Imm.Granulocyte0.12 k/uLNormal0.00-0.30[facility] Medical CenterComment on above:Performed By: #### UCGP #### [employer] [address] [place] [address] 03004 Abs.Neutrophil (Seg)10.33 k/uLHigh1.50-8.10[facility] Medical CenterComment on above:Performed By: #### UCGP #### [employer] [address] [place] [address] 66706 Basophils/100 WBC (Bld)0 %Normal0-2MKaiser Permanente Santa Teresa Medical Center Comment on above:Performed By: #### UCGP #### [address] [address] Eosinophils #/vol (Bld)0.00 10*3/uLNormal0.00-0.44[facility] Medical CenterComment on above:Performed By: #### UCGP #### [facility] [address] [place] [address] 8[address]68 Eosinophils/100 WBC (Bld)0 %Low1-4[facility] Comment on above:Performed By: #### UCGP #### [address] [address] Immature granulocytes #/vol (Bld)1 %Qowj9WbkqxUniversity Hospitals Elyria Medical CenterComment on above:Performed By: #### UCGP #### [address] [address] Lymphocytes #/vol (Bld)0.74 10*3/uLLow1.10-3.70[facility] Medical CenterComment on above:Performed By: #### UCGP #### [facility] [employer] [address] [place] [address] 72880 Lymphocytes/100 WBC (Bld)6 %Yye29-79ZqmcdUniversity Hospitals Elyria Medical CenterComment on above:Performed By: #### UCGP #### [facility] [employer] [address] [place] [address] 85097 Monocytes #/vol (Bld)1.11 10*3/uLNormal0.10-1.40[facility] Medical CenterComment on above:Performed By: #### UCGP #### [facility] [employer] [address] [place] [address] 92308 Monocytes/100 WBC (Bld)9 %High2-8[facility] Comment on above:Performed By: #### UCGP #### [facility] [employer] [facility] [place] [address] Morphology Interp Danilo (Bld)NormalNormalUniversity Hospitals Elyria Medical CenterComment on above:Performed By: #### UCGP #### [facility] [employer] [address] [place] [address] 71876 Neutrophil (Seg)84 %Helq36-43XpscbUniversity Hospitals Elyria Medical Center Comment on above:Performed By: #### UCGP #### [facility] [employer] [address] [place] [address] 39254 Erythrocyte distribution width Ratio (RBC)12.8 %Erazem51.8-14.4 [facility] Medical CenterComment on above:Performed By: #### UCGP #### [facility] [employer] [address] [place] [address] 40396 Hematocrit Volume Fraction (Bld)31.8 %Low36.3-47.1MKaiser Permanente Santa Teresa Medical CenterComment on above:Performed By: #### UCGP #### [facility] [employer] [address] [place] [address] 53050 Hemoglobin mass conc (Bld)10.5 g/dLLow11.9-15.1MKaiser Permanente Santa Teresa Medical CenterComment on above:Performed By: #### UCGP #### [facility] [employer] [address] [place] [address] 48980 MCH Entitic mass (RBC)28.7 tuPmikjb99.2-33.5[facility] Medical CenterComment on above:Performed By: #### UCGP #### [facility] [employer] [address] [place] [address] 95924 MCHC mass conc (RBC)33.0 g/cHIseqvc69.4-34.8[facility] Medical CenterComment on above:Performed By: #### UCGP #### [facility] [employer] [address] [place] [address] 46936 MCV Entitic volume (RBC)86.9 rFGyaaiy43.6-102.9[facility] Medical CenterComment on above:Performed By: #### UCGP #### [facility] [address] [place] [address] 51031 NRBC Automated0.0 per 100 WBCNormal0.0[facility] Medical CenterComment on above:Performed By: #### UCGP #### [facility] [employer] [address] [place] [address] 84330 Platelet mean volume Entitic volume (Bld)11.2 fLNormal8.1-13.5[facility] Medical CenterComment on above:Performed By: #### UCGP #### [address] [address] Platelets #/vol (Bld)183 10*3/oTOwmlse916-662YxjaiUniversity Hospitals Elyria Medical CenterComment on above:Performed By: #### UCGP #### [address] [address] RBC #/vol (Bld)3.66 10*6/uLLow3.95-5.11[facility] Medical CenterComment on above:Performed By: #### UCGP #### [facility] [employer] [address] [place] [address] 86117 WBC #/vol (Bld)12.3 10*3/uLNormal4.5-13.5[facility] Medical CenterComment on above:Performed By: #### UCGP #### [facility] [employer] [address] [place] [address]254 Auto Diff PerformedNOT REPORTEDTrinity Health SystemComment on above:Performed By: #### UCGP #### [facility] [employer] [address] [place] [address] 28045 Platelets #/vol (Bld)NOT REPORTEDNormalUniversity Hospitals Elyria Medical CenterComment on above:Performed By: #### UCGP #### [facility] [employer] [address] [place] [address] 80260 RBC morphology finding Nom (Bld)NOT REPORTEDNoToledo HospitalComment on above:Performed By: #### UCGP #### [facility] [address] [place] [address]2864 WBC MorphologyNOT REPORTEDNoToledo Hospital Comment on above:Performed By: #### UCGP #### [facility] [employer] [address] [place] [address] 7[address]24 Chlamydia/GC,DNA Ampon 81-03-3377Nqedwrq mass concNegativeNormalNEG [facility] CenterComment on above:Result Comment: CHLAMYDIA TRACHOMATIS DNA not detected by nucleic acid [...] positive results by an alternative nucleic acid target.Performed By: #### UCGP #### [facility] [employer] [address] [place] [address]11 Result Comment: NEISSERIA GONORRHOEAE DNA not detected by nucleic acid [...] positive results by an alternative nucleic acid target.Comp Metabolic Profon 02-08-2018(cont.)[facility] Health SystemComment on above:Result Comment: Average GFR for 20-29 years old: 116 mL/min/1.73sq m Chronic Kidney Disease: <60 mL/min/1.73sq m Kidney failure: <15 mL/min/1.73sq m eGFR calculated using average adult body mass. Additional eGFR calculator available at: http://www.GameMaki.Symphogen/multiple_crcl_2012.htmPerformed By: #### UCGP #### [address] [address] Albumin mass conc3.0 g/dLLow3.5-5.2MKaiser Permanente Santa [facility] Center Comment on above:Performed By: #### UCGP #### [facility] [employer] [address] [place] [address] 51663 Albumin/Globulin mass ratio1.0 {ratio}Normal1.0-2.5[facility] Medical CenterComment on above:Performed By: #### UCGP #### [facility] [employer] [address] [place] [address] 31734 Alkaline Phos50 U/ESaeqhy69-570NclksUniversity Hospitals Elyria Medical Center Comment on above:Performed By: #### UCGP #### [facility] [employer] [address] [place] [address] 98344 ALT enzyme act/vol11 U/LNormal5-33[facility] Comment on above:Performed By: #### UCGP #### [facility] [employer] [address] [place] [address] 39807 Anion gap molar conc10 mmol/LNormal9-17[facility] Medical CenterComment on above:Performed By: #### UCGP #### [facility] [employer] [address] [place] [address] 61102 AST enzyme act/vol10 U/LNormal<32[facility] Comment on above:Performed By: #### UCGP #### [facility] [employer] [address] [place] [address] 80694 Bilirubin Ql (U)0.54 mg/dLNormal0.3-1.2MKaiser Permanente Santa Teresa Medical CenterComment on above:Performed By: #### UCGP #### [address] [address] [place] [address] Calcium mass conc8.4 mg/dLLow8.6-10.4[facility] Medical CenterComment on above:Performed By: #### UCGP #### [facility] [address] [place] [address] Chloride molar tgva676 mmol/VLyybhg34-585EtkqaUniversity Hospitals Elyria Medical CenterComment on above:Performed By: #### UCGP #### [employer] Laboratories [facility] [place] [address] CO2 molar conc23 mmol/JPxejpq24-69ObkzkUniversity Hospitals Elyria Medical Center Comment on above:Performed By: #### UCGP #### Balanced [address] [place] [address] Creatinine mass conc0.52 mg/dLNormal0.50-0.90University Hospitals Elyria Medical CenterComment on above:Performed By: #### UCGP #### [facility] [place] [address] GFR, Amer>60Normal>60[facility] Elyria Medical CenterComment on above:Performed By: #### UCGP #### [facility] [employer] [facility] [place] [address] GFR,non Amer>60Normal>60[facility] Comment on above:Performed By: #### UCGP #### [employer] [employer] [facility] [place] [address] Glucose mass conc97 mg/lXJmiyfc64-02NvhevKaiser Permanente Santa Teresa Medical CenterComment on above:Performed By: #### UCGP #### [employer] [address] [place] [address] Potassium molar conc4.3 mmol/LNormal3.7-5.3MKaiser Permanente Santa Teresa Medical CenterComment on above:Performed By: #### UCGP #### [address] [place] [address] Protein mass conc6.0 g/dLLow6.4-8.3Muniversity hospitals [facility] centery [facility] Comment on above:Performed By: #### UCGP #### [address] [address] [place] [address] Sodium molar uypw252 mmol/SXfp154-972ClcxgUniversity Hospitals Elyria Medical CenterComment on above:Performed By: #### UCGP #### [address] [address] [place] [address] Urea nitrogen mass conc4 mg/dLLow6-20[facility] Medical CenterComment on above:Performed By: #### UCGP #### [address] [address] [place] [address] BUN/CRE RatioNOT REPORTEDNormal9-20[facility] Comment on above:Performed By: #### UCGP #### [address] [place] [address] Staging:NOT REPORTEDNoalUniversity Hospitals Elyria Medical CenterComment on above:Performed By: #### UCGP #### [address] [address] [place] [address] US RENAL COMPLETEon [id number] RENAL COMPLETEEXAMINATION: RETROPERITONEAL ULTRASOUND OF THE KIDNEYS AND URINARY [...] Signed by: Mg Bergman MD 02/08/18 Final resultNormalUniversity Hospitals Elyria Medical CenterCBC with Diffon [id number]. Basophil<0.17Iblvpn1.00-0.20[facility] E[facility]ria Medical CenterComment on above: Performed By: #### CDP #### [address] [address] Abs.Imm.Granulocyte0.08 k/uLNormal0.00-0.30[facility] Medical CenterComment on above:Performed By: #### CDP #### [facility] [employer] [address] [place] [address] Abs.Neutrophil (Seg)15.39 k/uLHigh1.50-8.10[facility] Elyria Medical CenterComment on above:Performed By: #### CDP #### [address] [address] Basophils/100 WBC (Bld)0 %Normal0-2MKaiser Permanente Santa Teresa Medical Center Comment on above:Performed By: #### CDP #### [address] [address] Eosinophils #/vol (Bld)10*3/uLNormal0.00-0.44[facility]ria Medical CenterComment on above:Performed By: #### CDP #### [facility] [employer] [address] [place] [address] Eosinophils/100 WBC (Bld)0 %Low1-4[facility] Comment on above:Performed By: #### CDP #### [address] [address] Erythrocyte distribution width Ratio (RBC)12.8 %Tyzckx98.8-14.4 [facility]lyria Medical CenterComment on above:Performed By: #### CDP #### [address] [address] Hematocrit Volume Fraction (Bld)40.9 %Pnovaa90.3-47.1MKaiser Permanente Santa Teresa Medical CenterComment on above:Performed By: #### CDP #### [address] [address] Hemoglobin mass conc (Bld)13.6 g/pETxdans43.9-15.1MKaiser Permanente Santa Teresa Medical CenterComment on above:Performed By: #### CDP #### [address] [address] Immature granulocytes #/vol (Bld)1 %Iqzi0BpkopUniversity Hospitals Elyria Medical CenterComment on above:Performed By: #### CDP #### [address] [address] Lymphocytes #/vol (Bld)0.75 10*3/uLLow1.10-3.70[facility] Medical CenterComment on above:Performed By: #### CDP #### [address] [address] Lymphocytes/100 WBC (Bld)4 %Cii69-86UferrUniversity Hospitals Elyria Medical CenterComment on above:Performed By: #### CDP #### [facility] [employer] [address] [place] [address] MCH Entitic mass (RBC)28.8 yjDamgaz53.2-33.5[facility] E[facility] Medical CenterComment on above:Performed By: #### CDP #### [address] [address] MCHC mass conc (RBC)33.3 g/kDBvqrrb94.4-34.8[facility] Medical CenterComment on above:Performed By: #### CDP #### Balanced [address] [place] [address] MCV Entitic volume (RBC)86.5 qHZkorjx82.6-102.9[facility] Medical CenterComment on above:Performed By: #### CDP #### [facility] [employer] [address] [place] [address] Monocytes #/vol (Bld)0.84 10*3/uLNormal0.10-1.40[facility] Medical CenterComment on above:Performed By: #### CDP #### [facility] [address] [place] [address] Monocytes/100 WBC (Bld)5 %Normal2-8[facility] Comment on above:Performed By: #### CDP #### [facility] [address] [place] [address] Neutrophil (Seg)90 %Yiiy31-66MyawxUniversity Hospitals Elyria Medical Center Comment on above:Performed By: #### CDP #### [facility] [employer] [address] [place] [address] NRBC Automated0.0 per 100 WBCNormal0.0[facility] E[facility]ria Medical CenterComment on above:Performed By: #### CDP #### [facility] [address] [place] [address] Platelet mean volume Entitic volume (Bld)11.4 fLNormal8.1-13.5[facility] Medical CenterComment on above:Performed By: #### CDP #### [facility] [employer] [address] [place] [address] Platelets #/vol (Bld)224 10*3/gOUaywmq092-933VlvrdUniversity Hospitals Elyria Medical CenterComment on above:Performed By: #### CDP #### Balanced [facility] [place] [address] RBC #/vol (Bld)4.73 10*6/uLNormal3.95-5.11[facility] Medical CenterComment on above:Performed By: #### CDP #### Balanced [address] [place] [address] WBC #/vol (Bld)17.1 10*3/uLHigh4.5-13.5[facility] Medical CenterComment on above:Performed By: #### CDP #### Balanced [address] [place] [address] Auto Diff PerformedNOT REPORTEDTrinity Health SystemComment on above:Performed By: #### CDP #### Balanced [address] [place] [address] Platelets #/vol (Bld)NOT REPORTEDTrinity Health SystemComment on above:Performed By: #### CDP #### Balanced [address] [place] [address] RBC morphology finding Nom (Bld)NOT REPORTEDTrinity Health SystemComment on above:Performed By: #### CDP #### [facility]anced [address] [place] [address] WBC MorphologyNOT REPORTEDTrinity Health System Comment on above:Performed By: #### CDP #### Balanced [address] [place] [address] Comp Metabolic Profon 02-07-2018(cont.)Trinity Health SystemComment on above:Result Comment: Average GFR for 20-29 years old: 116 mL/min/1.73sq m Chronic Kidney Disease: <60 mL/min/1.73sq m Kidney failure: <15 mL/min/1.73sq m eGFR calculated using average adult body mass. Additional eGFR calculator available at: http://www.GameMaki.Symphogen/multiple_crcl_2012.htmPerformed By: #### CP #### [address] [address] Albumin mass conc3.9 g/dLNormal3.5-5.2MKaiser Permanente Santa Teresa Medical CenterComment on above:Performed By: #### CP #### [address] [address] Albumin/Globulin mass ratio1.0 {ratio}Normal1.0-2.5[facility] Medical CenterComment on above:Performed By: #### CP #### [address] [address] Alkaline Phos70 U/YWdulas50-539OtdagUniversity Hospitals Elyria Medical Center Comment on above:Performed By: #### CP #### [address] [address] ALT enzyme act/vol14 U/LNormal5-33[facility] Comment on above:Performed By: #### CP #### [address] [address] Anion gap molar conc19 mmol/LHigh9-17[facility] Medical CenterComment on above:Performed By: #### CP #### [address] [address] AST enzyme act/vol15 U/LNormal<32[facility] Comment on above:Performed By: #### CP #### [facility] [employer] [address] [place] [address] Bilirubin Ql (U)1.27 mg/dLHigh0.3-1.2MKaiser Permanente Santa Teresa Medical CenterComment on above:Performed By: #### CP #### [facility] [employer] [address] [place] [address] Calcium mass conc9.8 mg/dLNormal8.6-10.4[facility] Medical CenterComment on above:Performed By: #### CP #### [address] [address] Chloride molar conc97 mmol/YTeq58-865WxzxyUniversity Hospitals Elyria Medical CenterComment on above:Performed By: #### CP #### [address] [address] CO2 molar conc21 mmol/QCvuncy17-06XxjgzUniversity Hospitals Elyria Medical Center Comment on above:Performed By: #### CP #### [address] [address] Creatinine mass conc0.50 mg/dLNormal0.50-0.90[facility] Medical CenterComment on above:Performed By: #### CP #### [address] [address] GFR, Amer>60Normal>60[facility] Medical CenterComment on above:Performed By: #### CP #### [address] [address] GFR,non Amer>60Normal>60[facility] Comment on above:Performed By: #### CP #### [address] [address] Glucose mass conc85 mg/tHSixfky23-89XsmjsKaiser Permanente Santa Teresa Medical CenterComment on above:Performed By: #### CP #### [address] [address] Potassium molar conc4.3 mmol/LNormal3.7-5.3MKaiser Permanente Santa Teresa Medical CenterComment on above:Performed By: #### CP #### [address] [address] Protein mass conc8.0 g/dLNormal6.4-8.3Mer[facility] Dominican HospitalComment on above:Performed By: #### CP #### Balanced [address] [place] [address] Sodium molar govc515 mmol/YGbtcrx200-098VxyxdUniversity Hospitals Elyria Medical CenterComment on above:Performed By: #### CP #### Balanced [address] [place] [address] Urea nitrogen mass conc6 mg/dLNormal6-20[facility] Medical CenterComment on above:Performed By: #### CP #### Balanced [address] [place] [address] BUN/CRE RatioNOT REPORTEDNoal9-20[facility] Comment on above:Performed By: #### CP #### [facility] [employer] [address] [place] [address] Staging:NOT REPORTEDNormalUniversity Hospitals Elyria Medical CenterComment on above:Performed By: #### CP #### [facility] [employer] [address] [place] [address] Flu A/B Ag Detectionon [id number] A/B Ag DetectionSpecimen Description .NASOPHARYNGEAL SWAB Special Requests NOT REPORTED Direct Exam PRESUMPTIVE NEGATIVE for Influenza A + B antigens. PCR testing to confirm this result is available upon request. Specimen will be saved in the laboratory for 7 days. Please call [phone] if PCR testing is indicated. Report Status FINAL 02/07/2018NormalUniversity Hospitals Elyria Medical CenterComment on above:Performed By: #### FLUAD #### Balanced [address] [place] [address] UA w/Reflex Cultureon [id number].direct mass concNegative AbnormalNEGUniversity Hospitals Elyria Medical CenterComment on above:Performed By: #### UAX, UMICAO #### [facility] [address] [place] [address] CommentCulture ordered based on defined criteria.NormalUniversity Hospitals Elyria Medical CenterComment on above:Performed By: #### CEDRIC RODRIGUEZ #### [facility] [address] [place] [address] Acetoacetic Acid,UrMODERATEAbnormalNEGUniversity Hospitals Elyria Medical CenterComment on above:Performed By: #### CEDRIC RODRIGUEZ #### [facility] [address] [place] [address] Color Nom (U)ORANGEAbnoalYUniversity Hospitals Geneva Medical Center Comment on above:Result Comment: INTERPRET WITH CAUTION DUE TO INTENSE COLOR OF URINE.Performed By: #### CEDRIC RODRIGUEZ #### [employer] [address] [place] [address] Glucose mass concNegativeNormnmNEGUniversity Hospitals Elyria Medical Center Comment on above:Performed By: #### CEDRIC RODRIGUEZ #### [employer] [address] [place] [address] Hemoglobin mass conc (Bld)TRACEAbnoalNEGUniversity Hospitals Elyria Medical CenterComment on above:Performed By: #### CEDRIC RODRIGUEZ #### [employer] [address] [place] [address] Leuckocyte EsteraseMODERATEAbnormalNEGUniversity Hospitals Elyria Medical CenterComment on above:Performed By: #### CEDRIC RODRIGUEZ #### [facility] [employer] [address] [place] [address] Nitrite,UrPositiveAbhoustonNEGUniversity Hospitals Elyria Medical Center Comment on above:Performed By: #### CEDRIC RODRIGUEZ #### [facility] [employer] [address] [place] [address] PH,Ur6.4Inaqqj1.0-8.0[facility] Medical CenterComment on above:Performed By: #### CEDRIC RODRIGUEZ #### [facility] [address] [place] [address] Protein mass conc2+AbnormalNEGUniversity Hospitals Elyria Medical Center Comment on above:Performed By: #### CEDRIC RODRIGUEZ #### [facility] [address] [place] [address] Spec. [place],Ur1.013Mahtey7.005-1.030[facility] Medical CenterComment on above:Performed By: ###CEDRIC JOHNSON #### [facility] [address] [place] [address] TurbidityTURBIDAbnormalCLEARMercSilver Lake Medical CenterComment on above:Performed By: #### CEDRIC RODRIGUEZ #### [facility] [employer] [address] [place] [address] Urobilinogen,UrNormalNormalNORMUniversity Hospitals [facility] Comment on above:Performed By: ###CEDRIC JOHNSON #### [facility] [address] [place] [address] Urinalysis,Microon 02-07-2018-----NormalUniversity Hospitals Elyria Medical CenterComment on above:Performed By: ###CEDRIC JOHNSON #### [facility] [employer] [address] [place] [address] Bacteria LM.HPF #/area (Urine sed)MANYAbnormalNONEMercy Dominican HospitalComment on above:Performed By: ###CEDRIC JOHNSON #### [facility] [address] [place] [address] Epithelial cells LM.HPF #/area (Urine sed)20 TO 99Ftbsmk4-6IuaajUniversity Hospitals Elyria Medical CenterComment on above:Performed By: #### CEDRIC RODRIGUEZ #### [facility] [address] [place] [address] Mucus Strands2+AbnormalNONEMeRady Children's HospitalComment on above:Performed By: #### CEDRIC RODRIGUEZ #### [facility] [address] [place] [address] RBC #/vol (U)0 TO 3Eihxoc7-7Otnrg Dominican HospitalComment on above:Performed By: #### CEDRIC RODRIGUEZ #### [facility] [address] [place] [address] WBC #/vol (U)10 TO 69Mxgjdh2-1Zwfmt [facility] Comment on above:Performed By: #### CEDRIC RODRIGUEZ #### [facility] [address] [place] [address] Amorphous sediment LM Ql (Urine sed)NOT REPORTEDNormalNONEMeRady Children's HospitalComment on above:Performed By: #### CEDRIC RODRIGUEZ #### [facility] [employer] [address] [place] [address] Casts LM.LPF #/area (Urine sed)NOT REPORTEDNormal0-2[facility] HospitalComment on above:Performed By: #### CEDRIC RODRIGUEZ #### [facility] [employer] [address] [place] [address] Crystals LM Nom (Urine sed)NOT REPORTEDNormalNONEMeRady Children's HospitalComment on above:Performed By: #### CEDRIC RODRIGUEZ #### [facility] [address] [place] [address] Epithelial, RenalNOT YAKHGGQNNwauvy6IjudmWashington HospitalComment on above:Performed By: #### CEDRIC RODRIGUEZ #### [facility]anced [address] [place] [address] Other ObservationsNOT REPORTEDNomaria parham healthNRPremier HealthComment on above:Performed By: #### CEDRIC RODRIGUEZ #### [employer] [address] [place] [address] TrichomonasNOT REPORTEDMercy Health Tiffin Hospital Comment on above:Performed By: #### CEDRIC RODRIGUEZ #### [facility] [address] [place] [address] Yeast LM Ql (Urine sed)NOT REPORTEDNoLicking Memorial HospitalComment on above:Performed By: #### CEDRIC RODRIGUEZ #### [employer] [address] [place] [address] Vaginitis DNA Probeon [id number] DNA ProbeSpecimen Description .VAGINA Special Requests NOT REPORTED Direct Exam NEGATIVE for Gardnerella vaginalis NEGATIVE for Trichomonas vaginalis NEGATIVE for Kristyn sp. Method of testing is a DNA probe intended for detection and identification of Kristyn species, Gardnerella vaginalis, and Trichomonas vaginalis nucleic acid in vaginal fluid specimens from patients with symptoms of vaginitis/vaginosis. Report Status FINAL 02/07/2018Trinity Health SystemComment on above:Performed By: #### VAGDNA #### [employer] [address] [place] [address] AFP, Maternalon 21-63-1803Gnhzwzccja byOtherNoMagruder HospitalComment on above:Performed By: #### TARA ####[facility] [address] [place] [address] Due DateSEE NOTEMarymount HospitalComment on above:Result Comment: Results for Estimated Due Date: [id number] Performed By: #### AAFPM ####[facility]anda [address] [place] [address] Family HistoryNoNUniversity Hospitals Health SystemComment on above: Performed By: #### AAFPM ####[address]anda [address] [place], [place] [phone] Age (exact)22 wks, 1 daysMarymount Hospital Comment on above:Performed By: #### AAFPM ####[facility]anda [address] [place] [address] Ins Req Matern DiabNoNormalWestern Reserve HospitalComment on above:Performed By: #### AAFPM ####Fernanda [address] [place] [address] InterpretationScreen NegMarymount HospitalComment on above:Result Comment: (NOTE)INTERPRETATION: SCREEN NEGATIVE for open spina bifidaNeural Tube Defects (NTD) Negative Pre-Test Post- Test CutoffNeural Tube Defects Risks 1:1030 < 1:63884 1:250Comments:The risk of an open neural tube defect is less than thescreening cut-off.Test developed and characteristics determined by [facility]. See Compliance Statement B: [email or web address] By: #### AAFPM ####Fernanda [address] [place] [address] Maternal Age at Del23.0 yrMarymount HospitalComment on above:Performed By: #### AAFPM ####Fernanda [address] [place] [address] Maternal RaceNonblackNoMagruder HospitalComment on above:Performed By: #### AAFPM ####[employer]meOfhz[address]ovzqx[address] [place] [address] MoM for AFP0.73NoMagruder HospitalComment on above:Performed By: #### AAFPM ####[employer].meK[address]qny[address]jrm[address] [place] [address] Number of FetusesSingletonMarymount HospitalComment on above:Performed By: #### AAFPM ####[facility] [address]pxir[address] [place] [address] Patient's AFP54 ng/mL NormalWestern Reserve HospitalComment on above:Performed By: #### AAFPM ####Fernanda [address] [place] [address] SmokingNoNormalOhiohealth Dublin Methodist Hospital HospitalComment on above:Performed By: #### AAFPM ####Fernanda X[address] [place] [address] SpecimenSee NoteNormal Western Reserve HospitalComment on above:Result Comment: (NOTE)Initial samplePerformed by [employer],[address] [place] [address] [phone].[employer], Kareem Pan MD, Lab. DirectorPerformed By: #### AAKRISTIM ####Fernanda [address] [place] [address] AFP, Maternalon 63-47-1726Pdeqfyr SmokingNNormalWestern Reserve HospitalComment on above:Performed By: #### AAFPM ####Fernanda [address] [place] [address] DatingLMPNormalWestern Reserve HospitalComment on above: Performed By: #### AAFPM ####Fernanda L[address]wzhmiq[address] [place] [address] DiabeticNNormalOhiohealth Dublin Methodist Hospital HospitalComment on above: Performed By: #### AAFPM ####Bethely Fssvpduovdlp[address] [place] [address] Estimated [id number] Anne HospitalComtrinity health grand rap[facility] on above:Performed By: #### AAFPM ####Bethely Ivcxamcnzlhy[address] [place] [address] Family HistoryProMedica Flower HospitalComment on above:Performed By: #### AAFPM ####Fernanda [address] [place] [phone] [id number] HospitalComment on above: Performed By: #### AAFPM ####Fernanda [address] [place] [phone] [id number] Hospital Comment on above:Performed By: #### AAFPM ####Fernanda [address] [phone] TwinsProMedica Flower HospitalComment on above:Performed By: #### AAFPM ####Fernanda [address] [address] Protein mass concProMedica Flower HospitalComment on above:Performed By: #### AAFPM ####Fernanda Ztdlcwgtghdd7424 [place] [address] Race (Maternal)CAUCASIANNoMagruder HospitalComment on above:Performed By: #### AAFPM ####Fernanda Blexvbspvpft[address] [place] [address] Repeat SpecimenNNMercy HospitalComment on above:Performed By: #### AAFPM ####Fernanda [address] [place] [phone] Profileon 68-31-9940Szq B Surf AgNONREACTIVENoOhioHealth Arthur G.H. Bing, MD, Cancer CenterComment on above:Performed By: #### HIVCMB, PRENAT ####Bethely [address]qprnxdhmwkf[address] [place] [address] Rubella Ab, IgG5.2 IU/mLNUniversity Hospitals Health SystemComment on above:Result Comment: REFERENCE RANGE:<5.0 NON-REACTIVE (non- immune)5.0 TO 9.9 EQUIVOCAL>=10.0 REACTIVE (immune)Performed By: #### HIVCMB, PRENAT ####[address] [address] Type + Scrnon 97-26-6558Jwxedysy Type + ScrnNegativeMarymount HospitalComtrinity health [facility] rap[facility] hospital on above:Performed By: #### PRTYS ####[address] [phone] Ag/Abon 12-22-2017 HIV Ag/AbNONREACTIVEParkview HealthComtrinity health grand rapids hospital on above:Result Comment: No laboratory evidence of HIV infection. If acute HIV infection is suspected, consider testing for HIV-1 RNA.Performed By: #### HIVCMB, PRENAT ####[address] [phone] Profileon 12-22-2017T.pallidum Ab ScreenNONREACTIVEParkview HealthComtrinity health grand rapids hospital on above:Result Comment: T. pallidum antibodies are not detected.There is no serological evidence of infection with T. pallidum (early primary syphilis cannot be excluded). Retest in 2-4 weeks if syphilis is c linically suspect.Performed By: #### HIVCMB, PRENAT ####[address] [phone]. Basophil0.04 k/uLNormal0.00-0.20 [facility] HospitalComtr[facility] health [facility] on above:Performed By: #### HIVCMB, PRENAT ####[address] [address] Abs.Imm.Granulocyte0.03 k/uLNormal0.00-0.30[facility] HospitalComtr[facility] health [facility] on above:Performed By: #### HIVCMB, PRENAT ####[address] [address] Abs.Neutrophil (Seg)5.72 k/uLNormal1.50-8.10 [facility] on above:Performed By: #### HIVCMB, PRENAT ####[address] [address] Basophils/100 WBC Auto (Bld)1 %Normal0-2MDayton General HospitalComtrinity health grand rapids hospital on above:Performed By: #### HIVCMB, PRENAT ####[address] [address] Eosinophils Auto #/vol (Bld)0.25 10*3/uLNormal0.00-0.44[facility] on above:Performed By: #### HIVCMB, PRENAT ####[address] [address] Eosinophils/100 WBC Auto (Bld)3 %Normal1-4[facility] on above:Performed By: #### HIVCMB, PRENAT ####[address] [address] Erythrocyte distribution width Auto Ratio (RBC)13.2 %Normal 11.8-14.4[facility] on above:Performed By: #### HIVCMB, PRENAT ####[address] [address] Hematocrit Auto Volume Fraction (Bld)37.4 %Vrtnwj62.3-47.1MUniversity Hospitals Conne[facility] on above:Performed By: #### HIVCMB, PRENAT ####[address] [address] Hemoglobin mass conc (Bld)12.5 g/vKQzcdbt35.9-15.1MDayton General HospitalComtrinity health [facility] on above:Performed By: #### HIVCMB, PRENAT ####[address] [place] [address] Immature granulocytes #/vol (Bld)0 %Pnqtmz3MmahoWestern Reserve HospitalComtrinity health [facility] on above:Performed By: #### HIVCMB, PRENAT ####Fernanda [address] [address] Lymphocytes Auto #/vol (Bld)1.53 10*3/uLNormal1.10-3.70MerIsland HospitalComtrinity health [facility] on above: Performed By: #### HIVCMB, PRENAT ####[address] [address] Lymphocytes/100 WBC Auto (Bld)19 %Udq04-23SzgluWestern Reserve HospitalComtrinity health [facility] rap[facility] on above:Performed By: #### HIVCMB, PRENAT ####[place] [address] MCH Auto Entitic mass (RBC)28.3 kgSfqoej45.2-33.5[facility] on above:Performed By: #### HIVCMB, PRENAT ####[address] [address] MCHC Auto mass conc (RBC)33.4 g/rLSlgkee74.4-34.8Western [facility] HospitalComtr[facility] on above:Performed By: #### HIVCMB, PRENAT ####Fernanda [address] [address] MCV Auto Entitic volume (RBC)84.8 bKAfucfj36.6-102.9Western [facility] HospitalComtr[facility] on above:Performed By: #### HIVCMB, PRENAT ####[address] [address] Monocytes Auto #/vol (Bld)0.39 10*3/uLNormal0.10-1.40[facility] on above:Performed By: #### HIVCMB, PRENAT ####Fernanda [address] [place] [address] Monocytes/100 WBC Auto (Bld)5 %Normal2-8[facility] on above:Performed By: #### HIVCMB, PRENAT ####[place] [address] Neutrophil (Seg)72 %Vlno03-78BjffgWilson Memorial Hospital on above:Performed By: #### HIVCMB, PRENAT ####[address] [address] NRBC Automated0.0 per 100 WBCNormal0.0[facility] on above:Performed By: #### HIVCMB, PRENAT ####[address] [address] Platelet mean volume Auto Entitic volume (Bld)11.5 fLNormal8.1-13.5[facility] on above:Performed By: #### HIVCMB, PRENAT ####[address] [address] Platelets Auto #/vol (Bld)234 10*3/uLNormal 138-453[facility] on above:Performed By: #### HIVCMB, PRENAT ####[facility] Centerbonnie [address] [address] RBC Auto #/vol (Bld)4.41 10*6/uLNormal3.95-5.11[facility] on above: Performed By: #### HIVCMB, PRENAT ####Fernanda [address] [address] WBC Auto #/vol (Bld)8.0 10*3/uLNormal4.5-13.5Western Reserve HospitalComment on above:Performed By: #### HIVCMB, PRENAT ####[employer] [address] [place], [place] [phone] Diff PerformedNOT REPORTEDNoMagruder HospitalComment on above:Performed By: #### HIVCMB, PRENAT ####[facility] CenterAK[facility] [address] [place] [address] Platelets Auto #/vol (Bld)NOT REPORTEDMarymount HospitalComtrinity health [facility] on above:Performed By: #### HIVCMB, PRENAT ####[facility] CenterFashion.meUkwyzetrzhms[address] [place] [address] [phone] morphology finding Nom (Bld)NOT REPORTED NormalWestern Reserve HospitalComment on above:Performed By: #### HIVCMB, PRENAT ####[facility] [address] [place] [address] [phone] Morphology NOT REPORTEDMarymount HospitalComtrinity health [facility] on above:Performed By: #### HIVCMB, PRENAT ####[facility] [address] [place] [address] [phone],Urineon 20-12-5515Iwbk,UrineSpecimen Description .CLEAN CATCH URINE Special Requests NOT REPORTED Culture NO SIGNIFICANT GROWTH Report Status FINAL 11/29/2017[facility] SystemComment on above:Performed By: #### URC #### [facility] [employer] [address] [place] [address] Chlamydia/GC DNA, Uron 43-03-1798Qbfbxgb mass concNegativeNormalNEG [facility] Medical CenterComment on above:Result Comment: NEISSERIA GONORRHOEAE DNA not detected by nucleic acid amplification.Performed By: #### UCGP #### [facility] [employer] [address] [place] [address] Result Comment: CHLAMYDIA TRACHOMATIS DNA not detected by nucleic acid amplification.Cult,Urineon 04-70-2531Xgcq,UrineSpecimen Description .CLEAN CATCH URINE Special Requests NOT REPORTED Culture ESCHERICHIA COLI >[id number] CFU/ML Report Status FINAL 11/01/2017 SUSCEPTIBILITY Organism [...] REPORTED Tobramycin <=1 SUSCEPTIBLE Trimethoprim/Sulfa <=20 SUSCEPTIBLE Piperacillin/Tazobactam <=4 SUSCEPTIBLETrinity Health System Comment on above:Performed By: #### URC #### [facility] [employer] [address] [place] [address] Drug Scr, Abuse, Uron 51-85-5211Nafhrfrxgtp(s),UrNegativeNormalNEG [facility] Medical CenterComment on above:Result Comment: (Positive cutoff 1000 ng/mL)Performed By: #### ANTIONE #### [facility] [employer] [address] [place] [address] Barbiturate(s),UrNegativermnmNEGUniversity Hospitals Elyria Medical Center Comment on above:Result Comment: (Positive cutoff 200 ng/mL)Performed By: #### ANTIONE #### [employer] [address] [place] [address] Base excess Calculated molar conc (Bld)[facility]red Hospital LimaComment on above:Result Comment: (Positive cutoff 300 ng/mL)Performed By: #### ANTIONE #### [employer] [address] [place] [address] Benzodiazepine(s)NegativeTrumbull Memorial Hospital Comment on above:Result Comment: (Positive cutoff 200 ng/mL)Performed By: #### ANTIONE #### [facility] [employer] [address] [place] [address] Cannabinoid(s),UrNegativeNormalNEGNationwide Children'S Hospitalcy [facility] Comment on above:Result Comment: (Positive cutoff 50 ng/mL)Performed By: #### ANTIONE #### [address] [address] Interpretive InfoAssay provides medical screening only. The absence of expected drug(s) and/orNormalMercy Dominican HospitalComment on above:Result Comment: metabolite(s) may indicate diluted or adulterated urine, limitations of testing or timing of collection. Testing for legal purposes should be confirmed by another method. To request confirmation of test result, please call the lab within 7 days of sample submission.Performed By: #### ANTIONE #### [address] [address] Methadone Ql (U)NegativeNormalNEGNationwide Children'S Hospitalcy [facility] Comment on above:Result Comment: (Positive cutoff 300 ng/mL)Performed By: #### ANTIONE #### [address] [address] Opiate(s), UrNegativeNormalNEGMercy Dominican Hospital Comment on above:Result Comment: (Positive cutoff 300 ng/mL)Performed By: #### ANTIONE #### [facility] [employer] [address] [place] [address] Oxycodone, UrineNegativeNormalNEGNationwide Children'S Hospitalcy [facility] Comment on above:Result Comment: (Positive cutoff 100 ng/mL)Performed By: #### ANTIONE #### [facility] [employer] [address] [place] [address] Phencyclidine, UrNegativeNormalNEGNationwide Children'S Hospitalcy [facility] Comment on above:Result Comment: (Positive cutoff 25 ng/mL)Performed By: #### ANTIONE #### [employer] [address] [place] [address] Buprenorphrine, UrNOT REPORTEDNormalNEGMercy Dominican HospitalComment on above:Performed By: #### ANTIONE #### [employer] [facility] [place] [address] MDMA, UrineNOT REPORTEDNormalNEGNationwide Children'S Hospitalcy [facility] Comment on above:Performed By: #### ANTIONE #### [employer] [facility] [place] [address] Methamphetamine, UrNOT REPORTEDNormalNEGMercy Dominican HospitalComment on above:Performed By: #### ANTIONE #### [employer] [address] [place] [address] Protein mass conc (U)NOT REPORTEDNormalNEGNationwide Children'S Hospitalcy Dominican HospitalComment on above:Performed By: #### ANTIONE #### [employer] [address] [place] [address] Tricyclic antidepressants Screen Ql (U)NOT REPORTEDNormalNEGUniversity Hospitals Elyria Medical CenterComment on above:Performed By: #### ANTIONE #### [employer] [address] [place] [address] US OB LESS THAN 14 WEEKS SINGLE OR FIRST GESTATIONon 05-23-3097XM OB LESS THAN 14 WEEKS SINGLE OR FIRST GESTATIONEXAMINATION:TRANSABDOMINAL AND TRANSVAGINAL FIRST TRIMESTER OBSTETRIC PELVIC ULTRASOUNDWITH COLOR DOPPLER FLOW10/27/2017COMPARISON:NoneHISTORY:ORDERING SYSTEM PROVIDED HISTORY: 9 weeks gestation of pregnancyTECHNOLOGIST PROVIDED HISTORY:Reason for exam:- >datingAcuity: AcuteType of Exam: InitialLast menstrual period August 23, 2017FINDINGS:There is a gestational sac with a yolk sac and pole measuring 2.1 cmcorresponding to 8 weeks 5 days and an EDC of June 03, 2018. Thiscompares with a menstrual age of 9 weeks 2 days.The right ovary is not visualized. The left ovary measures 3 x 1.6 x2.3 cm.IMPRESSION: 8 week 5 day intrauterine . Nonvisualized right ovary.Interpreted by:LAINEY Rochaigned by:Gaurang Castellon MD10/27/17inal resultNormalMercy Vital Signs Date TimeVital SignValuePerforming HjatcidbgZopvbhea27-17-2755 08:41-0400Body .56 cmSelect [facility]06-03-2025 08:41-0400Body mass index (BMI) [Ratio]34 kg/y6GkrwpaxxoSelect Medical Specialty [facility]06-03-2025 08:41-0400Body wdkouvkyuwm25.5 [degF][facility]06-03-2025 08:41-0400Body wlwyix32.81 kgSelect [facility]06-03-2025 08:41-0400Diastolic blood qhyntklx80 mm[Hg][facility] 09-11-2024 08:41-0400Heart rate85 /minSelect Medical Specialty Hospital [facility] 09-11-2024 08:41-7736YyE1% (BldA) [Mass fraction]98 %[facility]06-03-2025 08:41-0400Systolic blood uiondmrc525 mm[Hg][facility]04-14-2025 08:47-0400Body jfdsuj15.91 kgCorey Dannielle DO Work Phone: [phone] springfieldYfnvburfvy93-36-4548 08:47-0400Diastolic blood mm[Hg]Delon Dannielle DO Work Phone: [phone] springfieldKnuqxqavpc26-65-6114 08:47-0400Systolic blood jodallsg797 mm[Hg]Delon Dannielle DO Work Phone: [facility] springfieldIkzbflkikc56-88-5698 13:24-0400Body pvpyti60.2 kg Delon Danneille DO Work Phone: [facility] springfieldCriozirlyz78-73-8555 13:24-0400Diastolic blood ozcgysoi95 mm[Hg]Delon Dannielle DO Work Phone: [facility] springfieldCkxgihbgso65-54-0742 13:24-0400Systolic blood qlfjbhev712 mm[Hg]Delon Dannielle DO Work Phone: [facility] springfieldWwxenvurix03-54-1819 10:07-0500Body uxikei876.56 cmCorey Dannielle DO Work Phone: 1([phone] [place], [place] 2810302-20-2025 10:07-0500 Body mass index (BMI) [Ratio]33.2 kg/e6Nhxpd Dannielle DO Work Phone: 1(342)594-[address] [place], [place] 2810302-20-2025 10:07-0500 Body bggxbwnosdz24 [degF]Delon Dannielle DO Work Phone: 1(904)230-[address] [place], [place] 2810302-20-2025 10:07-0500 Body uneier56.77 kgCorey Dannielle DO Work Phone: 1(828)[address] [place], [place] 0862902-20-2025 10:07-0500 Diastolic blood fsyvohru91 mm[Hg]Delon Dannielle DO Work Phone: 1(097)722-[address] [place], [place] 2810302-20-2025 10:07-0500 Heart nhga271 /minCorey Dannielle DO Work Phone: 1(683)[facility] [place], [place] 2810302-20-2025 10:07-0500 SaO2% (BldA) [Mass fraction]98 %Delon Dannielle DO Work Phone: 1(173)[facility] [place], [place] 2810302-20-2025 10:07-0500 Systolic blood guavxhaf318 mm[Hg]Delon Dannielle DO Work Phone: 1(794)578-[address] [place], [place] 2810302-11-2025 13:48-0500 Body ytofjh26.71 kgValerie Floro CNM Work Phone: [facility] springfieldWhxgjjtkih34-97-4233 13:48-0500Diastolic blood lotxexep28 mm[Hg]Tomer Floro CNM Work Phone: noWestern [facility] Medical CenterDshjjrzuhb61-79-9220 13:48-0500Systolic blood eqtdibzh048 mm[Hg]Tomer Floro CNM Work Phone: 1(419)[address] [place], [place] 0136602-03-2025 13:35-0500Body iwspxk41.99 kgValerie Floro CNM Work Phone: 1(460)[address] [place], [place] 0136602-03-2025 13:35-0500Diastolic blood mm[Hg]Tomer Floro CNM Work Phone: 1(550)[address] [place], [place] 0136602-03-2025 13:35-0500Systolic blood glyhyhke694 mm[Hg]Tomer Floro CNM Work Phone: 1(032)[address] [place], [place] 0136601-27-2025 14:15-0500Body .53 kgValerie Floro CNM Work Phone: 1(749)[address] [place], [place] 0136601-27-2025 14:15-0500Diastolic blood osmgxhjl96 mm[Hg]Tomer Floro CNM Work Phone: 1(562)[address] [place], [place] 0136601-27-2025 14:15-0500Systolic blood ltnkuefn078 mm[Hg]Tomer Floro CNM Work Phone: 1(694)[address] [place], [place] 0136601-20-2025 13:14-0500Body dhofud33.63 kgValerie Floro CNM Work Phone: 1(947)[address] [place], [place] 0136601-20-2025 13:14-0500Diastolic blood fhkikjht00 mm[Hg]Tomer Floro CNM Work Phone: 1(094)[address] [place], [place] 0136601-20-2025 13:14-0500Systolic blood jirzswnp740 mm[Hg]Tomer Floro CNM Work Phone: 1(517)[address] [place], [place] 0136601-16-2025 14:25-0500Body chyrtu966.6 cmRussel James MD Work Phone: CReg[facility]01-16-2025 14:25-0500Body mass index (BMI) [Ratio]33.7 kg/n8ZdkexvtgRussel James MD Work Phone: QReg[facility]01-16-2025 14:25-0500Body ykqjww69.09 kgRussel James MD Work Phone: 1(550)291-[address] [place], [place] 9852001-16-2025 14:25-0500Diastolic blood wrnqdbna46 mm[Hg]Russel James MD Work Phone: 1(011)396-[address] [place], [place] 9852001-16-2025 14:25-0500Heart rate 93 /minRussel James MD Work Phone: 1(891)[address] [place], [place] 7601801-16-2025 14:25-0500Systolic blood iyacrbgg694 mm[Hg]Russel James MD Work Phone: 1(483)[address]01-16-2025 09:45-0500Diastolic blood mm[Hg]Georgette Gustafson MD Work Phone: 1(023)527-[facility]01-16-2025 09:45-0500Heart rate 88 /minGeorgette Gustafson MD Work Phone: 1(264)929-[address] [place], [place] 4161201-16-2025 09:45-0500Systolic blood mm[Hg]Georgette Gustafson MD Work Phone: 1(390)428-[facility]01-16-2025 09:11-0500Body .3 cmCtam Gustafson MD Work Phone: [phone])541-[facility]01-16-2025 09:11-0500Body mass index (BMI) [Ratio]32.93 kg/q1RmuaqridGeorgette Gustafson MD Work Phone: 1(589)500-[facility]01-16-2025 09:11-0500Body .91 kgGeorgette Gustafson MD Work Phone: 1(321)714-[facility]01-16-2025 09:11-1775FjE3% (BldA) [Mass fraction]99 %Georgette Gustafson MD Work Phone: 1(415)491-[facility]01-13-2025 13:24-0500Body wuykvl50.27 kgTomer Lucia CNM Work Phone: [facility] springfieldGkjeeowrnx36-43-9867 13:24-0500Diastolic blood ghkaconi53 mm[Hg]Tomer Lucia CNM Work Phone: 1(316)886-39[facility] springfieldGihxthpqde09-72-1665 13:24-0500Systolic blood frkcordy888 mm[Hg]Tomer Floro CNM Work Phone: 1(793)[address] [place], [place] [address]Vegvqhwahq14-33-1038 14:42-0500Body ohsoyg89.72 kgValerie Floro CNM Work Phone: 1(951)[address] [place], [place] [address]Oorjpffipn70-07-1634 14:42-0500Diastolic blood aigvmssw72 mm[Hg]Tomer Floro CNM Work Phone: 1(190)[address] [place], [place] [address]Yqltpkcvvt84-30-9603 14:42-0500Systolic blood zurwnvlm700 mm[Hg]Tomer Floro CNM Work Phone: 1(874)[address]12-31-2024 10:22-0500Body .91 kgValerie Floro CNM Work Phone: 1(956)[address] [place], [place] [address]Skrfgolscd03-05-6402 09:35-0500Body trtoke77.64 kgValerie Floro CNM Work Phone: 1(536)[address] [place], [place] [address]Dqyxhtffgr66-74-4052 09:35-0500Diastolic blood nsgqnsya16 mm[Hg]Tomer Floro CNM Work Phone: 1(020)[address] [place], [place] [address]Efhjznqxvx84-90-2469 09:35-0500Systolic blood vjwmbneh357 mm[Hg]Tomer Floro CNM Work Phone: 1(324)[address] [place] [address]-21-2024 09:36-0500Body qioong49.73 kgValerie Floro CNM Work Phone: 1(360)[address] [place] [address]-21-2024 09:36-0500Diastolic blood sppousmw90 mm[Hg]Tomer Floro CNM Work Phone: 1(508)[address] [place] [address]-21-2024 09:36-0500Systolic blood jirpwbak550 mm[Hg]Tomer Floro CNM Work Phone: 1(019)219[place] [address]-14-2024 12:11-0500Body saqpwf300.6 Usman Dempsey MD Work Phone: 1(806)[address] [place], [place] 7601811-14-2024 12:11-0500Body mass index (BMI) [Ratio]31.27 kg/m1EmpattLanre Dempsey MD Work Phone: 1(324)[address] [place], [place] 7601811-14-2024 12:11-0500Body popipo34.64 kgLanre Dempsey MD Work Phone: 1(611)[address] [place], [place] 7601811-14-2024 12:11-0500Diastolic blood pfyzhrts53 mm[Hg]Lanre Depmsey MD Work Phone: 1(041)[address] [place], [place] 7601811-14-2024 12:11-0500Heart rate 100 /minLanre Dempsey MD Work Phone: 1(460)[address] [place], [place] 7601811-14-2024 12:11-0500Systolic blood wkrzjizn350 mm[Hg]Lanre Dempsey MD Work Phone: 1(052)[address] [place], [place] 7601810-24-2024 14:45-0400Diastolic blood fzxzigsg05 mm[Hg]Tomer Floro CNM Work Phone: 1(711)486[facility]45[facility] springfieldWwyooeibjc95-85-5571 14:45-0400Systolic blood qldecnoh670 mm[Hg]Tomer Floro CNM Work Phone: 1(003)852-[address] [place], [place] [address]Mtgzejywrn26-98-7673 10:59-0400Body sykymq74.56 kgValerie Floro CNM Work Phone: [phone]14[facility] springfieldWyehfnyhsz71-00-7940 10:59-0400Diastolic blood hfcktqem12 mm[Hg]Tomer Floro CNM Work Phone: 1(392)694[facility]42[facility] springfieldLzzvccwuvd79-96-6256 10:59-0400Systolic blood xptutcsb845 mm[Hg]Tomer Floro CNM Work Phone: 1(014)[address]09-05-2024 09:26-0400Body .84 kgValerie Floro CNM Work Phone: 1([phone] springfieldBpwshzmisb49-98-9463 09:26-0400Diastolic blood fvidjqce85 mm[Hg]Tomer Floro CNM Work Phone: [facility] springfieldZakvnwndfv70-61-6312 09:26-0400Systolic blood qsxwgaxu077 mm[Hg]Tomer Lucia CNM Work Phone: [facility] springfieldAwgahtcryb42-75-2908 08:43-0400Body .56 cmSelect [facility]05-06-2024 08:36-0400Body mass index (BMI) [Ratio]27.4 kg/w5AfuczsuelSelect [facility]ty [facility]05-06-2024 08:36-0400Body vfzvqigixkl87.3 [degF][facility]05-06-2024 08:36-0400Body rwpetw68.57 kgSelect [facility]05-06-2024 08:36-0400Diastolic blood copufsmo33 mm[Hg][facility]05-06-2024 08:36-0400 Heart rate87 /[facility]05-06-2024 08:36-0400 Respiratory rate16 /[facility]05-06-2024 08:36-0400 SaO2% (BldA) [Mass fraction]98 %[facility]05-06-2024 08:36-0400Systolic blood mcoxoxag672 mm[Hg][facility] 07-14-2023 10:03-0400Body .56 cmSelect [facility] 07-14-2023 10:03-0400Body mass index (BMI) [Ratio]28.3 kg/p7MeygnjnpqSelect [facility]04-04-2024 10:03-0400Body ostkvh33.84 kgSelect [facility]04-04-2024 10:03-0400Diastolic blood jmimrsbh64 mm[Hg][facility]04-04-2024 10:03-0400Heart rate68 /[facility]04-04-2024 10:03-5366NcP0% (BldA) [Mass fraction]100 %[facility]04-04-2024 10:03-0400Systolic blood ryzuzoqv254 mm[Hg][facility]03-07-2024 10:07-0500Body jukvnx935.56 cmSelect [facility]03-07-2024 10:07-0500Body mass index (BMI) [Ratio]28.3 kg/y7QfntjjpmnSelect Medical Specialty [facility]03-07-2024 10:07-0500Body dgqvpy50.84 kg [facility]03-07-2024 10:07-0500Diastolic blood nkopcqkg72 mm[Hg][facility]03-07-2024 10:07-0500Heart rate86 /min [facility]03-07-2024 10:07-9128WmF2% (BldA) [Mass fraction]99 %[facility]03-07-2024 10:07-0500Systolic blood yflgjnqi521 mm[Hg][facility]02-21-2024 15:48-0500 Blood Pressure LocationMichael NILL [facility]02-21-2024 15:48-0500Diastolic blood mlxfzdca15 mm[Hg]Dorian NILL [facility] Amzfkeap71-91-7380 15:48-0500Heart rate 76 /minMichael NILL [facility]02-21-2024 15:48-0500 Respiratory rate16 /minMichael NILL [facility]02-21-2024 15:48-0500Systolic blood jomzzdav723 mm[Hg]Dorian NILL [facility]02-08-2024 10:00-0500Body hobmnx011.56 cmUyen Sullivanacher Other [employer] Other 02-08-2024 10:00-0500Body mass index (BMI) [Ratio] 28.66 kg/q6OytsxeeoUyen Chanrbacher Other [facility] Other 02-08-2024 10:00-0500Body pmufmn90.75 kgUyen Chanrbacher Other [facility] Other 02-08-2024 10:00-0500Diastolic blood pdmjheaq74 mm[Hg] Uyen Chanrbacher Other [facility] Other 02-08-2024 10:00-0876MrD8% (BldA) [Mass fraction]99 % Uyen Nateacher Other [employer] [facility] [employer] Other 02-08-2024 10:00-0500Systolic blood eyjipffn215 mm[Hg] Uyen Dustinrbacher Other [facility] Other 01-11-2024 11:00-0500Body .56 cmUyen Chanrbacher Other [facility]01-11-2024 11:00-0500 Body mass index (BMI) [Ratio]28.83 kg/y9TqnzcxcyUyen Chanrbacher Other [employer] [facility] [employer] Other 01-11-2024 11:00-0500Body .2 kgUyen Chanrbacher Other [facility]01-11-2024 11:00-0500 Diastolic blood wmdtpqga66 mm[Hg]Uyen Dustinrbacher Other [facility]01-11-2024 11:00-0500 SaO2% (BldA) [Mass fraction]98 %Uyen Dustinrbacher Other [employer] Other 01-11-2024 11:00-0500Systolic blood daiylliq617 mm[Hg] Uyen Rohrbacher Other [facility]06-23-2023 12:50-0400 Body nrlbhu045.56 cmPliliya Joyner Other [facility] Other 06-23-2023 12:50-0400Body mass index (BMI) [Ratio] 29.52 kg/t6Hvgzyi Anya Other [employer] Other 06-23-2023 12:50-0400Body wgzcrrzpqib18.3 [degF]Daksha Anya Other [employer] Other 06-23-2023 12:50-0400Body ujnqbd11.02 kgPadelfino Joyner Other [facility] Other 06-23-2023 12:50-0400Diastolic blood ydpjopzy81 mm[Hg] Daksha Abramsmond Other [employer] Other 06-23-2023 12:50-0400Respiratory rate18 /minDaksha Joyner Other [facility] Other 06-23-2023 12:50-1465RnZ3% (BldA) [Mass fraction]98 % Daksha Anya Other [employer] Other 06-23-2023 12:50-0400Systolic blood pazdqikm595 mm[Hg] Daksha Anya Other [employer] Other 09-19-2022 13:40-0400Body inpeyq942.56 Emi Abramsmond Other [facility] Other 09-19-2022 13:40-0400Body mass index (BMI) [Ratio] 29.18 kg/o1AxdojhDaksha Joyner Other [employer] Other 09-19-2022 13:40-0400Body evxvevnjdyh60.3 [degF]Daksha Joyner Other [employer] Other 09-19-2022 13:40-0400Body lvpptu98.11 kgDaksha Joyner Other [employer] Other 09-19-2022 13:40-0400Respiratory rate18 /minDaksha Joyner Other [facility] Other 09-19-2022 13:40-2148KgW9% (BldA) [Mass fraction]97 % Daksha Joyner Other [employer] Other 10-23-2018 21:08-0400Body weight Veuggbhd388.0 lbs. [facility] HealthComment on above:Performed By: #### AAFPM ####[facility] [address] [place], [place] [id number](241) 218-750410-22-2018 14:28-0400Body weight Ouyxvedw201NCSJKettering HealthComment on above:Performed By: #### AAFPM ####[facility] [address] [place], [place] [id number]) [phone] 14:28-0400Body weight MeasuredLBSKettering HealthComment on above:Performed By: #### AAFPM ####[facility] [id number] [place], [place] [id number] Encounters Encounter DateEncounter TypeCare ProviderFacilityStart: 09-11-2024 End: 94-70-5825efmgnhpfroXdcocummh [facility] Work Phone: Start: 09-11-2024 End: 66-98-0606Auypubj encounter procedureF[facility] Work Phone: Start: 07-23-2024 End: 78-03-7280Fuvzzqi encounter procedureCorey Dannielle DO Work Phone: [facility] BCP OBComment on above:Encounter for IUD insertionStart: 07-23-2024 End: 36-78-6479zaevozhmjlXRZOD FAZIONot AvailableStart: 07-18-2024 End: 98-97-5622Uzfydr flowsheetCorey Dannielle DO Work Phone: [facility] BCP OBStart: 07-18-2024 End: 03-83-7429Krartn flowsheetCorey Dannielle DO Work Phone: [facility] BCP OBStart: 07-18-2024 End: 38-24-2575Jzgzok outpatient visit 15 minutesCorey Dannielle DO Work Phone: [facility] BCP OBComment on above: control counseling Start: 07-18-2024 End: 75-49-3038jpxyfpdwaeYERBS FAZIONot AvailableStart: 05-31-2024 End: 57-93-1535jztdpgixxfExcly Dannielle DO Work Phone: [facility] Work Phone: Start: 05-31-2024 End: 23-45-6943Kjiodsx encounter procedureCorey Dannielle DO Work Phone: [facility] Work Phone: Start: 05-30-2024 End: 09-92-5523Kppssxa encounter procedureJuan Gillespie MD Work Phone: [facility] NeurologyComment on above: Abnormal ultrasonic finding on screening of mother, antepartumStart: 05-30-2024 End: 01-66-7195qzzkbsxwoaUIARVJohn R. Ois[facility] Ambulatory PPGStart: 05-25-2024 End: 81-82-5086Nwxjgtpem Result EncounterValerie Kimberly Welsho CNM Work Phone: noms External Department UnsolicitedStart: 05-25-2024 End: 31-83-3504Cjnwmmdll Result EncounterValerie Kimberly Welsho CNM Work Phone: noms External Department UnsolicitedStart: 05-25-2024 End: 08-37-7184xezfzmnruzOddgs [facility] Work Phone: Start: 05-25-2024 End: 29-23-0032Wkxinhgs ReferredCorey Dannielle DO Work Phone: [facility] Path Spec [facility] HospStart: 34-05-0276Tdi-patient / Non-visitCorey Dannielle DO Work Phone: [facility] Work Phone: Start: 05-22-2024 End: 12-55-2650Iilwch flowsheetValerie L Floro CNM Work Phone: noms FNR OBStart: 05-22-2024 End: 66-87-4719Bxjzmi flowsheetValerie L Floro CNM Work Phone: noms FNR OBStart: 05-22-2024 End: 20-94-4295Ucifza outpatient visit 15 minutesValerie L Floro CNM Work Phone: noms FNR OBComment on above:Encounter for supervision of other normal , third trimester (Primary Dx); congenital anomalyStart: 05-22-2024 End: 63-21-4203wcuoroyntdWBJNJPY L FLORONot AvailableStart: 05-22-2024 End: 32-59-7559xjktvicdukGDBPPUJ [facility] HospitalStart: 05-14-2024 End: 94-01-6455Cjptpg flowsheetValerie L Floro CNM Work Phone: noms FNR OBStart: 05-14-2024 End: 69-14-2965Xrkrol flowsheetValerie L Floro CNM Work Phone: noms FNR OBStart: 05-14-2024 End: 35-70-5083najpuccwrcSZXWSBQ L FLORONot AvailableStart: 05-14-2024 End: 82-84-8133Rjtbwa outpatient visit 15 minutesValerie L Floro CNM Work Phone: noms FNR OBComment on above:Encounter for supervision of other normal , third trimester (Primary Dx); congenital anomalyStart: 05-09-2024 End: 35-59-8266Ksdyjoyry Result EncounterValerie L Floro CNM Work Phone: noms External Department UnsolicitedStart: 05-09-2024 End: 62-74-2594Lvtgcgymu Result EncounterValerie L Floro CNM Work Phone: noms External Department UnsolicitedStart: 05-07-2024 End: 60-47-7784pccofgqjdmZQDGESU L FLORONot AvailableStart: 05-07-2024 End: 76-51-7830Urdrta flowsheetValerie L Floro CNM Work Phone: noms FNR OBStart: 05-07-2024 End: 39-77-1472Mnsipi flowsheetValerie L Floro CNM Work Phone: noms FNR OBStart: 05-07-2024 End: 71-13-5635Xpwmik outpatient visit 15 minutesValerie L Floro CNM Work Phone: noms FNR OBComment on above:Encounter for supervision of other normal , third trimester (Primary Dx); screening for streptococcus B; congenital anomalyStart: 05-04-2024 End: 57-11-9825Qvvoufmqa encounterAnaly [facility] Comment on above:New PatientStart: 04-30-2024 End: 83-47-9485Ntfjbq flowsheetValerie L Floro CNM Work Phone: noms FNR OBStart: 04-30-2024 End: 48-21-5254Itglgo flowsheetTomer Lucia CNM Work Phone: noms FNR OBStart: 04-30-2024 End: 79-24-0998lambkcioneTFXUIVN L FLORONot AvailableStart: 04-30-2024 End: 14-65-0206Vrztys outpatient visit 15 minutesTomer Lucia CNM Work Phone: noms FNR OBComment on above:Encounter for supervision of other normal , third trimester (Primary Dx); congenital anomalyStart: 04-27-2024 End: 71-58-8674ZxjpgkRafia Castro RNMaternal- Medicine at [facility] Medical CenterComment on above:Abnormal ultrasonic finding on screening of mother, antepartum (Primary Dx); 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); 35 weeks gestation of pregnancyStart: 46-76-8923Afs-patient / Non-visitCorey Dannielle JOHN Work Phone: [facility] Work Phone: Start: 04-26-2024 End: 06-55-1620Jegiou outpatient visit 25 minutesRussel James MD Work Phone: [phone]-Vfsph [facility] Comment on above:35 weeks gestation of (Primary Dx)Start: 04-26-2024 End: 62-33-0476Cixzwc consultation new/estab patient 81 Julianna Gustafson MD Work Phone: [facility] Pediatric CardiologyComment on above:Anomaly of heart of fetus affecting , antepartum, single or unspecified fetus (Primary Dx); Abnormal ultrasonic finding on screening of mother, antepartum; Postural dizziness with near syncopeStart: 04-23-2024 End: 61-07-5472Zepzon outpatient visit 15 minutesTomer Lucia CNM Work Phone: NOMS FNR OBComment on above:Encounter for supervision of other normal , third trimester (Primary Dx); congenital anomalyStart: 04-19-2024 End: 84-62-1718Alntvleyj Result EncounterValerie L Anithao CNM Work Phone: noms External Department UnsolicitedStart: 04-19-2024 End: 81-73-1564Edkvvuqgu Result EncounterValerie L Anithao CNM Work Phone: noms External Department UnsolicitedStart: 04-16-2024 End: 78-01-4896emdbpsaghqOESKCTI L FLORONot AvailableStart: 04-16-2024 End: 70-60-0850Jyhsri outpatient visit 15 minutesValerie L Floro CNM Work Phone: noms FNR OBComment on above:Encounter for supervision of other normal , third trimester (Primary Dx); congenital anomalyStart: 04-16-2024 End: 03-57-2761Feqykq flowsheetValerie L Floro CNM Work Phone: noms FNR OBStart: 04-16-2024 End: 61-31-6992Ttibyj flowsheetValerie L Floro CNM Work Phone: noms FNR OBStart: 04-12-2024 End: 77-67-4482Awuoocloq Result EncounterValerie L Floro CNM Work Phone: noms External Department UnsolicitedStart: 04-12-2024 End: 45-75-0004Fzhjzdyhn Result EncounterValerie L Floro CNM Work Phone: noms External Department UnsolicitedStart: 04-10-2024 End: 94-97-3414Gegkqk flowsheetValerie L Floro CNM Work Phone: NOJX FNR OBStart: 04-10-2024 End: 14-95-5960Fkzebv flowsheetValerie L Floro CNM Work Phone: NOMU FNR OBStart: 04-10-2024 End: 03-87-9160lopeaiftukGVUTZJK L FLORONot AvailableStart: 04-10-2024 End: 40-95-0903Cimpaw outpatient visit 15 minutesValerie L Floro CNM Work Phone: [facility]OM[facility] FNR OBComment on above:Encounter for supervision of other normal , third trimester (Primary Dx); congenital anomalyStart: 03-29-2024 End: 84-63-0248Uctppw flowsheetValerie L Floro CNM Work Phone: [facility] FNR OBStart: 03-29-2024 End: 57-55-2357Ucjrqi flowsheetValerie L Floro CNM Work Phone: NOKU FNR OBStart: 03-29-2024 End: 16-61-3333Cfekaxdfk encounterValerie L Floro CNM Work Phone: noms FNR OBStart: 03-29-2024 End: 95-33-9451zfvwknznziSBEOETJ L FLORONot AvailableStart: 03-29-2024 End: 76-39-7464Jrpijd outpatient visit 15 minutesValerie L Floro CNM Work Phone: N[facility] FNR OBComment on above: congenital anomaly (Primary Dx); Encounter for supervision of other normal , third trimesterStart: 03-19-2024 End: 45-78-0731Vxmqqy OnlyNot In System Ref ProvMaternal- Medicine at [facility] Hospitaltart: 03-01-2024 End: 10-49-9288Ctthwh flowsheetValerie L Floro CNM Work Phone: NOMS FNR OBStart: 03-01-2024 End: 31-48-7339Wtdpqt flowsheetValerie L Floro CNM Work Phone: N[facility] FNR OBStart: 03-01-2024 End: 95-07-1442sktbjkzdorRXBEESJ L FLORONot AvailableStart: 03-01-2024 End: 88-78-6729Mnuncc outpatient visit 15 minutesValerie L Floro CNM Work Phone: NOGI FNR OBComment on above:Encounter for supervision of other normal , second trimester (Primary Dx); Screening for diabetes mellitus; Screening for iron deficiency anemiaStart: 02-28-2024 End: 21-14-5615Mkjnzj Daniel Weiss RDMSMaternal- Medicine at [facility] Medical CenterComment on above:Abnormal ultrasonic finding on screening of mother, antepartum (Primary Dx)Start: 02-23-2024 End: 97-09-2513Zadybz Jeni Finch RNMaternal- Medicine at [facility] Medical CenterComment on above:Abnormal obstetric ultrasound scan (Primary Dx) Start: 02-23-2024 End: 09-98-2945Pmryio consultation new/estab patient 61 Grady Dempsey MD Work Phone: [phone]-Gkoxs [facility] at [facility] Comment on above:Elliott cisterna magna (CMS-HCC) (Primary Dx)Start: 02-15-2024 End: 30-80-5560Ykpxf Ankur Dempsey MD Work Phone: [phone]-Blkpx [facility] Start: 02-07-2024 End: 17-81-5398Urooq Ankur Dempsey MD Work Phone: [phone]-Knkay [facility] Start: 02-06-2024 End: 26-08-4245Jqyse abstractingScanning Provider ExternalMaternal- Medicine at [facility] Hospitaltart: 02-02-2024 End: 20-35-1465Rgyodu outpatient visit 15 Christen Lucia CNM Work Phone: noms FNR OBComment on above: related condition in second trimester (Primary Dx); Encounter for supervision of other normal , second trimesterStart: 02-02-2024 End: 81-01-7280Wmnogp flowsheetTomer Lucia CNM Work Phone: noms FNR OBStart: 02-02-2024 End: 57-57-4839Onckgl flowsheetValerie L Floro CNM Work Phone: NOMS FNR OBStart: 02-02-2024 End: 62-01-6278nhshamaeckVGCBTBF L FLORONot AvailableStart: 01-20-2024 End: 12-60-7695Ujepxusvq encounterValerie L Floro CNM Work Phone: NOMS FNR FMStart: 01-16-2024 End: 67-79-7247Symwymxob encounterValerie L Floro CNM Work Phone: NOMS FNR FMStart: 01-12-2024 End: 72-45-4687Ktsefj flowsheetValerie L Floro CNM Work Phone: NOMS FNR OBStart: 01-12-2024 End: 02-99-4887Xlezoy flowsheetValerie L Floro CNM Work Phone: N[facility] FNR OBStart: 01-12-2024 End: 88-28-9557Lhrgeq outpatient visit 15 minutesValerie L Floro CNM Work Phone: N[facility]S FNR OBComment on above:Encounter for supervision of other normal , second trimester (Primary Dx)Start: 01-12-2024 End: 09-09-8017gesizdwipzRMGWMQH L FLORONot AvailableStart: 12-15-2023 End: 97-39-7127Uymfcl flowsheetValerie L Floro CNM Work Phone: N[facility]S FNR OBStart: 12-15-2023 End: 32-45-1136Efffnw flowsheetValerie L Floro CNM Work Phone: NOMS FNR OBStart: 12-15-2023 End: 80-08-4416Fernhc outpatient visit 15 minutesValerie L Floro CNM Work Phone: NOMS FNR OBComment on above:Encounter for supervision of other normal , second trimester (Primary Dx); related condition in second trimesterStart: 12-15-2023 End: 91-82-9345rbaejethdjYVAMIWR L FLORONot AvailableStart: 11-17-2023 End: 85-62-7961iyfwrerbrfPMCTJNT L FLORONot AvailableStart: 10-20-2023 End: 36-61-5798wgkpoyyiwrHKMGKHG L FLORONot AvailableStart: 09-15-2023 End: 71-58-1573Qqhjeego ReferredAPRKaris Martel Work Phone: [facility] Main [place] Work Phone: Start: 09-15-2023 End: 91-32-1334dwmhqjopxtXKFH Jennifer Rohrbacher Work Phone: [facility] Work Phone: Start: 09-15-2023 End: 99-41-7352Zgmjper encounter procedureE[facility] Work Phone: Start: 08-15-2023 End: 87-90-0135vdqtwcslzoXnzxapyjgKettering Health [facility] Work Phone: Start: 08-15-2023 End: 73-51-7601Dxxjiux encounter procedureE[facility] Work Phone: Start: 07-14-2023 End: 08-53-7651npslvribylJnmodjbgdGalion Community Hospital Work Phone: Start: 07-14-2023 End: 06-50-8585Eetrarh encounter procedureE[facility] Work Phone: Start: 06-16-2023 End: 74-49-0261Qifjsui encounter procedureE[facility] Work Phone: Start: 06-01-2023 End: 27-00-1000tfnmugqkzsKioyewb R NILLFacility: BellevueStart: 06-01-2023 End: 85-31-7885Rzcoayy encounter procedureMichael R NILL General Surgery Nill/Said [place] Start: 05-19-2023 End: 87-72-1194hpbdbsuzzcPzjfoxzb Dustinrbacher Other noInv[employer] Other Start: 58-82-9547Fakgcj outpatient visit 15 minutes Uyen JulianoBrown Memorial Hospitaltart: 95-92-6101duwjsoxrkjXfmkkzq NILLFacility:GS BellevueStart: 04-21-2023 End: 48-35-0712bordhssuivFxfadvma Dustinrbacher Other noInv[employer] Other Start: 77-75-2688Iryzjrtjs for general adult medical examination without abnormal findingsUyen [facility] Start: 68-05-2843Hrtzxdf preventive medicine new pt age 18-39yrsUyen [facility] Hospitaltart: 04-21-2023 End: 75-78-6601Vhguigt encounter procedureFirelands Physician [facility] Work Phone: Start: 10-01-2022 End: 74-41-5128flsyunuucbHmlgru Anya Other noInv[employer] Other Start: 02-28-3109Ykeirq outpatient visit 15 minutes Daksha DyJaydenG Urgent Care ClydeStart: 12-28-2021 End: 75-31-2754ympzucszyjHhhrug Anya Other noInv[employer] Other Start: 03-37-3752Zzkqyb outpatient visit 15 minutes Daksha DymondFPG [facility]gent Care ClydeStart: 11-13-2020 End: 94-61-3637xfipqznyjlDF SID HOUSEFacility:J7Nmgiz: 05-03-2018 End: 41-54-6209Njopxdb encounter procedureKIMBERLY J HERAshtabula County Medical Centertart: 03-30-2018 End: 59-21-2780Cdklyol encounter procedureSIXTO AnguloGarden Grove Hospital and Medical Centertart: 03-28-2018 End: 61-18-8043Qscosdl encounter procedureBRGIL Millard [facility]tart: 03-21-2018 End: 61-43-6306Orfzinh encounter procedureKIRHETT CHEEKProMedica Defiance Regional Hospitaltart: 02-25-2018 End: 64-18-3037Nkjoexw encounter procedureCRYSTAL Arabella ARMENDARIZSheltering Arms Hospitaltart: 02-25-2018 End: 09-94-9253Nxabqff encounter procedureALICIEduin GARCIAMercy Health Anderson Hospitaltart: 02-23-2018 End: 78-40-7655Nhexpmb encounter procedureALICIEduin [facility]tart: 02-22-2018 End: 82-12-0485Vrzmyui encounter procedureALICIEduin GARCIAMercy Health Anderson Hospitaltart: 02-21-2018 End: 87-92-9545Imjhizq encounter procedureALICIEduin GARCIAMercy Health Anderson Hospitaltart: 02-20-2018 End: 62-63-4139Nyylwtv encounter procedureALICIEduin GARCIAMercy Health Anderson Hospitaltart: 02-19-2018 End: 07-75-6898Ilivnih encounter procedureALICIEduin MILLERMercy Health Clermont Hospitaltart: 02-18-2018 End: 05-81-8217Rgywdzx encounter procedureALICIA AWASheltering Arms Hospitaltart: 02-17-2018 End: 86-39-5883Qlpteou encounter procedureALICIA PAULMercy Health Clermont Hospitaltart: 02-16-2018 End: 90-58-1774Uwcwyki encounter procedureALICIA PAULMercy Health Clermont Hospitaltart: 02-15-2018 End: 90-95-9153Ikzstrw encounter procedureALICIEduin BILLINGSSheltering Arms Hospitaltart: 02-14-2018 End: 99-88-6548Yvaxflx encounter procedureALICIEduin GARCIAMercy Health Anderson Hospitaltart: 02-13-2018 End: 13-45-4005Rtegnxu encounter procedureALICIA HUCKAMercy Health Clermont Hospitaltart: 02-12-2018 End: 54-67-0444Znqytgh encounter procedureALIVINICIUS MILLERMercy Health Clermont Hospitaltart: 02-07-2018 End: 57-24-2202Jbrzcjbsuh and management of inpatientALIVINICIUS GARCIAMercy Health Anderson Hospitaltart: 01-25-2018 End: 84-63-0164Jfnnfeg encounter procedureJONALEA W [facility] Centertart: 12-22-2017 End: 07-07-7233Jzvxztw encounter procedureIRMEduin Khan [facility] Start: 11-28-2017 End: 49-10-7001Xqggoce encounter procedureIRMEduin Khan [facility] Hospitaltart: 10-31-2017 End: 19-34-1824Nceiwcu encounter procedureBRGIL NEWELLstacy [facility] Health Delanotart: 10-27-2017 End: 32-58-7207Fwvqvhi encounterIRM Erin [facility] Procedures DateProcedureProcedure DetailPerforming ClinicianStart: 07-23-2024 End: 51-31-9013Ekaaa dip stick/tablet rgnt non-auto w/o micrscpCorey Dannielle DO Work Phone: Start: 63-79-3089ETS INSERTIONCorey Dannielle DO Work Phone: Start: 44-23-1560Zjppy depression screening assessment Juan Gillespie MD Work Phone: Start: 05-34-2265EAKC CBC WITH PLATELET NO DIFFERENTIALValerie L Floro CNM Work Phone: Start: 40-14-1328YV OB BPP WO NON-STRESSValerie L Floro CNM Work Phone: Start: 76-07-6040OQ OB BPP WO NON-STRESSValerie L Floro CNM Work Phone: Start: 90-62-9267VF OB BPP WO NON-STRESSValerie L Floro CNM Work Phone: Start: 73-75-6330Mik pelvis w/o contrast materialNot In System Ref ProvStart: 00-88-9289LWHESRLNGA OFFICENot In System Ref ProvStart: 26-10-9102IIHFRIXEJ/GC BY PCR MICHAEL SWABNot In System Ref ProvStart: 11-17-2023 CHLAMYDIA/GC BY PCR THINPREP FLUIDNot In System Ref ProvStart: 25-35-6786Ulac scrn 1+ class nonchromoNot In System Ref ProvStart: 52-69-2980Izbzxrqq screen Lanre Dempsey MD Work Phone: Start: 44-51-3961Dqzovhfhyp glycosylated m7tGxrsneax Provider ExternalStart: 27-92-1211XUI 1&2 AB/AG SCREEN (P24 AG)Not In System Ref ProvStart: 77-97-6983Mhdr ia hepatitis b surface antigenNot In System Ref Prov Start: 73-19-5525Zkkwxatz test non-treponemal antibody qualNot In System Ref ProvStart: 70-51-6387MXOC AND SCREENNot In System Ref ProvStart: 68-90-7246HLFAZ B SCREEN, VAGINAL / RECTALBRITTANEY VARGASStart: 02-27-9033RHIPOVUTZ PATIENT JOANA NEWELLSStart: 22-20-6453Lnliagb bacterial quanttative colony count urineBRITTANEY VARGASStart: 76-05-3970BICWVZQ CULTUREBRITTANEY VARGASStart: 27-45-5382GMKWQCJUE DNA PROBEBRITTANEY VARGASStart: 15-67-3675NTWBD RT REFLEX TO CULTUREBRITTANEY VARGASStart: 62-31-3262HURPTSO STATUS (DIRECT)JOANA RICHARDSON Start: 96-43-3532IJBJQVA STATUS (DIRECT)JOANA NEWELLSStart: 83-39-2426Dwtpj count complete auto&auto difrntl wbcBRITTANEY VARGASStart: 58-56-1251IQPZZMA TOLERANCE, 1 HOURBRITTANEY VARGASStart: 33-88-4128CNOCXEXCVTCKA NURSING CARE ORDER (SPECIFY)JOANA NEWELLSStart: 69-62-5386MHOZXY PICCBRITTANEY RICHARDSON Start: 74-35-6559IHPLUPK STATUS (DIRECT)JOANA VARGASStart: 90-30-8001ZUSDXQK STATUS (DIRECT)JOANA VARGASStart: 71-39-9148OCWYNQF STATUS (DIRECT)JOANA VARGASStart: 09-79-8121VDNNEYH STATUS (DIRECT)JOANA VARGASStart: 02-20-2018 PATIENT STATUS (DIRECT)JOANA VARGASStart: 55-04-1890MFEBNIB STATUS (DIRECT) JOANA VARGASStart: 07-80-8169YVIFRZZ STATUS (DIRECT)JOANA VARGASStart: 83-00-1369UILWVGJ STATUS (DIRECT)JOANA VARGASStart: 83-92-1244AHBKIRM STATUS (DIRECT)JOANA VARGASStart: 42-12-1339NEAIRGS STATUS (DIRECT)JOANA RICHARDSON Start: 59-30-5357HYKTDMF STATUS (DIRECT)JOANA VARGASStart: 71-16-0701RGUKZPB STATUS (DIRECT)JOANA VARGASStart: 76-84-0654LOMNAQK STATUS (DIRECT)JOANA VARGASStart: 36-01-1245ULLKQCXEG PATIENTBRGIL VARGASStart: 02-10-2018 TRANSFER PATIENTBRGIL VARGASStart: 31-51-7245DY CONSULT TO IV TEAMBRPAVELBonnie VARGASStart: 92-49-6096SOCIUIU BLOOD #1BRITTANEBonnie VARGASStart: 02-10-2018 Radiologic exam chest 2 viewsBRGIL VARGASStart: 14-67-6654Id retroperitoneal real time w/image completeBRJAANEY VARGASStart: 54-20-0816HB CONSULT TO INFECTIOUS DISEASESBRPAVELBonnie VARGASStart: 11-56-3636NWMOKJD STATUS (DIRECT) JOANA VARGASStart: 04-20-0191DBFQPMNBPJHWX NURSING CARE ORDER (SPECIFY) JOANA VARGASStart: 71-90-9709Nu retroperitoneal real time w/image complete JOANA VARGASStart: 12-48-3819Rspnd count complete auto&auto difrntl wbc JOANA VARGASStart: 16-87-3948Gjwilpggqjldq metabolic panelBRITTANEY RICHARDSON Start: 51-05-3479ACBWR INTERMITTENT PNEUMATIC COMPRESSION DEVICEBRITTANEY RICHARDSON Start: 28-63-1464Inkbbek bacterial quanttative colony count urineBRITTANEY VARGASStart: 72-22-2921Rmofwpbqsadam metabolic panelBRITTANEY VARGASStart: 49-87-4697Rrsbr count complete auto&auto difrntl wbcBRITTANEY VARGASStart: 91-16-7740CTBHEYSLY DNA PROBEBRITTANEY VARGASStart: 02-07-2018C.TRACHOMATIS N.GONORRHOEAE DNABRITTANEY VARGASStart: 05-83-7667YDFOY INFLUENZA A/B ANTIGENS JOANA VARGASStart: 52-56-3818Mexqmpsyltp urinalysisBRITTANEY VARGASStart: 58-98-2985PQPEB RT REFLEX TO CULTUREBRITTANEY VARGASStart: 43-30-3944VMNIFLHVTXJ -MONITORINGBRITTANEY VARGASStart: 76-20-8410EOIX GENERALBRITTANEY VARGASStart: 58-75-8049EKSK CODEBRITTANEY VARGASStart: 32-53-1376NZQDQT AND OUTPUTBRITTANEY VARGASStart: 35-67-8958CEKKKCJ HEART TONESBRITTANEY VARGASStart: 16-38-6249GAEEGX PHYSICIAN (SPECIFY)JOANA VARGASStart: 01-35-4762XIRCONT STATUS (DIRECT)JOANA VARGASStart: 38-97-6662LGTOV INTERMITTENT PNEUMATIC COMPRESSION DEVICEBRITTANEY VARGASStart: 85-20-2725ZWZPJ SIGNSBRITTANEY RICHARDSON Start: 49-40-1849GZNOF FETOPROTEIN, MATERNALIRMA COBIANStart: 78-69-6868DZPAJJAH TYPE AND SCREENIRMA COBIANStart: 86-72-3634HOM SCREENIRMA COBIANStart: 62-82-4263SYJWVEVH PROFILE IIRMA COBIANStart: 39-67-6896Tznysff bacterial quanttative colony count urineBRITTANEY VARGASStart: 10-31-2017C.TRACHOMATIS N.GONORRHOEAE DNA, URINEBRITTANEY VARGASStart: 82-65-9963Ztknusg bacterial quanttative colony count urineBRITTANEY VARGASStart: 01-18-8303NTTNH DRUG SCREEN JOANA VARGASStart: 71-66-6054YZNSXZ FIBROSISBRITTANEBonnie VARGASStart: 02-58-6756Xa uterus 14 wk transabdl 04/11 gestatIRMA COBIANColonoscopy Dorian MORRISKimberly EsophagogastroduodenoscopyDorian HART Plan of Treatment DateCare ActivityDetailAuthorStart: 70-43-4185GLyP,Tdap and Td Vaccines (3 - Td or Tdap)DTaP,Tdap and Td Vaccines (3 - Td or Tdap)[facility] SystemStart: 53-58-0215SAsS,Tdap and Td Vaccines (9 - Td or Tdap)DTaP,Tdap and Td Vaccines (9 - Td or Tdap)[facility] SystemStart: 74-82-0328DTtY,Tdap and Td Vaccines (2 - Td or Tdap)DTaP,Tdap and Td Vaccines (2 - Td or Tdap)[facility] SystemStart: 33-95-3513Zjgnidp ScreeningTobacco ScreeningDetwiler Memorial Hospitalca [facility] Start: 67-09-6408Urnijuz ScreeningTobacco ScreeningBrecksville [facility] SystemStart: 04-27-2025 End: 96-29-4548LL MFM with or without consultUS MFM with or without consult Imaging Routine Abnormal ultrasonic finding on screening of mother, antepartum 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 of Expected: 04/27/2025 (Approximate), Expires: 04/27/2025[facility] Work Phone: comment on above:Expected: 04/27/2025 (Approximate), Expires: 04/27/2025Start: 34-80-7453Fowas BMI ScreeningAdult BMI Screening [facility] SystemStart: 81-67-5248Uoutucn ScreeningTobacco Screening [facility] SystemStart: 77-43-9140Cfwnb BMI ScreeningAdult BMI Screening [facility] SystemStart: 84-28-3841Bvaaavd ScreeningTobacco Screening [facility] SystemStart: 15-61-9203QpvvddtfsSentara CarePlex Hospital Start: 95-52-1221Jtmjpqj referralMarion Hospital Work Phone: Start: 08-22-2024 End: 66-99-1555LS MFM with or without consultUS MFM with or without consult Imaging Routine Abnormal obstetric ultrasound scan Expected: 08/22/2024 (Approximate), Expires: 08/22/2024[facility] Work Phone: comment on above:Expected: 08/22/2024 (Approximate), Expires: 08/22/2024Start: 08-20-2024 End: 72-06-7860Oiufhko encounter vzykahsdx68/12/2025 9:20 AM EDT Office Visit [facility] [address] [place] [id number] Delon Spicer, DO [address] [place] [address] [facility] OBStart: 07-23-2024 End: 52-49-3415Wflakvf encounter cpkgoaifz02/14/2025 8:30 AM EDT Procedure Visit [facility] [address] [place] [id number] Delon Spicer, DO [address] [place] [address] [facility] OBStart: 07-18-2024 End: 55-48-9635Fwizhnq encounter /09/2025 1:20 PM EDT Office Visit [facility] [address] [place] [id number] Delon Spicer, DO [address] [place] [address] ArrivedNOMS BCP OBComment on above:ArrivedStart: 05-30-2024 End: 91-11-8415Tbzlpeb encounter eibnqnwmm22/19/2025 8:30 AM EST Office Visit [facility] [address] [place] [address], [place] [id number] Juan Gillespie MD [address] [place] [address], [address], [address], [address] [place] [address] [facility] NeurologyStart: 05-28-2024 End: 72-44-0818Rkmkehv encounter zjvzvdjte47/17/2025 1:30 PM EST Routine [facility] OB [address] [place] [address] Tomer Lucia, CNM [address] [place] [address] [facility] FNR OBStart: 05-22-2024 End: 49-90-5251Ahjugjf encounter higfntvit80/11/2025 1:45 PM EST Routine [facility] [address] [place] [address] Tomer Lucia, DANITAM [address] [place] [address] ArrivedNOUT FNR OBComment on above:ArrivedStart: 05-22-2024 End: 36-66-4263Lvufcxl encounter pxxeokema06/11/2025 9:15 AM EST [facility]ment [facility] [address] [place] [address] [facility]wk[facility] - UltrasoundStart: 05-21-2024 End: 46-76-0952Qmqbgsa encounter lwunwxiyk70/10/2025 1:00 PM EST Routine [facility] OB [address] [place] [address] Tomer Lucia, DANITAM [address] [place] [address] [facility] FNR OBStart: 05-14-2024 End: 81-49-3666Ujicxcp encounter /03/2025 1:30 PM EST Routine [facility] OB [address] [place] [address] Tomer Lucia, CNM [address] [place] [address] [facility] FNR OBStart: 05-07-2024 End: 31-71-3641IZWWNZH, GROUP B STREP WITH SUSCEPTIBLITYCULTURE, GROUP B STREP WITH SUSCEPTIBLITY Lab Routine screening for streptococcus B Expected: 05/07/2024 (Approximate), Expires: 05/07/2025[facility] Work Phone: Comment on above:Expected: 05/07/2024 (Approximate), Expires: 05/07/2025Start: 05-07-2024 End: 69-91-1751Lmagtwq encounter fkvjaefsc59/27/2025 2:00 PM EST Routine [facility] OB [address] [place] [address] Tomer Lucia, CN [address] [place] [address] [facility] FNR OBStart: 04-30-2024 End: 44-96-5358Ojxdvrg encounter iirrogmmr07/20/2025 1:00 PM EST Routine [facility] [address] [place] [address] Tomer Lucia, CNM [address] [place] [address] [facility] FNR OBStart: 04-23-2024 End: 65-23-7217Abrwitz encounter /13/2025 1:15 PM EST Routine [facility] OB [address] [place] [address] Tomer Lucia, CNM [address] [place] [address] N[facility] FNR OBStart: 04-20-2024 End: 13-46-9179Rfnnf echo 2D W/ color flowFetal echo 2D W/ color flow Echocardiography Routine Anomaly of heart of fetus affecting , antepartum, single or unspecified fetus Expected: 04/20/2024, Expires: 04/20/2025[facility] Work Phone: Comment on above:Expected: 04/20/2024, Expires: 04/20/2025Start: 04-16-2024 End: 44-96-6393Pjejzyu encounter xmbxpruoh93/06/2025 2:30 PM EST Routine [facility] [place] [address] Tomer Lucia, [facility] [address] [place] [address] N[facility] FNR OBStart: 04-09-2024 End: 20-27-2202Gfavwpu encounter zcqlxaxre07/30/2024 1:45 PM EST Routine [facility] OB [address] [place] [address] Tomer Lucia, [facility] [address] [place] [address] N[facility] FNR OBStart: 03-29-2024 End: 14-95-8954WV biophysical profile wo non stress testingUS biophysical profile wo non stress testing Imaging Routine congenital anomaly Expected: 03/29/2024, Expires: 03/29/2025[facility] Work Phone: Comment on above:Expected: 03/29/2024, Expires: 03/29/2025Start: 03-29-2024 End: 87-61-5307Tejvbrt encounter jnuwjynop97/19/2024 9:30 AM EST Routine [facility] OB [address] [place] [address] Tomer Lucia, CN [address] [place] [address] [facility] FNR OBStart: 03-26-2024 End: 08-42-7428Lmhljzh encounter procedureF[facility] US ImagingStart: 03-01-2024 End: 22-66-1401VAE panel - Blood by Automated countCBC Lab Routine Screening for iron deficiency anemia Expected: 03/01/2024 (Approximate), Expires: 03/01/2025 [facility] HealthcareComment on above:Expected: 03/01/2024 (Approximate), Expires: 03/01/2025Start: 03-01-2024 End: 87-36-3743NQZOYUK, GESTATIONAL SCREEN (50G)-135 CUTOFFGLUCOSE, GESTATIONAL SCREEN (50G)-135 CUTOFF Lab Routine Screening for diabetes mellitus Expected: 1 05/01/2023 (Approximate), Expires: 03/01/2025[facility] Work Phone: Comment on above:Expected: 03/01/2024 (Approximate), Expires: 03/01/2025Start: 03-01-2024 End: 48-84-3167Lebmbpb encounter ipikxdrhf77/21/2024 9:15 AM EST Routine [facility] OB [address] [place] [address] Tomer Lucia, [facility] [address] [place] [address] NOMS FNR OBStart: 02-28-2024 End: 40-08-3197AE Pelvis WO contrastMR pelvis without contrast Imaging STAT Abnormal ultrasonic finding on screening of mother, antepartum Expected: 02/28/2024, Expires: 02/27/2025[facility] Work Phone: comment on above:Expected: 02/28/2024, Expires: 02/27/2025Start: 02-23-2024 End: 21-98-8290Cpgbkir encounter procedureProSelect [facility] US ImagingStart: 02-09-2024 End: 67-26-7881Qbaovao encounter mfbtzitiw41/31/2024 9:00 AM EDT Routine [facility] OB [address] [place] [address] Tomer Lucia, CNM [address] [place] [address] [facility] FNR OBStart: 02-02-2024 End: 19-95-6833Btmdcnn encounter procedureNOMS FNR OBComment on above:Arrived Start: 02-02-2024 End: 04-46-7055Qmxfdnxgyhcj / ancillary services lhuugpjgin75/24/2024 2:00 PM EDT Ancillary Procedure [facility] ULTRASOUND [address] [place] [address] FKWR FNR ULTRASOUNDStart: 01-12-2024 End: 47-88-6882Rnuthab encounter procedureNOMS FNR OBComment on above:Arrived Start: 01-12-2024 End: 51-33-1129Fgbsnsikgypn / ancillary services fmkqrsdior94/03/2024 10:00 AM EDT Ancillary Procedure [facility] ULTRASOUND [address] [place] [address] HCLQ FNR ULTRASOUNDStart: 12-15-2023 End: 43-83-6298SQ for pregnancyUS OB 14+ weeks anatomy scan Imaging Routine related condition in second trimester Expected: 12/15/2023, Expires: 12/14/2024[facility] Work Phone: Comment on above:Expected: 12/15/2023, Expires: 12/14/2024Start: 12-15-2023 End: 11-75-7989Wrdffac encounter xjopceaml57/05/2024 9:30 AM EDT Routine [facility] OB [address] [place] [address] Tomer Lucia, DANITAM [address] [place] [address] ArrivedNO FNR OBComment on above:ArrivedStart: 12-11-2023 Influenza vaccinationCarolinas ContinueCARE Hospital at Kings Mountaintart: 30-44-0632Aiqiooie identified in Urine by CultureSelect Medical TriHealth Rehabilitation Hospitaltart: 86-55-3947Aiaojuepk for malignant neoplasm of cervixPap SmearCarolinas ContinueCARE Hospital at Kings Mountaintart: 58-53-9840Jpozw BMI Follow Up PlanAdult BMI Follow Up PlanCarolinas ContinueCARE Hospital at [facility] Mountaintart: 00-03-8298Gstcr BMI ScreeningAdult BMI ScreeningCarolinas ContinueCARE Hospital [facility] Mountaintart: 90-83-9715Juxgmujfav ScreeningDepression ScreeningCarolinas ContinueCARE Hospital at [facility] Mountaintart: 29-80-7760Bopcujb ScreeningTobacco ScreeningAvita Health System [facility] echo 2D W/ color flowFetal echo 2D W/ color flow Echocardiography Routine Anomaly of heart of fetus affecting ,antepartum, single or unspecified fetus 04/26/2024 10:[address] [facility]Patient referralMarion [facility] Work Phone: Immunizations Immunization DateImmunizationNotesCare UtdfwnygDoudeioc61-14-1335bqalyhl, mumps and rubella virus vaccineCorey Dannielle DO Work Phone: [facility]02-25-2019tetanus toxoid, reduced diphtheria toxoid, and acellular pertussis vaccine, adsorbed Delon Dannielle DO Work Phone: [facility]04-20-2018tetanus toxoid, reduced diphtheria toxoid, and acellular pertussis vaccine, adsorbed Scanning ExternalAvita Health System [facility] Hospital08-25-2015human papilloma virus vaccine, quadrivalentCorey Dannielle DO Work Phone: [facility]08-25-2015 meningococcal oligosaccharide (groups A, C, Y and W-135) diphtheria toxoid conjugate vaccine (MCV4O)Delon Dannielle DO Work Phone: [facility]08-25-2015tetanus toxoid, reduced diphtheria toxoid, and acellular pertussis vaccine, adsorbed Delon Dannielle DO Work Phone: [phone] [place], [place] [address]10-14-2005measles, mumps and rubella virus vaccineCorey Dannielle DO Work Phone: [phone]04-22-2002diphtheria, tetanus toxoids and acellular pertussis vaccine, unspecified formulationCorey Dannielle DO Work Phone: [phone] [place], [place] [address]304-22-2002poliovirus vaccine, inactivatedCorey Dannielle DO Work Phone: [phone]04-19-2002measles, mumps and rubella virus vaccineCorey Dannielle DO Work Phone: [phone]05-20-1998diphtheria, tetanus toxoids and acellular pertussis vaccine, unspecified formulationCorey Dannielle DO Work Phone: [phone]05-20-1998haemophilus influenzae type b vaccine, conjugate unspecified formulationCorey Dannielle DO Work Phone: [phone]05-20-1998measles, mumps and rubella virus vaccineCorey Dannielle DO Work Phone: [phone] [place], [place] [address]305-20-1998poliovirus vaccine, inactivatedCorey Dannielle DO Work Phone: [phone] [place], [place] [address]11-05-1997diphtheria, tetanus toxoids and acellular pertussis vaccine, unspecified formulationCorey Dannielle DO Work Phone: [phone] [place], [place] [address]11-05-1997haemophilus influenzae type b conjugate and Hepatitis B vaccineCorey Dannielle DO Work Phone: [phone] [place], [place] [address]308-18-1997diphtheria, tetanus toxoids and acellular pertussis vaccine, unspecified formulationCorey Dannielle DO Work Phone: [phone] [place], [place] [address]308-18-1997haemophilus influenzae type b vaccine, conjugate unspecified formulationCorey Dannielle DO Work Phone: [phone] [place], [place] [address]308-18-1997poliovirus vaccine, inactivatedCorey Dannielle DO Work Phone: [facility]07-07-1997diphtheria, tetanus toxoids and acellular pertussis vaccine, unspecified formulationCorey Dannielle DO Work Phone: [facility]07-07-1997haemophilus influenzae type b vaccine, conjugate unspecified formulationCorey Dannielle DO Work Phone: [facility]07-07-1997poliovirus vaccine, inactivatedCorey Dannielle DO Work Phone: [facility]04-10-1997hepatitis B vaccine, pediatric or pediatric/adolescent dosageCorey Dannielle DO Work Phone: [facility]03-07-1997hepatitis B vaccine, pediatric or pediatric/adolescent dosageCorey Dannielle DO Work Phone: [facility]hillNEGATED: Highlighted row has not occurred!41-35-3000lyfrzdsjm virus vaccine, unspecified formulation Dorian HART [facility] [place] Payers DatePayer CategoryPayerPolicy ID2024Self-pay2023Medicaid[place] [employer] [id number] 2023-Present [address] [place] [id number] Medicaid (Managed Care)[employer] [id number] 2023Medicaid O [id number] [id number] 2..840.3.795408.81177959-22-7687Bjjkxwotea Managed Care - [employer] [id number]2.23647-13-4529Bxtcxnt Health Insurance [id number] 2.6.75549[id number] 2..1.747436.3.57[id number] 2.1.281678.3.57[id number] 2..1.788361.3.57[id number] 2..1.389250.3.57[id number] 2..1.928123.3.579.2.68466-78-1588Icykocr32534025 2..1.076710.3.57[id number] 2.16.840.1.405290.3.579.2.51773-31-5425Myhhibq86504213 2.16.840.1.369948.3.579.2.02264-12-4195Ydmzqjm61553674 2.16.840.1.343789.3.57[id number] 2.16.840.1.151830.3.57[id number] 2.16.840.1.639229.3.579.2.3[id number] 2.16.840.1.571387.3.579.2.46268-43-9425Ivuyavi58724782 2.16.840.1.266859.3.579.2.55823-92-5790Ijoqfsu48436861 2.16.840.1.522366.3.579.2.88830-60-5425Xjybfnw24958489 2.16.840.1.424298.3.579.2.29499-07-3170Jwnbnks28421511 2.16.840.1.388501.3.579.2.79806-39-2301Skmfdsz77638281 2.16.840.1.802877.3.579.2.93699-50-1939Pivwtxv37559903 2.16.840.1.510150.3.579.2.92112-61-4499Lypbhtc41536144 2.16.840.1.910814.3.579.2.94046-19-6154Hmlkdzh39453566 2.16.840.1.744313.3.579.2.13891-74-2659Sgiviyh06168351 2.16.840.1.237600.3.579.2.91170-58-3267Ltzawil63921988 2.16.840.1.666518.3.579.2.51635-13-3782Vrxdnfx55316792 2.16.840.1.797396.3.579.2.07310-89-2630Xljtjzs2435784 2.16.840.1.797744.3.579.2.60954-14-3887Taoiasu17064080 2.16840.1.237391.3.579.2.37866-50-0465Jqkwpyh969386076 2.16840.1.489827.3.579.2.709934-03-1824Qejgnyn411886376 2.16840.1.715609.3.579.2.967906-61-5602Yxcsqtk9650316 2.840.1.763252.3.579.2.781420-94-2200Uzhlkdz0272655 2.16840.1.241812.3.579.2.866823-05-5278Cafkryb1306810 2.0.1.956690.3.579.2.779253-51-1144Dolsiix9971485 2.840.1.778329.3.579.2.767686-47-0332Njoqdxb3924026 2.16840.1.139579.3.579.2.438523-16-8039Yyrmojs3312121 2.16840.1.182456.3.579.2.555676-99-5184Swxqipy3666688 2.16840.1.092608.3.579.2.903196-78-2820Qynqhoy5804428 2.16840.1.463014.3.579.2.748494-78-2871Sgelazg1438967 2.16840.1.353524.3.579.2.464368-06-7857Ztfffwf1031010 2.0.1.533890.3.579.2.262966-65-4066Mtgggzg3746118 2.840.1.645031.3.579.2.224425-59-1220Vunxdnb7132766 2.0.1.966938.3.579.2.565958-45-3243Dxmkiuz9343430 2.0.1.225738.3.579.2.314111-18-1861Ozeqnvt0935555 2.0.1.314293.3.579.2.971203-64-7997Nvzhmxl4676917 2..1.006510.3.579.2.060701-49-9983Xlfnbqs1842545 2..1.544879.3.579.2.967841-21-9561Lcypyky6765693 2.0.1.649859.3.579.2.762752-19-5384Tvaxqov6281389 2..1.278542.3.579.2.509949-00-5385Krzwssu Health [id number] [id number] 2..1.937609.3.579.2.715Ylakvzi33773616 2..1.410148.3.579.2.531 Social History DateTypeDetailFacilityUnknown if ever smokedNort Qumulo Other Start: 10-20-2023 End: 87-86-6757Aqr [facility]: 06-01-2023 End: 98-30-2478Qfqisdt smoking statusNever smoked tobacco (finding)[facility]vueStart: 32-30-9318Snmhofu smoking statusFormer smokeless tobacco user, quit more than 30 days agoGeneral Surgery BellPrem[facility] Southtart: 93-34-3287Nfg Assigned At BirthCleveland Clinic Lutheran Hospitaltart: 10-20-2023 End: 86-76-3029Xonqejr use and exposureSmokeless tobacco non-user[facility] Start: 10-20-2023 End: 21-63-5492Efnvihxkz beverage intakeEx-drinker (finding)[facility] Start: 10-20-2023 End: 66-23-1193Wmnsche of Social functionBrecksville VA [facility] Crille Hospital SystemStart: 78-74-3741IkrcxsvjvONKD HealthcareStart: 32-89-1040Kwp assigned at birthNot on fileSHRINERS HOSPITALS FOR CHILDREN HealthcareStart: 81-15-0414Ysmsmns smoking status NHISEx-smoker [facility] SystemHistory of tobacco useCurrent smokerBrecksville VA [facility] Hospital SystemHistory of tobacco useCigarette SmokerBrecksville VA [facility] SystemStart: 12-11-2014 End: 90-15-7124TcuWoptxy (finding)[facility] SystemStart: 02-06-2024 Alcoholic beverage intakeCurrent non-drinker of alcohol (finding)[facility] SystemNEGATED: Highlighted [facility] Functional Status DtsrPzrkxkmxhtOimhrsUpznlrsi17-46-4810Otwehnhzmc StatusN/AGeneral Surgery [place] Clinical Notes 12-28-2021 to 07-23-2024 Note Date & VwpwNxwqEezoayaz68-13-3665 History of Present illness Narrative* Kayla Jin MA - 07/23/2024 8:30 AM EDTAssociated Order(s): IUD Insertion Post-Procedure Diagnose(s): Encounter for IUD insertion Reason for Appointment: Patient ID: Shen Griggs is a 29 y.o. female who presents for Contraception (Pt present todayfor Mirena insertion ) Patient presents today for a IUD Insertion appointment. MEDICATIONS Current Outpatient Medications Medication Instructions ondansetron ODT (ZOFRAN-ODT) 8 mg, Oral, Every 8 hours PRN MV & Min w/FA-DHA ( Adult Gummy/DHA/FA) 0.4-25 MG chewable tablet Oral ALLERGIES Allergies Allergen Reactions Octacosanol Amoxicillin Hives and Rash Tolerates ceftriaxone Penicillin G Rash SURGICAL HISTORY History reviewed. No pertinent surgical history. REVIEW OF SYSTEMS Review of Systems: Review of Systems Constitutional: Negative. HENT: Negative. Eyes: Negative. Respiratory: Negative. Cardiovascular: Negative. Gastrointestinal: Negative. Genitourinary: Negative. Musculoskeletal: Negative. Skin: Negative. Neurological: Negative. All other systems reviewed and are negative. Hematological: Negative. Endocrine: Negative. Allergic/Immunologic: Negative. OBJECTIVE Objective: Physical Exam Constitutional: Appearance: Normal appearance. She is well-developed. Genitourinary: Vulva normal. Cardiovascular: Rate and Rhythm: Normal rate and regular rhythm. Pulmonary: Effort: Pulmonary effort is normal. Breath sounds: Normal breath sounds. Abdominal: General: Bowel sounds are normal. There is no distension. Palpations: Abdomen is soft. Tenderness: There is no abdominal tenderness. There is no guarding or rebound. Musculoskeletal: General: No swelling. Normal range of motion. Right lower leg: No edema. Left lower leg: No edema. Neurological: Mental Status: She is alert and oriented to person, place, and time. Skin: General: Skin is warm and dry. Psychiatric: Mood and Affect: Mood normal. Behavior: Behavior normal. Vitals and nursing note reviewed. Exam conducted with a piece dyeing machine tender present. Vitals: There is no height or weight on file to calculate BMI. BP: Patient's last menstrual period was 07/02/2024 (approximate). ASSESSMENT & PLAN Assessment/Plan Encounter Diagnosis: ICD-10-CM 1. Encounter for IUD insertion Z30.430 IUD Insertion Performed by: Delon Spicer DO Authorized by: Delon Spicer DO Procedure: IUD insertion Consent obtained by patient, parent, or legal power of compliance attorney - including discussion of procedurerisks and benefits, patient questions answered, and patient education provided: yes Date/Time of Insertion: 07/23/2024 9:41 AM Immediately prior to procedure a time out was called: yes Pelvic exam performed: yes Speculum placed in vagina: yes Cervix cleaned and prepped: yes Tenaculum/Allis/Ring Forceps applied to cervix: yes Anesthesia used: no Cervix dilated: yes Cervix dilated with: Cervical os finder IUD inserted without complications: yes OSM: 52 mg Levonorgestrel 20 MCG/DAY Patient tolerated procedure well: yes Inserted with ultrasound guidance: no Intended removal date: 5 years IUD Insertion: Patient presents today for an IUD Insertion. Patient is having a Mirena placed and written consent was obtained. Patient was placed in the dorsal lithotomy position with feet in stirrups. A sterile speculum ws placed into the vagina and the cervix was visualized. Cervix was cleansed with betadine and the anterior lip was grasped with ring forceps. Uterus was then gently sounded. New IUD device was gently advanced through the endocervix, toward te uterine fundus. The IUD was then deployed as device was gently removed from the uterus. The IUD strings were cut to the length from external os. Allinstruments were removed from the vagina. Post-procedure instructions given. All of patients questions were answered and she expressed understanding. Advised to call interim with any questions or concerns. Follow Up: Patient is to return to the office in 4 weeks for a string check. Documented by Santhosh Trammell behalf of: Delon Spicer DO documented in this encounterMercy hospital [id number] History of Present illness Narrative* Vanessa Nava LPN - 07/18/2024 1:20 PM EDT Reason for Appointment: Patient ID: Shen Griggs is a 29 y.o. female who presents for Contraception Patient presents today for Acute Visit. MEDICATIONS Current Outpatient Medications Medication Instructions ondansetron ODT (ZOFRAN-ODT) 8 mg, Oral, Every 8 hours PRN MV & Min w/FA-DHA ( Adult Gummy/DHA/FA) 0.4-25 MG chewable tablet Oral ALLERGIES Allergies Allergen Reactions Amoxicillin Hives and Rash Tolerates ceftriaxone PROBLEMS Active Ambulatory Problems Diagnosis Date Noted No Active Ambulatory Problems Resolved Ambulatory Problems Diagnosis Date Noted No Resolved Ambulatory Problems Past Medical History: Diagnosis Date ADHD (attention deficit hyperactivity disorder) ([facility]/HCC) HISTORY PAST MEDICAL HISTORY SOCIAL HISTORY Past Medical History: Diagnosis Date ADHD (attention deficit hyperactivity disorder) (CMS/[facility]) Social History Tobacco Use Smoking status: Never Smokeless tobacco: Never Vaping Use Vaping status: Former Substance Use Topics Alcohol use: Not Currently Drug use: Never FAMILY HISTORY Family History Problem Relation Name Age of Onset Hypertension Mother Bipolar disorder Mother SURGICAL HISTORY No past surgical history on file. REVIEW OF SYSTEMS Review of Systems: Review of Systems Constitutional: Negative. HENT: Negative. Eyes: Negative. Respiratory: Negative. Cardiovascular: Negative. Gastrointestinal: Negative. Genitourinary: Negative. Musculoskeletal: Negative. Skin: Negative. Neurological: Negative. All other systems reviewed and are negative. Hematological: Negative. Endocrine: Negative. Allergic/Immunologic: Negative. OBJECTIVE Objective: Physical Exam Constitutional: Appearance: Normal appearance. She is well-developed. Cardiovascular: Rate and Rhythm: Normal rate and regular rhythm. Pulmonary: Effort: Pulmonary effort is normal. Breath sounds: Normal breath sounds. Abdominal: General: Bowel sounds are normal. There is no distension. Palpations: Abdomen is soft. Tenderness: There is no abdominal tenderness. There is no guarding or rebound. Musculoskeletal: General: No swelling. Normal range of motion. Right lower leg: No edema. Left lower leg: No edema. Neurological: Mental Status: She is alert and oriented to person, place, and time. Skin: General: Skin is warm and dry. Psychiatric: Mood and Affect: Mood normal. Behavior: Behavior normal. Vitals and nursing note reviewed. Exam conducted with a piece dyeing machine tender present. Vitals: There is no height or weight on file to calculate BMI. BP: 120/78 Patient's last menstrual period was 07/02/2024 (approximate). ASSESSMENT & PLAN ICD-10-CM 1. control counseling Z30.09 Pt desires IUD- discussed all IUD options. Pt desires Mirena, pt to return on Tuesday for placement.Pt to return 4 weeks after for annual . Documented by Vanessa Nava LPN on behalf of: Delon Spicer DO documented in this encounterMercy hospital [id number] History of Present illness Narrative* Juan Gillespie MD - 05/30/2024 8:30 AM EST Scheduled in error. documented in this encounterAvita Health System [facility]02-11-2025 History of Present illness Narrative* Tomer Lucia CNM - 05/22/2024 1:45 PM EST Subjective No chief complaint on file. Shen Griggs is a 28 y.o. at 38w5d with a working estimated date of delivery of 05/31/2024, by Last Menstrual Period who presents for a routine visit. She denies vaginal bleeding, leakage of fluid, decreased movements, or contractions. was seeing [facility] for possible anomaly-resolved Her is complicated by: The following portions of the chart were reviewed this encounter and updated as appropriate: was seeing [facility] for possible anomaly Objective Physical Exam weight: [...] for a routine visit. documented in this encounterMercy hospital [id number] History of Present illness Narrative* Tomer Lucia CNM - 05/14/2024 1:30 PM EST Subjective No chief complaint on file. Shen [...] for a routine visit. documented in this encounterMercy hospital [id number] History of Present illness Narrative* Tomer Lucia CNM - 05/07/2024 2:00 PM EST Subjective No chief complaint on file. Shen [...] for a routine visit. documented in this encounterMercy hospital [id number] Miscellaneous Notes* Telephone Encounter - Analy Newell - 05/04/2024 1:03 PM EST Received new patient referral. Please call patient to schedule a new patient appointment for Abnormal ultrasonic finding on screening of mother, antepartum IS THIS DUE TO AN ACCIDENT? IS THIS WORKER'S COMP? PLEASE VERIFY IF THIS IS WORKERS COMP AND DOCUMENT (We do not accept any new workers comp cases) WHAT INSURANCE? HAVE YOU EVER BEEN SEEN BY A NEUROLOGIST BEFORE? * Telephone Encounter - Verito Alvarado - 05/04/2024 1:03 PM EST [employer] contacted patient to schedule an appointment. Patient is questioning if she needs to be seenprior to being induced on 05/25/24. If patient does need to be seen before then, please advise whenpatient should be scheduled, first available 05/29/24 * Telephone Encounter - Niecy Ingram RN - 05/04/2024 1:03 PM EST MRI showed elliott cisterna magna. Dr. Gillespie, please advise on scheduling patient. * Telephone Encounter - Niecy Ingram RN - 05/04/2024 1:[address] Gillespie, infant may follow up in the office after . * Telephone Encounter - Verito Alvarado - 05/04/2024 1:03 PM EST [employer] contacted patient and scheduled 05/30/24 @8:30a with Dr Gillespie (okayed with tank shop supervisor). [place] [employer] insurance verified. [facility] Telephone encounter Note* Telephone Encounter - Analy Newell - 05/04/2024 1:03 PM EST Received new patient referral. Please call patient to schedule a new patient appointment for Abnormal ultrasonic finding on screening of mother, antepartum IS THIS DUE TO AN ACCIDENT? IS THIS WORKER'S COMP? PLEASE VERIFY IF THIS IS WORKERS COMP AND DOCUMENT (We do not accept any new workers comp cases) WHAT INSURANCE? HAVE YOU EVER BEEN SEEN BY A NEUROLOGIST BEFORE? [facility] Telephone encounter Note* Telephone Encounter - Verito Alvarado - 05/04/2024 1:03 PM EST [employer] contacted patient to schedule an appointment. Patient is questioning if she needs to be seenprior to being induced on 05/25/24. If patient does need to be seen before then, please advise whenpatient should be scheduled, first available 05/29/24 [facility] [employer] [id number] Telephone encounter Note* Telephone Encounter - Niecy Ingram RN - 05/04/2024 1:03 PM EST MRI showed elliott cisterna magna. Dr. Gillespie, please advise on scheduling patient. [facility]01-[facility] Telephone encounter Note* Telephone Encounter - Niecy Ingram RN - 05/04/2024 1:[address] Gillespie, infant may follow up in the office after . [facility] [employer] [id number] Telephone encounter Note* Telephone Encounter - Verito Alvarado - 05/04/2024 1:03 PM EST [employer] contacted patient and scheduled 05/30/24 @8:30a with Dr Gillespie (okayed with tank shop supervisor). [employer] insurance verified. [facility] History of Present illness Narrative* Tomer Lucia CNM - 04/30/2024 1:00 PM EST Subjective No chief complaint on file. Shen [...] is complicated by: see M Patient states [facility] told her last week she could deliver with me at [facility] and she shouldbe induced at 39 weeks. I will look for report in media and get the most recent updated [facility] reports. Objective Physical Exam weight: 202 [...] for a routine visit. documented in this encounterMercy hospital [id number] History of Present illness Narrative* Kimberli Hollins RN - 04/26/2024 2:30 PM EST Headache/epigastric pain/blurry vision/swelling? No Cramping/contractions? No Abnormal vaginal discharge? Spotting or vaginal bleeding? No Loss or gush of fluid like your water may have broken? No Recent ER visits or hospitalizations? No Any concerns that you would like me to mention to the provider today? No * Russel James MD - 04/26/2024 2:30 PM EST REASON FOR OFFICE VISIT: Follow up HISTORY OF PRESENT ILLNESS: Shen Griggs is a pleasant 28 y.o. G 2 P1 001. at 35w0d due onEstimated Date of Delivery: 05/31/24 . 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 Limited trans performed which showednormal posterior fossa except for elliott cisterna magna. [...] Active Problem List Diagnosis 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) Past Medical History: Diagnosis Date ADHD PAST OBSTETRICAL HISTORY: OB History 2 Para 1 Term 1 AB Living 1 SAB IAB Ectopic Multiple Live Births 1 SURGICAL HISTORY: History reviewed. No pertinent surgical history. ALLERGIES: Allergies Allergen Reactions Amoxicillin CURRENT MEDICATIONS: Current Outpatient Medications: [id number]-btjjk acid ( 19) 29 mg iron- 1 [...] and the other consultants, we search on epic and all the available care everywhere epic I did review all the imaging studies of the patient available on EMR, ordered by the primary care physician and the other data center consultant HABITS: Patient activity no restrictions, diet [...] patient also had a follow-up with the office administration instructor today. I spoke with the Dr. Gustafson from cardiology standpoint [facility] Reviewed with the patient that I would recommend she keeps up with her hydration and compression stockings reviewed RECOMMENDATION: - repeat growth in 4 weeks -Weekly NST and DVP from 34 weeks until delivery setting of the anomalies per patient requestat primary OB office -delivery recommended at 39 weeks -location of delivery local hospital -we will initiate pediatric neurology consultation to ensure evaluation DISPOSITION: At this point the patient is in complete care of her automatic chief. Patient does have ultrasound office visit scheduled with us Thank you for allowing me to participate in Shen Griggs . If there any questions please do not hesitate to contact us. Sincerely, RUSSEL JAMES MD documented in this encounterAv[facility]01-16-2025 History of Present illness Narrative* Georgette Gustafson MD - 04/26/2024 9:00 AM EST [address] [place] [address] April 26, 2024 Patient: Shen Griggs Date [...] over the last few months since she hasbeen in the 3rd trimester she has been [...] which showed normal posterior fossa except for megacisterna magna. Normal cerebellar vermis. Normal appearing 3rd and 4th ventricle. Normal cerebellardiameter. 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 Patient has [...] since 3rd trimester but no syncope but near- syncope. No seizures, numbness, or tingling. Psychiatric/Behavioral: Negative for stress, anxiety or depression. Current Outpatient Medications Medication Sig Dispense Refill [id number]-olvmf acid ( 19) 29 mg iron- 1 [...] -predisposing heart condition such as HCM, LQTS, Brugadasyndrome. Social History: Social History Socioeconomic History Marital [...] dizzy vitals were repeated: blood pressure lying rhq098/66 mmHg with a heart rate of 88 beatsper minute On examination I found a well [...] the patent foremen ovale as well as apatent ductus arteriosus. Both the left-sided ductal as well as the left sided aortic arch were widely patent with laminar flow. Inferior vena cava, superior vena cava, umbilical artery and umbilicalvein as well as ductus venosus Doppler flow [...] of life. Typically neonates require a minimum of24 hrs to transition physiologically. I recommend an echocardiogram be done on the day of dischargeunless there is a clinical concern . However what is more concerning is the Ms Griggs's symptoms during today's evaluation. We repeated her blood pressure and she remains quite hypotensive and symptomatically so. As I discussed with you I do not feel comfortable with her driving home in this state especially when upon standing s he continued to be dizzy despite having hydrated during this echocardiogram. As we discussed [facility]. I do think it may be necessary to place her medication for her hypotension. Time spent with Ms Shen Indu was 120 minutes, 50% or more was face to face interaction coordinating care and discussing pathophysiology and management.This time included time spent preparing for the visit, obtaining and reviewing any outside history/data, taking a history, performing an exam/ evaluation, counseling and educating the patient/family about the diagnosis and plan, performing medical decision making, referring to and communicating with other health care referrals, independently interpreting results and documenting in the EMR, and coordinating care Thank you so much for allowing me to participate in Shen's care .Please feel free to contact meif you have any queries or concerns. Sincerely, Georgette Gustafson M.D. Electrical Controls Engineer [facility] This note is dictated with the use of M*Modal.Please note that this dictation was completed with computer voice recognition software. Quite often unanticipated grammatical, syntax, homophones, and other interpretive errors are inadvertently transcribed by the computer software. Please disregard these errors. Please excuse any errors that have escaped final proofreading. documented in this encounterAv[facility]01-13-[facility]25 History of Present illness Narrative* DANITA Berry - 04/23/2024 1:15 PM EST Subjective No chief complaint on file. Shen [...] for a routine visit. documented in this encounterMercy hospital [id number] History of Present illness Narrative* Tomer Lucia CNM - 04/16/2024 2:30 PM EST Subjective No chief complaint on file. Shen [...] for a routine visit. documented in this [facility]12-31-2024 History of Present illness Narrative* Tomer Lucia CNM - 04/10/2024 10:15 AM EST Subjective No chief complaint on file. Shen [...] the office today Patient to continue seeing [facility] regarding cardiology Expected mode of delivery Follow up in 1 week for a routine visit. documented in this encounterMercy hospital [id number] Telephone encounter Note* Telephone Encounter - oTmer Lucia CNM - 03/29/2024 10:27 AM EST Please review this patient record. 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 So far she is planning to deliver in [place] and [facility] mentioned that in report. She is startingNSTs in my office and BPPs at the hospital at 32 weeks. They have advised that if she delivers at [place] to notify peds ahead of time. FYI for you and care team. Thanks [facility] [id number] Miscellaneous Notes* Telephone Encounter - Tomer Lucia CNM - 03/29/2024 10:27 AM EST Please review this patient record. 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 So far she is planning to deliver in [place] and [facility] mentioned that in report. She is startingNSTs in my office and BPPs at the hospital at 32 weeks. They have advised that if she delivers at [place] to notify peds ahead of time. TANNER for you and care team. Thanks documented in this encounterMercy hospital [id number] History of Present illness Narrative* Tomer Lucia CNM - 03/29/2024 9:30 AM EST Subjective No chief complaint on file. Shen [...] visit and begin increased surveillance testing. NSTs inmy office and BPPs at [facility] documented in this encounterMercy hospital [id number] History of Present illness Narrative* Tomer Lucia CNM - 03/01/2024 9:15 AM EST Subjective No chief complaint on file. Shen [...] electrolytes and liquid IV to help with balanceand see if that helps The following portions [...] a lot of water, but sometimes it happenswhen she hasn't eaten or needs to eat. [...] for a routine visit. documented in this encounterMercy hospital [id number] History of Present illness Narrative* Brionna Finch RN - 02/23/2024 1:00 PM EST Headache/epigastric pain/blurry vision/swelling? NO Cramping/contractions? NO Abnormal vaginal discharge? NO Spotting/vaginal bleeding? NO Loss or gush of fluid like your water may have broken? NO Do you have cats at home? NO Do you change the litter box (reason: risk of toxoplasmosis)? N/A Genetic testing done this here or other office? NO Have you been seen here at [facility] in a previous ? NO Recent ER visits or hospitalizations? NO Bring blood sugar log or meter with you today? (Please bring them with you for every visit at [facility]) N/A Flu vaccine (Feb-June)? NO Any concerns that you would like me to mention to the provider today? NO * Lanre Dempsey MD - 02/23/2024 1:00 PM EST REASON FOR CONSULTATION: Isolated elliott cisterna magna. HISTORY OF PRESENT ILLNESS: Shen Griggs is a pleasant 28 y.o. G 2 P1 001. at 26w0d due on Estimated Date of Delivery: 05/31/24 . Patient was seen today due to the following 1. Isolated elliott cisterna magna. Limited trans performed which showed normal posterior fossa exceptfor elliott cisterna magna. Normal cerebellar vermis. 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 SOCIAL HISTORY:Patient denies tobacco use, alcohol use, or drug use. RECENT HOSPITALIZATION: none I did review all the labs results available in addition to labs which were ordered by the primary care physician, and the other consultants, we search on [employer] and all the available care everywhere epic I did review all the imaging studies of the patient available on EMR, ordered by the primary care physician and the other data center consultant HABITS: Patient activity no restrictions, diet [...] does not exist, the cerebellar vermis is presentand normal in size, and the posterior fossa [...] 3. Patient is scheduled for MRI at [facility]. 4. Most likely a elliott cisterna magna [...] patient is in complete care of her automatic chief. Patient does have ultrasound office visit scheduled with us Thank you for allowing me to participate in Shen Griggs . If there any questions please do nothesitate to contact us. Sincerely, LANRE DEMPSEY MD documented in this encounterAvita [facility]10-24-2024 History of Present illness Narrative* Tomer Lucia CNM - 02/02/2024 2:30 PM EDT Subjective No chief complaint on file. Shen [...] for a routine visit. documented in this encounterMercy hospital [id number] Telephone encounter Note* Telephone Encounter - Emily Mayberry - 01/20/2024 3:01 PM EDT Pt is 21 weeks and wants to know if she can use Miralax for constipation, she is going since the last week, nothing coming out, and in a lot of pain. Pt calling her PCP to see if she can get advice from someone Forwarded message to Mary. [facility] [id number] Miscellaneous Notes* Telephone Encounter - Emily Mayberry - 01/20/2024 3:01 PM EDT Pt is 21 weeks and wants to know if she can use Miralax for constipation, she is going since the last week, nothing coming out, and in a lot of pain. Pt calling her PCP to see if she can get advice from someone Forwarded message to Mary. documented in this encounterMercy hospital [id number] Telephone encounter Note* Telephone Encounter - Uyen Lou MA - 01/16/2024 3:02 PM EDT Spoke with pt and per Va;l pt is to go to [place] ER to get evaluated. Pt states she has to pick her daughter up from school and then she will head to the ER [facility] [id number] Miscellaneous Notes* Telephone Encounter - Uyen Lou MA - 01/16/2024 3:02 PM EDT Spoke with pt and per Gloria;kimberly pt is to go to [place] ER to get evaluated. Pt states she has to pick her daughter up from school and then she will head to the ER * Telephone Encounter - Sruthi Mota - 01/16/2024 10:54 AM EDT Pt calling to report she's having palpitations with no activity. She said she's sititing eating breakfast, or in class and feels like she just ran up stairs has happened 2 times in last 3 days. She said she tried to count and got 110-116 beats per minute, and now she's freaking herself out a littlethinking about it and just wants to make sure everything is okay. I let pt know you will be in at 1today. documented in this encounterMercy hospital spr[id number] Telephone encounter Note* Telephone Encounter - Sruthi Mota - 01/16/2024 10:54 AM EDT Pt calling to report she's having palpitations with no activity. She said she's sititing eating breakfast, or in class and feels like she just ran up stairs has happened 2 times in last 3 days. She said she tried to count and got 110-116 beats per minute, and now she's freaking herself out a littlethinking about it and just wants to make sure everything is okay. I let pt know you will be in at 1today. [facility] [id number] History of Present illness Narrative* Tomer Lucia CNM - 01/12/2024 10:30 AM EDT Subjective No chief complaint on file. Shen [...] for a routine visit. documented in this encounterMercy hospital [id number] History of Present illness Narrative* Tomer Lucia CNM - 12/15/2023 9:30 AM EDT Subjective No chief complaint on file. Shen [...] for a routine visit. documented in this encounterMercy hospital [id number] NoteChief Complaint consultation for hemorrhoids HPI Staff 27 year old female presents on consultation from Dr. Kay for hemorrhoids. Reports approximate 4-5year history of noting external anal bulge. Reports [...] swallowing difficulties, no hearing loss, no ear infection(s),no nose bleeds. Cardiovascular: normal blood pressure, no [...] wipes or TUCKs pads; if persistent symptoms, mayrequire flexible sigmoidoscopy; call with problems/questions. Follow-up No [...] virus vaccine, inactivated - Not Given Patient RefusesWadsworth-Rittman HospitalComment on above:Result Comment: Electronically Signed By: TANNER ANDRADE, Dorian Nichols\Date and Time Signed: 06/01/23 20:27 [id number] Evaluation note* Encounter Date Diagnosis Assessment Notes Treatment Notes Treatment Clinical Notes May, Attention deficit hy peractivity disorder (ADHD), predominantly inattentive type (ICD-10 - [...] a controlled environment w/o inappropriate outbursts or inabilityto pay attention as needed prior to next visit in one month. Return to the office as directed for re-evaluation, call sooner with concerns or side effects or non-effectiveness. You have been prescribed Stimulant for ADD. Please monitor closely for symptoms of decreased appetite, insomnia, anxiety and agitation. [facility] Other 01-11-2024 Evaluation note* Encounter Date Diagnosis Assessment Notes Treatment Notes Treatment Clinical Notes Apr, Attention deficit hy peractivity disorder (ADHD), predominantly inattentive type (ICD-10 - [...] a controlled environment w/o inappropriate outbursts or inabilityto pay attention as needed prior to next visit in one month. STATUS: New/continuous BARRIERS: physical, intellectual ability, financial, emotional and family support. Return to the office as directed for re- evaluation, call sooner with concerns or side effectsor non-effectiveness. You have been prescribed Stimulant for ADD. Please monitor closely for symptoms of decreased appetite, insomnia, anxiety and agitation. Apr,Wellness examination (ICD-10 - Z00.00)Personalized health advice about screenings discussed and provided. Additional counseling was provided here today in regards to general topics regarding health education were discussed in detail. Allpreventative issues were discussed including remaining a nonsmoker, colorectal screening, the importance of proper sleep for brain health maintenance, maintaining a heart-healthy balanced diet, recognizing and addressing signs of anxiety and depression, maintaining positive relationships with family and friends. Apr,Hemorrhoids, unspecified hemorrhoid type (ICD-10 - K64.9)Referral placed per pt request for evaluation of hemorrhoids and further treatment or options. [facility] Other 06-23-2023 Evaluation note* Encounter Date Diagnosis [...] no improvement in 2 to 3 days Sep,cute otitis externa of right ear, unspecified type (ICD-10 - H60.501) [facility] Other 09-19-2022 Evaluation note* Encounter Date Diagnosis Assessment Notes Treatment Notes Treatment Clinical Notes Dec, Contact with and (krause spected) exposure to other viral communicable diseases (ICD-10 - Z20.828) Dec,trep pharyngitis (ICD-10 - J02.0)Strep throat material was printed Drink plenty fluids, get plenty of rest. Take the azithromycin as prescribed until gone. Take Tylenol or Motrin as needed for aches pains or fevers. Off work today and tomorrow. Follow-up with your family physician if no improvement in 2 to 3 days. [facility] Other Evaluation + Plan note No data available for this section [facility] [place] Evaluation note* Diagnosis Onset Date Resolution Status [id number] Hospitals [facility] Work Phone: Evaluation note* Diagnosis Onset Date Resolution Status [id number] [facility] Work Phone: Evaluation note* Diagnosis Onset Date Resolution Status [id number] (urinary tract infection)[facility] Work Phone: Evaluation note* Diagnosis Encounter [...] of - Primary documented in this encounter [facility]* Diagnosis Abnormal ultrasonic finding on screening of mother, antepartum- Primary 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 of documented in [facility]* Diagnosis Anomaly of heart of fetus affecting , antepartum, single or unspecified fetus- Primary Abnormal ultrasonic finding on screening of mother, antepartum Postural dizziness with near syncope documented in this encounter [facility]* Diagnosis Encounter for supervision of other normal , third trimester- Primary congenital anomaly documented in this encounter [facility] HealthcareEvaluation [facility]* Diagnosis Encounter for supervision of other normal , third trimester- Primary screening for streptococcus B screening for Streptococcus B congenital anomaly documented in this encounter [facility] HealthcareEvaluation note* Diagnosis Encounter for supervision of other normal , third trimester- Primary congenital anomaly documented in this encounter [facility] HealthcareEvaluation note* Diagnosis Encounter for supervision of other normal , third trimester- Primary congenital anomaly documented in this encounter [facility] HealthcareEvaluation note* Diagnosis Elliott cisterna magna (CMS-HCC)- Primary documented in this encounter [facility]* Diagnosis Abnormal obstetric ultrasound scan- Primary [facility]* Diagnosis Abnormal ultrasonic finding on screening of mother, antepartum- Primary documented in this encounter [facility] Hospital[facility] noteNo assessment information available [facility] Work Phone: Evaluation note* Diagnosis Abnormal ultrasonic finding on screening of mother, antepartum documented in this encounter [facility]* Diagnosis Onset Date Resolution Status Admit Date Attention deficit hyperactivity disorder (ADHD), predominantly hyperactive acuteFebruary 2024 10:03am [facility] Work Phone: Evaluation note* Diagnosis control counseling documented in this encounter [facility] HealthcareEvaluation note* Diagnosis Encounter for IUD insertion Insertion of intrauterine contraceptive device documented in this encounter [facility] HealthcareEvaluation note* Diagnosis Onset Date Resolution Status Admit Date Attention deficit hyperactivity disorder (ADHD), predominantly hyperactive acuteJune 2024 8:35am [facility] Work Phone: History general Narrative - Reported* Type Description Date Medical History IBS Surgical HistoryColonoscopy TNC Other Hospital Discharge instructions No data available for this section General [facility] Discharge instructionsAmbulatory Orders* Urine Culture Time Frame: 09/15/23, Location: Determined By Patient [facility] Work Phone: Hospital Discharge instructionsAmbulatory Orders* Referral to Psychiatry Time Frame: 09/11/24, Location: None Selected [facility] Work Phone: Instructions* Attachments The following attachments cannot be sent through Care Everywhere. * Preeclampsia (Kyrgyz) * Movement (Kyrgyz) documented in this encounterProMedica Health SystemInstructionsNot on file documented in this encounterProReaching Our Outdoor Friends (ROOF) Health SystemInstructionsNot on file documented in this encounterProMediCitizenNet Health SystemInstructionsNot on file documented in this encounterProMediCitizenNet Health SystemInstructionsNot on file documented in this encounterProMediCitizenNet Health SystemInstructionsNot on file documented in this encounterProProNurse Homecare & Infusion SystemInstructionsNot on file documented in this encounterProReaching Our Outdoor Friends (ROOF) Health SystemProgress note No data available for this section General Surgery [facility] Summary Purpose Family History Relationship Condition Age at Onset Recorded Date/T ghislaine Not Specified Family history of mental disorder Unknow n HypertensionUnknown Relationship Condition Age at Onset Recorded Date/T ghislaine mother Family history of mental disorder Unknown HypertensionUnknown Advance Directives Advance Directive Response Recorded Date/ Time Advance Directives No May 19, 2023 11:52am Advance Directive Response Recorded Date/ Time Advance Directives No September 22 9:36am Advance Directive Response Recorded Date/ Time Advance Directives No September 22 10:36am Reason for Referral Reason evaluate Diagnosis 1 Hemorrhoids, unspeci fied hemorrhoid type (K64.9) Referral Organization [facility] Referring Provider First Name Uyen Referring Provider Last Name Nateacher Referring Provider Specialty Nurse Pract itioner Referred Organization Unknown Facility Referred Provider Dorian Hart Referred Provider Specialty Surgery Referral Priority Routine Chief Complaint and Reason for Visit Chief Complaint Wellness/ Ibs 4 WEEK CHECK UP 4 week follow upReason for [id number] Chief Complaint 4 WEEK CHECK UP 4 week follow up 4 week follow upReason for [id number] Chief Complaint 4 week follow up 4 week follow up UAReason for [id number] Chief Complaint 4 week follow up 4 week follow up UAReason for [id number] UTI (urinary tract infection) Chief Complaint Admit Date Amb Documentation April 27, 2024 1 1:00am Unknown May 25, 2024 12:41pm Chief Complaint Admit Date Amb Documentation April 27, 2024 1 1:00am Unknown May 25, 2024 12:41pm Discuss Medication May 31, 2024 10:03am Reason for Visit Admit Date Attention deficit hyperactiv ity disorder (ADHD), predominantly hyperactive May 31, 2024 10:03am Chief Complaint Admit Date F/U Adderall September 11, 2024 8:35a m Reason for Visit Admit Date Attention deficit hyperactiv ity disorder (ADHD), predominantly hyperactive September 11, 2024 8:35am Additional Source Comments INFORMATION SOURCE (unrecogn ized section and content) DATE CREATED AUTHOR 10/31/2017 [facility] DATE CREATED AUTHOR AUTHOR'S ORGANIZ ATION 03/31/2018 [facility] DATE CREATED AUTHOR AUTHOR'S ORGANIZ ATION 05/30/2018 [facility] DATE CREATED AUTHOR AUTHOR'S ORGANIZ ATION 11/17/2020 [facility] DATE CREATED AUTHOR AUTHOR'S ORGANIZ ATION 06/09/2023 [facility] DATE CREATED AUTHOR AUTHOR'S ORGANIZ ATION 05/24/2024 [facility] DATE CREATED AUTHOR AUTHOR'S ORGANIZ ATION 05/31/2024 [facility] DATE CREATED AUTHOR AUTHOR'S ORGANIZ ATION 06/01/2024 [facility] DATE CREATED AUTHOR AUTHOR'S ORGANIZ ATION 07/23/2024 [facility] EPIC REASON FOR VISIT (unrecogniz ed section and content) ReasonCommentsenlarged cirsterna mangapossible clint cystmuscular VSDReason CommentsFetal observation of Muscular VSDSpecialtyDiagnoses / ProceduresReferred By ContactReferred To ContactPediatric Cardiology Diagnoses Abnormal ultrasonic finding on screening of mother, antepartum Russel James MD [address], [address] [place] [address] Phone: tel: fax: [place] [address] [place] [address] [address] Phone: tel: fax: Referral IDStatusReasonStart DateExpiration DateVisits RequestedVisits [id number] Review Specialty Services Required 1ReasonOnset DateCommentsNew Qtovihv3805/04/2024Reason CommentsFetal survey assessmentReasonCommentsNew PatientAbnormal ultrasonic finding on screening of motherSpecialtyDiagnoses / ProceduresReferred By ContactReferred To ContactPediatric Neurology Diagnoses Abnormal ultrasonic finding on screening of mother, antepartum Russel James MD [address], [address] [place] [address] Phone: tel: fax: Juan Gillespie MD [address] [place] [address], [address] [place] [address] Phone: tel: fax: Referral IDStatusReasonStart DateExpiration DateVisits RequestedVisits [id number] Review Specialty Services Required [id number]wwPgztfcZbwezcpgCigvsvriytsyjEz present today for Mirena insertion Patient Care team informatio n (unrecognized section and content) Team Status: Active Member Role Status Dates Uyen Martel APRN GEAR REPAIRER-C Primary Care Provider Active Team Status: Inactive Member Role Status Dates MARLEE Padilla Attending Provider Act lorena Start: April 21, 2023 End: April 21, 2023 Team Status: Inactive Member Role Status Dates MARLEE Padilla Primary Care Provider, Attending Provider Active Start: June 16, 2023 End: June 16, 2023 Team Status: Inactive Member Role Status Dates Uyen Martel APRN GEAR REPAIRER-C Primary Care Provider, Attending Provider Active Start: July 14, 2023 End: July 14, 2023 Team Status: Inactive Member Role Status Dates Uyen Martel APRN GEAR REPAIRER-C Primary Care Provider, Attending Provider Active Start: August 15, 2023 End: August 15, 2023 Team Status: Inactive Member Role Status Dates Uyen Martel APRN GEAR REPAIRER-C Primary Care Provider, Attending Provider Active Start: September 15, 2023 End: September 15, 2023Team MemberRelationshipSpecialtyStart DateEnd Date DustinacostaUyen wong APRN-GEAR REPAIRER [address] [facility] [place] [address] PCP - GeneralNurse Uqjepezqaawr48/5/24Team MemberRelationshipSpecialtyStart Date End Date DustinlevyUyenMARLEE-GEAR REPAIRER [address] [facility] [place] [address] PCP - GeneralNurse Bmhtmniuligl55/5/24Team MemberRelationshipSpecialtyStart Date End Date DustindotUyen donnelly APRN-GEAR REPAIRER [address] [facility] [address] PCP - GeneralNurse Nxakhshifjyp99/5/24Team MemberRelationshipSpecialtyStart Date End Date Uyen Martel NP [address] [facility] PCP - GeneralFamily Medicine05/07/24Team MemberRelationshipSpecialtyStart DateEnd Date Uyen Martel NP [address] [facility] [address] PCP - GeneralFamily Medicine05/07/24Team MemberRelationshipSpecialtyStart DateEnd Date Uyen Martel APRN-ZEINA [address] [facility] [place] [address] PCP - GeneralNurse Qgypylkfzewy15/5/24Team MemberRelationshipSpecialtyStart Date End Date Uyen Martel NP [address] [facility] [place] [address] PCP - GeneralFamily Medicine05/07/24Team MemberRelationshipSpecialtyStart DateEnd Date Uyen Martel NP [address] [facility] [place] [address] PCP - GeneralFamily Medicine05/07/24Team MemberRelationshipSpecialtyStart DateEnd Date Uyen Martel NP [address] [facility] [place] [address] PCP - GeneralFamily Medicine05/07/24Team MemberRelationshipSpecialtyStart DateEnd Date No Pcp, [place] [address] PCP - GeneralFamily Medicine07/29/17Team MemberRelationshipSpecialtyStart DateEnd Date No Pcp, [place] [address] PCP - GeneralFamily Medicine07/29/17Team MemberRelationshipSpecialtyStart DateEnd Date No Pcp, [place] [address] PCP - GeneralFamily Medicine07/29/17Team MemberRelationshipSpecialtyStart DateEnd Date No Pcp, [place] [address] PCP - GeneralFamily Medicine07/29/17Team MemberRelationshipSpecialtyStart DateEnd Date No Pcp, [place] [address] PCP - GeneralFamily Medicine07/29/17Team MemberRelationshipSpecialtyStart DateEnd Date Uyen Martel APRN-GEAR REPAIRER [address] [place] [address] PCP - GeneralNurse Urmwuiftqoas70/5/24 Team Status: Active Member Role Status Dates Uyen Martel APRN GEAR REPAIRER-C Primary Care Provider Active Start: April Marilyn Wright CMAAttending ProviderActiveStart: April 27, 2024 Team Status: Active Member Role Status Dates Uyen Martel APRN GEAR REPAIRER-C Primary Care Provider Active Start: May 252024 Tomer Lucia APRNAttending ProviderActiveStart: May 25, 2024 Team Status: Inactive Member Role Status Dates Delon Spicer DO Attending Provider Active Start : May 25, 2024 End: May 25, 2024Team MemberRelationshipSpecialtyStart DateEnd Date Uyen Martel APRN-GEAR REPAIRER [address] [place] [address] PCP - GeneralNurse Dbtrwfnannef06/5/24 Team Status: Inactive Member Role Status Dates Uyen Martel APRN GEAR REPAIRER-C Primary Care Provider, Attending Provider Active Start: May 31, 2024 End: May 31, 2024Team MemberRelationshipSpecialtyStart DateEnd Date Uyen Martel NP [address] [place] [id number] PCP - GeneralFamily Medicine05/07/24Team MemberRelationshipSpecialtyStart DateEnd Date Uyen Martel GEAR REPAIRER [address] [place] [address] [facility] - [facility]05/07/24 Team Status: Inactive Member Role Status Dates Uyen Martel APRN GEAR REPAIRER-C Primary Care Provider, Attending Provider Active Start: September 11, 2024 End: September 11, 2024 Goals (unrecognized section and content) Goals may [...] BE BASED ON THE PRIMARY CLINICAL RECORDS. [employer] [facility]. provides no warranty or guarantee of the accuracy or completeness of information in this document.
== END 2025-04-05 17:24 | disposition home or self-care (01) ==
PROVIDERS: Emergency Provider Student in an Organized Health Care Education/Training Program; PCP Nurse Practitioner Family
DX: J10.1 Influenza due to other identified influenza virus with other respiratory manifestations (principal)
CPT/HCPCS: 71045; 87804; 87811; 99283; 99285